=== PATIENT | male | born 1990 | race Caucasian/White ===

== ENCOUNTER 2018-05-05 13:37 | Emergency (ER) | payer BC, OTHER ==
[2018-05-05 13:43] VITALS: RESP 18
--- NOTE | 2018-05-05 14:28 | ED ---
General Adult HPI - General Chief complaint: Psychiatric Symptoms Stated complaint: Mental Health Time Seen by Provider: 05/05/18 14:14 Source: patient, RN notes reviewed Mode of arrival: ambulatory Limitations: no limitations - History of Present Illness Initial comments: Patient is a 28-year-old male presented to the emergency room today with a chief complaint of needing psychiatric evaluation. Patient does admit that his thoughts of harming himself. He does admit that he's thought of suicide. He states that he would try to overdose. He does admit to being a heroin, meth, and alcoholic. Patient states that last use of these was last night. He does admit that it seems to be every time this year things seem to be worse. He does admit that he has been seen in the hospital for these symptoms in the past. States does not feel that they're getting any better. Patient states that he has feelings of increased aggression. He states it's not towards anyone specifically. Patient states that he is afraid that he is going to hurt himself as thoughts of suicide syncope increasing. Patient denies any other complaints. Denies any recent cough, cold, fevers, chills, chest pain, shortness of breath, nausea, vomiting, diarrhea, abdominal pain, headache, visual change. - Related Data Home Medications Medication Instructions Recorded Confirmed Naproxen Sodium [Aleve] 220 mg PO DAILY 05/05/18 05/05/18 Allergies Allergy/AdvReac Type Severity Reaction Status Date / Time Penicillins Allergy Unknown Unknown Verified 05/05/18 14:51 Review of Systems ROS Statement: Those systems with pertinent positive or pertinent negative responses have been documented in the HPI. ROS Other: All systems not noted in ROS Statement are negative. Past Medical History Past Medical History: No Reported History Additional Past Medical History / Comment(s): opiod dependency, mood disorder, depression and Hep C History of Any Multi-Drug Resistant Organisms: MRSA Date of last positivie culture/infection: 02/24/2010 MDRO Source:: left knee Past Surgical History: No Surgical Hx Reported Past Anesthesia/Blood Transfusion Reactions: No Reported Reaction Past Psychological History: Anxiety, Depression Smoking Status: Current every day smoker Past Alcohol Use History: Daily, Occasional Past Drug Use History: Heroin, IV Drug Use, Marijuana, Opiates General Exam - General Exam Comments Initial Comments: General: The patient is awake and alert. Eye: Pupils are equal, round and reactive to light, extra-ocular movements are intact. No nystagmus. There is normal conjunctiva bilaterally. No signs of icterus. Ears, nose, mouth and throat: There are moist mucous membranes and no oral lesions. Neck: The neck is supple Cardiovascular: There is a regular rate and rhythm. No murmur, rub or gallop is appreciated. Respiratory: Lungs are clear to auscultation, respirations are non-labored, breath sounds are equal. No wheezes, stridor, rales, or rhonchi. Musculoskeletal: Normal ROM, no tenderness. Neurological: A&O x 3. CN II-XII intact, There are no obvious motor or sensory deficits. Coordination appears grossly intact. Speech is normal. Skin: Skin is warm and dry and no rashes or lesions are noted. Psychiatric: Cooperative. depressed affect. Limitations: no limitations Course Vital Signs 05/05/18 13:40 Temperature 97.4 F L Pulse Rate 104 H Respiratory 18 Rate Blood Pressure 147/83 O2 Sat by Pulse 98 Oximetry Medical Decision Making - Medical Decision Making Patient was seen here in the emergency room by mental health. Mental health recommends the patient can be discharged and follow up outpatient. He denies any suicidal thoughts or plans. Denies any homicidal thoughts or plans. He did state to mental health that his objective was to try to get benzodiazepines by coming here. Patient denies any suicidal or homicidal ideation. Vision will be discharged home to follow up outpatient. Disposition Clinical Impression: Drug abuse Disposition: HOME SELF-CARE Condition: Good Instructions: Polysubstance Abuse (ED) Additional Instructions: Please follow-up with mental health outpatient as discussed. Please return to emergency room if the symptoms increase or worsen or for any other concerns. Is patient prescribed a controlled substance at d/c from ED?: No Referrals: None,Stated [Primary Care Provider] - 1-2 days Time of Disposition: 17:11
[2018-05-05 18:22] VITALS: BP 141/84; PULSE 93; TEMP 98.3
== END 2018-05-05 18:19 | disposition home or self-care (01) ==
LOC: EC 13:37
DX: F15.10 Other stimulant abuse, uncomplicated (principal); F11.10 Opioid abuse, uncomplicated; F10.10 Alcohol abuse, uncomplicated; F32.9 Major depressive disorder, single episode, unspecified; F17.200 Nicotine dependence, unspecified, uncomplicated; Z86.14 Personal history of Methicillin resistant Staphylococcus aureus infection; Z79.1 Long term (current) use of non-steroidal anti-inflammatories (NSAID); Z88.0 Allergy status to penicillin
CPT/HCPCS: 82075; 99285

== ENCOUNTER 2018-05-25 17:40 | Emergency (ER) | payer OTHER ==
[2018-05-25] MEDS ORDERED: ZIPRASIDONE 20 MG VIAL IM STA (17:55)
[2018-05-25] MEDS ORDERED: LORazepam 2 MG/ML INJ IM STA (17:55)
--- NOTE | 2018-05-25 18:06 | ED ---
General Adult HPI - General Source: patient, RN notes reviewed Mode of arrival: ambulatory Limitations: no limitations <Joseph Yancey - Last Filed: 05/25/18 20:44> <Gladys Moran - Last Filed: 05/25/18 22:54> - General Chief complaint: Psychiatric Symptoms Stated complaint: mental health Time Seen by Provider: 05/25/18 17:40 - History of Present Illness Initial comments: This is a 28-year-old male who was found yelling on his phone in the main lobby when security approached me stating he needed to be seen they brought him to the ER waiting room where he started making a scene yelling and screaming not making any sense so they brought him back to the room. When I approached him he refused to answer any questions just started yelling and screaming about multiple topics none of which were connected. Patient refused to get in bed patient refused to get a gown. Patient was very aggressive and hostile getting right up into my face when he was screaming and yelling I asked him multiple times to sit down and he refused at which point in time we had to restrain him. She refuses to answer any questions after he was unrestrained but he does continue to yelling and screaming and be very hostile. (Joseph Yancey) - Related Data Home Medications Medication Instructions Recorded Confirmed Naproxen Sodium [Aleve] 220 mg PO DAILY PRN 05/05/18 05/25/18 Allergies Allergy/AdvReac Type Severity Reaction Status Date / Time Penicillins Allergy Unknown Unknown Verified 05/25/18 17:56 Review of Systems ROS Other: All systems not noted in ROS Statement are negative. <Joseph Yancey - Last Filed: 05/25/18 20:44> ROS Other: All systems not noted in ROS Statement are negative. <Gladys Moran - Last Filed: 05/25/18 22:54> ROS Statement: Those systems with pertinent positive or pertinent negative responses have been documented in the HPI. Past Medical History Past Medical History: No Reported History Additional Past Medical History / Comment(s): opiod dependency, mood disorder, depression and Hep C History of Any Multi-Drug Resistant Organisms: MRSA Date of last positivie culture/infection: 02/24/2010 MDRO Source:: left knee Past Surgical History: No Surgical Hx Reported Past Anesthesia/Blood Transfusion Reactions: No Reported Reaction Past Psychological History: Anxiety, Depression Smoking Status: Current every day smoker Past Alcohol Use History: Daily, Occasional Past Drug Use History: Heroin, IV Drug Use, Marijuana, Opiates <Lio Yanceye - Last Filed: 05/25/18 20:44> General Exam Limitations: no limitations <YanceyJoseph - Last Filed: 05/25/18 20:44> <Gladys Moran - Last Filed: 05/25/18 22:54> - General Exam Comments Initial Comments: GENERAL: Patient is well-developed and well-nourished. Patient is very hostile and aggressive and he is yelling and screaming at the top of his lungs. ENT: Neck is soft and supple. EYES: The sclera were anicteric and conjunctiva were pink and moist. PULMONARY: Unlabored respirations. Good breath sounds bilaterally. No audible rales rhonchi or wheezing was noted. CARDIOVASCULAR: There is a regular rate and rhythm without any murmurs gallops or rubs. ABDOMEN: Soft and nontender with normal bowel sounds. SKIN: Skin is clear with no lesions or rashes and otherwise unremarkable. NEUROLOGIC: Patient is alert and oriented I cannot assess the patient's orientation because he is not answering my questions. He seems to know who he is and that he is in the hospital. Patient's extremities all have full range of motion. MUSCULOSKELETAL: Normal extremities with adequate strength and full range of motion. No lower extremity swelling or edema. No calf tenderness. LYMPHATICS: No significant lymphadenopathy is noted PSYCHIATRIC: Patient is yelling and screaming he's not make any sense he's telling me he wants to be here that he tells me he doesn't know what will be a little formal I ask drawn he says everything is wrong and he is screaming at the top of his lungs. (Joseph Yancey) Vital Signs 05/25/18 20:46 Temperature 96.7 F L Pulse Rate 71 Respiratory 15 Rate Blood Pressure 125/98 O2 Sat by Pulse 96 Oximetry Procedures - Restraint - Face to Face Restraint Occurrence 1 Patient's Immediate Situation: Endangers others' safety, Endangers staff safety , Violent behavior Patient's Reaction to the Intervention: Uncooperative, Angry, Hostile, Belligerent, Bizarre, Aggressive, Combative Patient's Medical & Behavioral Condition: Awake, Agitated, Bizarre behavior Need to Continue or Terminate Restraint or Seclusion: Continue Face to Face Eval of Restraint Date: 05/25/18 Face to Face Eval of Restraint Time: 18:30 <Joseph Yancey - Last Filed: 05/25/18 20:44> Medical Decision Making <Joseph Yancey - Last Filed: 05/25/18 20:44> <Gladys Moran - Last Filed: 05/25/18 22:54> - Medical Decision Making Before the patient was sedated I had EPS come down to evaluate the patient so EPS arrived apparently never evaluated the patient and now we need to wait for the medications wear off so they can come down and evaluate the patient properly. Dr. Moran will be taking over the care of this patient at 9 PM (Joseph Yancey) Disposition <Joseph Yancey - Last Filed: 05/25/18 20:44> Is patient prescribed a controlled substance at d/c from ED?: No <Gladys Moran - Last Filed: 05/25/18 22:54> Clinical Impression: Amphetamine abuse, Agitation, Substance abuse Disposition: HOME SELF-CARE Condition: Stable Instructions: Methamphetamine Abuse (ED), Cannabis Abuse (ED), Polysubstance Abuse (ED), Opioid Withdrawal (ED) Referrals: None,Stated [Primary Care Provider] - 1-2 days
[2018-05-25 23:12] VITALS: BP 117/71; PULSE 91; RESP 16; TEMP 97.9
== END 2018-05-25 23:21 | disposition home or self-care (01) ==
LOC: EC 17:40
DX: F15.10 Other stimulant abuse, uncomplicated (principal); R45.1 Restlessness and agitation; F17.200 Nicotine dependence, unspecified, uncomplicated; F32.9 Major depressive disorder, single episode, unspecified; F41.9 Anxiety disorder, unspecified; Z86.14 Personal history of Methicillin resistant Staphylococcus aureus infection; Z86.19 Personal history of other infectious and parasitic diseases; Z88.0 Allergy status to penicillin
CPT/HCPCS: 82075; 99285; 96372 ×2; J2060; J3486

== ENCOUNTER 2019-04-13 08:04 | Inpatient (IN) | payer OTHER ==
--- NOTE | 2019-04-13 09:01 | XR ---
EXAMINATION TYPE: XR knee complete LT DATE OF EXAM: 04/13/2019 CLINICAL HISTORY: pain TECHNIQUE: Three views of the left knee are obtained. COMPARISON: None. FINDINGS: There is no acute fracture/dislocation. The tri-compartment joint spaces appear within no rmal limits. The overlying soft tissue appears unremarkable. IMPRESSION: There is no acute fracture or dislocation ICD 10 NO FRACTURE, INITIAL EVALUATION
--- NOTE | 2019-04-13 09:01 | XR ---
EXAMINATION TYPE: XR pelvis AP view DATE OF EXAM: 04/13/2019 CLINICAL HISTORY: pain TECHNIQUE: Single view the pelvis is submitted. FINDINGS: No evidence for fracture, dislocation or bony lesion. Joint spaces are well-preserved. S I joints appear symmetric. IMPRESSION: 1. No acute fracture or dislocation seen. ICD 10 NO FRACTURE, INITIAL EVALUATION
--- NOTE | 2019-04-13 09:04 | ED ---
General Adult HPI - General Chief complaint: Overdose Stated complaint: poss overdose Time Seen by Provider: 04/13/19 08:04 Source: patient, RN notes reviewed, old records reviewed Mode of arrival: EMS - History of Present Illness Initial comments: This is a 29-year-old male who was found unresponsive and EMS arrived he was unresponsive at that time. Patient had pinpoint pupils. Patient was given some Narcan and he came around. Patient started to become more lethargic to give more Narcan and when he came in he was alert and oriented but was yelling quite a bit. Someone at the house indicated to EMS that he done a speedball which is heroin and cocaine. She does admit to using heroin twice this morning. Patient states there was no attempt to hurt himself he just wanted to get high. Patient denies any alcohol. Patient denies any other drug use. - Related Data Home Medications Medication Instructions Recorded Confirmed Naproxen Sodium [Aleve] 220 mg PO DAILY PRN 05/05/18 05/25/18 Allergies Allergy/AdvReac Type Severity Reaction Status Date / Time Penicillins Allergy Unknown Unknown Verified 05/25/18 17:56 Review of Systems ROS Statement: Those systems with pertinent positive or pertinent negative responses have been documented in the HPI. ROS Other: All systems not noted in ROS Statement are negative. Past Medical History Past Medical History: No Reported History Additional Past Medical History / Comment(s): opiod dependency, mood disorder, depression and Hep C History of Any Multi-Drug Resistant Organisms: MRSA Date of last positivie culture/infection: 02/24/2010 MDRO Source:: left knee Past Surgical History: No Surgical Hx Reported Past Anesthesia/Blood Transfusion Reactions: No Reported Reaction Past Psychological History: Anxiety, Depression Smoking Status: Current every day smoker Past Alcohol Use History: Daily, Occasional Past Drug Use History: Heroin, IV Drug Use, Marijuana, Opiates General Exam - General Exam Comments Initial Comments: GENERAL: Patient is well-developed and well-nourished. Patient is nontoxic and well- hydrated and is in mild distress. ENT: Neck is soft and supple. No significant lymphadenopathy is noted. Oropharynx is clear. Moist mucous membranes. Neck has full range of motion without eliciting any pain. EYES: The sclera were anicteric and conjunctiva were pink and moist. Extraocular movements were intact and pupils were equal round and reactive to light. Eyelids were unremarkable. PULMONARY: Unlabored respirations. Good breath sounds bilaterally. No audible rales rhonchi or wheezing was noted. CARDIOVASCULAR: There is a regular rate and rhythm without any murmurs gallops or rubs. ABDOMEN: Soft and nontender with normal bowel sounds. SKIN: Patient has some superficial redness looks secondary to trauma on the left hip and left elbow and left breast. NEUROLOGIC: Patient is alert and oriented x3. Cranial nerves II through XII are grossly intact. Motor and sensory are also intact. Normal speech, volume and content. Symmetrical smile. MUSCULOSKELETAL: Normal extremities with adequate strength and full range of motion. No lower extremity swelling or edema. No calf tenderness. LYMPHATICS: No significant lymphadenopathy is noted PSYCHIATRIC: Normal psychiatric evaluation. N Course Vital Signs 04/13/19 08:12 Pulse Rate 96 Respiratory 24 Rate Blood Pressure 118/104 O2 Sat by Pulse 97 Oximetry Medical Decision Making - Medical Decision Making Patient's x-ray of his knee and pelvis show no acute abnormality. Patient be given Narcan in the emergency department because he became very lethargic again and had pinpoint pupils. After the Narcan he was easily arousable but still very fatigued and not back to his baseline and it was at this point time I decided to admit the patient I spoke with Dr. Tirado he agreed to admit the patient admitted the patient wrote admitting orders. Disposition Clinical Impression: Heroin overdose, Lethargy Disposition: ADMITTED IP TO THIS HOSP Referrals: None,Stated [Primary Care Provider] - 1-2 days Time of Disposition: 10:31
[2019-04-13] MEDS ORDERED: SODIUM CHLORIDE 0.9% 1,000 ML IV ONE (10:32)
[2019-04-13] MEDS ORDERED: NALOXONE 1 MG/ML 2 ML SYRINGE IVP PRN (10:46)
[2019-04-13] MEDS ORDERED: NALOXONE 0.4 MG/ML 10 ML VIAL IVP STA (10:51)
[2019-04-13 11:17] LABS: Basophils # (A) 0.3 k/uL (0-0.2); Basophils % (A) 2 %; Eosinophils # (A) 0.1 k/uL (0-0.7); Eosinophils % (A) 1 %; HCT 49.3 % (39.0-53.0); HGB 16.3 gm/dL (13.0-17.5); Lymphocytes # (A) 0.8 k/uL (1.0-4.8); Lymphocytes % (A) 5 %; MCH 29.3 pg (25.0-35.0); MCHC 33.2 g/dL (31.0-37.0); MCV 88.4 fL (80.0-100.0); Mean Platelet Volume 7.3; Monocytes # (A) 1.2 k/uL (0-1.0); Monocytes % (A) 7 %; Neutrophils # (A) 14.4 k/uL (1.3-7.7); Neutrophils % (A) 85 %; Platelet Count 289 k/uL (150-450); RBC 5.57 m/uL (4.30-5.90); RDW 12.5 % (11.5-15.5)
[2019-04-13 11:26] LABS: Albumin 4.1 g/dL (3.5-5.0); Calcium 8.3 mg/dL (8.4-10.2); Potassium 5.6 mmol/L (3.5-5.1); Total Bilirubin 0.7 mg/dL (0.2-1.3); Total Protein 7.2 g/dL (6.3-8.2)
--- NOTE | 2019-04-13 13:38 | P.HPIM ---
History of Present Illness 29-year-old male is brought in unresponsive with the suspicion of Ativan overdose. Patient received 1 dose of now came and route to ER and one under the dose in ER patient is arousable and responsive with the still significantly evens wsy. And admits to using heroin. Beyond that patient is not able to provide me much of much history. Patient's says he doesn't use her on a regular basis but never was diagnosed with hepatitis C in the past. Patient is found to be in renal failure does take Aleve at home as per the home medication list. Patient's serum creatinine is 1.7 along with elevated potassium with highly elevated CPK suspicious for rhabdomyolysis. We'll obtain urine analysis to assess his myoglobinuria. We'll also obtain acute hepatitis panel. Patient does have elevated liver enzymes with AST above thousand. Patient does have leukocytosis has a small area of redness in the left hip area. Drug screen is not available yet. Review of Systems Unable to obtain due to his clinical condition Past Medical History Past Medical History: Liver Disease Additional Past Medical History / Comment(s): Hepatitis C History of Any Multi-Drug Resistant Organisms: MRSA Date of last positivie culture/infection: 02/24/2010 MDRO Source:: left knee Past Surgical History: No Surgical Hx Reported Past Anesthesia/Blood Transfusion Reactions: No Reported Reaction Smoking Status: Current every day smoker - Past Family History Father Family Medical History: No Reported History Mother History Unknown: Yes Medications and Allergies Home Medications Medication Instructions Recorded Confirmed Type No Known Home Medications 04/13/19 04/13/19 History Allergies Allergy/AdvReac Type Severity Reaction Status Date / Time Penicillins Allergy Unknown Unknown Verified 04/13/19 11:01 Physical Exam Vitals: Vital Signs Temp Pulse Pulse Resp BP BP Pulse Ox 04/13/19 13:07 98.1 F 82 20 128/79 96 04/13/19 12:38 86 18 112/66 96 04/13/19 11:54 86 18 112/66 96 04/13/19 11:06 105/65 04/13/19 10:51 18 04/13/19 08:12 96 24 118/104 97 Intake and Output 04/12/19 04/13/19 04/13/19 22:59 06:59 14:59 Other: Weight 81.647 kg PHYSICAL EXAMINATION: GENERAL: The patient is drowsy, not in any acute distress. Well developed, well nourished. HEENT: Pupils are reacting reacting to light the mid constricted state. EOMI. No scleral icterus. No conjunctival pallor. Normocephalic, atraumatic. No pharyngeal erythema. No thyromegaly. CARDIOVASCULAR: S1 and S2 present. No murmurs, rubs, or gallops. PULMONARY: Chest is clear to auscultation, no wheezing or crackles. ABDOMEN: Soft, nontender, nondistended, normoactive bowel sounds. No palpable organomegaly. MUSCULOSKELETAL: No joint swelling or deformity. EXTREMITIES: No cyanosis, clubbing, or pedal edema. NEUROLOGICAL: Gross neurological examination did not reveal any focal deficits. SKIN: Redness in the left hip areas mentioned above Results CBC & Chem 7: 04/13/19 11:02 04/13/19 11:02 Labs: Abnormal Lab Results - Last 24 Hours (Table) 04/13/19 04/13/19 Range/Units 11:02 11:02 WBC 17.0 H (3.8-10.6) k/uL Neutrophils # 14.4 H (1.3-7.7) k/uL Lymphocytes # 0.8 L (1.0-4.8) k/uL Monocytes # 1.2 H (0-1.0) k/uL Basophils # 0.3 H (0-0.2) k/uL Sodium 136 L (137-145) mmol/L Potassium 5.6 H (3.5-5.1) mmol/L BUN 23 H (9-20) mg/dL Creatinine 1.70 H (0.66-1.25) mg/dL Glucose 133 H (74-99) mg/dL Calcium 8.3 L (8.4-10.2) mg/dL AST 1033 H (17-59) U/L ALT 256 H (21-72) U/L Creatine Kinase 47258 H* (55-170) U/L Thrombosis Risk Factor Assmnt - Choose All That Apply Any of the Below Risk Factors Present?: No Other Risk Factors: No Other congenital or acquired thrombophilia - If yes, enter type in comment: No Thrombosis Risk Factor Assessment Level: Very Low Risk Assessment and Plan Plan: -Heroine overdose: Patient received Narcan will not require any additional dose of Narcan this monitored in the stepdown floor. -Possible rhabdomyolysis with renal dysfunction: IV fluids at 1 50 mL/h we'll monitor kidney function obtain myoglobin levels urine analysis -Acute renal failure: Probably secondary to myoglobinuria with a competent of prerenal azotemia, tubular damage secondary to myoglobin. Patient IV morphine IV fluids as mentioned above -Hepatitis probably secondary to hep C was 9 now diagnosed with hep C hepatitis panel will be obtained. We'll recheck liver function tomorrow. -Small area of cellulitis in the left hip area we'll use doxycycline for recurr ent -Hyperkalemia: Probably secondary to rhabdomyolysis expected to improve with IV fluids -DVT prophylaxis early ambulation I'm expecting patient to be more awake later today or ruled out fractures of pelvis .
[2019-04-13] MEDS: SODIUM CHLORIDE 0.9% 1,000 ML IV SCH ×2 (13:41→20:45)
[2019-04-13] MEDS: DOXYCYCLINE 100 MG CAP PO SCH ×2 (15:41→20:44)
--- NOTE | 2019-04-13 16:06 | XR ---
EXAMINATION TYPE: XR wrist complete LT DATE OF EXAM: 04/13/2019 CLINICAL HISTORY: pain TECHNIQUE: Frontal, lateral and oblique images of the left wrist are obtained. COMPARISON: None. FINDINGS: There is no acute fracture/dislocation evident. The joint spaces appear within normal sow its. The overlying soft tissue appears unremarkable. IMPRESSION: There is no acute fracture or dislocation seen. ICD 10 NO FRACTURE, INITIAL EVALUATION
[2019-04-13 16:42] LABS: Amorphous Sediment,Urine Rare /hpf; Appearance,Urine Cloudy (Clear); Bacteria,Urine Rare /hpf; Bilirubin,Urine Negative (Negative); Blood,Urine Large (Negative); Color,Urine Red; Glucose,Urine (UA) Negative (Negative); Ketones,Urine Trace (Negative); Leukocyte Esterase,Urine Negative (Negative); Mucus,Urine Rare /hpf; Nitrite,Urine Negative (Negative); PH, Urine 5.5 (5.0-8.0); Protein,Urine 2+ (Negative); RBC,Urine <1 /hpf (0-5); Specific Gravity,Urine 1.012 (1.001-1.035); Squamous Epithelial Cell,Urine <1 /hpf (0-4); WBC,Urine 1 /hpf (0-5)
[2019-04-13 16:43] LABS: Amphetamine Screen,Urine Detected (NotDetected); Barbiturate Screen,Urine Not Detected (NotDetected); Benzodiazepines Screen,Urine Not Detected (NotDetected); Cocaine Screen,Urine Not Detected (NotDetected); Methadone Screen, Urine Not Detected (NotDetected); Opiate Screen,Urine Detected (NotDetected); Oxycodone Screen, Urine Not Detected (NotDetected); Phencyclidine Screen,Urine Not Detected (NotDetected); Tricyclic Antidepressant,Urine Not Detected (NotDetected); Urn Cannabinoid Scrn Detected (NotDetected)
[2019-04-13 21:16] LABS: Hepatitis A Antibody IgM Non-Reactive (Non-Reactive); Hepatitis B Core IgM Non-Reactive (Non-Reactive); Hepatitis B Surface Antigen Non-Reactive (Non-Reactive); Hepatitis C IgG Antibody Reactive (Non-Reactive)
[2019-04-14] MEDS: SODIUM CHLORIDE 0.9% 1,000 ML IV SCH ×3 (05:32→20:21)
[2019-04-14 06:27] LABS: ALT 618 U/L (21-72); African American GFR (CKD) >90 (>60 ml/min/1.73 sqM); Albumin 3.4 g/dL (3.5-5.0); Alkaline Phosphatase 72 U/L (38-126); Anion Gap 6 mmol/L; Blood Urea Nitrogen 16 mg/dL (9-20); Calcium 8.7 mg/dL (8.4-10.2); Carbon Dioxide 30 mmol/L (22-30); Chloride 100 mmol/L (98-107); Glucose 100 mg/dL (74-99); HGB 16.6 gm/dL (13.0-17.5); MCH 29.3 pg (25.0-35.0); MCHC 33.1 g/dL (31.0-37.0); MCV 88.5 fL (80.0-100.0); Mean Platelet Volume 7.4; Non-African American GFR(CKD) 79 (>60 ml/min/1.73 sqM); Platelet Count 249 k/uL (150-450); Potassium 4.7 mmol/L (3.5-5.1); RBC 5.65 m/uL (4.30-5.90); RDW 12.4 % (11.5-15.5); Sodium 136 mmol/L (137-145); Total Bilirubin 0.7 mg/dL (0.2-1.3); Total Protein 6.4 g/dL (6.3-8.2)
[2019-04-14 06:55] LABS: AST 2201 U/L (17-59)
[2019-04-14] MEDS: DOXYCYCLINE 100 MG CAP PO SCH ×2 (10:08→20:21)
[2019-04-14 10:53] VITALS: BMI 25.1
--- NOTE | 2019-04-14 11:42 | CT ---
EXAMINATION TYPE: CT brain wo con DATE OF EXAM: 04/14/2019 COMPARISON: CT brain 03/16/2011 HISTORY: Lethargy, hit head yesterday, heroin overdose CT DLP: 1087.4 mGycm. Automated Exposure Control for Dose Reduction was Utilized. TECHNIQUE: CT scan of the head is performed without contrast. FINDINGS: There is no acute intracranial hemorrhage, mass effect, or midline shift identified. The ventricles and sulci are within normal limits in size. The globes are intact and the visualized sin uses are clear. There is a cephalohematoma over the left parietal region greater than right, increase d attenuation also noted over the left frontal scalp within the soft tissues may be related to some l ocal ecchymosis or remote trauma IMPRESSION: No acute intracranial hemorrhage, mass effect, or midline shift is seen. Scalp abnormali ties as described.
[2019-04-14] MEDS: KETOROLAC 30 MG/ML 1 ML VIAL IVP PRN (12:07)
--- NOTE | 2019-04-14 12:44 | XR ---
EXAMINATION TYPE: XR chest 2V DATE OF EXAM: 04/14/2019 COMPARISON: 02/17/2014 HISTORY: 29-year-old male with cough, rule out pneumonia TECHNIQUE: AP and lateral views. The technologist notes that the patient is unable to stand due to l eft hip pain. Patient had difficulty leaning forward in the wheelchair. FINDINGS: Heart normal size. Patient is rotated towards the right altering the normal cardia mediastinal contou rs and casting differential density over the left hemithorax. No jeremias consolidation or pleural effus ion. Patient is leaning forward on the lateral view. Again, no pleural effusion or focal consolidatio n is seen. IMPRESSION: Rotated exam with the patient leaning forward in the wheelchair. Correlate as to the cause of patient 's nonweightbearing status. No acute cardiopulmonary process.
--- NOTE | 2019-04-14 13:37 | P.PN ---
Subjective 29-year-old male is brought in unresponsive with the suspicion of opiate overdose. Patient received 1 dose of now came and route to ER and one under the dose in ER patient is arousable and responsive with the still significantly drowsy. And admits to using heroin. Beyond that patient is not able to provide me much of much history. Patient's says he doesn't use her on a regular basis but never was diagnosed with hepatitis C in the past. Patient is found to be in renal failure does take Aleve at home as per the home medication list. Araceli lafleur's serum creatinine is 1.7 along with elevated potassium with highly elevated CPK suspicious for rhabdomyolysis. We'll obtain urine analysis to assess his myoglobinuria. We'll also obtain acute hepatitis panel. Patient does have elevated liver enzymes with AST above thousand. Patient does have leukocytosis has a small area of redness in the left hip area. Drug screen is not available yet. 04/14/2019 Patient is doing much better today his skin lesion which was believed to be selective this is better it's probably just a bruise rather than cellulitis. Patient had a low-grade fever because of which I'm obtaining a blood culture chest x-ray was obtained which did not show any pneumonic process aspiration. Patient is much more awake complaining of pain for which we will use Toradol. Patient liver enzymes continue to go for an ultrasound of the liver and will monitor can monitor liver function. Patient appears to have myoglobinuria all the kidney function improved with IV fluids will cut down the IV fluids 200 mL per hour. Patient does have hepatitis C counseling regarding this was provided. Brain CT was obtained today which showed a did not show any bleed a brain CT was obtained as patient has differential pupillary reactions. Patient can use to have leukocytosis. Patient urine drug screen is positive for amphetamines marijuana opiates, patient admits to using heroin, marijuana and crystal meth. On disability bedside it appears like the only family support the patient has is his on discussed at length with nontender and the patient regarding headache for family support that he will be requiring once his discharge and the patient and his on [facility] today Objective - Vital Signs Vital signs: Vital Signs Temp 98.3 F 04/14/19 12:57 Pulse 91 04/14/19 12:57 Resp 16 04/14/19 12:57 BP 138/77 04/14/19 12:57 Pulse Ox 99 04/14/19 12:57 Intake & Output 04/13/19 04/14/19 04/14/19 18:59 06:59 18:59 Intake Total 700 240 Output Total 650 1400 Balance 50 -1400 240 Weight 81.647 kg 79.5 kg 79.5 kg Intake: Intake, IV Titration 450 Amount Sodium Chloride 0.9% 1, 450 000 ml @ 150 mls/hr IV . Q6H40M [facility] Rx#:[id number] Oral 250 240 Output: Urine 650 1400 Other: Voiding Method Urinal Urinal # Voids 1 - Exam PHYSICAL EXAMINATION: GENERAL: The patient is drowsy, not in any acute distress. Well developed, well nourished. HEENT: Pupils are reacting reacting to light the mid constricted state. EOMI. No scleral icterus. No conjunctival pallor. Normocephalic, atraumatic. No pharyngeal erythema. No thyromegaly. CARDIOVASCULAR: S1 and S2 present. No murmurs, rubs, or gallops. PULMONARY: Chest is clear to auscultation, no wheezing or crackles. ABDOMEN: Soft, nontender, nondistended, normoactive bowel sounds. No palpable organomegaly. MUSCULOSKELETAL: No joint swelling or deformity. EXTREMITIES: No cyanosis, clubbing, or pedal edema. NEUROLOGICAL: Gross neurological examination did not reveal any focal deficits. SKIN: Redness in the left hip areas mentioned above - Labs CBC & Chem 7: 04/14/19 06:00 04/14/19 06:00 Labs: Abnormal Lab Results - Last 24 Hours (Table) 04/13/19 04/13/19 04/13/19 Range/Units 11:02 16:20 16:20 WBC (3.8-10.6) k/uL Sodium (137-145) mmol/L Glucose (74-99) mg/dL AST (17-59) U/L ALT (21-72) U/L Albumin (3.5-5.0) g/dL Urine Protein 2+ H (Negative) Urine Ketones Trace H (Negative) Urine Blood Large H (Negative) Amorphous Sediment Rare H (None) /hpf Urine Bacteria Rare H (None) /hpf Urine Mucus Rare H (None) /hpf Urine Opiates Screen Detected H (NotDetected) Ur Amphetamines Screen Detected H (NotDetected) U Methamphetamines Scrn Detected H (NotDetected) U Marijuana (THC) Screen Detected H (NotDetected) Hep C IgG Ab Reactive H (Non-Reactive) 04/14/19 04/14/19 Range/Units 06:00 06:00 WBC 16.0 H (3.8-10.6) k/uL Sodium 136 L (137-145) mmol/L Glucose 100 H (74-99) mg/dL AST 2201 H (17-59) U/L ALT 618 H (21-72) U/L Albumin 3.4 L (3.5-5.0) g/dL Urine Protein (Negative) Urine Ketones (Negative) Urine Blood (Negative) Amorphous Sediment (None) /hpf Urine Bacteria (None) /hpf Urine Mucus (None) /hpf Urine Opiates Screen (NotDetected) Ur Amphetamines Screen (NotDetected) U Methamphetamines Scrn (NotDetected) U Marijuana (THC) Screen (NotDetected) Hep C IgG Ab (Non-Reactive) Assessment and Plan Plan: -Heroine, amphetamine overdose: Patient is clinically doing well at this time will be transferred to regular floor - rhabdomyolysis with renal dysfunction: We'll cut down the IV fluids kidney function improved Acute renal failure: Improved Hepatitis probably secondary , AST continue to go up we'll obtain ultrasound of the liver. Repeat liver enzymes again cellulitis in the left hip area we'll use doxycycline for recurrent -Hyperkalemia: Probably secondary to rhabdomyolysisimproved with IV fluids -Low-grade fevers will rule out bacteremia UA is not consistent with infection chest x-ray did not show any pneumonia DVT prophylaxis early ambulation .
--- NOTE | 2019-04-14 16:57 | US ---
EXAMINATION TYPE: US gallbladder DATE OF EXAM: 04/14/2019 COMPARISON: NONE CLINICAL HISTORY: elevated liver enzymes. Heroin overdose per order EXAM MEASUREMENTS: Liver Length: 14.8 cm Gallbladder Wall: 0.2 cm CBD: 0.5 cm Right Kidney: 10.1 x 6.5 x 4.8 cm Pancreas: mid and tail gassed out Liver: wnl Gallbladder: anterior wall polyp mid wall = 0.2 x 0.4 x 0.2cm Evidence for sonographic Menezes's sign: no CBD: wnl Right Kidney: small amount of central sinus fluid noted mid pole IMPRESSION: There is a small gallbladder polyp. No gallstones. No dilated ducts. No evidence of renal mass or obstruction.
[2019-04-14] MEDS: FAMOTIDINE 20 MG TAB PO SCH (20:21)
[2019-04-15] MEDS: KETOROLAC 30 MG/ML 1 ML VIAL IVP PRN ×3 (00:03→13:45)
[2019-04-15] MEDS: SODIUM CHLORIDE 0.9% 1,000 ML IV SCH ×2 (03:13→13:46)
[2019-04-15] MEDS: FAMOTIDINE 20 MG TAB PO SCH (08:09)
[2019-04-15] MEDS: DOXYCYCLINE 100 MG CAP PO SCH (08:09)
[2019-04-15 09:48] LABS: HCT 43.2 % (39.0-53.0); HGB 14.5 gm/dL (13.0-17.5); MCH 29.5 pg (25.0-35.0); MCHC 33.5 g/dL (31.0-37.0); MCV 87.9 fL (80.0-100.0); Mean Platelet Volume 6.7; Platelet Count 232 k/uL (150-450); RBC 4.92 m/uL (4.30-5.90); RDW 12.4 % (11.5-15.5); WBC 10.5 k/uL (3.8-10.6)
[2019-04-15 10:07] LABS: ALT 482 U/L (21-72); African American GFR (CKD) >90 (>60 ml/min/1.73 sqM); Albumin 2.7 g/dL (3.5-5.0); Alkaline Phosphatase 50 U/L (38-126); Anion Gap 4 mmol/L; Blood Urea Nitrogen 10 mg/dL (9-20); Calcium 8.5 mg/dL (8.4-10.2); Carbon Dioxide 28 mmol/L (22-30); Chloride 107 mmol/L (98-107); Glucose 118 mg/dL (74-99); Non-African American GFR(CKD) >90 (>60 ml/min/1.73 sqM); Potassium 4.4 mmol/L (3.5-5.1); Sodium 139 mmol/L (137-145); Total Bilirubin 0.6 mg/dL (0.2-1.3); Total Protein 5.3 g/dL (6.3-8.2)
[2019-04-15 10:20] LABS: AST 1261 U/L (17-59)
--- NOTE | 2019-04-15 14:11 | P.DS ---
Providers Date of admission: 04/13/19 10:32 Attending physician: Satnam Tirado Primary care physician: Stated None Hospital Course: 29-year-old male is brought in unresponsive with the suspicion of opiate overdose. Patient received 1 dose of now came and route to ER and one under the dose in ER patient is arousable and responsive with the still significantly drowsy. And admits to using heroin. Beyond that patient is not able to provide me much of much history. Patient's says he doesn't use her on a regular basis but never was diagnosed with hepatitis C in the past. Patient is found to be in renal failure does take Aleve at home as per the home medication list. Patient's serum creatinine is 1.7 along with elevated potassium with highly elevated CPK suspicious for rhabdomyolysis. We'll obtain urine analysis to assess his myoglobinuria. We'll also obtain acute hepatitis panel. Patient does have elevated liver enzymes with AST above thousand. Patient does have leukocytosis has a small area of redness in the left hip area. Drug screen is not available yet. 04/14/2019 Patient is doing much better today his skin lesion which was believed to be selective this is better it's probably just a bruise rather than cellulitis. Patient had a low-grade fever because of which I'm obtaining a blood culture chest x-ray was obtained which did not show any pneumonic process aspiration. Patient is much more awake complaining of pain for which we will use Toradol. Patient liver enzymes continue to go for an ultrasound of the liver and will monitor can monitor liver function. Patient appears to have myoglobinuria all the kidney function improved with IV fluids will cut down the IV fluids 200 mL per hour. Patient does have hepatitis C counseling regarding this was provided. Brain CT was obtained today which showed a did not show any bleed a brain CT was obtained as patient has differential pupillary reactions. Patient can use to have leukocytosis. Patient urine drug screen is positive for amphetamines marijuana opiates, patient admits to using heroin, marijuana and crystal meth. On disability bedside it appears like the only family support the patient has is his on discussed at length with nontender and the patient regarding headache for family support that he will be requiring once his discharge and the patient and his on [facility] today 04/15/2019 Patient is still complaining of severe pain in the left leg where it appears like patient had a fall with a bruise in the left hip area. Imaging did not show any fracture patient appears to have significant muscle injury leading to rhabdomyolysis. received IV fluids kidney function improved. Patient liver enzymes although not normalized have come down significantly, liver enzymes elevation is secondary to chronic hep C. Patient doesn't have any cellulitis will not require any more antibiotics. Patient doesn't have any suicidal ideation will not require any psychiatric evaluation at this time patient will definitely benefit from [place] [facility]. Physical therapy and outpatient therapy evaluated the patient and patient will require crutches for few days because of his severe pain in the left hip area ration will be discharged on hospital anti-inflammatory along with GI prophylaxis. Patient will need to follow with gastroenterology as an outpatient for hepatitis C. Ultrasound of the liver and gallbladder showed a polyp in the gallbladder which is not significant. PHYSICAL EXAMINATION: GENERAL: The patient is drowsy, not in any acute distress. Well developed, well nourished. HEENT: Pupils are reacting reacting to light the mid constricted state. EOMI. No scleral icterus. No conjunctival pallor. Normocephalic, atraumatic. No pharyngeal erythema. No thyromegaly. CARDIOVASCULAR: S1 and S2 present. No murmurs, rubs, or gallops. PULMONARY: Chest is clear to auscultation, no wheezing or crackles. ABDOMEN: Soft, nontender, nondistended, normoactive bowel sounds. No palpable organomegaly. MUSCULOSKELETAL: No joint swelling or deformity. EXTREMITIES: No cyanosis, clubbing, or pedal edema. NEUROLOGICAL: Gross neurological examination did not reveal any focal deficits. SKIN: Redness in the left hip areas mentioned above Assessment and Plan Plan: -Heroine, amphetamine overdose: [place] rehabilitation as mentioned above - rhabdomyolysis with renal dysfunction: Renal function improved and normalized IV fluids were discontinued Acute renal failure: Improved Hepatitis probably secondary , liver enzymes are coming down . cellulitis in the left hip area we'll use doxycycline for recurrent -Hyperkalemia: Probably secondary to rhabdomyolysisimproved with IV fluids -Low-grade fevers no evidence of bacteremia or any other infection at this time. Plan - Discharge Summary Discharge Rx Participant: No New Discharge Prescriptions: New Ibuprofen [Motrin] 400 mg PO Q6HR PRN #30 tab PRN Reason: Pain Famotidine [Pepcid] 20 mg PO BID #30 tablet Discharge Medication List Famotidine [Pepcid] 20 mg PO BID #30 tablet 04/15/19 [Rx] Ibuprofen [Motrin] 400 mg PO Q6HR PRN #30 tab 04/15/19 [Rx] Follow up Appointment(s)/Referral(s): None,Stated [Primary Care Provider] - 1-2 days Nataliya Johnston MD [STAFF PHYSICIAN] - 1 Week Activity/Diet/Wound Care/Special Instructions: NURSE is to call [facility] at [phone] for police to come get patient
[2019-04-15 14:34] VITALS: BP 112/73; PULSE 75; RESP 20; TEMP 98.8
== END 2019-04-15 15:11 | DRG 918 ==
LOC: EC 08:04 → 3SCARD 10:32 → 4MS4W 04-14 21:50
PROVIDERS: ADMIT Internal Medicine; ATTEND Internal Medicine
DX: T40.1X1A Poisoning by heroin, accidental (unintentional), initial encounter (principal); N17.9 Acute kidney failure, unspecified; L03.116 Cellulitis of left lower limb; M62.82 Rhabdomyolysis; B18.2 Chronic viral hepatitis C; E87.5 Hyperkalemia; F17.200 Nicotine dependence, unspecified, uncomplicated; F32.9 Major depressive disorder, single episode, unspecified; F41.9 Anxiety disorder, unspecified; Z88.0 Allergy status to penicillin; Z79.899 Other long term (current) drug therapy; Z86.14 Personal history of Methicillin resistant Staphylococcus aureus infection
CPT/HCPCS: 70450; 71046; 72170; 76705; 80053; 80074; 80306; 81001; 82550; 82553; 83874; 85025; 85027; 87040; 96361; 96374; 99285

== ENCOUNTER 2019-04-18 00:20 | Emergency (ER) | payer OTHER ==
[2019-04-18 00:53] VITALS: TEMP 98.1
[2019-04-18] MEDS ORDERED: SODIUM CHLORIDE 0.9% 1,000 ML IV ONE ×2 (00:58→02:43)
[2019-04-18] MEDS ORDERED: SODIUM CHLORIDE 0.9% 1,000 ML IV SCH (01:00)
[2019-04-18 01:26] LABS: Basophils % (A) 0 %; Eosinophils # (A) 0.3 k/uL (0-0.7); Eosinophils % (A) 3 %; HCT 38.9 % (39.0-53.0); HGB 13.7 gm/dL (13.0-17.5); Lymphocytes # (A) 3.3 k/uL (1.0-4.8); Lymphocytes % (A) 32 %; MCH 30.1 pg (25.0-35.0); MCHC 35.1 g/dL (31.0-37.0); MCV 85.7 fL (80.0-100.0); Mean Platelet Volume 6.7; Monocytes # (A) 0.7 k/uL (0-1.0); Monocytes % (A) 7 %; Neutrophils # (A) 5.7 k/uL (1.3-7.7); Neutrophils % (A) 56 %; Platelet Count 253 k/uL (150-450); RBC 4.54 m/uL (4.30-5.90); RDW 12.8 % (11.5-15.5); WBC 10.2 k/uL (3.8-10.6)
[2019-04-18 01:40] LABS: ALT 458 U/L (21-72); African American GFR (CKD) >90 (>60 ml/min/1.73 sqM); Albumin 2.9 g/dL (3.5-5.0); Alkaline Phosphatase 45 U/L (38-126); Anion Gap 2 mmol/L; Blood Urea Nitrogen 16 mg/dL (9-20); Calcium 8.7 mg/dL (8.4-10.2); Carbon Dioxide 29 mmol/L (22-30); Chloride 108 mmol/L (98-107); Glucose 107 mg/dL (74-99); Non-African American GFR(CKD) >90 (>60 ml/min/1.73 sqM); Potassium 4.2 mmol/L (3.5-5.1); Sodium 139 mmol/L (137-145); Total Bilirubin 0.6 mg/dL (0.2-1.3); Total Protein 5.5 g/dL (6.3-8.2)
--- NOTE | 2019-04-18 01:41 | US ---
EXAMINATION TYPE: US venous doppler duplex LE LT DATE OF EXAM: 04/18/2019 1:29 AM COMPARISON: NONE CLINICAL HISTORY: r/o dvt. Patient fell and injured leg, pain and swelling SIDE PERFORMED: Left TECHNIQUE: The lower extremity deep venous system is examined utilizing real time linear array sonog tanisha with graded compression, doppler sonography and color-flow sonography. VESSELS IMAGED: External Iliac Vein (EIV) Common Femoral Vein Deep Femoral Vein Greater Saphenous Vein * Femoral Vein Popliteal Vein Small Saphenous Vein * Proximal Calf Veins (* superficial vessels) Left Leg: Negative for DVT IMPRESSION: No evidence of deep venous thrombosis in the left leg.
[2019-04-18 01:46] LABS: AST 792 U/L (17-59)
[2019-04-18] MEDS ORDERED: KETOROLAC 30 MG/ML 1 ML VIAL IVP STA (01:50)
--- NOTE | 2019-04-18 02:05 | ED ---
Lower Extremity Injury HPI - General Source: patient Mode of arrival: ambulatory Limitations: no limitations <Meche Platt - Last Filed: 04/18/19 03:57> <Jose Raul Oropeza - Last Filed: 04/20/19 02:59> - General Chief Complaint: Extremity Injury, Lower Stated Complaint: Leg Swelling Time Seen by Provider: 04/18/19 00:40 - History of Present Illness Initial Comments: 29-year-old male presenting for left foot weakness swelling. Patient states that he had an overdose approximate 5 days ago he states he was in a position where he had compressed his left leg. He states this causes rhabdomyolysis. Patient's initial creatinine kinase was around 75,000. Patient states it trended downward with IV fluids. He states his kidney function was back down to normal. He states that he was seen by occupational therapy and he discussed that he was unable to dorsiflex or plantarflex foot. No decreased sensation. Patient was told that this may return in the next 5-6 days. Patient states that he was concerned when the symptoms persisted today. He noticed there is some swelling of the calf. Patient denies any increased pain, pallor or coolness of the extremity. Patient denies any recent use of heroin since discharge, fevers. Remaining ROS (-). Upon arrival patient appears well. (Meche Platt) - Related Data Previous Rx's Medication Instructions Recorded Famotidine [Pepcid] 20 mg PO BID #30 tablet 04/15/19 Ibuprofen [Motrin] 400 mg PO Q6HR PRN #30 tab 04/15/19 Allergies Allergy/AdvReac Type Severity Reaction Status Date / Time Penicillins Allergy Unknown Unknown Verified 04/18/19 00:53 Review of Systems ROS Other: All systems not noted in ROS Statement are negative. <Meche Platt - Last Filed: 04/18/19 03:57> ROS Other: All systems not noted in ROS Statement are negative. <Jose Raul Oropeza - Last Filed: 04/20/19 02:59> ROS Statement: Those systems with pertinent positive or pertinent negative responses have been documented in the HPI. Past Medical History Past Medical History: Liver Disease Additional Past Medical History / Comment(s): Hepatitis C History of Any Multi-Drug Resistant Organisms: MRSA Date of last positivie culture/infection: 02/24/2010 MDRO Source:: left knee Past Surgical History: No Surgical Hx Reported Additional Past Surgical History / Comment(s): surgery on left middle finger ortho. Past Anesthesia/Blood Transfusion Reactions: No Reported Reaction Past Psychological History: Anxiety, Bipolar, Depression Smoking Status: Current every day smoker Past Alcohol Use History: None Reported Past Drug Use History: None Reported - Past Family History Father Family Medical History: No Reported History Mother History Unknown: Yes <Meche Platt - Last Filed: 04/18/19 03:57> General Exam Limitations: no limitations <Meche Platt - Last Filed: 04/18/19 03:57> - General Exam Comments Initial Comments: General: The patient is awake and alert, in no distress, and does not appear acutely ill. Eye: +3 mm pupils are equal, round and reactive to light, extra-ocular movements are intact. No nystagmus. There is normal conjunctiva bilaterally. No signs of icterus. Ears, nose, mouth and throat: There are moist mucous membranes and no oral lesions. Neck: The neck is supple, there is no tenderness or JVD. Cardiovascular: There is a regular rate and rhythm. No murmur, rub or gallop is appreciated. Respiratory: Lungs are clear to auscultation, respirations are non-labored, breath sounds are equal. No wheezes, stridor, rales, or rhonchi. Musculoskeletal: Compartments are soft compressible of calf, left LE. No pain out of proportion wtih active or passive range of motion at calf/foot, hip of LE b/l. Extremities warm, no pallor. +2 DP pulses b/l. Patient has decreased sensation in the left foot in comparison eith the right and foot drop. Able to wiggle all 5 digits of the foot. Calf compression,nontender. Slight swelling of foot, distal tibia. Psychiatric: Cooperative, appropriate mood & affect, normal judgment. Neurological: A&O x 3. CN II-XII intact grossly, There are no obvious motor or sensory deficits. Coordination appears grossly intact. Speech is normal. Skin: Skin is warm and dry and no rashes or lesions are noted. Small round abrasion 1x1cm left side of forehead. (Meche Platt) Course Vital Signs 04/18/19 04/18/19 04/18/19 00:42 01:10 02:30 Temperature 98.1 F Pulse Rate 71 65 68 Respiratory 18 18 17 Rate Blood Pressure 138/87 124/96 118/74 O2 Sat by Pulse 100 98 98 Oximetry 04/18/19 04:02 Temperature Pulse Rate 69 Respiratory 18 Rate Blood Pressure 115/81 O2 Sat by Pulse 99 Oximetry Medical Decision Making - Lab Data Result diagrams: 04/18/19 01:18 04/18/19 01:18 <Meche Platt - Last Filed: 04/18/19 03:57> - Lab Data Result diagrams: 04/18/19 01:18 04/18/19 01:18 <Jose Raul Oropeza - Last Filed: 04/20/19 02:59> - Medical Decision Making 29-year-old male presenting for persistent weakness and decreased sensation left foot. Was present on previous admission, patient evaluated by occupational therapy. Patient thought symptoms would be resolved by now. CK trendning downward. Given IVF. Doppler (-) DVT. Patient evaluated by attending. Compartment soft, no pallor, pulses present. At this time we feel this is a "saturday night" palsy from extensive time down. recommend outpatient f/u with physical therapy and orthopedic surgery. Patient verbalize understanding and ws discharged appearing well. Return parameters discusse.d (Meche Platt) I saw this patient in conjunction with the physician assistant production manager. I performed independent history and physical exam. Agree with case management. (Jose Raul Oropeza) - Lab Data Lab Results 04/18/19 04/18/19 04/18/19 Range/Units 01:18 01:18 02:10 WBC 10.2 (3.8-10.6) k/uL RBC 4.54 (4.30-5.90) m/uL Hgb 13.7 (13.0-17.5) gm/dL Hct 38.9 L (39.0-53.0) % MCV 85.7 (80.0-100.0) fL MCH 30.1 (25.0-35.0) pg MCHC 35.1 (31.0-37.0) g/dL RDW 12.8 (11.5-15.5) % Plt Count 253 (150-450) k/uL Neutrophils % 56 % Lymphocytes % 32 % Monocytes % 7 % Eosinophils % 3 % Basophils % 0 % Neutrophils # 5.7 (1.3-7.7) k/uL Lymphocytes # 3.3 (1.0-4.8) k/uL Monocytes # 0.7 (0-1.0) k/uL Eosinophils # 0.3 (0-0.7) k/uL Basophils # 0.0 (0-0.2) k/uL Sodium 139 (137-145) mmol/L Potassium 4.2 (3.5-5.1) mmol/L Chloride 108 H (98-107) mmol/L Carbon Dioxide 29 (22-30) mmol/L Anion Gap 2 mmol/L BUN 16 (9-20) mg/dL Creatinine 1.05 (0.66-1.25) mg/dL Est GFR (CKD-EPI)AfAm >90 (>60 ml/min/1.73 sqM) Est GFR (CKD-EPI)NonAf >90 (>60 ml/min/1.73 sqM) Glucose 107 H (74-99) mg/dL Calcium 8.7 (8.4-10.2) mg/dL Total Bilirubin 0.6 (0.2-1.3) mg/dL AST 792 H (17-59) U/L ALT 458 H (21-72) U/L Alkaline Phosphatase 45 (38-126) U/L Creatine Kinase 94177 H* (55-170) U/L Total Protein 5.5 L (6.3-8.2) g/dL Albumin 2.9 L (3.5-5.0) g/dL Urine Color Yellow Urine Appearance Clear (Clear) Urine pH 6.0 (5.0-8.0) Ur Specific [place] 1.018 (1.001-1.035) Urine Protein Negative (Negative) Urine Glucose (UA) Negative (Negative) Urine Ketones Negative (Negative) Urine Blood Negative (Negative) Urine Nitrite Negative (Negative) Urine Bilirubin Negative (Negative) Urine Urobilinogen 6.0 (<2.0) mg/dL Ur Leukocyte Esterase Negative (Negative) Disposition Is patient prescribed a controlled substance at d/c from ED?: No Time of Disposition: 02:57 <Meche Platt - Last Filed: 04/18/19 03:57> <Jose Raul Oropeza - Last Filed: 04/20/19 02:59> Clinical Impression: Neuropathy, Elevated creatine kinase, Nerve palsy Disposition: HOME SELF-CARE Condition: Good Instructions (If sedation given, give patient instructions): Peripheral Neuropathy (ED) Additional Instructions: Please use medication as discussed. Please follow-up with family doctor in the next 2 days, repeat creatinine kinase and CMP to ensure down trending. Recommend physical therapy. Please return to emergency room if the symptoms increase or worsen or for any other concerns. Referrals: None,Stated [Primary Care Provider] - 1-2 days [facility] [NON-STAFF] - 1-2 days Feliz Bonilla DO [Doctor of Osteopathic Medicine] - 1-2 days
[2019-04-18 02:28] LABS: Creatine Kinase 18627 U/L (55-170)
[2019-04-18 02:36] LABS: Appearance,Urine Clear (Clear); Bilirubin,Urine Negative (Negative); Blood,Urine Negative (Negative); Color,Urine Yellow; Glucose,Urine (UA) Negative (Negative); Ketones,Urine Negative (Negative); Leukocyte Esterase,Urine Negative (Negative); Nitrite,Urine Negative (Negative); Protein,Urine Negative (Negative); Specific Gravity,Urine 1.018 (1.001-1.035)
[2019-04-18 04:04] VITALS: BP 115/81; PULSE 69; RESP 18
== END 2019-04-18 04:21 | disposition home or self-care (01) ==
LOC: EC 00:20
DX: G57.92 Unspecified mononeuropathy of left lower limb (principal); G62.9 Polyneuropathy, unspecified; R74.8 Abnormal levels of other serum enzymes; S00.81XA Abrasion of other part of head, initial encounter; M21.371 Foot drop, right foot; F17.200 Nicotine dependence, unspecified, uncomplicated; Z88.0 Allergy status to penicillin; Z86.14 Personal history of Methicillin resistant Staphylococcus aureus infection; W19.XXXA Unspecified fall, initial encounter; Z53.8 Procedure and treatment not carried out for other reasons
CPT/HCPCS: 36415; 80053; 82550; 85025; 81003; 83874; 93971; 99284; 96374; 96361 ×2; J1885

== ENCOUNTER 2019-04-23 00:02 | Emergency (ER) | payer OTHER ==
[2019-04-23] MEDS ORDERED: KETOROLAC 30 MG/ML 1 ML VIAL IM STA (00:33)
--- NOTE | 2019-04-23 01:13 | XR ---
EXAMINATION TYPE: XR lumbosacral spine min 4V DATE OF EXAM: 04/23/2019 COMPARISON: NONE HISTORY: Left hip pain TECHNIQUE: 5 views FINDINGS: Lumbar vertebra have normal spacing and alignment. Posterior elements are intact. There is no evidence of a fracture. Sacroiliac joints appear normal. IMPRESSION: Normal lumbar spine exam.
--- NOTE | 2019-04-23 01:14 | XR ---
EXAMINATION TYPE: XR Hip LT and AP Pelvis DATE OF EXAM: 04/23/2019 COMPARISON: NONE HISTORY: Left hip pain. Fell 10 days ago TECHNIQUE: A single AP view of the pelvis is obtained. Two views of the left hip are obtained. FINDINGS: Pelvic ring is intact. Proximal left femur and hip joint appear normal. There is no sign of hip dysplasia. Sacroiliac joints appear normal. IMPRESSION: Negative pelvis and left hip exam.
--- NOTE | 2019-04-23 01:26 | ED ---
General Adult HPI - General Chief complaint: Extremity Injury, Lower Stated complaint: L Leg Injury/Pain Time Seen by Provider: 04/23/19 00:08 Source: patient Mode of arrival: wheelchair Limitations: no limitations - History of Present Illness Initial comments: 29-year-old male patient presents to the emergency department today for evaluation of left leg pain and tingling. 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 States this caused rhabdomyolysis an injury to the leg. States that since then he has been experiencing pain to the left hip and to the foot. States he has decreased mobility of the foot and ankle. Patient states he has been evaluated for this in the past and was diagnosed with a nerve palsy. States he is waiting for follow-up with vessel specialist however tonight the pain seemed to worsen today presented here for further evaluation. He has been taking ibuprofen without relief. States it is difficult to sleep and to ambulate due to his symptoms. He denies any low back pain. Denies any loss of bladder control, but states he has lost control of his bowels a couple of times since the incident. States he has at times been able to control his bowels. He denies any fevers but states he has been chilled. Patient denies any recent rash, shortness breath, chest pain, abdominal pain, nausea, vomiting, diarrhea, constipation, back pain, dizziness, weakness, hematuria, dysuria, urinary urgency, urinary frequency, headache, visual changes, or any other complaints. - Related Data Previous Rx's Medication Instructions Recorded Famotidine [Pepcid] 20 mg PO BID #30 tablet 04/15/19 Ibuprofen [Motrin] 400 mg PO Q6HR PRN #30 tab 04/15/19 Allergies Allergy/AdvReac Type Severity Reaction Status Date / Time Penicillins Allergy Unknown Unknown Verified 04/23/19 00:07 Review of Systems ROS Statement: Those systems with pertinent positive or pertinent negative responses have been documented in the HPI. ROS Other: All systems not noted in ROS Statement are negative. Past Medical History Past Medical History: Liver Disease Additional Past Medical History / Comment(s): Hepatitis C, neuropathy History of Any Multi-Drug Resistant Organisms: MRSA Date of last positivie culture/infection: 02/24/2010 MDRO Source:: left knee Past Surgical History: No Surgical Hx Reported Additional Past Surgical History / Comment(s): surgery on left middle finger ortho. Past Anesthesia/Blood Transfusion Reactions: No Reported Reaction Past Psychological History: Anxiety, Bipolar, Depression Smoking Status: Current every day smoker Past Alcohol Use History: None Reported Past Drug Use History: None Reported - Past Family History Father Family Medical History: No Reported History Mother History Unknown: Yes General Exam Limitations: no limitations General appearance: alert, in no apparent distress, other (This is a well-d eveloped, well-nourished adult male patient in mild distress related to pain. Vital signs upon presentation are temperature 98.4F, pulse 95, respirations 20, blood pressure 134/83, pulse ox 96% on room air.) Eye exam: Present: normal appearance, PERRL, EOMI. Absent: scleral icterus, conjunctival injection, periorbital swelling ENT exam: Present: normal exam, normal oropharynx, mucous membranes moist Respiratory exam: Present: normal lung sounds bilaterally. Absent: respiratory distress, wheezes, rales, rhonchi, stridor Cardiovascular Exam: Present: regular rate, normal rhythm, normal heart sounds. Absent: systolic murmur, diastolic murmur, rubs, gallop, clicks GI/Abdominal exam: Present: soft, normal bowel sounds. Absent: distended, tenderness, guarding, rebound, rigid Extremities exam: Present: tenderness (Generalized tenderness over the foot), normal capillary refill, other (There is mild general edema noted to the left lower extremity. Skin is warm and dry. Cap refills less than 3 seconds. Pedal and posttibial pulses 2+ and equal bilaterally. Skin over the calf is supple and soft.). Absent: full ROM (Decreased range of motion at the ankle and toes.), pedal edema, joint swelling, calf tenderness Back exam: Present: normal inspection. Absent: vertebral tenderness Neurological exam: Present: alert, oriented X3, CN II-XII intact Psychiatric exam: Present: normal affect, normal mood Skin exam: Present: warm, dry, intact, normal color. Absent: rash Course Vital Signs 04/23/19 00:03 Temperature 98.4 F Pulse Rate 95 Respiratory 20 Rate Blood Pressure 134/83 O2 Sat by Pulse 96 Oximetry Medical Decision Making - Medical Decision Making 29-year-old male patient presents to the emergency department today for evaluation of left leg pain, tingling, decreased mobility since an injury approximately 10 days ago. Physical examination did reveal soft tissue swelling to the left lower extremity. Calf is soft and supple. Pedal and posttibial pulses 2+ and equal bilaterally. X-rays of the left hip and pelvis are obtained and were unremarkable. X-rays of the lumbar sacral spine were obtained and were unremarkable. I did discuss findings and results with the patient. Patient does seem to have nerve palsy from his injury 10 days ago. He did have ultrasound negative for DVT here 5 days ago. He'll be discharged follow-up with his primary care physician and orthopedics as directed. Return parameters were discussed in detail. He verbalizes understanding and agrees with this plan. - Radiology Data Radiology results: report reviewed, image reviewed Single view of the pelvis and 2 views the left upper obtained. Report was reviewed in its entirety. Impression by Dr. Heath shows negative pelvis and left hip exam. 5 views of the lumbosacral spine are obtained. Report is reviewed in its entirety. Impression by Dr. Heath shows normal lumbar spine exam. Disposition Clinical Impression: Nerve palsy, Left leg pain Disposition: HOME SELF-CARE Condition: Good Instructions (If sedation given, give patient instructions): Paresthesia (ED), Foot Drop (ED), Leg Pain (ED) Additional Instructions: Continue anti-inflammatory medications. Follow-up with vessel specialist for recheck as soon as possible. Call your doctor's office tomorrow to make sure that they have made this appointment. Discuss medication for nerve pain such as gabapentin or Lyrica. Return to the emergency department for any new, worsening, or concerning symptoms. Is patient prescribed a controlled substance at d/c from ED?: No Referrals: [facility] [Primary Care Provider] - 1-2 days Time of Disposition: 01:25
[2019-04-23 01:54] VITALS: BP 133/84; PULSE 64; RESP 18; TEMP 97.9
== END 2019-04-23 01:54 | disposition home or self-care (01) ==
LOC: EC 00:02
DX: G58.9 Mononeuropathy, unspecified (principal); M79.605 Pain in left leg; F17.200 Nicotine dependence, unspecified, uncomplicated; Z88.0 Allergy status to penicillin
CPT/HCPCS: 72110; 73502; 96372; 99283

== ENCOUNTER 2019-05-12 14:52 | Emergency (ER) | payer OTHER ==
[2019-05-12 15:07] VITALS: RESP 18; TEMP 98.4
--- NOTE | 2019-05-12 15:34 | ED ---
Extremity Problem HPI - General Chief complaint: Extremity Problem,Nontraumatic Stated complaint: L leg pain, swelling Time Seen by Provider: 05/12/19 15:11 Source: patient Mode of arrival: wheelchair Limitations: no limitations - History of Present Illness Initial comments: 29-year-old male presenting for burning sensation left leg. Patient states that he had rhabdomyolysis in March and IVD overdose. He states that since he has had foot drop and a burning sensation in his left leg since. He states it comes and goes. Patient states evaluation after multiple evaluations at [facility] as well as an additional visit at [facility] where he was found to have a CT with a bulging disc in the lumbar spine. Patient denies any loss of bowel bladder control increase in leg weakness urinary retention erectile dysfunction or increasing numbness of the left leg. Patient states that pain has been ongoing for months and [facility] He doesnt know what to do for the pain anymore. remaining ROS (-) denies back pain, chest pain, abdominal pain, nausea, vomiting, dark urine,fevers--patient denies drug use. - Related Data Previous Rx's Medication Instructions Recorded Famotidine [Pepcid] 20 mg PO BID #30 tablet 04/15/19 Ibuprofen [Motrin] 400 mg PO Q6HR PRN #30 tab 04/15/19 Gabapentin [Neurontin] 300 mg PO BID 7 Days #14 cap 05/12/19 Allergies Allergy/AdvReac Type Severity Reaction Status Date / Time Penicillins Allergy Unknown Unknown Verified 04/23/19 00:07 Review of Systems ROS Statement: Those systems with pertinent positive or pertinent negative responses have been documented in the HPI. ROS Other: All systems not noted in ROS Statement are negative. Past Medical History Past Medical History: Liver Disease Additional Past Medical History / Comment(s): Hepatitis C, neuropathy History of Any Multi-Drug Resistant Organisms: MRSA Date of last positivie culture/infection: 02/24/2010 MDRO Source:: left knee Past Surgical History: No Surgical Hx Reported Additional Past Surgical History / Comment(s): surgery on left middle finger ortho. Past Anesthesia/Blood Transfusion Reactions: No Reported Reaction Past Psychological History: Anxiety, Bipolar, Depression Smoking Status: Current every day smoker Past Alcohol Use History: None Reported Past Drug Use History: Marijuana - Past Family History Father Family Medical History: No Reported History Mother History Unknown: Yes General Exam - General Exam Comments Initial Comments: General: The patient is awake and alert, in no distress, and does not appear acutely ill. Eye: +3 m pupils are equal, round and reactive to light, extra-ocular movements are intact. No nystagmus. There is normal conjunctiva bilaterally. No signs of icterus. Ears, nose, mouth and throat: There are moist mucous membranes and no oral lesions. Neck: The neck is supple, there is no tenderness or JVD. Cardiovascular: There is a regular rate and rhythm. No murmur, rub or gallop is appreciated. Respiratory: Lungs are clear to auscultation, respirations are non-labored, breath sounds are equal. No wheezes, stridor, rales, or rhonchi. Musculoskeletal: Foot drop, with increasing ability to dorsiflex since last visit. Sensation intact but slightly decreased of left foot in comparison with right. +2 PT pulses b/l, +1 DP pulse of the left foot, +2 DP of the right foot. No leg swelling. Pain to palpation of the left foot. Neurological: A&O x 3. CN II-XII intact grossly, There are no obvious motor or sensory deficits. Coordination appears grossly intact. Speech is normal. Skin: Skin is warm and dry and no rashes or lesions are noted. Psychiatric: Cooperative, appropriate mood & affect, normal judgment. Limitations: no limitations Course Vital Signs 05/12/19 05/12/19 15:05 16:45 Temperature 98.4 F Pulse Rate 90 71 Respiratory 18 18 Rate Blood Pressure 136/89 129/79 O2 Sat by Pulse 97 98 Oximetry Medical Decision Making - Medical Decision Making 29-year-old male presenting for left foot pain has been ongoing for months since he had rhabdomyolysis of the left leg after compression injury from drug overdose. Patient had foot drop sensation deficit weakness since his discharge. Patient states it has been improving however he cannot seem to get rid of this burning pain that feels swollen but the leg actually appears smaller on the left than the right. Patient was evaluated with attending provider who recommended obtaining laboratory studies including lactic acid and creatine kinase otherwise if studies are normal he feels patient is stable for discharge with outpatient orthopedic follow-up for foot drop as well as physical therapy. I'm agreeable to this care plan and impression. Patient is agreeable to plan I stressed the importance of orthopedic follow-up as well as physical therapy he is agreeable from previous visit patient seems to making improvements in foot drop as well as muscle tone strength and sensation. - Lab Data Result diagrams: 05/12/19 15:28 05/12/19 15:28 Lab Results 05/12/19 05/12/19 05/12/19 Range/Units 15:28 15:28 15:28 WBC 7.8 (3.8-10.6) k/uL RBC 5.43 (4.30-5.90) m/uL Hgb 15.6 (13.0-17.5) gm/dL Hct 47.9 (39.0-53.0) % MCV 88.2 (80.0-100.0) fL MCH 28.8 (25.0-35.0) pg MCHC 32.6 (31.0-37.0) g/dL RDW 12.5 (11.5-15.5) % Plt Count 280 (150-450) k/uL Neutrophils % 49 % Lymphocytes % 38 % Monocytes % 6 % Eosinophils % 4 % Basophils % 1 % Neutrophils # 3.8 (1.3-7.7) k/uL Lymphocytes # 3.0 (1.0-4.8) k/uL Monocytes # 0.4 (0-1.0) k/uL Eosinophils # 0.3 (0-0.7) k/uL Basophils # 0.1 (0-0.2) k/uL Sodium 143 (137-145) mmol/L Potassium 4.0 (3.5-5.1) mmol/L Chloride 105 (98-107) mmol/L Carbon Dioxide 27 (22-30) mmol/L Anion Gap 11 mmol/L BUN 13 (9-20) mg/dL Creatinine 1.08 (0.66-1.25) mg/dL Est GFR (CKD-EPI)AfAm >90 (>60 ml/min/1.73 sqM) Est GFR (CKD-EPI)NonAf >90 (>60 ml/min/1.73 sqM) Glucose 84 (74-99) mg/dL Plasma Lactic Acid Philip 1.3 (0.7-2.0) mmol/L Calcium 10.5 H (8.4-10.2) mg/dL Total Bilirubin 0.7 (0.2-1.3) mg/dL AST 26 (17-59) U/L ALT 19 (4-49) U/L Alkaline Phosphatase 64 (38-126) U/L Creatine Kinase 148 (55-170) U/L Total Protein 8.5 H (6.3-8.2) g/dL Albumin 4.8 (3.5-5.0) g/dL Disposition Clinical Impression: Left leg pain Disposition: HOME SELF-CARE Condition: Good Instructions (If sedation given, give patient instructions): Peripheral Neuropathy (ED) Additional Instructions: Please use medication as discussed. Please follow-up with family doctor in the next 2 days, patient needs to follow-up with orthopedics as well as recommendation of bracing/physical therapy for foot drop. Please return to emergency room if the symptoms increase or worsen or for any other concerns. Prescriptions: Gabapentin [Neurontin] 300 mg PO BID 7 Days #14 cap Is patient prescribed a controlled substance at d/c from ED?: No Referrals: [facility] [Primary Care Provider] - 1-2 days Aris Menezes MD [STAFF PHYSICIAN] - 1-2 days Time of Disposition: 16:01
[2019-05-12 15:45] LABS: Basophils # (A) 0.1 k/uL (0-0.2); Basophils % (A) 1 %; Eosinophils # (A) 0.3 k/uL (0-0.7); Eosinophils % (A) 4 %; HCT 47.9 % (39.0-53.0); HGB 15.6 gm/dL (13.0-17.5); Lymphocytes % (A) 38 %; MCH 28.8 pg (25.0-35.0); MCHC 32.6 g/dL (31.0-37.0); MCV 88.2 fL (80.0-100.0); Mean Platelet Volume 7.9; Monocytes # (A) 0.4 k/uL (0-1.0); Monocytes % (A) 6 %; Neutrophils # (A) 3.8 k/uL (1.3-7.7); Neutrophils % (A) 49 %; Platelet Count 280 k/uL (150-450); RBC 5.43 m/uL (4.30-5.90); RDW 12.5 % (11.5-15.5); WBC 7.8 k/uL (3.8-10.6)
[2019-05-12 15:52] LABS: ALT 19 U/L (4-49); AST 26 U/L (17-59); African American GFR (CKD) >90 (>60 ml/min/1.73 sqM); Albumin 4.8 g/dL (3.5-5.0); Alkaline Phosphatase 64 U/L (38-126); Anion Gap 11 mmol/L; Blood Urea Nitrogen 13 mg/dL (9-20); Calcium 10.5 mg/dL (8.4-10.2); Carbon Dioxide 27 mmol/L (22-30); Chloride 105 mmol/L (98-107); Creatine Kinase 148 U/L (55-170); Glucose 84 mg/dL (74-99); Non-African American GFR(CKD) >90 (>60 ml/min/1.73 sqM); Sodium 143 mmol/L (137-145); Total Bilirubin 0.7 mg/dL (0.2-1.3); Total Protein 8.5 g/dL (6.3-8.2)
[2019-05-12] MEDS ORDERED: GABAPENTIN 300 MG CAP PO STA (15:55)
[2019-05-12 16:46] VITALS: BP 129/79; PULSE 71
== END 2019-05-12 16:45 | disposition home or self-care (01) ==
LOC: EC 14:52
DX: M79.605 Pain in left leg (principal); M79.89 Other specified soft tissue disorders; T79.6XXD Traumatic ischemia of muscle, subsequent encounter; M21.379 Foot drop, unspecified foot; R53.1 Weakness; F17.200 Nicotine dependence, unspecified, uncomplicated; Z88.0 Allergy status to penicillin; X58.XXXD Exposure to other specified factors, subsequent encounter; Z86.14 Personal history of Methicillin resistant Staphylococcus aureus infection
CPT/HCPCS: 36415; 80053; 82550; 83605; 85025; 93005; 99283

== ENCOUNTER 2019-05-15 03:23 | Emergency (ER) | payer OTHER ==
[2019-05-15 03:32] VITALS: BP 137/101; PULSE 90; RESP 16; TEMP 98.5
--- NOTE | 2019-05-15 03:38 | ED ---
Lower Extremity Injury HPI - General Chief Complaint: Extremity Injury, Lower Stated Complaint: fall, L leg pain Time Seen by Provider: 05/15/19 03:38 Source: patient Mode of arrival: ambulatory Limitations: physical limitation - History of Present Illness Initial Comments: Skinny is a 29-year-old male who is suffering from paresthesias secondary to a nerve injury sustained last month. Patient reports that approximately a month ago he had a fall and slept in an odd position, he woke up with numbness and weakness of the leg. He's been evaluated in the ER normal times. He was diagnosed with paresthesias. Patient reports that for the past 5 days the pain is been worsening. He's been experiencing some cold and hot shocks. He reports that initially after the injury he felt better when taking a warm bath but now warm and cold both cause worsening pain. He is attempted to follow up with neurology but due to insurance issues is been unable to establish follow-up. He has seen his primary care is prescribed gabapentin which he takes 300 mg of twice daily. - Related Data Previous Rx's Medication Instructions Recorded Gabapentin [Neurontin] 300 mg PO BID 7 Days #14 cap 05/12/19 predniSONE [Deltasone] 40 mg PO DAILY 5 Days #10 tablet 05/15/19 Allergies Allergy/AdvReac Type Severity Reaction Status Date / Time Penicillins Allergy Unknown Unknown Verified 05/15/19 03:32 Review of Systems ROS Statement: Those systems with pertinent positive or pertinent negative responses have been documented in the HPI. ROS Other: All systems not noted in ROS Statement are negative. Past Medical History Past Medical History: Liver Disease Additional Past Medical History / Comment(s): Hepatitis C, neuropathy History of Any Multi-Drug Resistant Organisms: MRSA Date of last positivie culture/infection: 02/24/2010 MDRO Source:: left knee Past Surgical History: No Surgical Hx Reported Additional Past Surgical History / Comment(s): surgery on left middle finger ortho. Past Anesthesia/Blood Transfusion Reactions: No Reported Reaction Past Psychological History: Anxiety, Bipolar, Depression Smoking Status: Current every day smoker Past Alcohol Use History: None Reported Past Drug Use History: Marijuana - Past Family History Father Family Medical History: No Reported History Mother History Unknown: Yes General Exam - General Exam Comments Initial Comments: Physical Exam GENERAL: Patient is well-developed and well-nourished. Patient is nontoxic and well-hydrated and is in no distress. HENT: Normocephalic, Atraumatic. EYES: PERRL, EOMI PULMONARY: Unlabored respirations. CARDIOVASCULAR: RRR Warm and well perfused extremities ABDOMEN: Non-distended SKIN: No rashes or bruising : Deferred NEUROLOGIC: Alert and oriented Normal speech Normal gait MUSCULOSKELETAL: Normal strength, decreased range of motion secondary to pain Full passive ROM No apparent acute injury PSYCHIATRIC: No SI/HI Limitations: physical limitation Course Vital Signs 05/15/19 03:27 Temperature 98.5 F Pulse Rate 90 Respiratory 16 Rate Blood Pressure 137/101 O2 Sat by Pulse 97 Oximetry Medical Decision Making - Medical Decision Making She was seen and evaluated history is obtained from patient. Patient with worsening paresthesias rectally 1 month after injury has been unable to follow up with neurology. Patient was given morphine for pain management of dose of steroids and referred to multiple alternative neurologist for outpatient follow- up. Patient is agreeable to this plan. Patient has no acute injuries today. Disposition Clinical Impression: Neuropathy Disposition: HOME SELF-CARE Condition: Stable Additional Instructions: Contact local neurologists for follow up Discuss with your PCP the option to increase Gabapentin dosing or frequency Consider adding anti-inflammatories such as Motrin/Tylenol Prescriptions: predniSONE [Deltasone] 40 mg PO DAILY 5 Days #10 tablet Is patient prescribed a controlled substance at d/c from ED?: No Referrals: [facility] [Primary Care Provider] - 1-2 days Naz Powell MD [STAFF PHYSICIAN] - 1-2 days Ana Rosa Powell MD [STAFF PHYSICIAN] - 1-2 days Burt Rock MD [Medical Doctor] - 1-2 days Shree Steel MD [STAFF PHYSICIAN] - 1-2 days Forrest Underwood DO [REFERRING] - 1-2 days
[2019-05-15] MEDS ORDERED: MORPHINE SULFATE 4 MG/ML SYRINGE IVP STA (04:02)
== END 2019-05-15 04:28 | disposition home or self-care (01) ==
LOC: EC 03:23
DX: G62.9 Polyneuropathy, unspecified (principal); F17.200 Nicotine dependence, unspecified, uncomplicated; Z88.0 Allergy status to penicillin
CPT/HCPCS: 99283; 96374; J2270

== ENCOUNTER 2019-05-17 01:18 | Emergency (ER) | payer OTHER ==
[2019-05-17] MEDS ORDERED: KETOROLAC 30 MG/ML 1 ML VIAL IM STA (02:49)
[2019-05-17] MEDS ORDERED: predniSONE 20 MG TAB PO STA (03:50)
[2019-05-17] MEDS ORDERED: ACET/COD 300 MG/30 MG STARTER PACK 6 TAB BTL PO STA (04:24)
--- NOTE | 2019-05-17 04:24 | ED ---
General Adult HPI - General Chief complaint: Extremity Problem,Nontraumatic Stated complaint: left foot pain Time Seen by Provider: 05/17/19 02:56 Source: patient, RN notes reviewed, old records reviewed Mode of arrival: wheelchair Limitations: no limitations - History of Present Illness Initial comments: 29-year-old male patient past history significant for left lower extremity neuropathy presents to ED for chief complaint of left lower extremity pain and burning. Patient has been seen multiple times this emergency department for same symptoms. Denies any other complaints at this time. Denies any other concerning symptoms. Patient has been using his gabapentin, did not fill the prescription for steroids at this time. Systemic: Pt denies fatigue, fever/chills, rash. Pt denies weakness, night sweats, weight loss. Neuro: Pt denies headache, visual disturbances, syncope or pre-syncope. HEENT: Pt denies ocular discharge or irritation, otalgia, rhinorrhea, pharyngitis or notable lymphadenopathy. Cardiopulmonary: Pt denies chest pain, SOB, heart palpitations, dyspnea on exertion. Abdominal/GI: Pt denies abdominal pain, n/v/d. : Pt denies dysuria, burning w/ urination, frequency/urgency. Denies new onset urinary or bowel incontinence. MSK: Pt denies loss of strength or function in extremities. Neuro: Pt denies new onset weakness, paresthesias. - Related Data Previous Rx's Medication Instructions Recorded Gabapentin [Neurontin] 300 mg PO BID 7 Days #14 cap 05/12/19 predniSONE [Deltasone] 40 mg PO DAILY 5 Days #10 tablet 05/15/19 Allergies Allergy/AdvReac Type Severity Reaction Status Date / Time Penicillins Allergy Unknown Unknown Verified 05/15/19 03:32 Review of Systems ROS Statement: Those systems with pertinent positive or pertinent negative responses have been documented in the HPI. ROS Other: All systems not noted in ROS Statement are negative. Past Medical History Past Medical History: Liver Disease Additional Past Medical History / Comment(s): Hepatitis C, neuropathy History of Any Multi-Drug Resistant Organisms: MRSA Date of last positivie culture/infection: 02/24/2010 MDRO Source:: left knee Past Surgical History: No Surgical Hx Reported Additional Past Surgical History / Comment(s): surgery on left middle finger ortho. Past Anesthesia/Blood Transfusion Reactions: No Reported Reaction Past Psychological History: Anxiety, Bipolar, Depression Smoking Status: Current every day smoker Past Alcohol Use History: None Reported Past Drug Use History: Marijuana - Past Family History Father Family Medical History: No Reported History Mother History Unknown: Yes General Exam - General Exam Comments Initial Comments: Constitutional: NAD, AOX3, Pt has pleasant affect. HEENT: NC/AT, trachea midline, neck supple, no lymphadenopathy. Posterior pharynx non erythematous, without exudates. External ears appear normal, without discharge. Mucous membranes moist. Eyes PERRLA, EOM intact. There is no scleral icterus. No pallor noted. Cardiopulmonary: RRR, no murmurs, rubs or gallops, no JVD noted. Lungs CTAB in anterior and posterior rios. No peripheral edema. Abdominal exam: Abdomen soft and non-distended. Abdomen non-tender to palpation in all 4 quadrants. Bowel sounds active in LLQ. No hepatosplenomegaly. No ecchymosis Neuro: CN II-XII grossly intact. No nuchal rigidity. No raccon eyes, no beavers sign, no hemotympanum. No cervical spinal tenderness. MSK: Left lower extremity nontender to palpation. Sensation intact, neurovascularly intact. No posterior calf tenderness bilaterally, homans sign negative bilaterally. Posterior tibialis and radial pulse +2 bilaterally. Sensation intact in upper and lower extremities. Full active ROM in upper and lower extremities, 5/5 stregnth. Limitations: no limitations Course Vital Signs 05/17/19 01:32 Temperature 97.9 F Pulse Rate 100 Respiratory 18 Rate Blood Pressure 153/92 O2 Sat by Pulse 98 Oximetry Medical Decision Making - Medical Decision Making 29-year-old male patient past history significant for left lower extremity neuropathy presents to ED for chief complaint of burning left lower extremity, left heel region. Physical exam displayed lower extremity neurovascularly intact. No skin changes. Patient administered dose of steroids. We'll full prescription tomorrow. Will be discharged with Tylenol 3 starter pack. Patient does have outpatient follow-up with neurology scheduled, will follow up with primary care provider as soon as possible and return to ER physician worsens. Case discussed with Dr. Moran. Disposition Clinical Impression: Neuropathy Disposition: HOME SELF-CARE Condition: Stable Instructions (If sedation given, give patient instructions): Peripheral Neuropathy (ED) Additional Instructions: Follow-up with primary care provider tomorrow, follow up with neurologist as scheduled. Fill prescription for steroids and use as directed. Return to ER if condition worsens. Is patient prescribed a controlled substance at d/c from ED?: No Referrals: [facility] [Primary Care Provider] - 1-2 days
[2019-05-17 05:03] VITALS: BP 138/99; PULSE 89; RESP 16; TEMP 98.6
== END 2019-05-17 05:00 | disposition home or self-care (01) ==
LOC: EC 01:18
DX: G62.9 Polyneuropathy, unspecified (principal); F17.200 Nicotine dependence, unspecified, uncomplicated; Z88.0 Allergy status to penicillin; Z86.14 Personal history of Methicillin resistant Staphylococcus aureus infection
CPT/HCPCS: 99284; 96372; J1885; J7512

== ENCOUNTER 2019-05-18 19:01 | Emergency (ER) | payer OTHER ==
[2019-05-18 19:40] VITALS: TEMP 98.5
[2019-05-18] MEDS ORDERED: MORPHINE SULFATE 4 MG/ML SYRINGE IM STA (20:00)
[2019-05-18] MEDS ORDERED: ACET/COD 300 MG/30 MG STARTER PACK 6 TAB BTL PO STA (20:01)
--- NOTE | 2019-05-18 20:02 | ED ---
Lower Extremity Injury HPI - General Chief Complaint: Extremity Injury, Lower Stated Complaint: Lt leg pain Time Seen by Provider: 05/18/19 19:41 Source: patient Mode of arrival: ambulatory Limitations: no limitations - History of Present Illness Initial Comments: 29-year-old male presenting for left pain patient states he cannot stay in the burning sensation that is extending down his leg and his foot. Patient states his present since discharge from initial presentation for rhabdomyolysis. Patient states he does have follow up with physical therapy as well as neurology. He states that he is taking his gabapentin which seems to somewhat alleviate the symptoms. Patient states he has no medications for pain and can no longer tolerate it and he presented [facility] for further evaluation. Patient denies noting any physical swelling the states he feels as though there is a tighting of the skin sensation like there is swelling, denies coolness or pallor or extremity. - Related Data Previous Rx's Medication Instructions Recorded Gabapentin [Neurontin] 300 mg PO BID 7 Days #14 cap 05/12/19 predniSONE [Deltasone] 40 mg PO DAILY 5 Days #10 tablet 05/15/19 Allergies Allergy/AdvReac Type Severity Reaction Status Date / Time Penicillins Allergy Unknown Unknown Verified 05/18/19 19:40 Review of Systems ROS Statement: Those systems with pertinent positive or pertinent negative responses have been documented in the HPI. ROS Other: All systems not noted in ROS Statement are negative. Past Medical History Past Medical History: Liver Disease Additional Past Medical History / Comment(s): Hepatitis C, neuropathy History of Any Multi-Drug Resistant Organisms: MRSA Date of last positivie culture/infection: 02/24/2010 MDRO Source:: left knee Past Surgical History: No Surgical Hx Reported Additional Past Surgical History / Comment(s): surgery on left middle finger ortho. Past Anesthesia/Blood Transfusion Reactions: No Reported Reaction Past Psychological History: Anxiety, Bipolar, Depression Smoking Status: Current every day smoker Past Alcohol Use History: None Reported Past Drug Use History: Marijuana - Past Family History Father Family Medical History: No Reported History Mother History Unknown: Yes General Exam - General Exam Comments Initial Comments: General: The patient is awake and alert, in no distress, and does not appear acutely ill. Eye: +3 mm pupils are equal, round and reactive to light, extra-ocular movements are intact. No nystagmus. There is normal conjunctiva bilaterally. No signs of icterus. Ears, nose, mouth and throat: There are moist mucous membranes and no oral lesions. Neck: The neck is supple, there is no tenderness or JVD. Cardiovascular: There is a regular rate and rhythm. No murmur, rub or gallop is appreciated. Respiratory: Lungs are clear to auscultation, respirations are non-labored, breath sounds are equal. No wheezes, stridor, rales, or rhonchi. Musculoskeletal: Normal ROM at the knees b/l, decreased ROM at the left foot/ankle. Sensation intact. Posterior tibial pulses equal bilaterally 2+, DP +1 pulses, foot drop. No swelling noted. The left calf atrophy notd Neurological: A&O x 3. CN II-XII intact grossly, There are no obvious motor or sensory deficits. Coordination appears grossly intact. Speech is normal. Skin: Skin is warm and dry and no rashes or lesions are noted. Psychiatric: Cooperative, appropriate mood & affect, normal judgment. Limitations: no limitations Course Vital Signs 05/18/19 05/18/19 19:36 21:57 Temperature 98.5 F 98.5 F Pulse Rate 100 79 Respiratory 20 18 Rate Blood Pressure 146/84 140/75 O2 Sat by Pulse 97 98 Oximetry Medical Decision Making - Medical Decision Making 29-year-old male presenting for persistent left leg pain. Patient has history of rhabdomyolysis with most likely nerve damage from possible compartment syndrome that had developed. Patient has no evidence of compartmentsyndrome at this time. Patient's compartments are soft compressible no changes from previous exams. No evidence of swelling. Atrophy noted. Patient has scheduled neurology, physical therapy follow-up. Patient states gabapentin slightly helps. Patient given medications in the emergency department discharge with previously scheduled outpatient follow-up. Case discussed with Dr. Oropeza who is agreeable to care plan. Disposition Clinical Impression: Neuropathy Disposition: HOME SELF-CARE Condition: Good Instructions (If sedation given, give patient instructions): Peripheral Neuropathy (ED), Foot Drop (ED) Additional Instructions: Please use medication as discussed. Please follow-up with family doctor in the next 2 days. Please return to emergency room if the symptoms increase or worsen or for any other concerns. Is patient prescribed a controlled substance at d/c from ED?: No Referrals: [facility] [Primary Care Provider] - 1-2 days Time of Disposition: 20:02
[2019-05-18 21:59] VITALS: BP 140/75; PULSE 79; RESP 18
== END 2019-05-18 21:59 | disposition home or self-care (01) ==
LOC: EC 19:01
DX: G62.9 Polyneuropathy, unspecified (principal); M62.562 Muscle wasting and atrophy, not elsewhere classified, left lower leg; M21.379 Foot drop, unspecified foot; M62.82 Rhabdomyolysis; F17.200 Nicotine dependence, unspecified, uncomplicated; Z88.0 Allergy status to penicillin; Z86.14 Personal history of Methicillin resistant Staphylococcus aureus infection
CPT/HCPCS: 99283; 96372; J2270

== ENCOUNTER 2019-06-22 21:31 | Emergency (ER) | payer OTHER ==
[2019-06-22] MEDS ORDERED: KETOROLAC 30 MG/ML 1 ML VIAL IM STA (22:24)
--- NOTE | 2019-06-22 23:13 | US ---
EXAMINATION TYPE: US venous doppler duplex LE LT DATE OF EXAM: 06/22/2019 10:58 PM COMPARISON: US 04/18/2019 CLINICAL HISTORY: Left foot swelling/calf pain/knee pain. Left foot swelling, left calf pain, left kn ee pain x 2 days. No hx of DVT. Patient does not take blood thinners. SIDE PERFORMED: Left TECHNIQUE: The lower extremity deep venous system is examined utilizing real time linear array sonog tanisha with graded compression, doppler sonography and color-flow sonography. VESSELS IMAGED: External Iliac Vein (EIV) Common Femoral Vein Deep Femoral Vein Greater Saphenous Vein * Femoral Vein Popliteal Vein Small Saphenous Vein * Proximal Calf Veins (* superficial vessels) Left Leg: No evidence of DVT in veins imaged at this time. IMPRESSION: No evidence of deep vein thrombosis in the left leg.
--- NOTE | 2019-06-22 23:42 | ED ---
Lower Extremity Injury HPI - General Chief Complaint: Extremity Injury, Lower Stated Complaint: swollen ankle Time Seen by Provider: 06/22/19 21:47 Source: patient Mode of arrival: ambulatory Limitations: no limitations - History of Present Illness Initial Comments: 29-year-old male patient presents to the emergency department today for evaluation of left leg swelling. Patient states that he has had increased swelling over the last several days. Patient has a palsy with foot drop to the left leg after an injury in March. Patient states he got a new brace from his chronic specialist, but he is unable to wear it due to the amount of swelling. He is unsure if the brace is causing the swelling or not. He is taking ibuprofen and gabapentin for symptoms. He states he has constant shooting pains and tingling to the leg. This has been present since the injury. He denies any fever or chills. States he does have calf pain and pain in the knee. He denies any new injury. Patient denies any recent rash, shortness breath, chest pain, abdominal pain, nausea, vomiting, diarrhea, constipation, back pain, dizziness, weakness, hematuria, dysuria, urinary urgency, urinary frequency, headache, visual changes, or any other complaints. - Related Data Previous Rx's Medication Instructions Recorded Gabapentin [Neurontin] 300 mg PO BID 7 Days #14 cap 05/12/19 predniSONE [Deltasone] 40 mg PO DAILY 5 Days #10 tablet 05/15/19 Allergies Allergy/AdvReac Type Severity Reaction Status Date / Time Penicillins Allergy Unknown Unknown Verified 06/22/19 21:40 Review of Systems ROS Statement: Those systems with pertinent positive or pertinent negative responses have been documented in the HPI. ROS Other: All systems not noted in ROS Statement are negative. Past Medical History Past Medical History: Liver Disease Additional Past Medical History / Comment(s): Hepatitis C, neuropathy, rhabdo History of Any Multi-Drug Resistant Organisms: MRSA Date of last positivie culture/infection: 02/24/2010 MDRO Source:: left knee Past Surgical History: No Surgical Hx Reported Additional Past Surgical History / Comment(s): surgery on left middle finger ortho. Past Anesthesia/Blood Transfusion Reactions: No Reported Reaction Past Psychological History: Anxiety, Bipolar, Depression Smoking Status: Current every day smoker Past Alcohol Use History: None Reported Past Drug Use History: Marijuana - Past Family History Father Family Medical History: No Reported History Mother History Unknown: Yes General Exam Limitations: no limitations General appearance: alert, in no apparent distress, other (This is a well- developed, well-nourished, nontoxic-appearing adult male patient in no acute distress. Vital signs upon presentation are temperature 98.3F, pulse 82, respirations 18, blood pressure 129/85, pulse ox 98% on room air.) Eye exam: Present: normal appearance, PERRL, EOMI. Absent: scleral icterus, conjunctival injection, periorbital swelling ENT exam: Present: normal exam, normal oropharynx, mucous membranes moist Respiratory exam: Present: normal lung sounds bilaterally. Absent: respiratory distress, wheezes, rales, rhonchi, stridor Cardiovascular Exam: Present: regular rate, normal rhythm, normal heart sounds. Absent: systolic murmur, diastolic murmur, rubs, gallop, clicks Extremities exam: Present: full ROM, normal capillary refill, other (There is generalized swelling to the left lower leg and foot, this is nonpitting. Skin is otherwise pink, warm, dry. Cap refills less than 3 seconds. Pedal and posttibial pulses 2+ and equal bilaterally.). Absent: tenderness, pedal edema, joint swelling, calf tenderness Neurological exam: Present: alert, oriented X3, CN II-XII intact Psychiatric exam: Present: normal affect, normal mood Skin exam: Present: warm, dry, intact, normal color. Absent: rash Course Vital Signs 06/22/19 06/22/19 21:34 23:47 Temperature 98.3 F 98.4 F Pulse Rate 82 74 Respiratory 18 16 Rate Blood Pressure 129/85 113/62 O2 Sat by Pulse 98 99 Oximetry Medical Decision Making - Medical Decision Making 29-year-old male patient presented to the emergency department today for evaluation of left lower leg swelling and pain. Patient has nerve palsy after an injury in March. Physical examination did reveal generalized swelling, nonpitting. Neurovascular status is intact. Ultrasound of the leg is negative. Was given IM dose of Toradol here. He was also giving SOFIA hose stocking for compression and management of swelling. He is instructed to keep leg elevated. Is instructed to use his brace as directed. He is instructed to follow-up with his primary care physician, and chronic specialist for further evaluation as soon as possible. Return parameters discussed in detail. He verbalizes understanding and agrees with this plan - Radiology Data Radiology results: report reviewed, image reviewed Ultrasound of the left lower trauma he was obtained. Report reviewed in its entirety. Impression by Dr. Heath shows no evidence of DVT in the left leg. Disposition Clinical Impression: Lower extremity edema Disposition: HOME SELF-CARE Condition: Good Instructions (If sedation given, give patient instructions): Leg Edema (ED) Additional Instructions: Use compression stocking to help with edema. Keep legs elevated as much as possible. Follow-up through primary care physician for recheck in 1-2 days. Return to the emergency department immediately for any new, worsening, or concerning symptoms. Is patient prescribed a controlled substance at d/c from ED?: No Referrals: Yung Willson MD [Primary Care Provider] - 1-2 days Time of Disposition: 23:42
[2019-06-22 23:49] VITALS: BP 113/62; PULSE 74; RESP 16; TEMP 98.4
== END 2019-06-22 23:49 | disposition home or self-care (01) ==
LOC: EC 21:31
DX: R60.1 Generalized edema (principal); M79.662 Pain in left lower leg; G58.9 Mononeuropathy, unspecified; M21.372 Foot drop, left foot; R20.2 Paresthesia of skin; M25.562 Pain in left knee; F17.200 Nicotine dependence, unspecified, uncomplicated; Z88.0 Allergy status to penicillin; Z87.828 Personal history of other (healed) physical injury and trauma; Z86.14 Personal history of Methicillin resistant Staphylococcus aureus infection
CPT/HCPCS: 93971; 99284; 96372; J1885

== ENCOUNTER → 2019-07-27 | Outpatient (CLI) | payer OTHER ==
--- NOTE | 2019-07-27 13:36 | US ---
EXAMINATION TYPE: US venous doppler duplex LE DATE OF EXAM: 07/27/2019 1:22 PM COMPARISON: NONE CLINICAL HISTORY: G58.9, [id number] M79.662, M79.672. SIDE PERFORMED: Bilateral TECHNIQUE: The lower extremity deep venous system is examined utilizing real time linear array sonog tanisha with graded compression, doppler sonography and color-flow sonography. VESSELS IMAGED: External Iliac Vein (EIV) Common Femoral Vein Deep Femoral Vein Greater Saphenous Vein * Femoral Vein Popliteal Vein Small Saphenous Vein * Proximal Calf Veins (* superficial vessels) Grayscale, color doppler, spectral doppler imaging performed of the deep veins of the lower extremiti es. There is normal flow, compressibility, vascular waveforms. Right Leg: Negative for DVT Left Leg: Negative for DVT IMPRESSION: No sonographic evidence of deep venous thrombosis within either the visualized bilateral lower extremities.
== END | disposition home or self-care (01) ==
LOC: RADUSWWP 12:11
PROVIDERS: ATTEND Family Medicine
DX: M21.372 Foot drop, left foot (principal); M79.672 Pain in left foot; M79.662 Pain in left lower leg; G58.9 Mononeuropathy, unspecified; Z88.0 Allergy status to penicillin
CPT/HCPCS: 93922; 93923; 93970

== ENCOUNTER 2019-08-31 01:30 | Emergency (ER) | payer OTHER ==
[2019-08-31 01:42] VITALS: BP 128/79; PULSE 73; RESP 20; TEMP 97.7
--- NOTE | 2019-08-31 02:08 | ED ---
General Adult HPI - General Chief complaint: Recheck/Abnormal Lab/Rx Stated complaint: Nausea, confusion Time Seen by Provider: 08/31/19 01:47 Source: patient, RN notes reviewed, old records reviewed Mode of arrival: ambulatory Limitations: no limitations - History of Present Illness Initial comments: 29-year-old male patient past medical history of neuropathy of left lower extremity presents to ED for evaluation. Patient reports that he has run out of his Lyrica. Reports that since he is no longer had that he feels as if he is withdrawing from it. Reports that he is having neuropathy related pain in his left lower extremity which is uncontrolled. Denies any other acute complaints. Denies any suicidal or homicidal ideations. Systemic: Pt denies fatigue, fever/chills, rash. Pt denies weakness, night sweats, weight loss. Neuro: Pt denies headache, visual disturbances, syncope or pre-syncope. HEENT: Pt denies ocular discharge or irritation, otalgia, rhinorrhea, pharyngitis or notable lymphadenopathy. Cardiopulmonary: Pt denies chest pain, SOB, heart palpitations, dyspnea on exertion. Abdominal/GI: Pt denies abdominal pain, n/v/d. : Pt denies dysuria, burning w/ urination, frequency/urgency. Denies new onset urinary or bowel incontinence. MSK: Pt denies myalgia, loss of strength or function in extremities. - Related Data Previous Rx's Medication Instructions Recorded Gabapentin [Neurontin] 300 mg PO BID 7 Days #14 cap 05/12/19 predniSONE [Deltasone] 40 mg PO DAILY 5 Days #10 tablet 05/15/19 Pregabalin 200 mg PO BID 3 Days #6 cap 08/31/19 Allergies Allergy/AdvReac Type Severity Reaction Status Date / Time Penicillins Allergy Unknown Unknown Verified 08/31/19 01:42 Review of Systems ROS Statement: Those systems with pertinent positive or pertinent negative responses have been documented in the HPI. ROS Other: All systems not noted in ROS Statement are negative. Past Medical History Past Medical History: Liver Disease Additional Past Medical History / Comment(s): Hepatitis C, neuropathy, rhabdo History of Any Multi-Drug Resistant Organisms: MRSA Date of last positivie culture/infection: 02/24/2010 MDRO Source:: left knee Past Surgical History: No Surgical Hx Reported Additional Past Surgical History / Comment(s): surgery on left middle finger ortho. Past Anesthesia/Blood Transfusion Reactions: No Reported Reaction Past Psychological History: Anxiety, Bipolar, Depression Smoking Status: Current every day smoker Past Alcohol Use History: None Reported Past Drug Use History: Heroin, Marijuana, Opiates, Prescription Drug Abuse - Past Family History Father Family Medical History: No Reported History Mother History Unknown: Yes General Exam - General Exam Comments Initial Comments: Constitutional: NAD, AOX3, Pt has pleasant affect. HEENT: NC/AT, trachea midline, neck supple, no lymphadenopathy. Posterior pharynx non erythematous, without exudates. External ears appear normal, without discharge. Mucous membranes moist. Eyes PERRLA, EOM intact. There is no scleral icterus. No pallor noted. Cardiopulmonary: RRR, no murmurs, rubs or gallops, no JVD noted. Lungs CTAB in anterior and posterior rios. No peripheral edema. Abdominal exam: Abdomen soft and non-distended. Abdomen non-tender to palpation in all 4 quadrants. Bowel sounds active in LLQ. No hepatosplenomegaly. No ecchymosis Neuro: CN II-XII grossly intact. No nuchal rigidity. No raccon eyes, no beavers sign, no hemotympanum. No cervical spinal tenderness. MSK: No posterior calf tenderness bilaterally, homans sign negative bilaterally. Posterior tibialis and radial pulse +2 bilaterally. Sensation intact in upper and lower extremities. Full active ROM in upper and lower extremities. Limitations: no limitations Course Vital Signs 08/31/19 01:38 Temperature 97.7 F Pulse Rate 73 Respiratory 20 Rate Blood Pressure 128/79 O2 Sat by Pulse 99 Oximetry Medical Decision Making - Medical Decision Making 29-year-old male patient past medical history of neuropathy of left lower extremity presents to ED for evaluation. Patient reports that he has run out of his Lyrica. Reports that since he is no longer had that he feels as if he is withdrawing from it. Reports that he is having neuropathy related pain in his left lower extremity which is uncontrolled. Denies any other acute complaints. Denies any suicidal or homicidal ideations. Patient will tender stable, afebrile. Physical exam demonstrate acute pathology. Patient will be prescribed short-term prescription for Lyrica. We'll follow up with primary care referral [facility] physician worsens. Case discussed with Dr. Roskopp. Disposition Clinical Impression: Medication refill Disposition: HOME SELF-CARE Condition: Stable Instructions (If sedation given, give patient instructions): Medicine Refill (ED) Additional Instructions: Follow-up with primary care provider tomorrow. Return to ER if condition worsens in any way. Prescriptions: Pregabalin 200 mg PO BID 3 Days #6 cap Is patient prescribed a controlled substance at d/c from ED?: No Referrals: Yung Willson MD [Primary Care Provider] - 1-2 days
[2019-08-31] MEDS ORDERED: PREGABALIN 100 MG CAP PO STA (02:23)
== END 2019-08-31 02:33 | disposition home or self-care (01) ==
LOC: EC 01:30
DX: Z76.0 Encounter for issue of repeat prescription (principal); G62.9 Polyneuropathy, unspecified; F17.200 Nicotine dependence, unspecified, uncomplicated; Z88.0 Allergy status to penicillin
CPT/HCPCS: 99282

== ENCOUNTER 2019-10-08 17:43 | Emergency (ER) | payer OTHER ==
[2019-10-08 17:52] VITALS: BP 118/70; PULSE 87; RESP 18; TEMP 97.9
[2019-10-08] MEDS ORDERED: PREGABALIN 100 MG CAP PO STA (18:40)
--- NOTE | 2019-10-08 18:44 | ED ---
General Adult HPI - General Chief complaint: Recheck/Abnormal Lab/Rx Stated complaint: med issue Time Seen by Provider: 10/08/19 17:55 Source: patient, RN notes reviewed, old records reviewed Mode of arrival: ambulatory Limitations: no limitations - History of Present Illness Initial comments: 29-year-old male patient presents to ED for chief complaint of one dose of his medication Lyrica. Patient reports that he received a prescription from his primary care provider today which was prescribed to the pharmacy in this facility however they wanted to contact his physician before filling it and the office was closed. Patient states that he has chronic neuropathy in his left lower extremity which causes him pain. He has not taken Lyrica in a few days. Denies any other acute complaints. Systemic: Pt denies fatigue, fever/chills, rash. Pt denies weakness, night sweats, weight loss. Neuro: Pt denies headache, visual disturbances, syncope or pre-syncope. HEENT: Pt denies ocular discharge or irritation, otalgia, rhinorrhea, pharyngitis or notable lymphadenopathy. Cardiopulmonary: Pt denies chest pain, SOB, heart palpitations, dyspnea on exert ion. Abdominal/GI: Pt denies abdominal pain, n/v/d. : Pt denies dysuria, burning w/ urination, frequency/urgency. Denies new onset urinary or bowel incontinence. MSK: Pt denies loss of strength or function in extremities. - Related Data Previous Rx's Medication Instructions Recorded Gabapentin [Neurontin] 300 mg PO BID 7 Days #14 cap 05/12/19 predniSONE [Deltasone] 40 mg PO DAILY 5 Days #10 tablet 05/15/19 Pregabalin 200 mg PO BID 3 Days #6 cap 08/31/19 Allergies Allergy/AdvReac Type Severity Reaction Status Date / Time Penicillins Allergy Unknown Unknown Verified 10/08/19 17:52 Review of Systems ROS Statement: Those systems with pertinent positive or pertinent negative responses have been documented in the HPI. ROS Other: All systems not noted in ROS Statement are negative. Past Medical History Past Medical History: Liver Disease Additional Past Medical History / Comment(s): Hepatitis C, neuropathy, rhabdo History of Any Multi-Drug Resistant Organisms: MRSA Date of last positivie culture/infection: 02/24/2010 MDRO Source:: left knee Past Surgical History: Orthopedic Surgery Additional Past Surgical History / Comment(s): surgery on left middle finger ortho. Past Anesthesia/Blood Transfusion Reactions: No Reported Reaction Past Psychological History: Anxiety, Bipolar, Depression Smoking Status: Current every day smoker Past Alcohol Use History: None Reported Past Drug Use History: Heroin, Marijuana, Opiates, Prescription Drug Abuse - Past Family History Father Family Medical History: No Reported History Mother History Unknown: Yes General Exam - General Exam Comments Initial Comments: Constitutional: NAD, AOX3, Pt has pleasant affect. HEENT: NC/AT, trachea midline, neck supple, no lymphadenopathy. Posterior pharynx non erythematous, without exudates. External ears appear normal, without discharge. Mucous membranes moist. Eyes PERRLA, EOM intact. There is no scleral icterus. No pallor noted. Cardiopulmonary: RRR, no murmurs, rubs or gallops, no JVD noted. Lungs CTAB in anterior and posterior rios. No peripheral edema. Abdominal exam: Abdomen soft and non-distended. Abdomen non-tender to palpation in all 4 quadrants. Bowel sounds active in LLQ. No hepatosplenomegaly. No ecchymosis Neuro: CN II-XII grossly intact. No nuchal rigidity. No raccon eyes, no beavers sign, no hemotympanum. No cervical spinal tenderness. MSK: No skin changes in area of complaint, no crepitus, neurovascularly intact, no focal area of tenderness.. No posterior calf tenderness bilaterally, homans sign negative bilaterally. Posterior tibialis and radial pulse +2 bilaterally. Sensation intact in upper and lower extremities. Full active ROM in upper and lower extremities. Limitations: no limitations Course Vital Signs 10/08/19 17:49 Temperature 97.9 F Pulse Rate 87 Respiratory 18 Rate Blood Pressure 118/70 O2 Sat by Pulse 97 Oximetry Medical Decision Making - Medical Decision Making 29-year-old male patient presents to ED for chief complaint of one dose of his medication Lyrica. Patient reports that he received a prescription from his primary care provider today which was prescribed to the pharmacy in this facility however they wanted to contact his physician before filling it and the office was closed. Patient states that he has chronic neuropathy in his left lower extremity which causes him pain. He has not taken Lyrica in a few days. Denies any other acute complaints. Patient vital signs are stable, afebrile. Physical exam did not display acute pathology. I spoke with pharmacy which confirmed then E prescription was received. Patient was administered one dose. We discharged follow up with primary care provider and return to ER if condition worsens. Case discussed with Dr. Yancey Disposition Clinical Impression: Medication refill Disposition: HOME SELF-CARE Condition: Stable Instructions (If sedation given, give patient instructions): Peripheral Neuropathy (ED) Additional Instructions: Follow-up with primary care provider tomorrow. Return to ER if condition w orsens. Is patient prescribed a controlled substance at d/c from ED?: No Referrals: Yung Willson MD [Primary Care Provider] - 1-2 days
== END 2019-10-08 19:22 | disposition home or self-care (01) ==
LOC: EC 17:43
DX: Z76.0 Encounter for issue of repeat prescription (principal); G62.9 Polyneuropathy, unspecified; M62.82 Rhabdomyolysis; F17.200 Nicotine dependence, unspecified, uncomplicated; Z88.0 Allergy status to penicillin; Z79.899 Other long term (current) drug therapy; Z98.890 Other specified postprocedural states
CPT/HCPCS: 99282

== ENCOUNTER 2019-10-22 17:00 | Emergency (ER) | payer OTHER ==
[2019-10-22 17:30] VITALS: TEMP 98.3
--- NOTE | 2019-10-22 18:09 | ED ---
General Adult HPI - General Chief complaint: Psychiatric Symptoms Stated complaint: Mental health Time Seen by Provider: 10/22/19 17:25 Source: patient, RN notes reviewed, old records reviewed Mode of arrival: ambulatory Limitations: no limitations - History of Present Illness Initial comments: This is a 29-year-old male who presents to the emergency department because his primary medical care doctor sent him in and they were going to send a petition along with him. Patient states she's not suicidal or homicidal. Patient denies any delusions or hallucinations. Patient states she's not having any voices. Patient denies any physical complaint. Patient states he told his primary medical care doctor that he had a relapse with his narcotic abuse last week and he believes he overdosed on fentanyl and had have Narcan to bring him around he did not go to the hospital. Patient states he has not relapse since that time and he believes the office may have confused that with the recent overdose and that is why they sent him in. Patient is cooperative and willing to be evaluated this time. Patient denies any headache patient denies chest pain difficulty breathing shortness breath per patient denies any abdominal pain patient denies nausea vomiting diarrhea. - Related Data Previous Rx's Medication Instructions Recorded Gabapentin [Neurontin] 300 mg PO BID 7 Days #14 cap 05/12/19 predniSONE [Deltasone] 40 mg PO DAILY 5 Days #10 tablet 05/15/19 Pregabalin 200 mg PO BID 3 Days #6 cap 08/31/19 Allergies Allergy/AdvReac Type Severity Reaction Status Date / Time Penicillins Allergy Unknown Unknown Verified 10/22/19 17:30 Review of Systems ROS Statement: Those systems with pertinent positive or pertinent negative responses have been documented in the HPI. ROS Other: All systems not noted in ROS Statement are negative. Past Medical History Past Medical History: Liver Disease Additional Past Medical History / Comment(s): Hepatitis C, neuropathy, rhabdo History of Any Multi-Drug Resistant Organisms: MRSA Date of last positivie culture/infection: 02/24/2010 MDRO Source:: left knee Past Surgical History: Orthopedic Surgery Additional Past Surgical History / Comment(s): surgery on left middle finger ortho. Past Anesthesia/Blood Transfusion Reactions: No Reported Reaction Past Psychological History: Anxiety, Bipolar, Depression Smoking Status: Current every day smoker Past Alcohol Use History: None Reported Past Drug Use History: Heroin, Marijuana, Opiates, Prescription Drug Abuse - Past Family History Father Family Medical History: No Reported History Mother History Unknown: Yes General Exam - General Exam Comments Initial Comments: GENERAL: Patient is well-developed and well-nourished. Patient is nontoxic and well- hydrated and is in no acute distress. ENT: Neck is soft and supple. No significant lymphadenopathy is noted. Oropharynx is clear. Moist mucous membranes. Neck has full range of motion without eliciting any pain. EYES: The sclera were anicteric and conjunctiva were pink and moist. Extraocular movements were intact and pupils were equal round and reactive to light. Eyelids were unremarkable. PULMONARY: Unlabored respirations. Good breath sounds bilaterally. No audible rales rhonchi or wheezing was noted. CARDIOVASCULAR: There is a regular rate and rhythm without any murmurs gallops or rubs. ABDOMEN: Soft and nontender with normal bowel sounds. SKIN: Skin is clear with no lesions or rashes and otherwise unremarkable. NEUROLOGIC: Patient is alert and oriented x3. Cranial nerves II through XII are grossly intact. Motor and sensory are also intact. Normal speech, volume and content. Symmetrical smile. MUSCULOSKELETAL: Normal extremities with adequate strength and full range of motion. LYMPHATICS: No significant lymphadenopathy is noted PSYCHIATRIC: Normal psychiatric evaluation. Patient denies any suicidal homicidal ideations. Patient denies any illegal drug use since last week. Patient denies any alcohol. Patient denies any hallucinations or delusions. Limitations: no limitations Course Vital Signs 10/22/19 17:23 Temperature 98.3 F Pulse Rate 96 Respiratory 18 Rate Blood Pressure 143/79 O2 Sat by Pulse 100 Oximetry Medical Decision Making - Medical Decision Making EPS evaluated the patient and talked to the father a safety plan was put in place and given to the patient. His aunt is coming to get the patient in the emergency department. Disposition Clinical Impression: History of bipolar disorder, History of drug abuse Disposition: HOME SELF-CARE Condition: Good Instructions (If sedation given, give patient instructions): Bipolar Disorder (ED) Is patient prescribed a controlled substance at d/c from ED?: No Referrals: Yung Willson MD [Primary Care Provider] - 1-2 days Time of Disposition: 19:31
[2019-10-22 19:54] VITALS: BP 131/86; PULSE 82; RESP 17
== END 2019-10-22 19:54 | disposition home or self-care (01) ==
LOC: EC 17:00
DX: F19.11 Other psychoactive substance abuse, in remission (principal); F17.200 Nicotine dependence, unspecified, uncomplicated; Z88.0 Allergy status to penicillin; Z86.59 Personal history of other mental and behavioral disorders
CPT/HCPCS: 82075; 99284

== ENCOUNTER 2019-10-24 18:37 | Emergency (ER) | payer OTHER ==
[2019-10-24 18:51] VITALS: BP 109/72; PULSE 83; RESP 18; TEMP 97.6
--- NOTE | 2019-10-24 19:12 | ED ---
Recheck HPI - General Chief Complaint: Recheck/Abnormal Lab/Rx Stated Complaint: med refill Time Seen by Provider: 10/24/19 19:08 Source: patient Limitations: no limitations - History of Present Illness Initial Comments: Patient is 29-year-old male presenting to emergency Department for medication refill. Patient states there is some logistical issues where he picked up his [facility] prescription from pharmacy but was it was not in the back. States he was in the emergency department per his PCP request for psychiatric evaluation. Patient was discharged home with mother. Patient states she is scheduled to see his PCP for prescription refill on Saturday. 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 - Related Data Previous Rx's Medication Instructions Recorded Gabapentin [Neurontin] 300 mg PO BID 7 Days #14 cap 05/12/19 predniSONE [Deltasone] 40 mg PO DAILY 5 Days #10 tablet 05/15/19 Pregabalin 200 mg PO BID 3 Days #6 cap 08/31/19 Pregabalin [Lyrica] 75 mg PO BID 30 Days #60 cap 10/24/19 Allergies Allergy/AdvReac Type Severity Reaction Status Date / Time Penicillins Allergy Unknown Unknown Verified 10/24/19 18:51 Review of Systems ROS Statement: Those systems with pertinent positive or pertinent negative responses have been documented in the HPI. ROS Other: All systems not noted in ROS Statement are negative. Past Medical History Past Medical History: Liver Disease Additional Past Medical History / Comment(s): Hepatitis C, neuropathy History of Any Multi-Drug Resistant Organisms: MRSA Date of last positivie culture/infection: 02/24/2010 MDRO Source:: left knee Past Surgical History: Orthopedic Surgery Additional Past Surgical History / Comment(s): surgery on left middle finger ortho. Past Anesthesia/Blood Transfusion Reactions: No Reported Reaction Past Psychological History: Anxiety, Bipolar, Depression Smoking Status: Current every day smoker Past Alcohol Use History: None Reported Past Drug Use History: Heroin, Marijuana, Opiates, Prescription Drug Abuse - Past Family History Father Family Medical History: No Reported History Mother History Unknown: Yes General Exam Limitations: no limitations General appearance: alert, anxious Head exam: Present: atraumatic, normocephalic, normal inspection Eye exam: Present: normal appearance, PERRL, EOMI Pupils: Present: normal accommodation ENT exam: Present: normal exam, normal oropharynx, mucous membranes moist Neck exam: Present: normal inspection, full ROM Respiratory exam: Present: normal lung sounds bilaterally Cardiovascular Exam: Present: regular rate, normal rhythm, normal heart sounds Extremities exam: Present: normal inspection, normal capillary refill, other (+2 ulnar and radial pulses bilaterally +2 dorsalis pedis and posterior tibialis bilateral.) Back exam: Present: normal inspection, full ROM Neurological exam: Present: alert, oriented X3 Psychiatric exam: Present: normal affect, normal mood Skin exam: Present: warm, dry, intact, normal color Course Vital Signs 10/24/19 18:48 Temperature 97.6 F Pulse Rate 83 Respiratory 18 Rate Blood Pressure 109/72 O2 Sat by Pulse 100 Oximetry Medical Decision Making - Medical Decision Making patient is 29-year-old male presenting to emergency Department with a chief complaint of for medication refill. Case was discussed with who approved a full 30 day prescription refill for the patient. Patient is to see his PCP on Saturday. Return parameters thoroughly discussed patient is understanding and agreeable. Case discussed with physician. Disposition Clinical Impression: Medication refill Disposition: HOME SELF-CARE Condition: Stable Instructions (If sedation given, give patient instructions): Opioid Withdrawal (ED) Additional Instructions: Take prescribed medication as directed. Follow-up with your primary care physician. Return to emergency department if symptoms worsen. Prescriptions: Pregabalin [Lyrica] 75 mg PO BID 30 Days #60 cap Is patient prescribed a controlled substance at d/c from ED?: No Referrals: Yung Willson MD [Primary Care Provider] - 1-2 days Time of Disposition: 19:36
== END 2019-10-24 19:57 | disposition home or self-care (01) ==
LOC: EC 18:37
DX: Z76.0 Encounter for issue of repeat prescription (principal); M79.605 Pain in left leg; F17.200 Nicotine dependence, unspecified, uncomplicated; Z88.0 Allergy status to penicillin; Z86.14 Personal history of Methicillin resistant Staphylococcus aureus infection
CPT/HCPCS: 99281

== ENCOUNTER 2019-12-04 01:36 | Observation (INO) | payer OTHER ==
[2019-12-04] MEDS ORDERED: ACETAMINOPHEN TAB 500 MG TAB PO STA (02:17)
[2019-12-04] MEDS ORDERED: IBUPROFEN 600 MG TAB PO STA (02:17)
[2019-12-04] MEDS ORDERED: GABAPENTIN 400 MG CAP PO STA (02:18)
[2019-12-04 02:25] LABS: Appearance,Urine Clear (Clear); Bilirubin,Urine Negative (Negative); Blood,Urine Negative (Negative); Color,Urine Light Yellow; Glucose,Urine (UA) Negative (Negative); Ketones,Urine Negative (Negative); Leukocyte Esterase,Urine Negative (Negative); Nitrite,Urine Negative (Negative); Protein,Urine Negative (Negative); Specific Gravity,Urine 1.002 (1.001-1.035); Urobilinogen,Urine <2.0 mg/dL (<2.0)
[2019-12-04] MEDS: SODIUM CHLORIDE 0.9% 500 ML 500 ML IV SCH ×3 (02:40→06:51)
[2019-12-04 02:52] LABS: Basophils % (A) 0 %; Eosinophils # (A) 0.1 k/uL (0-0.7); Eosinophils % (A) 1 %; HCT 37.5 % (39.0-53.0); HGB 12.6 gm/dL (13.0-17.5); Lymphocytes # (A) 0.6 k/uL (1.0-4.8); Lymphocytes % (A) 7 %; MCHC 33.7 g/dL (31.0-37.0); Mean Platelet Volume 7.6; Monocytes # (A) 0.2 k/uL (0-1.0); Monocytes % (A) 2 %; Neutrophils # (A) 7.7 k/uL (1.3-7.7); Neutrophils % (A) 89 %; Platelet Count 246 k/uL (150-450); RBC 4.36 m/uL (4.30-5.90); RDW 12.7 % (11.5-15.5); WBC 8.7 k/uL (3.8-10.6)
--- NOTE | 2019-12-04 02:53 | ED ---
General Adult HPI - General Source: patient, EMS Mode of arrival: EMS <Ava Gilliland - Last Filed: 12/04/19 02:50> <Jose Raul Oropeza - Last Filed: 12/05/19 07:32> - General Chief complaint: Anxiety Stated complaint: Anxiety Time Seen by Provider: 12/04/19 01:39 - History of Present Illness Initial comments: 29-year-old male patient with past medical history significant for IV drug use and left foot drop presents to the emergency department today for evaluation of anxiety, drug withdrawal, and left foot pain. Patient states over the last 30- 45 minutes he started to feel very shaky, weak, and anxious. He believes he may be withdrawing from heroin after taking his dose of Suboxone this evening. States he is also with joint from his gabapentin which she has not had for the last 2 days because his doctor is out of town. Patient was febrile upon arrival at 103F. States that he does have a cough with sputum production, he is unsure what color the sputum is. He denies any abdominal pain, nausea, vomiting, constipation, or diarrhea. Denies any rash. Denies any new back pain. Denies neck pain or stiffness. Patient denies any recent shortness of breath, chest pain, numbness, tingling, dizziness, weakness, hematuria, dysuria, urinary urgency, urinary frequency, headache, visual changes, or any other complaints. (Ava Gilliland) - Related Data Home Medications Medication Instructions Recorded Confirmed Buprenorphine HCl/Naloxone HCl 1 film SL DAILY 12/04/19 12/04/19 [Suboxone 4 mg-1 mg Sl Film] Buprenorphine HCl/Naloxone HCl 1 film SL BID 12/04/19 12/04/19 [Suboxone 8 mg-2 mg Sl Film] Emtricitabine/Tenofovir (Tdf) 1 tab PO DAILY 12/04/19 12/04/19 [Truvada 200 mg-300 mg Tablet] Gabapentin 800 mg PO TID 12/04/19 12/04/19 Ketorolac [Toradol] 10 mg PO Q6HR PRN 12/04/19 12/04/19 Pantoprazole Sodium [Protonix] 40 mg PO DAILY 12/04/19 12/04/19 Allergies Allergy/AdvReac Type Severity Reaction Status Date / Time Penicillins Allergy Unknown Unknown Verified 06/06/20 18:51 Review of Systems ROS Other: All systems not noted in ROS Statement are negative. <Ava Gilliland - Last Filed: 12/04/19 02:50> ROS Other: All systems not noted in ROS Statement are negative. <JohnnaJose Raul - Last Filed: 12/05/19 07:32> ROS Statement: Those systems with pertinent positive or pertinent negative responses have been documented in the HPI. Past Medical History Past Medical History: Liver Disease Additional Past Medical History / Comment(s): Hepatitis C, neuropathy History of Any Multi-Drug Resistant Organisms: MRSA Date of last positivie culture/infection: 02/24/2010 MDRO Source:: left knee Past Surgical History: Orthopedic Surgery Additional Past Surgical History / Comment(s): surgery on left middle finger ortho. Past Anesthesia/Blood Transfusion Reactions: No Reported Reaction Past Psychological History: Anxiety, Bipolar, Depression Smoking Status: Vaper Past Alcohol Use History: Occasional Past Drug Use History: Heroin, Marijuana, Opiates, Prescription Drug Abuse - Past Family History Father Family Medical History: No Reported History Mother History Unknown: Yes <Ava Gilliland - Last Filed: 12/04/19 02:50> General Exam General appearance: alert, in no apparent distress, other (Physical well- developed, well-nourished adult male patient in mild distress related to anxiety and pain. Vital signs upon presentation are temperature 103F oral, pulse 106, respirations 20, blood pressure 119/60, pulse ox 97% on room air.) Eye exam: Present: normal appearance, PERRL, EOMI. Absent: scleral icterus, conjunctival injection, periorbital swelling ENT exam: Present: normal exam, normal oropharynx, mucous membranes moist Respiratory exam: Present: normal lung sounds bilaterally. Absent: respiratory distress, wheezes, rales, rhonchi, stridor Cardiovascular Exam: Present: regular rate, normal rhythm, normal heart sounds. Absent: systolic murmur, diastolic murmur, rubs, gallop, clicks GI/Abdominal exam: Present: soft, normal bowel sounds. Absent: distended, tenderness, guarding, rebound, rigid Neurological exam: Present: alert, oriented X3, CN II-XII intact Psychiatric exam: Present: normal affect, normal mood Skin exam: Present: warm, dry, intact, normal color. Absent: rash <Ava Gilliland - Last Filed: 12/04/19 02:50> Course Vital Signs 12/04/19 12/04/19 12/04/19 02:01 04:00 05:31 Temperature 103 F H 99.4 F 97.8 F Pulse Rate 106 H 74 Pulse Rate [ 71 Left] Respiratory 20 16 18 Rate Blood Pressure 119/60 100/51 Blood Pressure 89/72 [Left Arm] O2 Sat by Pulse 97 96 99 Oximetry 12/04/19 05:46 Temperature 98.4 F Pulse Rate 72 Pulse Rate [ Left] Respiratory 18 Rate Blood Pressure 103/52 Blood Pressure [Left Arm] O2 Sat by Pulse 100 Oximetry Medical Decision Making - Lab Data Result diagrams: 12/04/19 02:40 12/04/19 02:40 <Jose Raul Oropeza - Last Filed: 12/05/19 07:32> - Medical Decision Making 29-year-old man seen initially by the nurse practitioner and he did have workup for fever with no obvious source. The studies do not reveal etiology of the fever. This may possibly be due to withdrawal however the temperature is higher than would be suspected from that alone and given this and the risk of possible endocarditis patient be admitted pending results of cultures. (Jose Raul Oropeza) - Lab Data Lab Results 12/04/19 12/04/19 12/04/19 Range/Units 02:20 02:40 02:40 WBC 8.7 (3.8-10.6) k/uL RBC 4.36 (4.30-5.90) m/uL Hgb 12.6 L (13.0-17.5) gm/dL Hct 37.5 L (39.0-53.0) % MCV 86.0 (80.0-100.0) fL MCH 29.0 (25.0-35.0) pg MCHC 33.7 (31.0-37.0) g/dL RDW 12.7 (11.5-15.5) % Plt Count 246 (150-450) k/uL Neutrophils % 89 % Lymphocytes % 7 % Monocytes % 2 % Eosinophils % 1 % Basophils % 0 % Neutrophils # 7.7 (1.3-7.7) k/uL Lymphocytes # 0.6 L (1.0-4.8) k/uL Monocytes # 0.2 (0-1.0) k/uL Eosinophils # 0.1 (0-0.7) k/uL Basophils # 0.0 (0-0.2) k/uL PT 11.2 (9.0-12.0) sec INR 1.1 (<1.2) APTT 24.3 (22.0-30.0) sec Sodium (137-145) mmol/L Potassium (3.5-5.1) mmol/L Chloride (98-107) mmol/L Carbon Dioxide (22-30) mmol/L Anion Gap mmol/L BUN (9-20) mg/dL Creatinine (0.66-1.25) mg/dL Est GFR (CKD-EPI)AfAm (>60 ml/min/1.73 sqM) Est GFR (CKD-EPI)NonAf (>60 ml/min/1.73 sqM) Glucose (74-99) mg/dL Plasma Lactic Acid Philip (0.7-2.0) mmol/L Calcium (8.4-10.2) mg/dL Total Bilirubin (0.2-1.3) mg/dL AST (17-59) U/L ALT (4-49) U/L Alkaline Phosphatase (38-126) U/L Total Protein (6.3-8.2) g/dL Albumin (3.5-5.0) g/dL Urine Color Light Yellow Urine Appearance Clear (Clear) Urine pH 7.0 (5.0-8.0) Ur Specific [place] 1.002 (1.001-1.035) Urine Protein Negative (Negative) Urine Glucose (UA) Negative (Negative) Urine Ketones Negative (Negative) Urine Blood Negative (Negative) Urine Nitrite Negative (Negative) Urine Bilirubin Negative (Negative) Urine Urobilinogen <2.0 (<2.0) mg/dL Ur Leukocyte Esterase Negative (Negative) Coronavirus (PCR) (Not Detected) 12/04/19 12/04/19 12/04/19 Range/Units 02:40 02:40 02:54 WBC (3.8-10.6) k/uL RBC (4.30-5.90) m/uL Hgb (13.0-17.5) gm/dL Hct (39.0-53.0) % MCV (80.0-100.0) fL MCH (25.0-35.0) pg MCHC (31.0-37.0) g/dL RDW (11.5-15.5) % Plt Count (150-450) k/uL Neutrophils % % Lymphocytes % % Monocytes % % Eosinophils % % Basophils % % Neutrophils # (1.3-7.7) k/uL Lymphocytes # (1.0-4.8) k/uL Monocytes # (0-1.0) k/uL Eosinophils # (0-0.7) k/uL Basophils # (0-0.2) k/uL PT (9.0-12.0) sec INR (<1.2) APTT (22.0-30.0) sec Sodium 134 L (137-145) mmol/L Potassium 4.1 (3.5-5.1) mmol/L Chloride 101 (98-107) mmol/L Carbon Dioxide 24 (22-30) mmol/L Anion Gap 9 mmol/L BUN 13 (9-20) mg/dL Creatinine 0.75 (0.66-1.25) mg/dL Est GFR (CKD-EPI)AfAm >90 (>60 ml/min/1.73 sqM) Est GFR (CKD-EPI)NonAf >90 (>60 ml/min/1.73 sqM) Glucose 113 H (74-99) mg/dL Plasma Lactic Acid Philip 0.8 (0.7-2.0) mmol/L Calcium 9.3 (8.4-10.2) mg/dL Total Bilirubin 1.2 (0.2-1.3) mg/dL AST 26 (17-59) U/L ALT 16 (4-49) U/L Alkaline Phosphatase 73 (38-126) U/L Total Protein 7.1 (6.3-8.2) g/dL Albumin 4.1 (3.5-5.0) g/dL Urine Color Urine Appearance (Clear) Urine pH (5.0-8.0) Ur Specific [place] (1.001-1.035) Urine Protein (Negative) Urine Glucose (UA) (Negative) Urine Ketones (Negative) Urine Blood (Negative) Urine Nitrite (Negative) Urine Bilirubin (Negative) Urine Urobilinogen (<2.0) mg/dL Ur Leukocyte Esterase (Negative) Coronavirus (PCR) Not Detected (Not Detected) Disposition <Ava Gilliland - Last Filed: 12/04/19 02:50> <Jose Raul Oropeza - Last Filed: 12/05/19 07:32> Clinical Impression: Fever Disposition: ADMITTED IP TO THIS HOSP Condition: Fair
[2019-12-04 03:00] LABS: ALT 16 U/L (4-49); AST 26 U/L (17-59); African American GFR (CKD) >90 (>60 ml/min/1.73 sqM); Albumin 4.1 g/dL (3.5-5.0); Alkaline Phosphatase 73 U/L (38-126); Anion Gap 9 mmol/L; Blood Urea Nitrogen 13 mg/dL (9-20); Calcium 9.3 mg/dL (8.4-10.2); Carbon Dioxide 24 mmol/L (22-30); Chloride 101 mmol/L (98-107); Glucose 113 mg/dL (74-99); Non-African American GFR(CKD) >90 (>60 ml/min/1.73 sqM); Potassium 4.1 mmol/L (3.5-5.1); Sodium 134 mmol/L (137-145); Total Bilirubin 1.2 mg/dL (0.2-1.3); Total Protein 7.1 g/dL (6.3-8.2)
[2019-12-04 03:06] LABS: INR 1.1 (<1.2); Partial Thromboplastin Time 24.3 sec (22.0-30.0); Prothrombin Time 11.2 sec (9.0-12.0)
--- NOTE | 2019-12-04 03:19 | XR ---
EXAMINATION TYPE: XR chest 1V portable DATE OF EXAM: 12/04/2019 COMPARISON: 04/14/2019 HISTORY: Fever Heart and mediastinum are normal. Lungs are clear of consolidation. There are no hilar masses. Costop hrenic angles are clear. There is a linear density in the right midlung IMPRESSION: Some focal atelectasis in the right midlung that appears new compared to old exam. Normal heart.
[2019-12-04] MEDS ORDERED: NALOXONE 0.4 MG/ML 1 ML VIAL IV PRN (05:04)
[2019-12-04] MEDS ORDERED: ACETAMINOPHEN TAB 325 MG TAB PO PRN (05:04)
[2019-12-04] MEDS ORDERED: ONDANSETRON 4 MG/2 ML VIAL IVP PRN (05:04)
[2019-12-04] MEDS ORDERED: METHADONE 10 MG TAB PO PRN (05:07)
[2019-12-04] MEDS ORDERED: SODIUM CHLORIDE 0.9% 1,000 ML IV SCH (05:15)
[2019-12-04] MEDS ORDERED: VANCOMYCIN IV PER PHARMACY 1 EACH MISC MISCELLANE PRN (06:01)
[2019-12-04] MEDS ORDERED: VANCOMYCIN 1,250 MG in SODIUM CHLORIDE 0.9% 250 ML IVPB SCH (06:15)
[2019-12-04 08:54] LABS: Glucose,Whole Blood 139 mg/dL (75-99)
[2019-12-04] MEDS ORDERED: GABAPENTIN 300 MG CAP PO SCH (09:00)
[2019-12-04 11:31] VITALS: BP 90/50; PULSE 50; RESP 14; TEMP 98.2
--- NOTE | 2019-12-04 13:14 | XR ---
EXAMINATION TYPE: XR foot complete LT DATE OF EXAM: 12/04/2019 CLINICAL HISTORY: pain TECHNIQUE: Frontal, lateral and oblique images of the left foot are obtained. COMPARISON: None. FINDINGS: There is no acute fracture/dislocation evident. The joint spaces appear within normal sow its. The overlying soft tissue appears unremarkable. IMPRESSION: There is no acute fracture or dislocation. ICD 10 NO FRACTURE, INITIAL EVALUATION
--- NOTE | 2019-12-04 14:06 | P.HPIM ---
History of Present Illness H&P Date: 12/04/19 Chief Complaint: Anxiety, drug withdrawal, left foot pain History and Physical and Discharge Summary This is a 29-year-old gentleman with history of liver disease, hepatitis C, neuropathy, history of MRSA, anxiety, bipolar, depression, mood disorder, past admissions to mental health unit for suicidal ideation, nicotine dependence, alcohol abuse, IV drug abuse/heroin, marijuana, opiates, prescription drug abuse on Suboxone. Patient reports when out of Neurontin , substituted fentanyl and heroin. States his friend Narcan'd him. Denies suicidal or homicidal i deations. Reported anxiety, drug withdrawal and left foot pain. On arrival had an isolated fever of 103, mild tachycardia 106, respiratory rate 20, blood pressure stable, maintaining O2 sats of 97% on room air. WBC within normal limits. Patient is now afebrile. Hemoglobin 12.6 hematocrit 37.5, INR 1.1, chemistry unremarkable. UA negative. Good Diet intake, Denies nausea vomiting or diarrhea. Denies any abdominal pain. Denies chest pain, palpitations or shortness of breath. Denies lightheadedness, dizziness or focal deficits. Received IV antibiotics of both vancomycin, Rocephin, IV hydration. Ambulating to and from bathroom, tolerated exertion well. Drug screen obtained from PCP of [place],completed on 12/01/2019 report regarding Suboxone, fentanyl, nor fentanyl, gabapentin, THC,Mitragynine ([place])-most of these list fever as an adverse reaction. Review of Systems ROS Other: All systems not noted in ROS Statement are negative. ROS Statement: Those systems with pertinent positive or pertinent negative responses have been documented in the HPI. Past Medical History Past Medical History: Liver Disease Additional Past Medical History / Comment(s): Hepatitis C, neuropathy History of Any Multi-Drug Resistant Organisms: MRSA Date of last positivie culture/infection: 02/24/2010 MDRO Source:: left knee Past Surgical History: Orthopedic Surgery Additional Past Surgical History / Comment(s): surgery on left middle finger ortho. Past Anesthesia/Blood Transfusion Reactions: No Reported Reaction Past Psychological History: Anxiety, Bipolar, Depression Additional Psychological History / Comment(s): Pt states he resides with his father. He is independent. Pt has a mood disorder. He has had past admissions to [facility] for suicidal thoughts. He denies suicidal thoughts recently. Smoking Status: Vaper Past Alcohol Use History: Occasional Additional Past Alcohol Use History / Comment(s): Pt states he started smoking in 2010. He states he drinks liqour on a daily basis, 2-3 glasses per day. Past Drug Use History: Heroin, IV Drug Use, Marijuana, Opiates, Prescription Drug Abuse - Past Family History Father Family Medical History: No Reported History Mother History Unknown: Yes Medications and Allergies Home Medications Medication Instructions Recorded Confirmed Type Buprenorphine HCl/Naloxone HCl 1 film SL DAILY 12/04/19 12/04/19 History [Suboxone 4 mg-1 mg Sl Film] Buprenorphine HCl/Naloxone HCl 1 film SL BID 12/04/19 12/04/19 History [Suboxone 8 mg-2 mg Sl Film] Emtricitabine/Tenofovir (Tdf) 1 tab PO DAILY 12/04/19 12/04/19 History [Truvada 200 mg-300 mg Tablet] Gabapentin 800 mg PO TID 12/04/19 12/04/19 History Ketorolac [Toradol] 10 mg PO Q6HR PRN 12/04/19 12/04/19 History Pantoprazole Sodium [Protonix] 40 mg PO DAILY 12/04/19 12/04/19 History Allergies Allergy/AdvReac Type Severity Reaction Status Date / Time Penicillins Allergy Unknown Unknown Verified 10/24/19 18:51 Physical Exam Vitals: Vital Signs Temp Pulse Pulse Resp BP BP Pulse Ox 12/04/19 08:00 98.2 F 50 L 14 90/50 12/04/19 05:46 98.4 F 72 18 103/52 100 12/04/19 05:31 97.8 F 71 18 89/72 99 12/04/19 04:00 99.4 F 74 16 100/51 96 12/04/19 02:01 103 F H 106 H 20 119/60 97 Intake and Output 12/03/19 12/04/19 12/04/19 22:59 06:59 14:59 Intake Total 236 Balance 236 Intake: Oral 236 Other: Weight 65.771 kg PHYSICAL EXAM: VITAL SIGNS: As above] GENERAL: Sitting up in bed, no acute distress, calm HEENT: Conjunctivae normal. eyes normal. Oral mucosa moist NECK: No JVD. No thyroid enlargement. No LNs CARDIOVASCULAR: S1, S2 regular.. No murmur RESPIRATION: Breath sounds diminished in the bases. No rhonchi or crackles. No bronchial breathing. ABDOMEN: Soft, nontender . No guarding. no masses palpable. No ascites, No hepatosplenomegaly.Bowel sounds heard. LEGS: No edema. no swelling PSYCHIATRY: Alert and oriented X3, mood and affect normal. NERVOUS SYSTEM: Cranial N 2-12 grossly normal. Moves all 4 limbs. No focal deficits. Strength and sensation grossly intact. Skin: track robb on bilateral upper arms , minor scabs on back Lymphatic system. No LN neck axilla. - Constitutional PHYSICAL EXAM: VITAL SIGNS: [As above] GENERAL: Sitting up in bed, no acute distress HEENT: Conjunctivae normal. eyes normal. NECK: No JVD. No thyroid enlargement. No LNs CARDIOVASCULAR: S1, S2 regular.. No murmur RESPIRATION: Breath sounds diminished in the bases. No rhonchi or crackles. No bronchial breathing. ABDOMEN: Soft, nontender . No guarding. no masses palpable. No ascites, No hepatosplenomegaly.Bowel sounds heard. LEGS: No edema. no swelling PSYCHIATRY: Alert and oriented X3, mood and affect normal. NERVOUS SYSTEM: Cranial N 2-12 grossly normal. Moves all 4 limbs. No focal deficits. Strength and sensation grossly intact.. Skin: Warm and dry, no rash Lymphatic system. No LN neck axilla Results CBC & Chem 7: 12/04/19 02:40 12/04/19 02:40 Labs: Abnormal Lab Results - Last 24 Hours (Table) 12/04/19 12/04/19 12/04/19 Range/Units 02:40 02:40 08:49 Hgb 12.6 L (13.0-17.5) gm/dL Hct 37.5 L (39.0-53.0) % Lymphocytes # 0.6 L (1.0-4.8) k/uL Sodium 134 L (137-145) mmol/L Glucose 113 H (74-99) mg/dL POC Glucose (mg/dL) 139 H (75-99) mg/dL Thrombosis Risk Factor Assmnt - Choose All That Apply Any of the Below Risk Factors Present?: No Other Risk Factors: No Thrombosis Risk Factor Assessment Level: Very Low Risk Assessment and Plan Assessment: Isolated Fever, drug induced in a patient with history of polysubstance abuse including IV drug abuse-heroin, on Suboxone, ran out of Neurontin. As mentioned above, Drug screen obtained from PCP, completed on 12/01/2019 report regarding Suboxone, fentanyl, nor fentanyl, gabapentin, THC,Mitragynine ([place])-most of these list fever as an adverse reaction. Hepatitis C Anxiety Bipolar Depression Nicotine dependence Alcohol abuse Plan: Continue on current medication regime ,monitoring and symptomatic treatment. Drug screening obtained from PCPs office, foot x-ray reporting no fracture or dislocation. Blood cultures results to PCP. Living/skilled nursing resources, rehab resources left with patient as per social media marketing analyst. Patient is being discharged home today in a stable condition with guarded prognosis. The impression and plan of care has been dictated as directed. : I performed a history and examination of this patient, discussed the same with the dictator. I agree with the dictator's note ,documented as a scribe. Any additional findings or plans will be noted.
[2019-12-05] MEDS ORDERED: VANCOMYCIN TROUGH DUE 1 EACH MISC MISCELLANE ONE (05:00)
== END 2019-12-04 14:00 | disposition home or self-care (01) ==
LOC: EC 01:36 → 1SOBS 05:05
PROVIDERS: ADMIT Family Medicine; ATTEND Family Medicine
DX: F41.9 Anxiety disorder, unspecified (principal); F11.23 Opioid dependence with withdrawal; R50.2 Drug induced fever; F10.10 Alcohol abuse, uncomplicated; M79.672 Pain in left foot; Z03.818 Encounter for observation for suspected exposure to other biological agents ruled out; F31.9 Bipolar disorder, unspecified; B19.20 Unspecified viral hepatitis C without hepatic coma; G62.9 Polyneuropathy, unspecified; Z86.14 Personal history of Methicillin resistant Staphylococcus aureus infection; Z98.890 Other specified postprocedural states; F17.290 Nicotine dependence, other tobacco product, uncomplicated; F12.10 Cannabis abuse, uncomplicated; F19.10 Other psychoactive substance abuse, uncomplicated; Z79.899 Other long term (current) drug therapy; Z88.0 Allergy status to penicillin
CPT/HCPCS: 93005; 96365 ×2; 96366; 96361; 96375; 99285; 36415; 80053; 83605; 85025; 85610; 85730; 81003; 87040; 73630; 71045; G0378; U0003; J3370; J2405; J0696

== ENCOUNTER 2019-12-14 18:55 | Emergency (ER) | payer OTHER ==
[2019-12-14 19:00] VITALS: RESP 18
[2019-12-14] MEDS ORDERED: SODIUM CHLORIDE 0.9% 1,000 ML IV STA (19:03)
[2019-12-14] MEDS ORDERED: LORazepam 2 MG/ML INJ IV STA (19:03)
--- NOTE | 2019-12-14 19:10 | ED ---
General Adult HPI - General Chief complaint: Recheck/Abnormal Lab/Rx Stated complaint: poss overdose Time Seen by Provider: 12/14/19 19:02 Source: patient Mode of arrival: ambulatory Limitations: no limitations - History of Present Illness Initial comments: Dictation was produced using [employer] dictation software. please excuse any grammatical, word or spelling errors. This patient was cared for during a federal and state declared state of emerge ncy secondary to Covid 19 Chief Complaint: 29-year-old male with history of illicit street drug abuse presents with feelings of anxiety, body aches after injecting methamphetamine earlier today History of Present Illness: 29-year-old male. Earlier today patient injected methamphetamine that he got from his ex-girlfriend. Patient states that he uses illicit drugs frequently. States that he's never felt bodies felt before after using street drugs. Patient states he feels nausea, body aches and strange temperature sensations. He also complains of some sharp chest pain. Patient h as any medical problems. He does have history of chronic foot drop to the left lower extremity. Patient takes gabapentin regularly for this. Patient also uses heroin. The ROS documented in this emergency department record has been reviewed and confirmed by me. Those systems with pertinent positive or negative responses have been documented in the HPI. All other systems are other negative and/or noncontributory. PHYSICAL EXAM: General Impression: Alert and oriented x3, not in acute distress, jittery and tremulous HEENT: Normocephalic atraumatic, extra-ocular movements intact, pupils equal and reactive to light bilaterally, mucous membranes moist. Cardiovascular: Heart regular rate and rhythm Chest: Able to complete full sentences, no retractions, no tachypnea Abdomen: abdomen soft, non-tender, non-distended, no organomegaly Musculoskeletal: Pulses present and equal in all extremities, no peripheral edema Motor: no focal deficits noted Neurological: CN II-XII grossly intact, no focal motor or sensory deficits noted Skin: Intact with no visualized rashes Psych: Normal affect and mood ED course: 29-year-old male presents with stomach symptoms after meth use earlier today. As upon arrival shows her to 125, rest of vital signs within acceptable limits. There is concern of mild sympathomimetic toxidrome. Laboratory evaluation obtained. Patient has mild acidosis of 14.7 likely secondary to stress. Metabolic panel is negative. Toxicology is positive for amphetamines, methamphetamines, benzodiazepines, cocaine and marijuana. Patient given 1 dose of Ativan with significant improvement of symptoms. Patient states he feels at baseline at this time. Patient requests prescription for Lyrica. I told him I can get him started but he is going to follow up with his primary care physician for long-term use. Patient clear for discharge. EKG interpretation: Ventricular rate 82, normal sinus rhythm,. Interval 160, QRS 104, QTC 4:15. No CO prolongation, no QTC prolongation, no ST or T-wave changes noted. EKG compared to December 04 2019 showing no changes. Overall, this EKG is unremarkable - Related Data Home Medications Medication Instructions Recorded Confirmed Buprenorphine HCl/Naloxone HCl 1 film SL DAILY 12/04/19 12/04/19 [Suboxone 4 mg-1 mg Sl Film] Buprenorphine HCl/Naloxone HCl 1 film SL BID 12/04/19 12/04/19 [Suboxone 8 mg-2 mg Sl Film] Emtricitabine/Tenofovir (Tdf) 1 tab PO DAILY 12/04/19 12/04/19 [Truvada 200 mg-300 mg Tablet] Gabapentin 800 mg PO TID 12/04/19 12/04/19 Ketorolac [Toradol] 10 mg PO Q6HR PRN 12/04/19 12/04/19 Pantoprazole Sodium [Protonix] 40 mg PO DAILY 12/04/19 12/04/19 Previous Rx's Medication Instructions Recorded Pregabalin [Lyrica] 25 mg PO BID 3 Days #6 capsule 12/14/19 Allergies Allergy/AdvReac Type Severity Reaction Status Date / Time Penicillins Allergy Unknown Unknown Verified 10/24/19 18:51 Review of Systems ROS Statement: Those systems with pertinent positive or pertinent negative responses have been documented in the HPI. ROS Other: All systems not noted in ROS Statement are negative. Past Medical History Past Medical History: Liver Disease Additional Past Medical History / Comment(s): Hepatitis C, neuropathy History of Any Multi-Drug Resistant Organisms: MRSA Date of last positivie culture/infection: 02/24/2010 MDRO Source:: left knee Past Surgical History: Orthopedic Surgery Additional Past Surgical History / Comment(s): surgery on left middle finger ortho. Past Anesthesia/Blood Transfusion Reactions: No Reported Reaction Past Psychological History: Anxiety, Bipolar, Depression Smoking Status: Vaper Past Alcohol Use History: Occasional Past Drug Use History: Heroin, IV Drug Use, Marijuana, Methamphetamine, Opiates, Prescription Drug Abuse - Past Family History Father Family Medical History: No Reported History Mother History Unknown: Yes General Exam Limitations: no limitations Course Vital Signs 12/14/19 12/14/19 18:56 20:15 Temperature 98.6 F 98.4 F Pulse Rate 125 H 96 Respiratory 18 18 Rate Blood Pressure 154/89 129/86 O2 Sat by Pulse 99 97 Oximetry Medical Decision Making - Lab Data Result diagrams: 12/14/19 19:20 12/14/19 19:20 Lab Results 12/14/19 12/14/19 12/14/19 Range/Units 19:20 19:20 20:03 WBC 14.7 H (3.8-10.6) k/uL RBC 4.50 (4.30-5.90) m/uL Hgb 12.8 L (13.0-17.5) gm/dL Hct 39.0 (39.0-53.0) % MCV 86.5 (80.0-100.0) fL MCH 28.3 (25.0-35.0) pg MCHC 32.8 (31.0-37.0) g/dL RDW 12.7 (11.5-15.5) % Plt Count 267 (150-450) k/uL Neutrophils % 84 % Lymphocytes % 10 % Monocytes % 5 % Eosinophils % 1 % Basophils % 0 % Neutrophils # 12.3 H (1.3-7.7) k/uL Lymphocytes # 1.4 (1.0-4.8) k/uL Monocytes # 0.7 (0-1.0) k/uL Eosinophils # 0.1 (0-0.7) k/uL Basophils # 0.0 (0-0.2) k/uL Sodium 139 (137-145) mmol/L Potassium 3.9 (3.5-5.1) mmol/L Chloride 107 (98-107) mmol/L Carbon Dioxide 23 (22-30) mmol/L Anion Gap 9 mmol/L BUN 12 (9-20) mg/dL Creatinine 0.60 L (0.66-1.25) mg/dL Est GFR (CKD-EPI)AfAm >90 (>60 ml/min/1.73 sqM) Est GFR (CKD-EPI)NonAf >90 (>60 ml/min/1.73 sqM) Glucose 105 H (74-99) mg/dL Calcium 10.0 (8.4-10.2) mg/dL Magnesium 1.9 (1.6-2.3) mg/dL Total Bilirubin 0.8 (0.2-1.3) mg/dL AST 24 (17-59) U/L ALT 15 (4-49) U/L Alkaline Phosphatase 61 (38-126) U/L Total Protein 7.8 (6.3-8.2) g/dL Albumin 4.5 (3.5-5.0) g/dL Urine Opiates Screen Not Detected (NotDetected) Ur Oxycodone Screen Not Detected (NotDetected) Urine Methadone Screen Not Detected (NotDetected) Ur Propoxyphene Screen Not Detected (NotDetected) Ur Barbiturates Screen Not Detected (NotDetected) U Tricyclic Antidepress Not Detected (NotDetected) Ur Phencyclidine Scrn Not Detected (NotDetected) Ur Amphetamines Screen Detected H (NotDetected) U Methamphetamines Scrn Detected H (NotDetected) U Benzodiazepines Scrn Detected H (NotDetected) Urine Cocaine Screen Detected H (NotDetected) U Marijuana (THC) Screen Detected H (NotDetected) Disposition Clinical Impression: Adverse effect of sympathomimetics Disposition: HOME SELF-CARE Condition: Good Instructions (If sedation given, give patient instructions): Pregabalin (By mouth), Methamphetamine Abuse (ED) Prescriptions: Pregabalin [Lyrica] 25 mg PO BID 3 Days #6 capsule Is patient prescribed a controlled substance at d/c from ED?: No Referrals: Yung Willson MD [Primary Care Provider] - 1-2 days Time of Disposition: 21:13
[2019-12-14 19:30] LABS: Basophils % (A) 0 %; Eosinophils # (A) 0.1 k/uL (0-0.7); Eosinophils % (A) 1 %; HGB 12.8 gm/dL (13.0-17.5); Lymphocytes # (A) 1.4 k/uL (1.0-4.8); Lymphocytes % (A) 10 %; MCH 28.3 pg (25.0-35.0); MCHC 32.8 g/dL (31.0-37.0); MCV 86.5 fL (80.0-100.0); Mean Platelet Volume 7.2; Monocytes # (A) 0.7 k/uL (0-1.0); Monocytes % (A) 5 %; Neutrophils # (A) 12.3 k/uL (1.3-7.7); Neutrophils % (A) 84 %; Platelet Count 267 k/uL (150-450); RDW 12.7 % (11.5-15.5); WBC 14.7 k/uL (3.8-10.6)
[2019-12-14 19:40] LABS: ALT 15 U/L (4-49); AST 24 U/L (17-59); African American GFR (CKD) >90 (>60 ml/min/1.73 sqM); Albumin 4.5 g/dL (3.5-5.0); Alkaline Phosphatase 61 U/L (38-126); Anion Gap 9 mmol/L; Blood Urea Nitrogen 12 mg/dL (9-20); Carbon Dioxide 23 mmol/L (22-30); Chloride 107 mmol/L (98-107); Glucose 105 mg/dL (74-99); Magnesium 1.9 mg/dL (1.6-2.3); Non-African American GFR(CKD) >90 (>60 ml/min/1.73 sqM); Potassium 3.9 mmol/L (3.5-5.1); Sodium 139 mmol/L (137-145); Total Bilirubin 0.8 mg/dL (0.2-1.3); Total Protein 7.8 g/dL (6.3-8.2)
[2019-12-14 20:16] VITALS: BP 129/86; PULSE 96; TEMP 98.4
[2019-12-14 20:28] LABS: Phencyclidine Screen,Urine Not Detected (NotDetected); Urn Cannabinoid Scrn Detected (NotDetected)
[2019-12-14 20:29] LABS: Amphetamine Screen,Urine Detected (NotDetected); Barbiturate Screen,Urine Not Detected (NotDetected); Benzodiazepines Screen,Urine Detected (NotDetected); Cocaine Screen,Urine Detected (NotDetected); Methadone Screen, Urine Not Detected (NotDetected); Opiate Screen,Urine Not Detected (NotDetected); Oxycodone Screen, Urine Not Detected (NotDetected); Tricyclic Antidepressant,Urine Not Detected (NotDetected)
== END 2019-12-14 21:22 | disposition home or self-care (01) ==
LOC: EC 18:55
DX: R07.9 Chest pain, unspecified (principal); T43.625A Adverse effect of amphetamines, initial encounter; E87.2 Acidosis; F41.9 Anxiety disorder, unspecified; F31.9 Bipolar disorder, unspecified; G62.9 Polyneuropathy, unspecified; F17.290 Nicotine dependence, other tobacco product, uncomplicated; Z79.899 Other long term (current) drug therapy; Z88.0 Allergy status to penicillin
CPT/HCPCS: 36415; 93005; 80053; 83735; 85025; 80306; 99285; 96374; 96361 ×2; J2060

== ENCOUNTER 2019-12-15 12:25 | Emergency (ER) | payer OTHER ==
[2019-12-15 13:02] VITALS: BP 142/68; PULSE 105; RESP 20; TEMP 98.4
[2019-12-15] MEDS ORDERED: ONDANSETRON ODT 4 MG TAB PO STA (13:35)
[2019-12-15] MEDS ORDERED: LORazepam 1 MG TAB PO STA (13:35)
--- NOTE | 2019-12-15 13:40 | ED ---
General Adult HPI - General Chief complaint: Anxiety Stated complaint: Anxiety Time Seen by Provider: 12/15/19 13:15 Source: patient, RN notes reviewed Mode of arrival: ambulatory Limitations: no limitations - History of Present Illness Initial comments: Patient is a pleasant 29-year-old male presenting to the emergency Department with complaints of anxiety. Patient states he injected methamphetamine a day and a half or so ago. Patient states he has been anxious since that time. Patient states he did come here yesterday and went home and slept for couple of hours. Patient states when he woke up she was anxious again. Patient was prescribed Lyrica however has not had that filled yet. Patient states he does use a lot of drugs including IV heroin and methamphetamine and others. Patient is also on Suboxone. Patient feels anxious and restless. Patient states he is slightly achy throughout. Patient does have nausea. Patient states he knows that he needs to go to rehab. - Related Data Home Medications Medication Instructions Recorded Confirmed Buprenorphine HCl/Naloxone HCl 1 film SL DAILY 12/04/19 12/04/19 [Suboxone 4 mg-1 mg Sl Film] Buprenorphine HCl/Naloxone HCl 1 film SL BID 12/04/19 12/04/19 [Suboxone 8 mg-2 mg Sl Film] Emtricitabine/Tenofovir (Tdf) 1 tab PO DAILY 12/04/19 12/04/19 [Truvada 200 mg-300 mg Tablet] Gabapentin 800 mg PO TID 12/04/19 12/04/19 Ketorolac [Toradol] 10 mg PO Q6HR PRN 12/04/19 12/04/19 Pantoprazole Sodium [Protonix] 40 mg PO DAILY 12/04/19 12/04/19 Previous Rx's Medication Instructions Recorded Pregabalin [Lyrica] 25 mg PO BID 3 Days #6 capsule 12/14/19 Allergies Allergy/AdvReac Type Severity Reaction Status Date / Time Penicillins Allergy Unknown Unknown Verified 12/15/19 13:02 Review of Systems ROS Statement: Those systems with pertinent positive or pertinent negative responses have been documented in the HPI. ROS Other: All systems not noted in ROS Statement are negative. Constitutional: Denies: fever Eyes: Denies: eye pain ENT: Denies: ear pain Respiratory: Denies: cough Cardiovascular: Denies: chest pain Endocrine: Denies: fatigue Gastrointestinal: Reports: nausea Genitourinary: Denies: dysuria Musculoskeletal: Denies: back pain Skin: Denies: rash Neurological: Denies: weakness Psychiatric: Reports: anxiety Past Medical History Past Medical History: Liver Disease Additional Past Medical History / Comment(s): Hepatitis C, neuropathy History of Any Multi-Drug Resistant Organisms: MRSA Date of last positivie culture/infection: 02/24/2010 MDRO Source:: left knee Past Surgical History: Orthopedic Surgery Additional Past Surgical History / Comment(s): surgery on left middle finger ortho. Past Anesthesia/Blood Transfusion Reactions: No Reported Reaction Past Psychological History: Anxiety, Bipolar, Depression Smoking Status: Vaper Past Alcohol Use History: Occasional Past Drug Use History: Heroin, IV Drug Use, Marijuana, Methamphetamine, Opiates, Prescription Drug Abuse - Past Family History Father Family Medical History: No Reported History Mother History Unknown: Yes General Exam Limitations: no limitations General appearance: alert, in no apparent distress Head exam: Present: normocephalic Eye exam: Present: normal appearance, PERRL Neck exam: Present: normal inspection Respiratory exam: Present: normal lung sounds bilaterally Cardiovascular Exam: Present: regular rate, normal rhythm Expanded Peripheral pulses: 2+: Radial (R), Radial (L), Dorsalis Pedis (R), Dorsalis Pedis (L) GI/Abdominal exam: Present: soft, normal bowel sounds. Absent: distended, tenderness, guarding, rebound, rigid, pulsatile mass Extremities exam: Present: normal inspection. Absent: pedal edema, calf tenderness Neurological exam: Present: alert Psychiatric exam: Present: anxious Skin exam: Present: normal color Course Vital Signs 12/15/19 12:58 Temperature 98.4 F Pulse Rate 105 H Respiratory 20 Rate Blood Pressure 142/68 O2 Sat by Pulse 99 Oximetry Medical Decision Making - Medical Decision Making Patient is receptive to Ativan for anxiety and Zofran for nausea and discharge. Patient is agreeable to go to rehab. Patient will be provided rehab list. Disposition Clinical Impression: Acute anxiety, Polysubstance abuse Disposition: HOME SELF-CARE Condition: Stable Instructions (If sedation given, give patient instructions): Generalized Anxiety Disorder (ED), Polysubstance Abuse (ED) Additional Instructions: Please discontinue drug use. Please follow-up with rehab facility, list provided. Return for worsening or changing symptoms or other concerns. Is patient prescribed a controlled substance at d/c from ED?: No Referrals: Yung Willson MD [Primary Care Provider] - 1-2 days Time of Disposition: 13:40
== END 2019-12-15 13:51 | disposition home or self-care (01) ==
LOC: EC 12:25
DX: F41.9 Anxiety disorder, unspecified (principal); F19.10 Other psychoactive substance abuse, uncomplicated; Z88.0 Allergy status to penicillin; Z86.14 Personal history of Methicillin resistant Staphylococcus aureus infection
CPT/HCPCS: 99283

== ENCOUNTER 2020-01-07 20:08 | Emergency (ER) | payer OTHER ==
[2020-01-07 20:37] VITALS: BP 109/63; PULSE 70; RESP 18; TEMP 98.5
--- NOTE | 2020-01-07 21:13 | ED ---
Recheck HPI - General Chief Complaint: Recheck/Abnormal Lab/Rx Stated Complaint: Med Reaction Time Seen by Provider: 01/07/20 20:39 Source: patient Mode of arrival: ambulatory Limitations: no limitations - History of Present Illness Initial Comments: Patient is a 29-year-old male presenting to emergency Department with chief complaint of medication refill. Patient states he is going between physicians not and takes gabapentin 800 mg 4 times a day for foot drop. Patient states she has not taken medication past several days which he typically receives on a weekly basis. States he is going to a new primary care physician next week that will continue to prescribe him refills. He does not have any other complaints. - Related Data Home Medications Medication Instructions Recorded Confirmed Buprenorphine HCl/Naloxone HCl 1 film SL DAILY 12/04/19 12/04/19 [Suboxone 4 mg-1 mg Sl Film] Buprenorphine HCl/Naloxone HCl 1 film SL BID 12/04/19 12/04/19 [Suboxone 8 mg-2 mg Sl Film] Emtricitabine/Tenofovir (Tdf) 1 tab PO DAILY 12/04/19 12/04/19 [Truvada 200 mg-300 mg Tablet] Gabapentin 800 mg PO TID 12/04/19 12/04/19 Ketorolac [Toradol] 10 mg PO Q6HR PRN 12/04/19 12/04/19 Pantoprazole Sodium [Protonix] 40 mg PO DAILY 12/04/19 12/04/19 Previous Rx's Medication Instructions Recorded Pregabalin [Lyrica] 25 mg PO BID 3 Days #6 capsule 12/14/19 Gabapentin 800 mg PO TID 3 Days #9 tab 01/07/20 Allergies Allergy/AdvReac Type Severity Reaction Status Date / Time Penicillins Allergy Unknown Unknown Verified 01/07/20 20:37 Review of Systems ROS Statement: Those systems with pertinent positive or pertinent negative responses have been documented in the HPI. ROS Other: All systems not noted in ROS Statement are negative. Past Medical History Past Medical History: Liver Disease Additional Past Medical History / Comment(s): Hepatitis C, neuropathy History of Any Multi-Drug Resistant Organisms: MRSA Date of last positivie culture/infection: 02/24/2010 MDRO Source:: left knee Past Surgical History: Orthopedic Surgery Additional Past Surgical History / Comment(s): surgery on left middle finger ortho. Past Anesthesia/Blood Transfusion Reactions: No Reported Reaction Past Psychological History: Anxiety, Bipolar, Depression Smoking Status: Vaper Past Alcohol Use History: Occasional Past Drug Use History: Heroin, IV Drug Use, Marijuana, Methamphetamine, Opiates, Prescription Drug Abuse - Past Family History Father Family Medical History: No Reported History Mother History Unknown: Yes General Exam Limitations: no limitations General appearance: alert, in no apparent distress Head exam: Present: atraumatic, normocephalic, normal inspection Eye exam: Present: normal appearance, PERRL, EOMI Pupils: Present: normal accommodation ENT exam: Present: normal exam, normal oropharynx, mucous membranes moist Neck exam: Present: normal inspection, full ROM. Absent: tenderness Respiratory exam: Present: normal lung sounds bilaterally. Absent: respiratory distress, wheezes Cardiovascular Exam: Present: regular rate, normal rhythm, normal heart sounds Extremities exam: Present: normal inspection. Absent: full ROM (Decreased function in his left foot that is currently treated.), tenderness Back exam: Present: normal inspection, full ROM. Absent: tenderness Neurological exam: Present: alert, oriented X3 Psychiatric exam: Present: normal affect, normal mood Skin exam: Present: warm, dry, intact, normal color Course Vital Signs 01/07/20 20:33 Temperature 98.5 F Pulse Rate 70 Respiratory 18 Rate Blood Pressure 109/63 O2 Sat by Pulse 97 Oximetry Medical Decision Making - Medical Decision Making Patient is 29-year-old male presenting to emergency Department with chief complaint medication refill. MAPs obtained on the patient which is consistent with his story. He has not received his Gabapentin in over a week. She was given 800 mg of gabapentin in the ED. Will be discharged with 3 days of gabapentin 800 mg here and he will only receive 9 tablets. Strict return parameters were thoroughly discussed the patient is understanding and agreeable. Case discussed with physician. Disposition Clinical Impression: Encounter for medication refill Disposition: HOME SELF-CARE Condition: Stable Instructions (If sedation given, give patient instructions): Gabapentin (By mouth) Additional Instructions: Follow with her primary care physician. Return to emergency department if symptoms worsen. Prescriptions: Gabapentin 800 mg PO TID 3 Days #9 tab Is patient prescribed a controlled substance at d/c from ED?: Yes If prescribed controlled substance>3 days was MAPS reviewed?: Prescribed <3 Days Referrals: Mariela Rodríguez MD [Primary Care Provider] - 1-2 days Time of Disposition: 21:35
[2020-01-07] MEDS ORDERED: GABAPENTIN 400 MG CAP PO STA (21:37)
== END 2020-01-07 21:46 | disposition home or self-care (01) ==
LOC: EC 20:08
DX: Z76.0 Encounter for issue of repeat prescription (principal); G62.9 Polyneuropathy, unspecified; B19.20 Unspecified viral hepatitis C without hepatic coma; F17.290 Nicotine dependence, other tobacco product, uncomplicated; Z79.899 Other long term (current) drug therapy; Z88.0 Allergy status to penicillin; Z79.891 Long term (current) use of opiate analgesic
CPT/HCPCS: 99281

== ENCOUNTER 2020-01-14 05:28 | Emergency (ER) | payer OTHER ==
[2020-01-14 05:32] VITALS: BP 114/59; PULSE 60; RESP 20; TEMP 97.9
[2020-01-14] MEDS ORDERED: KETOROLAC 15 MG/ML 1 ML VIAL IM STA (06:00)
[2020-01-14] MEDS ORDERED: PREGABALIN 100 MG CAP PO STA (06:00)
--- NOTE | 2020-01-14 06:03 | ED ---
Recheck HPI - General Chief Complaint: Extremity Injury, Lower Stated Complaint: leg pain Time Seen by Provider: 01/14/20 05:47 Source: patient, RN notes reviewed, old records reviewed Mode of arrival: ambulatory Limitations: no limitations - History of Present Illness Initial Comments: This is a 29-year-old female to recheck for paresthesias, leg pain. No nerve injury and foot. Patient has persistent pain left lower extremity difficulty sleeping tonight. No other complaints no new injuries. 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 -: days(s) Returns Today for: persistent/worsening pain related to initial visit Symptoms Since Prior Visit: worsening pain - Related Data Home Medications Medication Instructions Recorded Confirmed Buprenorphine HCl/Naloxone HCl 1 film SL DAILY 12/04/19 12/04/19 [Suboxone 4 mg-1 mg Sl Film] Buprenorphine HCl/Naloxone HCl 1 film SL BID 12/04/19 12/04/19 [Suboxone 8 mg-2 mg Sl Film] Emtricitabine/Tenofovir (Tdf) 1 tab PO DAILY 12/04/19 12/04/19 [Truvada 200 mg-300 mg Tablet] Gabapentin 800 mg PO TID 12/04/19 12/04/19 Pantoprazole Sodium [Protonix] 40 mg PO DAILY 12/04/19 12/04/19 Previous Rx's Medication Instructions Recorded Gabapentin 800 mg PO TID 3 Days #9 tab 01/07/20 Ketorolac [Toradol] 10 mg PO Q6HR PRN #30 tab 01/14/20 Pregabalin [Lyrica] 25 mg PO BID 3 Days #6 capsule 01/14/20 Allergies Allergy/AdvReac Type Severity Reaction Status Date / Time Penicillins Allergy Unknown Unknown Verified 01/14/20 05:32 Review of Systems ROS Statement: Those systems with pertinent positive or pertinent negative responses have been documented in the HPI. ROS Other: All systems not noted in ROS Statement are negative. Past Medical History Past Medical History: Liver Disease Additional Past Medical History / Comment(s): Hepatitis C, neuropathy History of Any Multi-Drug Resistant Organisms: MRSA Date of last positivie culture/infection: 02/24/2010 MDRO Source:: left knee Past Surgical History: Orthopedic Surgery Additional Past Surgical History / Comment(s): surgery on left middle finger ortho. Past Anesthesia/Blood Transfusion Reactions: No Reported Reaction Past Psychological History: Anxiety, Bipolar, Depression Smoking Status: Vaper Past Alcohol Use History: Occasional Past Drug Use History: Heroin, IV Drug Use, Marijuana, Methamphetamine, Opiates, Prescription Drug Abuse - Past Family History Father Family Medical History: No Reported History Mother History Unknown: Yes General Exam Limitations: no limitations General appearance: alert, in no apparent distress Head exam: Present: atraumatic, normocephalic, normal inspection Eye exam: Present: normal appearance, PERRL, EOMI. Absent: scleral icterus, conjunctival injection, periorbital swelling ENT exam: Present: normal exam, mucous membranes moist Neck exam: Present: normal inspection. Absent: tenderness, meningismus, lymphadenopathy Respiratory exam: Present: normal lung sounds bilaterally. Absent: respiratory distress, wheezes, rales, rhonchi, stridor Cardiovascular Exam: Present: regular rate, normal rhythm, normal heart sounds. Absent: systolic murmur, diastolic murmur, rubs, gallop, clicks GI/Abdominal exam: Present: soft, normal bowel sounds. Absent: distended, tenderness, guarding, rebound, rigid Extremities exam: Present: normal inspection, full ROM, normal capillary refill. Absent: tenderness, pedal edema, joint swelling, calf tenderness Back exam: Present: normal inspection Neurological exam: Present: alert, oriented X3, CN II-XII intact Psychiatric exam: Present: normal affect, normal mood Skin exam: Present: warm, dry, intact, normal color. Absent: rash Course Vital Signs 01/14/20 05:28 Temperature 97.9 F Pulse Rate 60 Respiratory 20 Rate Blood Pressure 114/59 O2 Sat by Pulse 100 Oximetry - Reevaluation(s) Reevaluation #1: 01/14/20 06:02 Medical records reviewed he does have ER visits for similar Reevaluation #2: 01/14/20 06:02 Symptoms improved Medical Decision Making - Medical Decision Making 29 male DF for evaluation of worsening recurrent neurologic neuropathic pain. Patient can be discharged home Disposition Clinical Impression: Neuropathy Disposition: HOME SELF-CARE Condition: Good Instructions (If sedation given, give patient instructions): Foot Drop (ED), Peripheral Neuropathy (ED) Prescriptions: Pregabalin [Lyrica] 25 mg PO BID 3 Days #6 capsule Ketorolac [Toradol] 10 mg PO Q6HR PRN #30 tab PRN Reason: Pain Is patient prescribed a controlled substance at d/c from ED?: Yes When asked, does pt state using other controlled substances?: No If prescribed controlled substance>3 days was MAPS reviewed?: Prescribed <3 Days Referrals: Mariela Rodríguez MD [Primary Care Provider] - 1-2 days
== END 2020-01-14 06:25 | disposition home or self-care (01) ==
LOC: EC 05:28
DX: G62.9 Polyneuropathy, unspecified (principal); B19.20 Unspecified viral hepatitis C without hepatic coma; F12.10 Cannabis abuse, uncomplicated; F11.10 Opioid abuse, uncomplicated; F15.10 Other stimulant abuse, uncomplicated; F17.290 Nicotine dependence, other tobacco product, uncomplicated; Z79.899 Other long term (current) drug therapy; Z88.0 Allergy status to penicillin
CPT/HCPCS: 96372; 99284; J1885

== ENCOUNTER 2020-01-15 17:36 | Emergency (ER) | payer OTHER ==
[2020-01-15 18:08] VITALS: RESP 18
[2020-01-15] MEDS ORDERED: diphenhydrAMINE 50 MG CAP PO STA (18:39)
[2020-01-15] MEDS ORDERED: predniSONE 20 MG TAB PO STA (18:39)
--- NOTE | 2020-01-15 19:05 | ED ---
General Adult HPI - General Chief complaint: Skin/Abscess/Foreign Body Stated complaint: Rash on leg Time Seen by Provider: 01/15/20 18:05 Source: patient Mode of arrival: ambulatory Limitations: no limitations - History of Present Illness Initial comments: Patient is a 29-year-old male with past history of neuropathy and left foot drop presents emergency room with complaint of rash to left ankle. Patient states that he noted it today after he was walking around in the backyard. It is pruritic in nature. Appears as a cluster of vesicles. Denies any other new exposures. No recent medication changes. Denies any fevers or chills. Rash does not involve any other parts of body. Did not take any medications for her symptoms. No other alleviating, precipitating or modifying factors - Related Data Home Medications Medication Instructions Recorded Confirmed Buprenorphine HCl/Naloxone HCl 1 film SL DAILY 12/04/19 12/04/19 [Suboxone 4 mg-1 mg Sl Film] Buprenorphine HCl/Naloxone HCl 1 film SL BID 12/04/19 12/04/19 [Suboxone 8 mg-2 mg Sl Film] Emtricitabine/Tenofovir (Tdf) 1 tab PO DAILY 12/04/19 12/04/19 [Truvada 200 mg-300 mg Tablet] Gabapentin 800 mg PO TID 12/04/19 12/04/19 Pantoprazole Sodium [Protonix] 40 mg PO DAILY 12/04/19 12/04/19 Previous Rx's Medication Instructions Recorded Gabapentin 800 mg PO TID 3 Days #9 tab 01/07/20 Ketorolac [Toradol] 10 mg PO Q6HR PRN #30 tab 01/14/20 Pregabalin [Lyrica] 25 mg PO BID 3 Days #6 capsule 01/14/20 diphenhydrAMINE [Benadryl] 25 mg PO TID PRN #20 capsule 01/15/20 predniSONE [Deltasone] 20 mg PO BID #10 tab 01/15/20 Allergies Allergy/AdvReac Type Severity Reaction Status Date / Time Penicillins Allergy Unknown Unknown Verified 01/20/20 09:19 Review of Systems ROS Statement: Those systems with pertinent positive or pertinent negative responses have been documented in the HPI. ROS Other: All systems not noted in ROS Statement are negative. Past Medical History Past Medical History: Liver Disease Additional Past Medical History / Comment(s): Hepatitis C, neuropathy History of Any Multi-Drug Resistant Organisms: MRSA Date of last positivie culture/infection: 02/24/2010 MDRO Source:: left knee Past Surgical History: Orthopedic Surgery Additional Past Surgical History / Comment(s): surgery on left middle finger ortho. Past Anesthesia/Blood Transfusion Reactions: No Reported Reaction Past Psychological History: Anxiety, Bipolar, Depression Smoking Status: Vaper Past Alcohol Use History: Occasional Past Drug Use History: Heroin, IV Drug Use, Marijuana, Methamphetamine, Opiates, Prescription Drug Abuse - Past Family History Father Family Medical History: No Reported History Mother History Unknown: Yes General Exam Limitations: no limitations General appearance: alert, in no apparent distress ENT exam: Present: normal exam, mucous membranes moist Neck exam: Present: normal inspection. Absent: tenderness, meningismus, lymphadenopathy Respiratory exam: Present: normal lung sounds bilaterally. Absent: respiratory distress, wheezes, rales, rhonchi, stridor Extremities exam: Present: normal inspection, full ROM (chronic foot drop on left), normal capillary refill. Absent: tenderness, pedal edema, joint swelling, calf tenderness Neurological exam: Present: alert, oriented X3, CN II-XII intact Skin exam: Present: other (vesicular rash left lateral ankle. No cellulitic changes) Course Vital Signs 01/15/20 01/15/20 18:05 19:11 Temperature 99.5 F 98.1 F Pulse Rate 87 78 Respiratory 18 18 Rate Blood Pressure 106/57 117/70 O2 Sat by Pulse 98 98 Oximetry Medical Decision Making - Medical Decision Making Upon arrival patient is placed in room 15. A thorough history and physical exam was performed. Patient's rash is consistent with possible exposure to poison [place]. Because this patient is given a dose of Benadryl and steroids in the emergency department. Patient given a course of steroids and Benadryl at home. He is to follow-up with his primary care doctor to ensure improvement in his symptoms. Return to the emergency room for any new or worsening symptoms. Patient was in agreement with discharge plan and patient discharged home in stable condition. Disposition Clinical Impression: Contact dermatitis Disposition: HOME SELF-CARE Condition: Stable Instructions (If sedation given, give patient instructions): Contact Dermatitis (ED) Additional Instructions: Please follow up with your primary care doctor in regards your symptoms. Return to the emergency department for any new or worsening symptoms Prescriptions: diphenhydrAMINE [Benadryl] 25 mg PO TID PRN #20 capsule PRN Reason: Itching predniSONE [Deltasone] 20 mg PO BID #10 tab Is patient prescribed a controlled substance at d/c from ED?: No Referrals: Mariela Rodríguez MD [Primary Care Provider] - 1-2 days Time of Disposition: 19:05
[2020-01-15 19:13] VITALS: BP 117/70; PULSE 78; TEMP 98.1
== END 2020-01-15 19:13 | disposition home or self-care (01) ==
LOC: EC 17:36
DX: L25.9 Unspecified contact dermatitis, unspecified cause (principal); F17.290 Nicotine dependence, other tobacco product, uncomplicated; Z79.899 Other long term (current) drug therapy; Z88.0 Allergy status to penicillin
CPT/HCPCS: 99282; J7512

== ENCOUNTER 2020-01-20 09:14 | Emergency (ER) | payer OTHER ==
[2020-01-20 09:26] VITALS: TEMP 98.1
[2020-01-20] MEDS ORDERED: diphenhydrAMINE 50 MG/ML 1 ML VIAL IM STA (09:49)
--- NOTE | 2020-01-20 10:06 | ED ---
General Adult HPI - General Chief complaint: Skin/Abscess/Foreign Body Stated complaint: rash Source: patient, RN notes reviewed, old records reviewed Mode of arrival: ambulatory Limitations: no limitations - History of Present Illness Initial comments: This is a 29-year-old male who presents emergency department stating that he is an IV drug abuser. Patient states this morning he injected heroin into his antecubital fossa on the right but prior to doing so he rubbed the area down was some cotton and then the area started to show signs of hives and since that the symptoms have almost completely resolved with there is still some hives in that area and it is slightly itchy. Patient states they have some tingling to the fingers that was short lived and is completely resolved at this point in time. Patient states when he did inject himself he pulled back and he was in no pain. Patient states he has not had this happen in the past. Patient is alert and oriented and he denies being at all confused or having any difficulty breathing or chest pain. - Related Data Home Medications Medication Instructions Recorded Confirmed Buprenorphine HCl/Naloxone HCl 1 film SL DAILY 12/04/19 12/04/19 [Suboxone 4 mg-1 mg Sl Film] Buprenorphine HCl/Naloxone HCl 1 film SL BID 12/04/19 12/04/19 [Suboxone 8 mg-2 mg Sl Film] Emtricitabine/Tenofovir (Tdf) 1 tab PO DAILY 12/04/19 12/04/19 [Truvada 200 mg-300 mg Tablet] Gabapentin 800 mg PO TID 12/04/19 12/04/19 Pantoprazole Sodium [Protonix] 40 mg PO DAILY 12/04/19 12/04/19 Previous Rx's Medication Instructions Recorded Gabapentin 800 mg PO TID 3 Days #9 tab 01/07/20 Ketorolac [Toradol] 10 mg PO Q6HR PRN #30 tab 01/14/20 Pregabalin [Lyrica] 25 mg PO BID 3 Days #6 capsule 01/14/20 diphenhydrAMINE [Benadryl] 25 mg PO TID PRN #20 capsule 01/15/20 predniSONE [Deltasone] 20 mg PO BID #10 tab 01/15/20 Allergies Allergy/AdvReac Type Severity Reaction Status Date / Time Penicillins Allergy Unknown Unknown Verified 01/20/20 09:19 Review of Systems ROS Statement: Those systems with pertinent positive or pertinent negative responses have been documented in the HPI. ROS Other: All systems not noted in ROS Statement are negative. Past Medical History Past Medical History: Liver Disease Additional Past Medical History / Comment(s): Hepatitis C, neuropathy, chronic foot pain/ foot drop per pt History of Any Multi-Drug Resistant Organisms: MRSA Date of last positivie culture/infection: 02/24/2010 MDRO Source:: left knee Past Surgical History: Orthopedic Surgery Additional Past Surgical History / Comment(s): surgery on left middle finger ortho. Past Anesthesia/Blood Transfusion Reactions: No Reported Reaction Past Psychological History: Anxiety, Bipolar, Depression Smoking Status: Vaper Past Alcohol Use History: Occasional Past Drug Use History: Heroin, IV Drug Use, Marijuana, Methamphetamine, Opiates, Prescription Drug Abuse - Past Family History Father Family Medical History: No Reported History Mother History Unknown: Yes General Exam Limitations: no limitations Course Vital Signs 01/20/20 09:20 Temperature 98.1 F Pulse Rate 73 Respiratory 18 Rate Blood Pressure 149/84 O2 Sat by Pulse 98 Oximetry Medical Decision Making - Medical Decision Making patient received Benadryl in the emergency department. Patient's hives almost completely resolved. Disposition Clinical Impression: Allergic reaction, Opioid abuse Disposition: HOME SELF-CARE Condition: Good Additional Instructions: Stop using IV drugs. Use Benadryl when necessary for hives and itching Is patient prescribed a controlled substance at d/c from ED?: No Referrals: Mariela Rodríguez MD [Primary Care Provider] - 1-2 days Time of Disposition: 10:26
[2020-01-20 10:40] VITALS: BP 128/82; PULSE 55; RESP 16
== END 2020-01-20 10:40 | disposition home or self-care (01) ==
LOC: EC 09:14
DX: T78.40XA Allergy, unspecified, initial encounter (principal); F11.10 Opioid abuse, uncomplicated; F41.9 Anxiety disorder, unspecified; F31.9 Bipolar disorder, unspecified; M79.673 Pain in unspecified foot; F17.290 Nicotine dependence, other tobacco product, uncomplicated; Z79.899 Other long term (current) drug therapy; Z88.0 Allergy status to penicillin
CPT/HCPCS: 99283; 96372; J1200

== ENCOUNTER 2020-01-28 09:39 | Emergency (ER) | payer OTHER ==
[2020-01-28 09:45] VITALS: BP 149/84; PULSE 88; RESP 20; TEMP 98.6
[2020-01-28] MEDS ORDERED: KETOROLAC 15 MG/ML 1 ML VIAL IM STA (10:14)
--- NOTE | 2020-01-28 10:30 | ED ---
General Adult HPI - General Chief complaint: Extremity Injury, Lower Stated complaint: left foot issues/drop foot Time Seen by Provider: 01/28/20 09:59 Source: patient, RN notes reviewed, old records reviewed Mode of arrival: ambulatory Limitations: no limitations - History of Present Illness Initial comments: 29-year-old male patient past medical history of chronic left lower extremity pain neuropathy presents to ED for evaluation of continued pain in his left lower extremity. Patient has chronic foot drop. Patient reports that he has pain is not helped by the gabapentin he is on. Reports that he did have a minor fall today from standing landing on his gluteal region. Denies any pain to his coccyx lower back. Denies any loss of bowel or bladder control or any new lower extremity weakness, denies any saddle anesthesia. Systemic: Pt denies fatigue, fever/chills, rash. Pt denies weakness, night sweats, weight loss. Neuro: Pt denies headache, visual disturbances, syncope or pre-syncope. HEENT: Pt denies ocular discharge or irritation, otalgia, rhinorrhea, pharyngitis or notable lymphadenopathy. Cardiopulmonary: Pt denies chest pain, SOB, heart palpitations, dyspnea on exertion. Abdominal/GI: Pt denies abdominal pain, n/v/d. : Pt denies dysuria, burning w/ urination, frequency/urgency. Denies new onset urinary or bowel incontinence. MSK: Pt denies myalgia, loss of strength or function in extremities. Neuro: Pt denies new onset weakness, paresthesias. - Related Data Home Medications Medication Instructions Recorded Confirmed Buprenorphine HCl/Naloxone HCl 1 film SL DAILY 12/04/19 12/04/19 [Suboxone 4 mg-1 mg Sl Film] Buprenorphine HCl/Naloxone HCl 1 film SL BID 12/04/19 12/04/19 [Suboxone 8 mg-2 mg Sl Film] Emtricitabine/Tenofovir (Tdf) 1 tab PO DAILY 12/04/19 12/04/19 [Truvada 200 mg-300 mg Tablet] Gabapentin 800 mg PO TID 12/04/19 12/04/19 Pantoprazole Sodium [Protonix] 40 mg PO DAILY 12/04/19 12/04/19 Previous Rx's Medication Instructions Recorded Gabapentin 800 mg PO TID 3 Days #9 tab 01/07/20 Ketorolac [Toradol] 10 mg PO Q6HR PRN #30 tab 01/14/20 Pregabalin [Lyrica] 25 mg PO BID 3 Days #6 capsule 01/14/20 diphenhydrAMINE [Benadryl] 25 mg PO TID PRN #20 capsule 01/15/20 predniSONE [Deltasone] 20 mg PO BID #10 tab 01/15/20 Allergies Allergy/AdvReac Type Severity Reaction Status Date / Time Penicillins Allergy Unknown Unknown Verified 01/28/20 09:45 Review of Systems ROS Statement: Those systems with pertinent positive or pertinent negative responses have been documented in the HPI. ROS Other: All systems not noted in ROS Statement are negative. Past Medical History Past Medical History: Liver Disease Additional Past Medical History / Comment(s): Hepatitis C, neuropathy, chronic foot pain/ foot drop per pt History of Any Multi-Drug Resistant Organisms: MRSA Date of last positivie culture/infection: 02/24/2010 MDRO Source:: left knee Past Surgical History: Orthopedic Surgery Additional Past Surgical History / Comment(s): surgery on left middle finger ortho. Past Anesthesia/Blood Transfusion Reactions: No Reported Reaction Past Psychological History: Anxiety, Bipolar, Depression Smoking Status: Current every day smoker, Vaper Past Alcohol Use History: Occasional Past Drug Use History: Heroin, IV Drug Use, Marijuana, Methamphetamine, Opiates, Prescription Drug Abuse - Past Family History Father Family Medical History: No Reported History Mother History Unknown: Yes General Exam - General Exam Comments Initial Comments: Constitutional: NAD, AOX3, Pt has pleasant affect. HEENT: NC/AT, trachea midline, neck supple, no lymphadenopathy. External ears appear normal, without discharge. Mucous membranes moist. Eyes PERRLA, EOM intact. There is no scleral icterus. No pallor noted. Cardiopulmonary: RRR, no murmurs, rubs or gallops, no JVD noted. Lungs CTAB in anterior and posterior rios. No peripheral edema. Abdominal exam: Abdomen soft and non-distended. Abdomen non-tender to palpation in all 4 quadrants. Bowel sounds active in LLQ. No hepatosplenomegaly. No ecchymosis Neuro: CN II-XII grossly intact. No nuchal rigidity. No raccon eyes, no beavers sign, no hemotympanum. No cervical spinal tenderness. MSK: No posterior calf tenderness bilaterally, homans sign negative bilaterally. Posterior tibialis and radial pulse +2 bilaterally. Sensation intact in upper and lower extremities. Full active ROM in upper and lower extremities, strength intact. Limitations: no limitations Course Vital Signs 01/28/20 09:41 Temperature 98.6 F Pulse Rate 88 Respiratory 20 Rate Blood Pressure 149/84 O2 Sat by Pulse 100 Oximetry Medical Decision Making - Medical Decision Making 29 year old male patien presents to ED for evaluation of of chronic leg pain. Patient has had repeat presentations for this problem. Pt did have a minor fall today but is declining any imaging. Patient vital signs are stable, afebrile. Patient administered a dose of toradol. Will be idshcarged with outpatient follow up and return precautions. At patient request patient was referred to [facility] GON[facility]ALE[facility] for pain management as he reports that she has experience working with prior addicts. Case discussed with Dr. Yancey. Disposition Clinical Impression: Chronic pain Disposition: HOME SELF-CARE Condition: Stable Instructions (If sedation given, give patient instructions): Pain Management (ED) Additional Instructions: follow-up with primary care provider and pain management tomorrow. Return to ER if any worsening symptoms. Is patient prescribed a controlled substance at d/c from ED?: No Referrals: Mariela Rodríguez MD [Primary Care Provider] - 1-2 days Bhumi Holley FNPBC [REFERRING] - 1-2 days
== END 2020-01-28 11:10 | disposition home or self-care (01) ==
LOC: EC 09:39
DX: G89.29 Other chronic pain (principal); M79.605 Pain in left leg; F41.9 Anxiety disorder, unspecified; F31.9 Bipolar disorder, unspecified; F17.290 Nicotine dependence, other tobacco product, uncomplicated; Z79.891 Long term (current) use of opiate analgesic; Z79.899 Other long term (current) drug therapy; Z88.0 Allergy status to penicillin; Z98.890 Other specified postprocedural states; W18.30XA Fall on same level, unspecified, initial encounter
CPT/HCPCS: 99283; 96372; J1885

== ENCOUNTER 2020-02-08 21:34 | Emergency (ER) | payer OTHER ==
[2020-02-08 21:47] VITALS: RESP 18; TEMP 98.3
[2020-02-08] MEDS ORDERED: KETOROLAC 15 MG/ML 1 ML VIAL IM STA (22:08)
--- NOTE | 2020-02-08 22:35 | ED ---
General Adult HPI - General Chief complaint: Recheck/Abnormal Lab/Rx Stated complaint: Pain in L leg Time Seen by Provider: 02/08/20 21:52 Source: patient, RN notes reviewed, old records reviewed Mode of arrival: ambulatory Limitations: no limitations - History of Present Illness Initial comments: 29-year-old male patient with a history of neuropathy in the left lower extremity since ED for evaluation. Patient reports that he was unable to get his gabapentin refilled his is denied by his insurance and he is on his medication needs it for his lower extremity rapidly. Denies any other acute complaints. Systemic: Pt denies fatigue, fever/chills, rash. Pt denies weakness, night sweats, weight loss. Neuro: Pt denies headache, visual disturbances, syncope or pre-syncope. HEENT: Pt denies ocular discharge or irritation, otalgia, rhinorrhea, pharyngitis or notable lymphadenopathy. Cardiopulmonary: Pt denies chest pain, SOB, heart palpitations, dyspnea on exertion. Abdominal/GI: Pt denies abdominal pain, n/v/d. : Pt denies dysuria, burning w/ urination, frequency/urgency. Denies new onset urinary or bowel incontinence. MSK: Pt denies myalgia, loss of strength or function in extremities. Neuro: Pt denies new onset weakness, paresthesias. - Related Data Home Medications Medication Instructions Recorded Confirmed Buprenorphine HCl/Naloxone HCl 1 film SL DAILY 12/04/19 12/04/19 [Suboxone 4 mg-1 mg Sl Film] Buprenorphine HCl/Naloxone HCl 1 film SL BID 12/04/19 12/04/19 [Suboxone 8 mg-2 mg Sl Film] Emtricitabine/Tenofovir (Tdf) 1 tab PO DAILY 12/04/19 12/04/19 [Truvada 200 mg-300 mg Tablet] Gabapentin 800 mg PO TID 12/04/19 12/04/19 Pantoprazole Sodium [Protonix] 40 mg PO DAILY 12/04/19 12/04/19 Previous Rx's Medication Instructions Recorded Gabapentin 800 mg PO TID 3 Days #9 tab 01/07/20 Ketorolac [Toradol] 10 mg PO Q6HR PRN #30 tab 01/14/20 Pregabalin [Lyrica] 25 mg PO BID 3 Days #6 capsule 01/14/20 diphenhydrAMINE [Benadryl] 25 mg PO TID PRN #20 capsule 01/15/20 predniSONE [Deltasone] 20 mg PO BID #10 tab 01/15/20 Allergies Allergy/AdvReac Type Severity Reaction Status Date / Time Penicillins Allergy Unknown Unknown Verified 02/08/20 21:47 Review of Systems ROS Statement: Those systems with pertinent positive or pertinent negative responses have been documented in the HPI. ROS Other: All systems not noted in ROS Statement are negative. Past Medical History Past Medical History: Liver Disease Additional Past Medical History / Comment(s): Hepatitis C, neuropathy, chronic foot pain/ foot drop per pt History of Any Multi-Drug Resistant Organisms: MRSA Date of last positivie culture/infection: 02/24/2010 MDRO Source:: left knee Past Surgical History: Orthopedic Surgery Additional Past Surgical History / Comment(s): surgery on left middle finger ortho. Past Anesthesia/Blood Transfusion Reactions: No Reported Reaction Past Psychological History: Anxiety, Bipolar, Depression Smoking Status: Current every day smoker, Vaper Past Alcohol Use History: Occasional Past Drug Use History: None Reported, Heroin, IV Drug Use, Marijuana, Methamphetamine, Opiates, Prescription Drug Abuse - Past Family History Father Family Medical History: No Reported History Mother History Unknown: Yes General Exam - General Exam Comments Initial Comments: Constitutional: NAD, AOX3, Pt has pleasant affect. HEENT: NC/AT, trachea midline, neck supple, no lymphadenopathy. External ears appear normal, without discharge. Mucous membranes moist.EOM intact. There is no scleral icterus. No pallor noted. Cardiopulmonary: RRR, no murmurs, rubs or gallops, no JVD noted. Lungs CTAB in anterior and posterior rios. No peripheral edema. Abdominal exam: Abdomen soft and non-distended. Neuro: CN II-XII grossly intact. No nuchal rigidity. MSK: Left lower extremity is nontender. Strength is intact. Distal pulses are intact and equal. Flexion-extension are intact. No posterior calf tenderness bilaterally, homans sign negative bilaterally. Posterior tibialis and radial pulse +2 bilaterally. Sensation intact in upper and lower extremities. Full active ROM in upper and lower extremities, 5/5 stregnth. Limitations: no limitations Course Vital Signs 02/08/20 21:44 Temperature 98.3 F Pulse Rate 57 L Respiratory 18 Rate Blood Pressure 132/73 O2 Sat by Pulse 99 Oximetry Medical Decision Making - Medical Decision Making 29-year-old male patient was ED for chief complaint of chronic left lower extremity pain and neuropathy. Patient reports he was unable to get his gabapentin refilled. A map support does report that he receive 120 gabapentin on 01/19. Patient is displaying drug-seeking behavior. I had Mr. bronson a shot of Toradol 60 states that he has not taken any anti-inflammatories today and he'll be discharged outpatient follow-up with his neurologist as well as primary care provider and return precautions. Case discussed with Dr. Olivier. Disposition Clinical Impression: Drug-seeking behavior, Chronic pain Disposition: HOME SELF-CARE Condition: Stable Instructions (If sedation given, give patient instructions): Leg Pain (ED) Additional Instructions: follow-up with primary care provider and neurologist tomorrow. Return to ER if any worsening symptoms. Is patient prescribed a controlled substance at d/c from ED?: No Referrals: Mariela Rodríguez MD [Primary Care Provider] - 1-2 days
[2020-02-08 23:04] VITALS: BP 130/75; PULSE 60
== END 2020-02-08 23:04 | disposition home or self-care (01) ==
LOC: EC 21:34
DX: M79.605 Pain in left leg (principal); G89.29 Other chronic pain; Z76.5 Malingerer [conscious simulation]; G62.9 Polyneuropathy, unspecified; F41.9 Anxiety disorder, unspecified; F31.9 Bipolar disorder, unspecified; F17.290 Nicotine dependence, other tobacco product, uncomplicated; Z79.899 Other long term (current) drug therapy; Z88.0 Allergy status to penicillin
CPT/HCPCS: 96372; 99283; J1885

== ENCOUNTER 2020-04-10 09:40 | Emergency (ER) | payer OTHER ==
[2020-04-10 09:52] VITALS: TEMP 97.9
--- NOTE | 2020-04-10 10:39 | XR ---
EXAMINATION TYPE: XR elbow complete RT DATE OF EXAM: 04/10/2020 COMPARISON: NONE HISTORY: Pain FINDINGS: Three views of the elbow demonstrate no pathologic joint effusion. The osseous structures are intact . There is no acute fracture or dislocation. IMPRESSION: 1. No acute fracture or dislocation. If symptoms persist follow-up study in 7 to 10 days could be ob tained.
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
[2020-04-10 10:45] LABS: ALT 19 U/L (4-49); AST 30 U/L (17-59); African American GFR (CKD) >90 (>60 ml/min/1.73 sqM); Albumin 4.5 g/dL (3.5-5.0); Alkaline Phosphatase 79 U/L (38-126); Anion Gap 9 mmol/L; Blood Urea Nitrogen 13 mg/dL (9-20); Calcium 9.7 mg/dL (8.4-10.2); Carbon Dioxide 25 mmol/L (22-30); Chloride 106 mmol/L (98-107); Glucose 91 mg/dL (74-99); Non-African American GFR(CKD) >90 (>60 ml/min/1.73 sqM); Potassium 4.4 mmol/L (3.5-5.1); Sodium 140 mmol/L (137-145); Total Bilirubin 0.4 mg/dL (0.2-1.3); Total Protein 7.9 g/dL (6.3-8.2)
[2020-04-10] MEDS ORDERED: ACET/COD 300 MG/30 MG STARTER PACK 6 TAB BTL PO STA (10:45)
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
[2020-04-10 11:03] LABS: Basophils % (A) 0 %; Eosinophils # (A) 0.3 k/uL (0-0.7); Eosinophils % (A) 3 %; HCT 43.9 % (39.0-53.0); Lymphocytes # (A) 3.2 k/uL (1.0-4.8); Lymphocytes % (A) 38 %; MCH 27.4 pg (25.0-35.0); MCV 85.6 fL (80.0-100.0); Monocytes # (A) 0.4 k/uL (0-1.0); Monocytes % (A) 4 %; Neutrophils # (A) 4.4 k/uL (1.3-7.7); Neutrophils % (A) 53 %; Platelet Count 304 k/uL (150-450); RBC 5.12 m/uL (4.30-5.90); RDW 13.5 % (11.5-15.5); WBC 8.4 k/uL (3.8-10.6)
[2020-04-10 11:36] VITALS: BP 132/88; PULSE 79; RESP 18
== END 2020-04-10 11:38 | disposition home or self-care (01) ==
LOC: EC 09:40
DX: S50.02XA Contusion of left elbow, initial encounter (principal); R10.9 Unspecified abdominal pain; G62.9 Polyneuropathy, unspecified; F17.290 Nicotine dependence, other tobacco product, uncomplicated; Z79.899 Other long term (current) drug therapy; Z88.0 Allergy status to penicillin; Y08.02XA Assault by strike by baseball bat, initial encounter
CPT/HCPCS: 36415; 80053; 85025; 73080; 74177; 99284; Q9967

== ENCOUNTER 2020-05-09 17:41 | Emergency (ER) | payer OTHER ==
[2020-05-09 17:54] VITALS: BP 128/80; PULSE 71; RESP 18; TEMP 99.7
--- NOTE | 2020-05-09 18:40 | XR ---
EXAMINATION TYPE: XR foot complete RT DATE OF EXAM: 05/09/2020 COMPARISON: NONE HISTORY: Foot pain TECHNIQUE: 3 views FINDINGS: Metatarsals are intact. I see no fracture nor dislocation. Joint spaces are normal. IMPRESSION: Negative right foot exam.
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
== END 2020-05-09 19:04 | disposition home or self-care (01) ==
LOC: EC 17:41
DX: S90.31XA Contusion of right foot, initial encounter (principal); F41.9 Anxiety disorder, unspecified; F31.9 Bipolar disorder, unspecified; G89.29 Other chronic pain; G62.9 Polyneuropathy, unspecified; F17.290 Nicotine dependence, other tobacco product, uncomplicated; Z88.0 Allergy status to penicillin; Z79.899 Other long term (current) drug therapy; W22.03XA Walked into furniture, initial encounter; Y93.89 Activity, other specified
CPT/HCPCS: 99283

== ENCOUNTER 2020-06-07 19:26 | Emergency (ER) | payer OTHER ==
[2020-06-07 19:34] VITALS: RESP 18
--- NOTE | 2020-06-07 19:49 | ED ---
Fall HPI - General Chief Complaint: Fall Stated Complaint: Fall Time Seen by Provider: 06/07/20 19:36 Source: patient Mode of arrival: wheelchair - History of Present Illness Initial Comments: Patient is a 30-year-old male, with history of IV drug abuse, presenting to the emergency department with multiple complaints. He states that he fell down a couple steps yesterday and is complaining of left foot pain. Patient also states that he ran out of his gabapentin and is concerned that "he won't make it until the weekend when he can refill it again." Patient states he sees a neurologist in [place]. He denies any other injuries from his fall, he denies hitting his head, no loss of consciousness. Patient states the pain is becoming unbearable. He states he does not take anything else for pain at home. Patient has no other complaints at this time. Upon arrival to the ER, his vital signs are stable. - Related Data Home Medications Medication Instructions Recorded Confirmed Buprenorphine HCl/Naloxone HCl 1 film SL DAILY 12/04/19 12/04/19 [Suboxone 4 mg-1 mg Sl Film] Buprenorphine HCl/Naloxone HCl 1 film SL BID 12/04/19 12/04/19 [Suboxone 8 mg-2 mg Sl Film] Emtricitabine/Tenofovir (Tdf) 1 tab PO DAILY 12/04/19 12/04/19 [Truvada 200 mg-300 mg Tablet] Gabapentin 800 mg PO TID 12/04/19 12/04/19 Pantoprazole Sodium [Protonix] 40 mg PO DAILY 12/04/19 12/04/19 Previous Rx's Medication Instructions Recorded Gabapentin 800 mg PO TID 3 Days #9 tab 01/07/20 Ketorolac [Toradol] 10 mg PO Q6HR PRN #30 tab 01/14/20 Pregabalin [Lyrica] 25 mg PO BID 3 Days #6 capsule 01/14/20 diphenhydrAMINE [Benadryl] 25 mg PO TID PRN #20 capsule 01/15/20 predniSONE [Deltasone] 20 mg PO BID #10 tab 01/15/20 Allergies Allergy/AdvReac Type Severity Reaction Status Date / Time Penicillins Allergy Unknown Unknown Verified 06/07/20 20:34 Review of Systems ROS Statement: Those systems with pertinent positive or pertinent negative responses have been documented in the HPI. ROS Other: All systems not noted in ROS Statement are negative. Past Medical History Past Medical History: Liver Disease Additional Past Medical History / Comment(s): Hepatitis C, neuropathy, chronic foot pain/ foot drop per pt History of Any Multi-Drug Resistant Organisms: None Reported, MRSA Date of last positivie culture/infection: 02/24/2010 MDRO Source:: left knee Past Surgical History: Orthopedic Surgery Additional Past Surgical History / Comment(s): surgery on left middle finger ortho. Past Anesthesia/Blood Transfusion Reactions: No Reported Reaction Past Psychological History: Anxiety, Bipolar, Depression Smoking Status: Current every day smoker, Vaper Past Alcohol Use History: Occasional Past Drug Use History: None Reported, Heroin, IV Drug Use, Marijuana, Methamphetamine, Opiates, Prescription Drug Abuse - Past Family History Father Family Medical History: No Reported History Mother History Unknown: Yes General Exam - General Exam Comments Initial Comments: GENERAL: Patient is well-developed and well-nourished. Patient is nontoxic, in no acute distress, he appears anxious. HEAD: Atraumatic, normocephalic. EYES: Pupils equal round and reactive to light, extraocular movements intact, sclera anicteric, conjunctiva are normal. Eyelids were unremarkable. ENT: TMs normal, nares patent, oropharynx clear without exudates. Moist mucous membranes. NECK: Normal range of motion, supple without lymphadenopathy or JVD. LUNGS: Unlabored respirations. Breath sounds clear to auscultation bilaterally and equal. No wheezes rales or rhonchi. HEART: Regular rate and rhythm without murmurs, rubs or gallops. ABDOMEN: Soft, nontender, normoactive bowel sounds. No guarding, no rebound. No masses appreciated. : Deferred MUSCULOSKELETAL: Patient has mild pain to palpation of the second digit on the left foot, there is some mild bruising to the area, he does have full active range of motion of his toes. No pain of his left foot or left ankle. No obvious deformity, no swelling, he is neurovascular intact. No clubbing or cyanosis. NEUROLOGICAL: Patient is alert and oriented x 3. Motor and sensory are also intact. Cranial nerves II through XII grossly intact. Symmetrical smile. Normal speech, normal gait. PSYCH: Normal mood, normal affect. SKIN: Warm, Dry, normal turgor, no rashes or lesions noted. Limitations: no limitations Course Vital Signs 06/07/20 19:31 Temperature 99.1 F Pulse Rate 71 Respiratory 18 Rate Blood Pressure 121/77 O2 Sat by Pulse 99 Oximetry Medical Decision Making - Medical Decision Making Patient is a 30-year-old male with history of IV drug abuse, presenting for left foot pain after a fall yesterday as well as requesting a refill of his gabapentin. He sees neurologist in [place]. He denies any other injuries from his fall except for left foot pain. X-rays show a possible acute fracture of the head of the fourth metatarsal however patient has no pain in this toe, his pain is in the second metatarsal. I discussed these findings with the patient. Patient seems agitated and very anxious, demanding something for his pain, stating "I will keep coming back if my doctor can't fix this". I will give patient one tablet of [place] here in the ER and a starter pack of Tylenol 3's for his pain. I also discussed with patient that I cannot refill his gabapentin, he needs to call his neurologist for this. He needs to follow up with his neurologist tomorrow. He is in agreement with this plan of care. He is stable for discharge. Disposition Clinical Impression: Left foot pain, Chronic pain Disposition: HOME SELF-CARE Condition: Stable Instructions (If sedation given, give patient instructions): Arthralgia (ED) Additional Instructions: Please return to the Emergency Department if symptoms worsen or any other concerns. Recommend alternating Tylenol and Motrin for discomfort. Please follow up with your neurologist tomorrow as discussed. Is patient prescribed a controlled substance at d/c from ED?: No [facility] - 1-2 days
--- NOTE | 2020-06-07 20:24 | XR ---
EXAMINATION TYPE: XR foot complete LT DATE OF EXAM: 06/07/2020 COMPARISON: NONE HISTORY: Second digit bruising TECHNIQUE: 3 views FINDINGS: The toes appear intact. The second toe appears intact. There are no erosions. There is mild cortical deformity at the head of the fourth metatarsal that could be an acute fracture . IMPRESSION: Possible acute fracture of the head of the fourth metatarsal.
[2020-06-07] MEDS ORDERED: HYDROcodone/APAP 5-325MG 1 EACH TAB PO STA (20:31)
[2020-06-07] MEDS ORDERED: ACET/COD 300 MG/30 MG STARTER PACK 6 TAB BTL PO STA (20:31)
[2020-06-07 20:55] VITALS: BP 119/77; PULSE 78; TEMP 98.8
== END 2020-06-07 20:54 | disposition home or self-care (01) ==
LOC: EC 19:26
DX: G89.29 Other chronic pain (principal); M79.672 Pain in left foot; F17.290 Nicotine dependence, other tobacco product, uncomplicated; Z88.0 Allergy status to penicillin; Z79.899 Other long term (current) drug therapy; W10.9XXA Fall (on) (from) unspecified stairs and steps, initial encounter
CPT/HCPCS: 99283

== ENCOUNTER 2020-07-20 21:01 | Emergency (ER) | payer OTHER ==
[2020-07-20 21:06] VITALS: PULSE 100; RESP 18; TEMP 98.5
[2020-07-20] MEDS ORDERED: ONDANSETRON 4 MG/2 ML VIAL IVP STA (21:32)
[2020-07-20] MEDS ORDERED: LORazepam 2 MG/ML INJ IV STA (21:33)
[2020-07-20] MEDS ORDERED: SODIUM CHLORIDE 0.9% 1,000 ML IV STA (21:33)
[2020-07-20 22:20] LABS: Basophils % (A) 0 %; Eosinophils # (A) 0.2 k/uL (0-0.7); Eosinophils % (A) 3 %; HCT 42.4 % (39.0-53.0); HGB 14.1 gm/dL (13.0-17.5); Lymphocytes # (A) 3.5 k/uL (1.0-4.8); Lymphocytes % (A) 42 %; MCH 28.6 pg (25.0-35.0); MCHC 33.2 g/dL (31.0-37.0); MCV 86.3 fL (80.0-100.0); Mean Platelet Volume 7.8; Monocytes # (A) 0.6 k/uL (0-1.0); Monocytes % (A) 7 %; Neutrophils # (A) 3.8 k/uL (1.3-7.7); Neutrophils % (A) 46 %; Platelet Count 261 k/uL (150-450); RBC 4.92 m/uL (4.30-5.90); WBC 8.3 k/uL (3.8-10.6)
--- NOTE | 2020-07-20 22:22 | ED ---
General Adult HPI - General Chief complaint: Recheck/Abnormal Lab/Rx Stated complaint: Poss allergic reaction Time Seen by Provider: 07/20/20 21:11 Source: patient Mode of arrival: ambulatory Limitations: no limitations - History of Present Illness Initial comments: 30-year-old male presents to emergency Department with a chief complaint of "not feeling well". Patient reports injecting crystal meth yesterday and now he is not feeling well. Patient states he is having some tremors nausea but no vomiting. Patient also reports some diarrhea but denies any abdominal pain. Patient reports he does crystal meth from time to time in typically has a re action afterward like this. Patient does report some anxiety as well but denies any suicidal, homicidal thoughts or ideations. Denies any other complaints. - Related Data Home Medications Medication Instructions Recorded Confirmed Buprenorphine HCl/Naloxone HCl 1 film SL DAILY 12/04/19 12/04/19 [Suboxone 4 mg-1 mg Sl Film] Buprenorphine HCl/Naloxone HCl 1 film SL BID 12/04/19 12/04/19 [Suboxone 8 mg-2 mg Sl Film] Emtricitabine/Tenofovir (Tdf) 1 tab PO DAILY 12/04/19 12/04/19 [Truvada 200 mg-300 mg Tablet] Gabapentin 800 mg PO TID 12/04/19 12/04/19 Pantoprazole Sodium [Protonix] 40 mg PO DAILY 12/04/19 12/04/19 Previous Rx's Medication Instructions Recorded Gabapentin 800 mg PO TID 3 Days #9 tab 01/07/20 Ketorolac [Toradol] 10 mg PO Q6HR PRN #30 tab 01/14/20 Pregabalin [Lyrica] 25 mg PO BID 3 Days #6 capsule 01/14/20 diphenhydrAMINE [Benadryl] 25 mg PO TID PRN #20 capsule 01/15/20 predniSONE [Deltasone] 20 mg PO BID #10 tab 01/15/20 Allergies Allergy/AdvReac Type Severity Reaction Status Date / Time Penicillins Allergy Unknown Unknown Verified 07/20/20 21:06 Review of Systems ROS Statement: Those systems with pertinent positive or pertinent negative responses have been documented in the HPI. ROS Other: All systems not noted in ROS Statement are negative. Past Medical History Past Medical History: Liver Disease Additional Past Medical History / Comment(s): Hepatitis C, neuropathy, chronic foot pain/ foot drop per pt History of Any Multi-Drug Resistant Organisms: None Reported, MRSA Date of last positivie culture/infection: 02/24/2010 MDRO Source:: left knee Past Surgical History: Orthopedic Surgery Additional Past Surgical History / Comment(s): surgery on left middle finger ortho. Past Anesthesia/Blood Transfusion Reactions: No Reported Reaction Past Psychological History: Anxiety, Bipolar, Depression Smoking Status: Current every day smoker, Vaper Past Alcohol Use History: Occasional Past Drug Use History: Heroin, IV Drug Use, Marijuana, Methamphetamine, Opiates, Prescription Drug Abuse - Past Family History Father Family Medical History: No Reported History Mother History Unknown: Yes General Exam Limitations: no limitations General appearance: alert, in no apparent distress, anxious Head exam: Present: atraumatic, normocephalic, normal inspection Eye exam: Present: normal appearance, PERRL, EOMI Pupils: Present: normal accommodation ENT exam: Present: normal exam, normal oropharynx, mucous membranes dry Neck exam: Present: normal inspection, full ROM. Absent: tenderness, lymphadenopathy Respiratory exam: Present: normal lung sounds bilaterally. Absent: respiratory distress, wheezes, rales, rhonchi, stridor, chest wall tenderness Cardiovascular Exam: Present: regular rate, normal rhythm, normal heart sounds Extremities exam: Present: normal inspection, full ROM, normal capillary refill. Absent: tenderness, pedal edema, joint swelling Back exam: Present: normal inspection, full ROM. Absent: tenderness, CVA tenderness (R), CVA tenderness (L), muscle spasm, paraspinal tenderness, vertebral tenderness Neurological exam: Present: alert, oriented X3, CN II-XII intact, normal gait Psychiatric exam: Present: normal affect, anxious Skin exam: Present: warm, dry, intact, normal color Course Vital Signs 07/20/20 21:04 Temperature 98.5 F Pulse Rate 100 Respiratory 18 Rate Blood Pressure 146/89 O2 Sat by Pulse 98 Oximetry Medical Decision Making - Medical Decision Making 30-year-old male presents to emergency department with a chief complaint of not feeling well. Physical examination is unremarkable. Patient appears to be going through methadone withdrawal. Given IV fluids. CBC CMP unremarkable. Patient also given some Ativan. Reevaluation patient reports significant improvement in symptoms and feels comfortable going home. Patient advised to stop doing drugs. Return parameters discussed. Case discussed with - Lab Data Result diagrams: 07/20/20 21:50 07/20/20 21:50 Lab Results 07/20/20 07/20/20 Range/Units 21:50 21:50 WBC 8.3 (3.8-10.6) k/uL RBC 4.92 (4.30-5.90) m/uL Hgb 14.1 (13.0-17.5) gm/dL Hct 42.4 (39.0-53.0) % MCV 86.3 (80.0-100.0) fL MCH 28.6 (25.0-35.0) pg MCHC 33.2 (31.0-37.0) g/dL RDW 13.0 (11.5-15.5) % Plt Count 261 (150-450) k/uL MPV 7.8 Neutrophils % 46 % Lymphocytes % 42 % Monocytes % 7 % Eosinophils % 3 % Basophils % 0 % Neutrophils # 3.8 (1.3-7.7) k/uL Lymphocytes # 3.5 (1.0-4.8) k/uL Monocytes # 0.6 (0-1.0) k/uL Eosinophils # 0.2 (0-0.7) k/uL Basophils # 0.0 (0-0.2) k/uL Sodium 137 (137-145) mmol/L Potassium 4.4 (3.5-5.1) mmol/L Chloride 100 (98-107) mmol/L Carbon Dioxide 28 (22-30) mmol/L Anion Gap 9 mmol/L BUN 18 (9-20) mg/dL Creatinine 0.78 (0.66-1.25) mg/dL Est GFR (CKD-EPI)AfAm >90 (>60 ml/min/1.73 sqM) Est GFR (CKD-EPI)NonAf >90 (>60 ml/min/1.73 sqM) Glucose 112 H (74-99) mg/dL Calcium 10.1 (8.4-10.2) mg/dL Total Bilirubin 0.6 (0.2-1.3) mg/dL AST 39 (17-59) U/L ALT 27 (4-49) U/L Alkaline Phosphatase 66 (38-126) U/L Total Protein 7.9 (6.3-8.2) g/dL Albumin 4.8 (3.5-5.0) g/dL Disposition Clinical Impression: Withdrawal from methamphetamine Disposition: HOME SELF-CARE Condition: Stable Instructions (If sedation given, give patient instructions): Methamphetamine Ab use (ED) Additional Instructions: Stop doing drugs. Is patient prescribed a controlled substance at d/c from ED?: No Referrals: Nataliya Johnston MD [Primary Care Provider] - 1-2 days Time of Disposition: 22:48
[2020-07-20 22:37] LABS: ALT 27 U/L (4-49); AST 39 U/L (17-59); African American GFR (CKD) >90 (>60 ml/min/1.73 sqM); Albumin 4.8 g/dL (3.5-5.0); Alkaline Phosphatase 66 U/L (38-126); Anion Gap 9 mmol/L; Blood Urea Nitrogen 18 mg/dL (9-20); Calcium 10.1 mg/dL (8.4-10.2); Carbon Dioxide 28 mmol/L (22-30); Chloride 100 mmol/L (98-107); Glucose 112 mg/dL (74-99); Non-African American GFR(CKD) >90 (>60 ml/min/1.73 sqM); Potassium 4.4 mmol/L (3.5-5.1); Sodium 137 mmol/L (137-145); Total Bilirubin 0.6 mg/dL (0.2-1.3); Total Protein 7.9 g/dL (6.3-8.2)
[2020-07-20 22:57] VITALS: BP 129/83
== END 2020-07-20 22:57 | disposition home or self-care (01) ==
LOC: EC 21:01
DX: F15.23 Other stimulant dependence with withdrawal (principal); F17.200 Nicotine dependence, unspecified, uncomplicated; F41.9 Anxiety disorder, unspecified; F32.9 Major depressive disorder, single episode, unspecified; F12.90 Cannabis use, unspecified, uncomplicated; F11.90 Opioid use, unspecified, uncomplicated; Z79.52 Long term (current) use of systemic steroids; Z79.1 Long term (current) use of non-steroidal anti-inflammatories (NSAID); Z88.0 Allergy status to penicillin
CPT/HCPCS: 36415; 80053; 85025; 99283; 96374; 96375; 96361; J2060; J2405

== ENCOUNTER 2020-07-21 12:55 | Emergency (ER) | payer OTHER ==
[2020-07-21 13:01] VITALS: BP 158/92; PULSE 75; RESP 16; TEMP 98.2
[2020-07-21] MEDS ORDERED: ONDANSETRON ODT 4 MG TAB PO STA (13:26)
[2020-07-21] MEDS ORDERED: LORazepam 1 MG TAB PO STA (13:26)
[2020-07-21] MEDS ORDERED: FAMOTIDINE 20 MG TAB PO STA (13:27)
--- NOTE | 2020-07-21 13:32 | ED ---
General Adult HPI - General Chief complaint: Nausea/Vomiting/Diarrhea Stated complaint: Nausea and anxiety Time Seen by Provider: 07/21/20 13:05 Source: patient, RN notes reviewed, old records reviewed Mode of arrival: ambulatory Limitations: no limitations - History of Present Illness Initial comments: Patient is a pleasant 30-year-old male presenting to the emergency department with nausea and anxiety. Patient states nausea has been present for several days. Patient states he vomited a couple of days ago, however none since that time. Patient was in the ER yesterday and had labwork done and receive medications. Patient states he is feeling better when he left however nausea returned again this morning. No vomiting. No abdominal pain. No fevers. No constipation or diarrhea. Patient also complains of anxiety. Anxiety something patient has been struggling with intermittently over many many years. Patient states he does have history of polysubstance abuse. Patient did use methamphetamine recently. Patient is aware that this contributes to his problem. - Related Data Home Medications Medication Instructions Recorded Confirmed Buprenorphine HCl/Naloxone HCl 1 film SL DAILY 12/04/19 12/04/19 [Suboxone 4 mg-1 mg Sl Film] Buprenorphine HCl/Naloxone HCl 1 film SL BID 12/04/19 12/04/19 [Suboxone 8 mg-2 mg Sl Film] Emtricitabine/Tenofovir (Tdf) 1 tab PO DAILY 12/04/19 12/04/19 [Truvada 200 mg-300 mg Tablet] Gabapentin 800 mg PO TID 12/04/19 12/04/19 Pantoprazole Sodium [Protonix] 40 mg PO DAILY 12/04/19 12/04/19 Previous Rx's Medication Instructions Recorded Gabapentin 800 mg PO TID 3 Days #9 tab 01/07/20 Ketorolac [Toradol] 10 mg PO Q6HR PRN #30 tab 01/14/20 Pregabalin [Lyrica] 25 mg PO BID 3 Days #6 capsule 01/14/20 diphenhydrAMINE [Benadryl] 25 mg PO TID PRN #20 capsule 01/15/20 predniSONE [Deltasone] 20 mg PO BID #10 tab 01/15/20 Ondansetron Odt [Zofran Odt] 4 mg PO Q8HR PRN #10 tab 07/21/20 Allergies Allergy/AdvReac Type Severity Reaction Status Date / Time Penicillins Allergy Unknown Unknown Verified 07/21/20 13:01 Review of Systems ROS Statement: Those systems with pertinent positive or pertinent negative responses have been documented in the HPI. ROS Other: All systems not noted in ROS Statement are negative. Constitutional: Denies: fever Eyes: Denies: eye pain ENT: Denies: ear pain Respiratory: Denies: cough Cardiovascular: Denies: chest pain Endocrine: Denies: fatigue Gastrointestinal: Reports: nausea. Denies: abdominal pain, diarrhea Genitourinary: Denies: dysuria Musculoskeletal: Denies: back pain Skin: Denies: rash Neurological: Denies: weakness Psychiatric: Reports: anxiety Past Medical History Past Medical History: Liver Disease Additional Past Medical History / Comment(s): Hepatitis C, neuropathy, chronic foot pain/ foot drop per pt History of Any Multi-Drug Resistant Organisms: None Reported, MRSA Date of last positivie culture/infection: 02/24/2010 MDRO Source:: left knee Past Surgical History: Orthopedic Surgery Additional Past Surgical History / Comment(s): surgery on left middle finger ortho. Past Anesthesia/Blood Transfusion Reactions: No Reported Reaction Past Psychological History: Anxiety, Bipolar, Depression Smoking Status: Current every day smoker, Vaper Past Alcohol Use History: Occasional Past Drug Use History: Heroin, IV Drug Use, Marijuana, Methamphetamine, Opiates, Prescription Drug Abuse - Past Family History Father Family Medical History: No Reported History Mother History Unknown: Yes General Exam Limitations: no limitations General appearance: alert, in no apparent distress Head exam: Present: normocephalic Eye exam: Present: normal appearance ENT exam: Present: normal oropharynx Neck exam: Present: normal inspection, full ROM. Absent: tenderness, meningismus, lymphadenopathy, thyromegaly Respiratory exam: Present: normal lung sounds bilaterally Cardiovascular Exam: Present: regular rate, normal rhythm GI/Abdominal exam: Present: soft. Absent: distended, tenderness, guarding, rebound, rigid, pulsatile mass Extremities exam: Present: normal inspection Neurological exam: Present: alert Psychiatric exam: Present: normal affect, normal mood Skin exam: Present: normal color Course Vital Signs 07/21/20 12:56 Temperature 98.2 F Pulse Rate 75 Respiratory 16 Rate Blood Pressure 158/92 O2 Sat by Pulse 99 Oximetry Disposition Clinical Impression: Anxiety, Nausea Disposition: HOME SELF-CARE Condition: Stable Instructions (If sedation given, give patient instructions): Acute Nausea and Vomiting (ED), Anxiety (ED), Polysubstance Abuse (ED) Additional Instructions: Please follow-up with primary care physician in the next day or 2 for recheck. Avoid drug use. Return for pain or fever, uncontrolled vomiting, worsening symptoms or other concerns. Prescription for nausea medication has been sent to [facility] pharmacy on [address]. [id number] Pepcid. Prescriptions: Ondansetron Odt [Zofran Odt] 4 mg PO Q8HR PRN #10 tab PRN Reason: Nausea Is patient prescribed a controlled substance at d/c from ED?: No Referrals: Nataliya Johnston MD [Primary Care Provider] - 1-2 days Time of Disposition: 13:31
== END 2020-07-21 14:05 | disposition home or self-care (01) ==
LOC: EC 12:55
DX: R11.0 Nausea (principal); F41.9 Anxiety disorder, unspecified; F31.9 Bipolar disorder, unspecified; F17.290 Nicotine dependence, other tobacco product, uncomplicated; Z79.899 Other long term (current) drug therapy; Z88.0 Allergy status to penicillin
CPT/HCPCS: 99283

== ENCOUNTER 2020-08-17 19:12 | Emergency (ER) | payer OTHER ==
[2020-08-17 21:11] LABS: Appearance,Urine Clear (Clear); Basophils % (A) 0 %; Bilirubin,Urine Negative (Negative); Blood,Urine Negative (Negative); Color,Urine Yellow; Eosinophils # (A) 0.2 k/uL (0-0.7); Eosinophils % (A) 2 %; Glucose,Urine (UA) Negative (Negative); HCT 46.8 % (39.0-53.0); HGB 15.1 gm/dL (13.0-17.5); Ketones,Urine Trace (Negative); Leukocyte Esterase,Urine Trace (Negative); Lymphocytes # (A) 1.6 k/uL (1.0-4.8); Lymphocytes % (A) 24 %; MCH 28.6 pg (25.0-35.0); MCHC 32.3 g/dL (31.0-37.0); MCV 88.6 fL (80.0-100.0); Mean Platelet Volume 7.8; Monocytes # (A) 0.5 k/uL (0-1.0); Monocytes % (A) 7 %; Mucus,Urine Moderate /hpf; Neutrophils # (A) 4.5 k/uL (1.3-7.7); Neutrophils % (A) 66 %; Nitrite,Urine Negative (Negative); PH, Urine 6.5 (5.0-8.0); Platelet Count 207 k/uL (150-450); Protein,Urine Trace (Negative); RBC 5.28 m/uL (4.30-5.90); RBC,Urine 1 /hpf (0-5); RDW 12.9 % (11.5-15.5); Specific Gravity,Urine 1.032 (1.001-1.035); Squamous Epithelial Cell,Urine <1 /hpf (0-4); WBC 6.9 k/uL (3.8-10.6); WBC,Urine 2 /hpf (0-5)
[2020-08-17 21:24] LABS: ALT 18 U/L (4-49); AST 28 U/L (17-59); African American GFR (CKD) >90 (>60 ml/min/1.73 sqM); Albumin 4.8 g/dL (3.5-5.0); Alkaline Phosphatase 87 U/L (38-126); Amylase 66 U/L (30-110); Anion Gap 10 mmol/L; Blood Urea Nitrogen 15 mg/dL (9-20); Calcium 9.8 mg/dL (8.4-10.2); Carbon Dioxide 26 mmol/L (22-30); Chloride 101 mmol/L (98-107); Glucose 87 mg/dL (74-99); Lipase 50 U/L (23-300); Non-African American GFR(CKD) >90 (>60 ml/min/1.73 sqM); Potassium 4.3 mmol/L (3.5-5.1); Sodium 137 mmol/L (137-145); Total Bilirubin 0.7 mg/dL (0.2-1.3); Total Protein 8.1 g/dL (6.3-8.2)
[2020-08-17] MEDS ORDERED: ONDANSETRON 4 MG/2 ML VIAL IVP STA (22:46)
[2020-08-17] MEDS ORDERED: SODIUM CHLORIDE 0.9% 500 ML 500 ML IV STA (22:46)
[2020-08-17] MEDS ORDERED: diphenhydrAMINE 50 MG/ML 1 ML VIAL IVP STA (22:47)
[2020-08-17] MEDS ORDERED: FAMOTIDINE 20 MG/2 ML VIAL IV STA (22:47)
[2020-08-17] MEDS ORDERED: methylPREDNISolone SOD SUCCI 125 MG/2 ML VIAL IV STA (22:47)
--- NOTE | 2020-08-17 22:50 | ED ---
Abdominal Pain HPI - General Chief Complaint: Abdominal Pain Stated Complaint: N&V/Diarrhea/Dehydrated/abd pain Time Seen by Provider: 08/17/20 22:18 Source: patient, RN notes reviewed Mode of arrival: ambulatory Limitations: no limitations - History of Present Illness Initial Comments: Patient is a 30-year-old male that presents to the emergency room complaining of nausea vomiting and generalized abdominal pain for last 5 days. He notes that he is unable to keep any food or drinks down and has really had an appetite for these 5 days. She did appear mildly tired while sitting up in bed during exam and interview. He appeared well-nourished and well-hydrated. He noted that he's had generalized abdominal pain and tenderness all over with no point tenderness. She denied any test pain shortness of breath headache constipation fever fatigue chills. - Related Data Home Medications Medication Instructions Recorded Confirmed Buprenorphine HCl/Naloxone HCl 1 film SL DAILY 12/04/19 12/04/19 [Suboxone 4 mg-1 mg Sl Film] Buprenorphine HCl/Naloxone HCl 1 film SL BID 12/04/19 12/04/19 [Suboxone 8 mg-2 mg Sl Film] Emtricitabine/Tenofovir (Tdf) 1 tab PO DAILY 12/04/19 12/04/19 [Truvada 200 mg-300 mg Tablet] Gabapentin 800 mg PO TID 12/04/19 12/04/19 Pantoprazole Sodium [Protonix] 40 mg PO DAILY 12/04/19 12/04/19 Previous Rx's Medication Instructions Recorded Gabapentin 800 mg PO TID 3 Days #9 tab 01/07/20 Ketorolac [Toradol] 10 mg PO Q6HR PRN #30 tab 01/14/20 Pregabalin [Lyrica] 25 mg PO BID 3 Days #6 capsule 01/14/20 diphenhydrAMINE [Benadryl] 25 mg PO TID PRN #20 capsule 01/15/20 predniSONE [Deltasone] 20 mg PO BID #10 tab 01/15/20 Ondansetron Odt [Zofran Odt] 4 mg PO Q8HR PRN #10 tab 07/21/20 Allergies Allergy/AdvReac Type Severity Reaction Status Date / Time Penicillins Allergy Unknown Unknown Verified 08/17/20 20:47 Review of Systems ROS Statement: Those systems with pertinent positive or pertinent negative responses have been documented in the HPI. ROS Other: All systems not noted in ROS Statement are negative. Past Medical History Past Medical History: Liver Disease Additional Past Medical History / Comment(s): Hepatitis C, neuropathy, chronic foot pain/ foot drop per pt History of Any Multi-Drug Resistant Organisms: None Reported, MRSA Date of last positivie culture/infection: 02/24/2010 MDRO Source:: left knee Past Surgical History: Orthopedic Surgery Additional Past Surgical History / Comment(s): surgery on left middle finger ortho. Past Anesthesia/Blood Transfusion Reactions: No Reported Reaction Past Psychological History: Anxiety, Bipolar, Depression Smoking Status: Current every day smoker, Vaper Past Alcohol Use History: Occasional Past Drug Use History: Heroin, IV Drug Use, Marijuana, Methamphetamine, Opiates, Prescription Drug Abuse - Past Family History Father Family Medical History: No Reported History Mother History Unknown: Yes General Exam Limitations: no limitations General appearance: alert, in no apparent distress Head exam: Present: atraumatic, normocephalic, normal inspection Eye exam: Present: normal appearance, PERRL, EOMI. Absent: scleral icterus, conjunctival injection, periorbital swelling Neck exam: Present: normal inspection. Absent: tenderness, meningismus, lymphadenopathy Respiratory exam: Present: normal lung sounds bilaterally. Absent: respiratory distress, wheezes, rales, rhonchi, stridor Cardiovascular Exam: Present: regular rate, normal rhythm, normal heart sounds. Absent: systolic murmur, diastolic murmur, rubs, gallop, clicks GI/Abdominal exam: Present: soft, normal bowel sounds. Absent: distended, tenderness, guarding, rebound, rigid Extremities exam: Present: normal inspection, full ROM, normal capillary refill. Absent: tenderness, pedal edema, joint swelling, calf tenderness Neurological exam: Present: alert, oriented X3, CN II-XII intact Psychiatric exam: Present: normal affect, normal mood Skin exam: Present: warm, dry, intact, normal color. Absent: rash Course Vital Signs 08/17/20 20:45 Temperature 98.7 F Pulse Rate 74 Respiratory 20 Rate Blood Pressure 127/83 O2 Sat by Pulse 100 Oximetry Medical Decision Making - Medical Decision Making 30-year-old male complaining of nausea vomiting abdominal pain for the past 5 days. Labs, 500 mL of normal saline, 4 mg of Zofran ordered. Labs unremarkable. Case discussed with Dr. Banks, patient can discharge home after fluids and follow-up with primary care. - Lab Data Result diagrams: 08/17/20 21:04 08/17/20 21:04 Lab Results 08/17/20 08/17/20 08/17/20 Range/Units 21:04 21:04 21:04 WBC 6.9 (3.8-10.6) k/uL RBC 5.28 (4.30-5.90) m/uL Hgb 15.1 (13.0-17.5) gm/dL Hct 46.8 (39.0-53.0) % MCV 88.6 (80.0-100.0) fL MCH 28.6 (25.0-35.0) pg MCHC 32.3 (31.0-37.0) g/dL RDW 12.9 (11.5-15.5) % Plt Count 207 (150-450) k/uL MPV 7.8 Neutrophils % 66 % Lymphocytes % 24 % Monocytes % 7 % Eosinophils % 2 % Basophils % 0 % Neutrophils # 4.5 (1.3-7.7) k/uL Lymphocytes # 1.6 (1.0-4.8) k/uL Monocytes # 0.5 (0-1.0) k/uL Eosinophils # 0.2 (0-0.7) k/uL Basophils # 0.0 (0-0.2) k/uL Sodium 137 (137-145) mmol/L Potassium 4.3 (3.5-5.1) mmol/L Chloride 101 (98-107) mmol/L Carbon Dioxide 26 (22-30) mmol/L Anion Gap 10 mmol/L BUN 15 (9-20) mg/dL Creatinine 0.81 (0.66-1.25) mg/dL Est GFR (CKD-EPI)AfAm >90 (>60 ml/min/1.73 sqM) Est GFR (CKD-EPI)NonAf >90 (>60 ml/min/1.73 sqM) Glucose 87 (74-99) mg/dL Calcium 9.8 (8.4-10.2) mg/dL Total Bilirubin 0.7 (0.2-1.3) mg/dL AST 28 (17-59) U/L ALT 18 (4-49) U/L Alkaline Phosphatase 87 (38-126) U/L Total Protein 8.1 (6.3-8.2) g/dL Albumin 4.8 (3.5-5.0) g/dL Amylase 66 (30-110) U/L Lipase 50 (23-300) U/L Urine Color Yellow Urine Appearance Clear (Clear) Urine pH 6.5 (5.0-8.0) Ur Specific [place] 1.032 (1.001-1.035) Urine Protein Trace H (Negative) Urine Glucose (UA) Negative (Negative) Urine Ketones Trace H (Negative) Urine Blood Negative (Negative) Urine Nitrite Negative (Negative) Urine Bilirubin Negative (Negative) Urine Urobilinogen 6.0 (<2.0) mg/dL Ur Leukocyte Esterase Trace H (Negative) Urine RBC 1 (0-5) /hpf Urine WBC 2 (0-5) /hpf Ur Squamous Epith Cells <1 (0-4) /hpf Urine Mucus Moderate H (None) /hpf Disposition Clinical Impression: Gastroenteritis, Vomiting Disposition: HOME SELF-CARE Condition: Stable Instructions (If sedation given, give patient instructions): Abdominal Pain (ED) Additional Instructions: Please return to the Emergency Department if symptoms worsen or any other concerns. Follow-up with primary care in 3-5 days. Most likely viral gastroenteritis, increase fluids and food as tolerated. To self-limited illness. Continue take [id number] antipyretics/anti-inflammatories for fever, muscle aches and pains. Is patient prescribed a controlled substance at d/c from ED?: No Referrals: Nataliya Johnston MD [Primary Care Provider] - 1-2 days Time of Disposition: 23:14
[2020-08-18 00:26] VITALS: BP 136/74; PULSE 72; RESP 15; TEMP 97.4
== END 2020-08-18 00:24 | disposition home or self-care (01) ==
LOC: EC 19:12
DX: K52.9 Noninfective gastroenteritis and colitis, unspecified (principal); F32.9 Major depressive disorder, single episode, unspecified; F41.9 Anxiety disorder, unspecified; F17.290 Nicotine dependence, other tobacco product, uncomplicated; Z79.1 Long term (current) use of non-steroidal anti-inflammatories (NSAID); Z79.52 Long term (current) use of systemic steroids; Z88.0 Allergy status to penicillin
CPT/HCPCS: 36415; 80053; 82150; 83690; 85025; 81001; 99284; 96374; 96361; J2405

== ENCOUNTER 2020-09-01 03:36 | Emergency (ER) | payer OTHER ==
[2020-09-01 03:46] VITALS: BP 149/91; PULSE 68; RESP 18; TEMP 97.6
[2020-09-01] MEDS ORDERED: GABAPENTIN 400 MG CAP PO STA (04:08)
--- NOTE | 2020-09-01 04:09 | ED ---
General Adult HPI - General Chief complaint: Recheck/Abnormal Lab/Rx Stated complaint: ABD pain Time Seen by Provider: 09/01/20 03:45 Source: patient Mode of arrival: ambulatory Limitations: no limitations - History of Present Illness Initial comments: 30-year-old male with past medical history of hepatitis C, neuropathy, chronic pain and presents emergency Department requesting his Neurontin. Patient states that he ran out of his medication and cannot fill his a prescription for 2 days. Patient requesting dose in the emergency room. States that this medication is provided to him by his neurologist. Patient has not taken his dose in the past 2 days. No alleviating, precipitating or modifying factors - Related Data Home Medications Medication Instructions Recorded Confirmed Buprenorphine HCl/Naloxone HCl 1 film SL DAILY 12/04/19 12/04/19 [Suboxone 4 mg-1 mg Sl Film] Buprenorphine HCl/Naloxone HCl 1 film SL BID 12/04/19 12/04/19 [Suboxone 8 mg-2 mg Sl Film] Emtricitabine/Tenofovir (Tdf) 1 tab PO DAILY 12/04/19 12/04/19 [Truvada 200 mg-300 mg Tablet] Gabapentin 800 mg PO TID 12/04/19 12/04/19 Pantoprazole Sodium [Protonix] 40 mg PO DAILY 12/04/19 12/04/19 Previous Rx's Medication Instructions Recorded Gabapentin 800 mg PO TID 3 Days #9 tab 01/07/20 Ketorolac [Toradol] 10 mg PO Q6HR PRN #30 tab 01/14/20 Pregabalin [Lyrica] 25 mg PO BID 3 Days #6 capsule 01/14/20 diphenhydrAMINE [Benadryl] 25 mg PO TID PRN #20 capsule 01/15/20 predniSONE [Deltasone] 20 mg PO BID #10 tab 01/15/20 Ondansetron Odt [Zofran Odt] 4 mg PO Q8HR PRN #10 tab 07/21/20 Allergies Allergy/AdvReac Type Severity Reaction Status Date / Time Penicillins Allergy Unknown Unknown Verified 09/01/20 12:58 Review of Systems ROS Statement: Those systems with pertinent positive or pertinent negative responses have been documented in the HPI. ROS Other: All systems not noted in ROS Statement are negative. Past Medical History Past Medical History: Liver Disease Additional Past Medical History / Comment(s): Hepatitis C, neuropathy, chronic foot pain/ foot drop per pt History of Any Multi-Drug Resistant Organisms: None Reported, MRSA Date of last positivie culture/infection: 02/24/2010 MDRO Source:: left knee Past Surgical History: Orthopedic Surgery Additional Past Surgical History / Comment(s): surgery on left middle finger ortho. Past Anesthesia/Blood Transfusion Reactions: No Reported Reaction Past Psychological History: Anxiety, Bipolar, Depression Smoking Status: Current every day smoker, Vaper Past Alcohol Use History: Occasional Past Drug Use History: Heroin, IV Drug Use, Marijuana, Methamphetamine, Opiates, Prescription Drug Abuse - Past Family History Father Family Medical History: No Reported History Mother History Unknown: Yes General Exam Limitations: no limitations General appearance: alert, in no apparent distress Head exam: Present: atraumatic, normocephalic, normal inspection Eye exam: Present: normal appearance, PERRL, EOMI. Absent: scleral icterus, conjunctival injection, periorbital swelling ENT exam: Present: normal exam, mucous membranes moist Neck exam: Present: normal inspection. Absent: tenderness, meningismus, lymphadenopathy Respiratory exam: Present: normal lung sounds bilaterally. Absent: respiratory distress, wheezes, rales, rhonchi, stridor Cardiovascular Exam: Present: regular rate, normal rhythm, normal heart sounds. Absent: systolic murmur, diastolic murmur, rubs, gallop, clicks GI/Abdominal exam: Present: soft, normal bowel sounds. Absent: distended, tenderness, guarding, rebound, rigid Extremities exam: Present: normal inspection, full ROM, normal capillary refill. Absent: tenderness, pedal edema, joint swelling, calf tenderness Back exam: Present: normal inspection Neurological exam: Present: alert, oriented X3, CN II-XII intact Psychiatric exam: Present: normal affect, normal mood Skin exam: Present: warm, dry, intact, normal color. Absent: rash Course Vital Signs 09/01/20 03:44 Temperature 97.6 F Pulse Rate 68 Respiratory 18 Rate Blood Pressure 149/91 O2 Sat by Pulse 100 Oximetry Medical Decision Making - Medical Decision Making Upon arrival patient was placed into room 18. There are history of physical exam was performed. Patient is informed that the medication is a controlled substance and therefore I will not be able to provide a prescription. Patient understood this. Requesting one dose the emergency room. I did honor this. Patient is to follow-up with his neurologist for any further prescription refills. He did understand this. Patient discharged home in stable condition Disposition Clinical Impression: Encounter for medication refill Disposition: HOME SELF-CARE Condition: Stable Instructions (If sedation given, give patient instructions): Medicine Refill (ED) Additional Instructions: Please follow up with your neurologist for further medication refills. Return to the ED for any new or worsening symptoms. Is patient prescribed a controlled substance at d/c from ED?: No Referrals: Nataliya Johnston MD [Primary Care Provider] - 1-2 days Time of Disposition: 04:09
[2020-09-01] MEDS ORDERED: ONDANSETRON ODT 4 MG TAB PO STA (04:19)
== END 2020-09-01 04:20 | disposition home or self-care (01) ==
LOC: EC 03:36
DX: Z76.0 Encounter for issue of repeat prescription (principal); F41.9 Anxiety disorder, unspecified; F32.9 Major depressive disorder, single episode, unspecified; F17.290 Nicotine dependence, other tobacco product, uncomplicated; F12.90 Cannabis use, unspecified, uncomplicated; F15.90 Other stimulant use, unspecified, uncomplicated; F11.90 Opioid use, unspecified, uncomplicated; Z88.0 Allergy status to penicillin
CPT/HCPCS: 99283

== ENCOUNTER 2020-10-06 08:20 | Inpatient (IN) | payer MEDICAID, OTHER ==
[2020-10-06] MEDS ORDERED: LORazepam 2 MG/ML INJ IM STA (08:38)
[2020-10-06] MEDS ORDERED: HALOPERIDOL LACTATE 5 MG/ML 1 ML VIAL IM STA (08:39)
[2020-10-06] MEDS ORDERED: diphenhydrAMINE 50 MG/ML 1 ML VIAL IM STA (08:40)
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
[2020-10-06] MEDS ORDERED: METHADONE 10 MG TAB PO SCH (11:30)
[2020-10-06] MEDS: METHADONE 10 MG TAB PO SCH (12:23)
[2020-10-06] MEDS: METHADONE 5 MG TAB PO SCH (12:28)
[2020-10-06] MEDS ORDERED: MAG HYDROX/AL HYDROX/SIMETH 30 ML CUP PO PRN (12:47)
[2020-10-06] MEDS ORDERED: ACETAMINOPHEN TAB 325 MG TAB PO PRN (12:47)
[2020-10-06] MEDS ORDERED: MAGNESIUM HYDROXIDE 2,400 MG/10 ML CUP PO PRN (12:47)
[2020-10-06] MEDS ORDERED: haloperidoL 5 MG TAB PO PRN (12:52)
[2020-10-06] MEDS ORDERED: HALOPERIDOL LACTATE 5 MG/ML 1 ML VIAL IM PRN (12:52)
[2020-10-06] MEDS ORDERED: LORazepam 2 MG/ML INJ IM PRN (12:55)
[2020-10-06] MEDS ORDERED: diphenhydrAMINE 50 MG/ML 1 ML VIAL IM PRN (12:56)
[2020-10-06] MEDS: PREGABALIN 100 MG CAP PO SCH (21:20)
[2020-10-07] MEDS: diphenhydrAMINE 50 MG CAP PO PRN ×2 (01:40→23:29)
[2020-10-07] MEDS: LORazepam 1 MG TAB PO PRN ×2 (01:40→23:29)
[2020-10-07] MEDS: NICOTINE 14MG/24HR PATCH TRANSDERM SCH (02:57)
[2020-10-07 07:31] LABS: HCT 42.5 % (39.0-53.0); HGB 14.4 gm/dL (13.0-17.5); Lymphocytes % (A) 56 %; MCH 29.8 pg (25.0-35.0); MCHC 33.9 g/dL (31.0-37.0); MCV 87.9 fL (80.0-100.0); Mean Platelet Volume 8.5; Monocytes % (A) 6 %; Neutrophils % (A) 34 %; Platelet Count 208 k/uL (150-450); RBC 4.84 m/uL (4.30-5.90); RDW 12.4 % (11.5-15.5); WBC 6.5 k/uL (3.8-10.6)
[2020-10-07 07:32] LABS: Basophils % (A) 1 %; Eosinophils # (A) 0.1 k/uL (0-0.7); Eosinophils % (A) 1 %; Lymphocytes # (A) 3.7 k/uL (1.0-4.8); Monocytes # (A) 0.4 k/uL (0-1.0); Neutrophils # (A) 2.2 k/uL (1.3-7.7)
[2020-10-07 07:34] LABS: ALT 104 U/L (4-49); AST 312 U/L (17-59); African American GFR (CKD) >90 (>60 ml/min/1.73 sqM); Albumin 4.6 g/dL (3.5-5.0); Alkaline Phosphatase 73 U/L (38-126); Anion Gap 7 mmol/L; Blood Urea Nitrogen 12 mg/dL (9-20); Calcium 9.6 mg/dL (8.4-10.2); Carbon Dioxide 29 mmol/L (22-30); Chloride 103 mmol/L (98-107); Glucose 84 mg/dL (74-99); Non-African American GFR(CKD) >90 (>60 ml/min/1.73 sqM); Potassium 4.5 mmol/L (3.5-5.1); Sodium 139 mmol/L (137-145); Total Bilirubin 1.2 mg/dL (0.2-1.3); Total Protein 7.3 g/dL (6.3-8.2)
[2020-10-07] MEDS: METHADONE 10 MG TAB PO SCH (08:28)
[2020-10-07] MEDS: METHADONE 5 MG TAB PO SCH (08:28)
[2020-10-07] MEDS: PREGABALIN 100 MG CAP PO SCH ×2 (08:29→21:04)
[2020-10-07 09:58] LABS: Appearance,Urine Clear (Clear); Bacteria,Urine Rare /hpf; Bilirubin,Urine Negative (Negative); Blood,Urine Negative (Negative); Color,Urine Yellow; Glucose,Urine (UA) Negative (Negative); Ketones,Urine 2+ (Negative); Leukocyte Esterase,Urine Small (Negative); Mucus,Urine Few /hpf; Nitrite,Urine Negative (Negative); Protein,Urine Negative (Negative); Specific Gravity,Urine 1.021 (1.001-1.035); Urobilinogen,Urine <2.0 mg/dL (<2.0); WBC,Urine 8 /hpf (0-5)
[2020-10-07 10:26] LABS: Amphetamine Screen,Urine Not Detected (NotDetected); Barbiturate Screen,Urine Not Detected (NotDetected); Benzodiazepines Screen,Urine Detected (NotDetected); Cocaine Screen,Urine Not Detected (NotDetected); Methadone Screen, Urine Detected (NotDetected); Opiate Screen,Urine Not Detected (NotDetected); Oxycodone Screen, Urine Not Detected (NotDetected); Phencyclidine Screen,Urine Not Detected (NotDetected); Tricyclic Antidepressant,Urine Not Detected (NotDetected); Urn Cannabinoid Scrn Detected (NotDetected)
[2020-10-07 11:46] LABS: Chol/HDL Ratio 3.14; Cholesterol 160 mg/dL (0-200); LDL Cholesterol,Calculated 96.8 mg/dL (0.0-131.0)
--- NOTE | 2020-10-07 13:48 | P.CONS ---
History of Present Illness - Reason for Consult Medical clearance - History of Present Illness 30-year-old male was admitted to psychiatric floor for acute psychosis. Patient was apparently suicidal as well. I was consulted for medical clearance. 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 Review of Systems Most of the review of systems are positive as mentioned above Past Medical History Past Medical History: Liver Disease Additional Past Medical History / Comment(s): Hepatitis C, neuropathy, chronic foot pain/ foot drop per pt History of Any Multi-Drug Resistant Organisms: None Reported, MRSA Year Discovered:: 02/24/2010 MDRO Source:: left knee Past Surgical History: Orthopedic Surgery Additional Past Surgical History / Comment(s): surgery on left middle finger ortho. Past Anesthesia/Blood Transfusion Reactions: No Reported Reaction Past Psychological History: Anxiety, Bipolar, Depression Smoking Status: Current every day smoker, Vaper Past Alcohol Use History: Occasional Past Drug Use History: Heroin, IV Drug Use, Marijuana, Methamphetamine, Opiates, Prescription Drug Abuse - Past Family History Father Family Medical History: No Reported History Mother History Unknown: Yes Medications and Allergies Home Medications Medication Instructions Recorded Confirmed Type DULoxetine HCL [Cymbalta] 20 mg PO BID 10/06/20 10/06/20 History Ergocalciferol [Vitamin D2 (1250 1,250 mcg PO Q7D 10/06/20 10/06/20 History Mcg = 60336 Iu)] Gabapentin 800 mg PO QID 10/06/20 10/06/20 History Methadone HCl [Methadone Intensol] 125 mg PO DAILY 10/06/20 10/06/20 History Pregabalin [Lyrica] 300 mg PO BID 10/06/20 10/06/20 History Allergies Allergy/AdvReac Type Severity Reaction Status Date / Time Penicillins Allergy Unknown Unknown Verified 10/06/20 08:45 Physical Exam Vitals: Vital Signs Temp Pulse Resp BP Pulse Ox 10/07/20 07:07 98.0 F 78 17 124/79 98 10/06/20 17:30 98.2 F PHYSICAL EXAMINATION: GENERAL: The patient is alert and oriented x3, not in any acute distress. Well developed, well nourished. HEENT: Pupils are round and equally reacting to light. EOMI. No scleral icterus. No conjunctival pallor. Normocephalic, atraumatic. No pharyngeal erythema. No thyromegaly. CARDIOVASCULAR: S1 and S2 present. No murmurs, rubs, or gallops. PULMONARY: Chest is clear to auscultation, no wheezing or crackles. ABDOMEN: Soft, nontender, nondistended, normoactive bowel sounds. No palpable organomegaly. No CVA tenderness MUSCULOSKELETAL: No joint swelling or deformity. EXTREMITIES: No cyanosis, clubbing, or pedal edema. NEUROLOGICAL: Gross neurological examination did not reveal any focal deficits. She doesn't have any foot drop SKIN: No rashes. Results CBC & Chem 7: 10/07/20 06:47 10/07/20 06:47 Labs: Abnormal Lab Results - Last 24 Hours (Table) 10/07/20 10/07/20 10/07/20 Range/Units 06:47 09:22 09:22 AST 312 H (17-59) U/L ALT 104 H (4-49) U/L Urine Ketones 2+ H (Negative) Ur Leukocyte Esterase Small H (Negative) Urine WBC 8 H (0-5) /hpf Urine Bacteria Rare H (None) /hpf Urine Mucus Few H (None) /hpf Urine Methadone Screen Detected H (NotDetected) U Benzodiazepines Scrn Detected H (NotDetected) U Marijuana (THC) Screen Detected H (NotDetected) Assessment and Plan Plan: -Symptoms of dysuria: I'll obtain urine analysis. Clinically patient doesn't area to have UTI there is no CVA tenderness. -Complaints of foot drop which is not evident on clinical exam no further intervention at this time the line-mild elevated liver enzymes secondary to hepatitis C -History of IV drug abuse in the past -Acute psychosis and other psychiatric issues management as per primary service
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
[2020-10-07] MEDS: QUEtiapine 100 MG TAB PO SCH (21:04)
[2020-10-08] MEDS: NICOTINE 14MG/24HR PATCH TRANSDERM SCH (06:49)
[2020-10-08 06:50] VITALS: RESP 16
[2020-10-08] MEDS: METHADONE 5 MG TAB PO SCH (08:44)
[2020-10-08] MEDS: METHADONE 10 MG TAB PO SCH (08:45)
[2020-10-08] MEDS: PREGABALIN 100 MG CAP PO SCH ×2 (08:46→20:51)
[2020-10-08 09:56] LABS: ALT 93 U/L (4-49); AST 192 U/L (17-59); African American GFR (CKD) >90 (>60 ml/min/1.73 sqM); Albumin 4.6 g/dL (3.5-5.0); Alkaline Phosphatase 66 U/L (38-126); Anion Gap 9 mmol/L; Blood Urea Nitrogen 9 mg/dL (9-20); Calcium 9.7 mg/dL (8.4-10.2); Carbon Dioxide 30 mmol/L (22-30); Chloride 102 mmol/L (98-107); Glucose 110 mg/dL (74-99); Non-African American GFR(CKD) >90 (>60 ml/min/1.73 sqM); Potassium 3.9 mmol/L (3.5-5.1); Sodium 141 mmol/L (137-145); Total Bilirubin 0.8 mg/dL (0.2-1.3); Total Protein 7.3 g/dL (6.3-8.2)
--- NOTE | 2020-10-08 18:11 | PN ---
PROGRESS NOTE DATE OF SERVICE: 10/08/2020 CHIEF COMPLAINT: The patient was in an agitated state at home where he was throwing furniture. He could not calm down. He had not been sleeping. He was hearing voices. INTERVAL HISTORY: Patient has been doing fair. He had a quiet day yesterday. He comes out on the unit. He wanders about. He tends to have a quiet manner, though he will interact with others. He generally presents in an appropriate way. He attended the 12:30 group yesterday with the following being documented "the patient has been feeling depressed, hopeless, confused, lonely, anxiety, poor anger control, poor energy, nervousness, seeing things and feeling watched. The patient fell asleep at the table and therefore no longer participated in group. The patient stated that he was just very tired." The patient attended other groups through the day and seemed to do well in groups. He tends to have a quiet manner and presents in a reserved away, though generally is appropriate in his interactions. He said he slept well last night. He noted that he felt a little tired this morning, though overall feels that he is doing a little bit better. He has attended groups today and again presents in a quiet manner. His father brought in some clothes for him. He said talked with father and father noted that things in the patient's room at home where he had been throwing furniture was "not as bad as I expected." From the patient's standpoint, he says that he is feeling better overall. His mood is improved. He says that he is not feeling any of the distress and agitation that got him into his situation leading to this hospitalization. He notes that he has been working with a therapist through [facility] and that therapist has been setting up a referral for him for followup to [facility]. He is positive about the followup. He feels comfortable with his Seroquel and does not note any significant side effects or problems. MENTAL STATUS EXAM: Patient sat with a little restlessness. He gave good eye contact. He answered questions appropriately. His thoughts were clear. His affect was a little constricted. He had a quiet though calm manner. His mood was reserved though not clearly down or depressed. He did not appear to be significantly distressed. He seems to have a reduction in symptoms of thought disorder. He voiced no thoughts of harm. Cognition was clear. ASSESSMENT: I will continue the current diagnosis and treatment plan. I discussed medication issues with the patient. I reviewed indication, potential side effects and long-term concerns relating to metabolics and movement disorder issues. I discussed the indication for Seroquel with the specifics that 300 mg was the dose studied for bipolar depression. We discussed that sometimes higher doses are needed and the general indication is 400-600 mg of Seroquel for bipolar brendan. At this point, the patient appears to be responding reasonably well to his medications. I noted that on Saturday we can coordinate with [facility] and begin looking at discharge planning. I anticipate the patient being discharged at least by mid week. LOUISE / RAJENDRAN: [id number] /
[2020-10-08] MEDS: QUEtiapine 100 MG TAB PO SCH (20:51)
[2020-10-08] MEDS: diphenhydrAMINE 50 MG CAP PO PRN (23:40)
[2020-10-08] MEDS: LORazepam 1 MG TAB PO PRN (23:40)
[2020-10-09] MEDS: METHADONE 10 MG TAB PO SCH (07:42)
[2020-10-09] MEDS: METHADONE 5 MG TAB PO SCH (07:43)
[2020-10-09] MEDS: PREGABALIN 100 MG CAP PO SCH ×2 (07:44→21:05)
[2020-10-09] MEDS: NICOTINE 14MG/24HR PATCH TRANSDERM SCH (07:44)
--- NOTE | 2020-10-09 15:56 | PN ---
PROGRESS NOTE DATE OF SERVICE: 10/09/2020. CHIEF COMPLAINT: The patient was in an agitated state at home where he was throwing furniture. He could not calm down. He had not been sleeping. He was hearing voices. INTERVAL HISTORY: Patient has been doing fair. He had a quiet day yesterday. He comes out in the day area. He will wander about some. He interacts with others. He attended groups yesterday and seems to engage in a positive way in groups. He slept well last night. Today he has been up. He again has been social and interacts appropriately with staff and peers. It is noted that at the 11 o'clock group today the following descriptors were noted: "Elated, labile, tearful, tangential, flight of ideas, thought blocking, hyperverbal, appropriate psychomotor activity." When I talked to him today, he had no specific complaints or concerns. He said he was a little tired, which he thinks is due to the medication, though it did not seem to be a big issue for him. He has a good outlook. He was able to talk about some discharge planning issues. He tolerates his psychotropic medications. MENTAL STATUS: Patient gave good eye contact. Psychomotor activity was a little restless. He answered questions appropriately. His thoughts were clear. His affect was in a reasonable range. His mood was even. He did not appear to be distressed. There was no outward evidence of thought disorder. He voiced no thoughts of harm. Cognition was clear. ASSESSMENT: I will continue the current diagnosis and treatment plan. I will continue psychotropic medications the same. We will focus on discharge planning issues. We will coordinate with [facility], specially at the treatment team tomorrow to set up followup plans. MMYFN / JV: [id number] /
[2020-10-09 16:22] LABS: Appearance,Urine Clear (Clear); Bilirubin,Urine Negative (Negative); Blood,Urine Negative (Negative); Color,Urine Colorless; Glucose,Urine (UA) Negative (Negative); Ketones,Urine Negative (Negative); Leukocyte Esterase,Urine Negative (Negative); Nitrite,Urine Negative (Negative); Protein,Urine Negative (Negative); Specific Gravity,Urine 1.001 (1.001-1.035); Urobilinogen,Urine <2.0 mg/dL (<2.0)
[2020-10-09] MEDS: QUEtiapine 100 MG TAB PO SCH (21:05)
[2020-10-10] MEDS: LORazepam 1 MG TAB PO PRN ×2 (00:32→10:53)
[2020-10-10] MEDS: diphenhydrAMINE 50 MG CAP PO PRN (00:32)
[2020-10-10] MEDS: NICOTINE 14MG/24HR PATCH TRANSDERM SCH (08:16)
[2020-10-10] MEDS: PREGABALIN 100 MG CAP PO SCH ×2 (08:16→21:21)
[2020-10-10] MEDS: METHADONE 5 MG TAB PO SCH (08:16)
[2020-10-10] MEDS: METHADONE 10 MG TAB PO SCH (08:17)
--- NOTE | 2020-10-10 11:55 | P.PN ---
Progress Note - Text Progress Note Date: 10/10/20 Interval History: Patient was seen wandering the hallways and was directable and agreeable to ana fisher with bid writer in the office. Patient appeared to have racing thoughts and was hyperverbal at times. He states that he is feeling better today in terms of his mood. He is currently denying any depression. He spoke about feeling not accepted in the community that he is living in and spoke multiple times about wanting to go and live in [place] as there is an LGBTQ community that is more accepting of him. She states that she was able to sleep fairly last night after he took the Benadryl. He claims that the Seroquel has been helping with his racing thoughts at nighttime. He claims that he did need an Ativan during the day today when he was in group however was not able to describe why. He was agreeable to take Seroquel during the day as well. At this time patient denies any suicidal or homical ideations, intent or plan. Patient denies any auditory, visual hallucinations and denies any paranoia or delusions. Patient denies any side effects from the medications and has been compliant with meds. Mental Status Exam: General Appearance: Patient appears to be thin, has long hair, stated age is alert, directable, and cooperative. Behavior: Patient is calmly seated without any agitated behavior. Speech: Patient's speech is fluent and nonpressured. Hyperverbal. Mood/Affect: Mood is improving mildly, affect is congruent and constricted. Suicidality/Homicidality: Patient denies having any suicidal or homicidal ideation intent or plan. Perceptions: Patient denies any visual hallucinations and denies any auditory hallucinations Though content/process: Racing thoughts, rambles at times. Tangential. Memory and concentration: AOX3, grossly intact for the purposes of this session Judgment and insight: Improving mildly Assessment Bipolar disorder, manic episode Opioid dependence, currently on agonist therapy Cannabis use disorder Nicotine dependence Plan: -Patient continues to meet criteria for inpatient psychiatric admission for symptom stabilization and safety. Patient has signed adult voluntary form and medication consent and was placed in patient's chart. -Medications: Increase Seroquel to 300 mg daily at bedtime +50 mg daily for mood stabilization/anxiety. Benadryl 3 times a day when necessary for agitation. Methadone 125 mg by mouth for opioid dependence -When necessary Ativan and Haldol for agitation/aggression. -NRT - nicotine patch -SW on board for discharge planning. Encouraged the patient to participate in milieu. Likely discharge in 1-2 days.
[2020-10-10] MEDS: QUEtiapine 50 MG TAB PO SCH (13:00)
[2020-10-10] MEDS: QUEtiapine 100 MG TAB PO SCH (21:21)
[2020-10-11 03:58] VITALS: BP 104/60; PULSE 101; TEMP 97.1
[2020-10-11] MEDS: METHADONE 10 MG TAB PO SCH (08:33)
[2020-10-11] MEDS: METHADONE 5 MG TAB PO SCH (08:33)
[2020-10-11] MEDS: NICOTINE 14MG/24HR PATCH TRANSDERM SCH (08:33)
[2020-10-11] MEDS: PREGABALIN 100 MG CAP PO SCH (08:35)
[2020-10-11] MEDS: QUEtiapine 50 MG TAB PO SCH (08:35)
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
== END 2020-10-11 12:45 | disposition home or self-care (01) | DRG 885 ==
LOC: EC 08:20 → 3MHU 12:31 → EC 12:31 → 3MHU 10-08 09:54
PROVIDERS: ADMIT Psychiatry & Neurology Psychiatry; ATTEND Psychiatry & Neurology Psychiatry
DX: F31.2 Bipolar disorder, current episode manic severe with psychotic features (principal); F23 Brief psychotic disorder; F11.20 Opioid dependence, uncomplicated; R45.851 Suicidal ideations; B19.20 Unspecified viral hepatitis C without hepatic coma; F12.10 Cannabis abuse, uncomplicated; F17.200 Nicotine dependence, unspecified, uncomplicated; F41.9 Anxiety disorder, unspecified; G62.9 Polyneuropathy, unspecified; T40.2X5A Adverse effect of other opioids, initial encounter; Z79.899 Other long term (current) drug therapy; Z20.822 Contact with and (suspected) exposure to COVID-19
CPT/HCPCS: 80053; 80061; 80306; 81001; 81003; 82075; 83036; 84443; 85025; 87635; 96372; 99285

== ENCOUNTER → 2020-12-26 | Outpatient (CLI) | payer OTHER ==
[2020-12-26 07:33] VITALS: BP 135/83; PULSE 55; RESP 18; TEMP 98
--- NOTE | 2020-12-26 07:49 | P.PAINCN ---
History of Present Illness - Reason for Consult Consult date: 12/26/20 - History of Present Illness This is a 30-year-old patient referred for chronic pain in the left foot. Of note patient has a history of suicidal ideations, body dysmorphic disorder, IVDA, hx of drug overdose requiring Narcan, multiple ER admissions for left foot pain with normal workup so far. Reports pain that starts in his left calf with radiation down all the way to the foot. Pain involves worse the plantar and dorsal aspect of the foot. Pain is described as sharp and stabbing and constant throughout the day. He describes as a constant 5 out of 10 pain. He says the pain first started many months ago when he fell asleep cross leg and after significant drug overdose. Since then he has had significant pain which is relatively unrelenting. In terms of management he is on Lyrica 300 mg BID. Has been on gabapentin in the past. is also on methadone for opioid dependence. Admits to smoking a significant amount of marijuana. Wears a brace, sees a residential mortgage manager and neurologist. Also goes to physical therapy 3 times a week. In addition to above, 13-point review of systems is also negative for chest pain, shortness of breath, changes in vision, changes in hearing, new onset weakness, abdominal pain, diarrhea, extreme fatigue, malaise, fever, skin changes, homicidal or suicidal ideation, or bowel or bladder incontinence. Physical exam: Vital Signs: Reviewed in EMR GENERAL: Well appearing, in no acute distress PSYCH: Mood and affect is appropriate. Awake, alert, and oriented SKIN: Skin color, texture, turgor normal, no rashes or lesions HEENT: Normocephalic, atraumatic. EOM intact CV: No pedal edema RESP: Respirations are unlabored, no audible wheezing GI: Abdomen non-distended MUSCULOSKELETAL: Focused LLE exam: - No cyanosis, erythema, or significant lesions - Allodynia over the dorsum of the foot in the common peroneal nerve distribution - ROM severely limited on flexion, moderately on extension - 4/5 plantarflexion and dorsiflexion - Waddling gait NEUR: Bilateral upper and lower extremity coordination and muscle stretch reflexes are physiologic and symmetric. Negative clonus. No loss of sensation is noted. Cranial nerves are grossly intact. 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 No evidence of lumbar radiculopathy, myopathy, plexopathy Assessment: 1. Left tibial and peroneal neuropathy Plan: - Based on the patient's EMG study and symptoms it seems the patient has had damage and subsequent pain to the left tibial and peroneal nerves. We will perform a left popliteal fossa nerve injection targeting the sciatic nerve at this level. If he receives relief from this procedure and it is short lived we can consider peripheral nerve stimulator referral for the sciatic nerve at the level of the popliteal fossa. I spent 50 minutes on patient care today. The time was used to review medical records including relevant urine studies and prescription history (MAPs), review of the available imaging, evaluation and examination the patient, coordination of care at the medical staff and if applicable referring physicians, as well as creation of the medical record. Past Medical History Past Medical History: Liver Disease Additional Past Medical History / Comment(s): Hepatitis C, neuropathy, chronic foot pain/ foot drop per pt, PALSY LT LOWER LEG History of Any Multi-Drug Resistant Organisms: None Reported, MRSA Year Discovered:: 02/24/2010 MDRO Source:: left knee Past Surgical History: Orthopedic Surgery Additional Past Surgical History / Comment(s): surgery on left middle finger ortho., Past Anesthesia/Blood Transfusion Reactions: No Reported Reaction Smoking Status: Current every day smoker, Vaper - Past Family History Father Family Medical History: No Reported History Mother History Unknown: Yes Medications and Allergies Home Medications Medication Instructions Recorded Confirmed Type Pregabalin [Lyrica] 300 mg PO BID 10/06/20 12/26/20 History Methadone HCl [Methadone Intensol] 107 mg PO DAILY 12/23/20 12/26/20 History Allergies Allergy/AdvReac Type Severity Reaction Status Date / Time Penicillins Allergy Unknown Unknown Verified 12/23/20 12:51 Childhood PQRS Measure Charge Sheet PQRS Narrative: Smoking Status Current every day smoker Pain Intensity [Left Lower Leg 7 ] Scale Used Numeric (1 - 10) Hx Alcohol Use (MH) Yes Home Medications: Ambulatory Orders Pregabalin [Lyrica] 300 mg PO BID 10/06/20 Methadone HCl [Methadone Intensol] 107 mg PO DAILY 12/23/20
== END | disposition home or self-care (01) ==
LOC: PNWHC3 07:21
PROVIDERS: ATTEND Anesthesiology
DX: G62.9 Polyneuropathy, unspecified (principal); M79.662 Pain in left lower leg; M79.672 Pain in left foot
CPT/HCPCS: 99211

== ENCOUNTER 2020-12-30 09:19 | Emergency (ER) | payer OTHER ==
[2020-12-30 09:25] VITALS: BP 119/70; PULSE 66; RESP 16; TEMP 98.6
--- NOTE | 2020-12-30 09:57 | ED ---
ENT HPI - General Chief complaint: Dental/Oral Stated complaint: jaw pain Time Seen by Provider: 12/30/20 09:26 Source: patient, RN notes reviewed Mode of arrival: ambulatory Limitations: no limitations - History of Present Illness Initial comments: This a 30-year-old male presents emergency Department chief complaint dental pain. Patient states he's had dental pain for a while on the right side with states he woke up with a bump on the right side. Patient states the more painful no fevers chills no difficulty swallowing noted deep breathing. No other complaints. - Related Data Home Medications Medication Instructions Recorded Confirmed Pregabalin [Lyrica] 300 mg PO BID 10/06/20 12/26/20 Methadone HCl [Methadone Intensol] 107 mg PO DAILY 12/23/20 12/26/20 Previous Rx's Medication Instructions Recorded Clindamycin HCl 300 mg PO Q6HR #40 cap 12/30/20 Ibuprofen [Motrin] 600 mg PO Q8HR PRN #20 tab 12/30/20 Allergies Allergy/AdvReac Type Severity Reaction Status Date / Time Penicillins Allergy Unknown Unknown Verified 12/30/20 09:24 Childhood Review of Systems ROS Statement: Those systems with pertinent positive or pertinent negative responses have been documented in the HPI. ROS Other: All systems not noted in ROS Statement are negative. Past Medical History Past Medical History: Liver Disease Additional Past Medical History / Comment(s): Hepatitis C, neuropathy, chronic foot pain History of Any Multi-Drug Resistant Organisms: None Reported, MRSA Date of last positivie culture/infection: 02/24/2010 MDRO Source:: left knee Past Surgical History: Orthopedic Surgery Additional Past Surgical History / Comment(s): surgery on left middle finger ortho. Past Anesthesia/Blood Transfusion Reactions: No Reported Reaction Past Psychological History: Anxiety, Bipolar, Depression Smoking Status: Current every day smoker, Vaper Past Alcohol Use History: None Reported Past Drug Use History: Marijuana - Past Family History Father Family Medical History: No Reported History Mother History Unknown: Yes General Exam Limitations: no limitations General appearance: alert, in no apparent distress Head exam: Present: atraumatic, normocephalic, normal inspection Eye exam: Present: normal appearance, PERRL, EOMI. Absent: scleral icterus, c onjunctival injection, periorbital swelling ENT exam: Present: mucous membranes moist. Absent: normal exam, normal oropharynx (Dental Sandi noted on the right lower small palpable lump on the mandible) Neck exam: Present: normal inspection, full ROM. Absent: tenderness, meningismus, lymphadenopathy Respiratory exam: Present: normal lung sounds bilaterally. Absent: respiratory distress, wheezes, rales, rhonchi, stridor Cardiovascular Exam: Present: regular rate, normal rhythm, normal heart sounds. Absent: systolic murmur, diastolic murmur, rubs, gallop, clicks Course Vital Signs 12/30/20 09:22 Temperature 98.6 F Pulse Rate 66 Respiratory 16 Rate Blood Pressure 119/70 O2 Sat by Pulse 99 Oximetry Medical Decision Making - Medical Decision Making Patient was started on antibiotics for probable underlying dental infection will follow-up with dentist return parameters were discussed. Disposition Clinical Impression: Dental infection Disposition: HOME SELF-CARE Condition: Stable Instructions (If sedation given, give patient instructions): Toothache (ED) Additional Instructions: Please return to the Emergency Department if symptoms worsen or any other concerns. Prescriptions: Clindamycin HCl 300 mg PO Q6HR #40 cap Ibuprofen [Motrin] 600 mg PO Q8HR PRN #20 tab PRN Reason: Pain Is patient prescribed a controlled substance at d/c from ED?: No Referrals: Nataliya Johnston MD [Primary Care Provider] - 1-2 days Time of Disposition: 09:57
== END 2020-12-30 10:01 | disposition home or self-care (01) ==
LOC: EC 09:19
DX: K02.9 Dental caries, unspecified (principal); Z88.0 Allergy status to penicillin; F17.290 Nicotine dependence, other tobacco product, uncomplicated
CPT/HCPCS: 99283

== ENCOUNTER 2021-01-26 11:43 | Day surgery (SDC) | payer OTHER ==
[2021-01-25 10:17] VITALS: BMI 24.3
[2021-01-26] MEDS ORDERED: LACTATED RINGERS 1,000 ML IV SCH (12:00)
[2021-01-26 12:09] VITALS: TEMP 98.4
[2021-01-26] MEDS ORDERED: ROPIVACAINE 5MG/ML 20ML VIAL ONE (12:40)
[2021-01-26] MEDS ORDERED: methylPREDNISolone ACETATE 40 MG/ML 1 ML VIAL ONE (12:40)
[2021-01-26] MEDS ORDERED: IV FLUID CONTINUATION 1,000 ML IV ONE ×2 (13:12)
--- NOTE | 2021-01-26 13:15 | P.PCN ---
Date of Procedure: 01/26/21 Procedure(s) Performed: Preoperative diagnoses= 1- Left tibial nerve neuralgia. ,left Common Peroneal nerve neuralgia Postoperative diagnoses= same as preoperative diagnosis. Procedure= left Tibial nerve ,and left Common Peroneal nerve block with ultrasound guidance. (Ultrasound images available in the medical record ) Anesthesia= local infiltration with ropivacaine 0.5% 3 ml Estimated blood loss=none . 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 and patient here to have nerve block Procedure description= the patient was seen and identified in the preoperative holding area, risks and benefits and alternative of the procedure and possible complications discussed with the patient, and he agreed with the preceding, patient signed the consent, an IV was started , and vital signs were monitored and were stable throughout the procedure, patient was placed in the Prone position on the stretcher and the back of the Knee area was prepped, and draped with a sterile fashion, vital signs were closely monitored during the procedure, the linear ultrasound probe was placed in the back of the left knee ,the Left tibial and left common peroneal nerves identified, , local infiltration of the skin and subcutaneous tissue with lidocaine 1% 2 mL then a 20 -gauge 3 inches ultrasound needle advanced slowly with continous visualizations of the needle tip , and needle was in close proxemity of the tibial ,and common peroneal nerve , and after appropriate needle placement confirmed withe ultrasound ,the negative aspiration for heme , and there was no paresthesia during the injection, 20 ml of ropivacaine 0.5% and 80 mdg of Depo-Medrol , injected after negative aspiration, the needle removed, Then the skin was cleaned and a Band-Aid applied, the patient transported to recovery room in stable condition and he was monitored for 30 minutes before he was discharged home and then patient was reexamined before going home and patient was discharged in stable condition and patient will follow up with the pain clinic in a few weeks
[2021-01-26 13:44] VITALS: BP 112/71; PULSE 48; RESP 18
== END 2021-01-26 13:55 | disposition home or self-care (01) ==
LOC: ORPAIN 11:43
PROVIDERS: ATTEND Specialist
DX: G58.8 Other specified mononeuropathies (principal)
CPT/HCPCS: 64450; J1030; J2795

== ENCOUNTER 2021-01-31 05:23 | Emergency (ER) | payer OTHER ==
[2021-01-31 05:30] VITALS: TEMP 97.9
[2021-01-31] MEDS ORDERED: ONDANSETRON ODT 8 MG TAB.RAPDIS PO STA (05:57)
[2021-01-31] MEDS ORDERED: PROCHLORPERAZINE INJ 10 MG/2 ML VIAL IM STA (05:57)
[2021-01-31] MEDS ORDERED: diazePAM 5 MG TAB PO STA (05:57)
--- NOTE | 2021-01-31 05:59 | ED ---
Nausea/Vomiting/Diarrhea HPI - General Chief complaint: Nausea/Vomiting/Diarrhea Stated complaint: Nausea, vomiting Time Seen by Provider: 01/31/21 05:25 Source: patient, family, RN notes reviewed, old records reviewed Mode of arrival: ambulatory Limitations: no limitations - History of Present Illness Initial comments: This is a 30-year-old male to the emergency department. Patient presents today for evaluation regards to nausea vomiting abdominal pain and weakness. Patient is states is going through opiate withdrawal and needs help getting through his withdrawal but he is not currently homicidal or suicidal denies any drugs or alcohol use MD complaint: nausea, vomiting, diarrhea, abdominal pain -: days(s) Description of Vomiting: bilious Associated Abdominal Pain: Yes Location: diffuse Radiation: none Severity: moderate Severity scale (1-10): 4 Quality: cramping, aching Consistency: constant Improves with: none Worsens with: none Associated Symptoms: myalgias, nausea/vomiting, weakness - Related Data Home Medications Medication Instructions Recorded Confirmed Pregabalin [Lyrica] 300 mg PO BID 10/06/20 01/26/21 Methadone HCl [Methadone Intensol] 99 mg PO DAILY 12/23/20 01/26/21 Previous Rx's Medication Instructions Recorded Ibuprofen [Motrin] 600 mg PO Q8HR PRN #20 tab 12/30/20 Allergies Allergy/AdvReac Type Severity Reaction Status Date / Time Penicillins Allergy Unknown Unknown Verified 02/04/21 10:46 Childhood Review of Systems ROS Statement: Those systems with pertinent positive or pertinent negative responses have been documented in the HPI. ROS Other: All systems not noted in ROS Statement are negative. Past Medical History Past Medical History: Liver Disease Additional Past Medical History / Comment(s): Hepatitis C, neuropathy, chronic foot pain, opioid abuse History of Any Multi-Drug Resistant Organisms: None Reported, MRSA Date of last positivie culture/infection: 02/24/2010 MDRO Source:: left knee Past Surgical History: Orthopedic Surgery Additional Past Surgical History / Comment(s): surgery on left middle finger ortho., nerve block in left leg 01/28/21 Past Anesthesia/Blood Transfusion Reactions: No Reported Reaction Past Psychological History: Anxiety, Bipolar, Depression Smoking Status: Vaper Past Alcohol Use History: None Reported Past Drug Use History: Marijuana - Past Family History Father Family Medical History: No Reported History Mother History Unknown: Yes General Exam Limitations: no limitations General appearance: alert, in no apparent distress, anxious Head exam: Present: atraumatic, normocephalic, normal inspection Eye exam: Present: normal appearance, PERRL, EOMI. Absent: scleral icterus, conjunctival injection, periorbital swelling ENT exam: Present: normal exam, mucous membranes moist Neck exam: Present: normal inspection. Absent: tenderness, meningismus, lymphadenopathy Respiratory exam: Present: normal lung sounds bilaterally. Absent: respiratory distress, wheezes, rales, rhonchi, stridor Cardiovascular Exam: Present: regular rate, normal rhythm, normal heart sounds. Absent: systolic murmur, diastolic murmur, rubs, gallop, clicks GI/Abdominal exam: Present: soft, normal bowel sounds. Absent: distended, tenderness, guarding, rebound, rigid Extremities exam: Present: normal inspection, full ROM, normal capillary refill. Absent: tenderness, pedal edema, joint swelling, calf tenderness Back exam: Present: normal inspection Neurological exam: Present: alert, oriented X3, CN II-XII intact Psychiatric exam: Present: normal affect, normal mood Skin exam: Present: warm, dry, intact, normal color. Absent: rash Course Vital Signs 01/31/21 01/31/21 05:24 06:23 Temperature 97.9 F Pulse Rate 100 68 Respiratory 22 18 Rate Blood Pressure 136/76 131/86 O2 Sat by Pulse 94 L 95 Oximetry - Reevaluation(s) Reevaluation #1: Medical record is reviewed Patient symptoms improved here in the ER Patient informed results and questions answered Patient is in no acute distress Medical Decision Making - Medical Decision Making 30 male to emergency department for evaluation today. Patient presents with opiate withdrawal. Patient has severe nausea vomiting abdominal pain. All symptoms are significantly improved here in the ER and can be discharged home Disposition Clinical Impression: Opioid dependence on agonist therapy, Nausea and vomiting Disposition: HOME SELF-CARE Condition: Fair Instructions (If sedation given, give patient instructions): Acute Nausea and Vomiting (ED), Narcotic Withdrawal (ED) Is patient prescribed a controlled substance at d/c from ED?: No Referrals: Nataliya Johnston MD [Primary Care Provider] - 1-2 days
[2021-01-31] MEDS ORDERED: cloNIDine 0.3 MG/24HR PATCH TRANSDERM ONE (06:00)
[2021-01-31 06:25] VITALS: BP 131/86; PULSE 68; RESP 18
== END 2021-01-31 06:37 | disposition home or self-care (01) ==
LOC: EC 05:23
DX: F11.20 Opioid dependence, uncomplicated (principal); R11.2 Nausea with vomiting, unspecified; R10.9 Unspecified abdominal pain; R19.7 Diarrhea, unspecified; R53.1 Weakness; M79.10 Myalgia, unspecified site; F17.290 Nicotine dependence, other tobacco product, uncomplicated; Z88.0 Allergy status to penicillin
CPT/HCPCS: 99284; 96372; J0780

== ENCOUNTER 2021-02-04 10:24 | Emergency (ER) | payer OTHER ==
[2021-02-04 10:46] VITALS: PULSE 71; TEMP 97.9
[2021-02-04] MEDS ORDERED: LORazepam 1 MG TAB PO STA (11:33)
--- NOTE | 2021-02-04 11:37 | ED ---
General Adult HPI - General Chief complaint: Anxiety Stated complaint: missed methadone today, withdrawals Time Seen by Provider: 02/04/21 10:51 Source: patient, RN notes reviewed Mode of arrival: ambulatory Limitations: no limitations - History of Present Illness Initial comments: 30-year-old male presents to the emergency room for a chief complaint of anxiety. Patient reports that he missed his methadone dose earlier today. Patient states that this is causing him anxiety. He states he told them that it was making him anxious and they told him he should just go to the ER at the clinic. Patient states he is shaky and anxious. States he will get his next methadone shot on Saturday. He takes this for opiate abuse.Patient has no other complaints at this time including shortness of breath, chest pain, abdominal pain, nausea or vomiting, headache, or visual changes. - Related Data Home Medications Medication Instructions Recorded Confirmed Pregabalin [Lyrica] 300 mg PO BID 10/06/20 01/26/21 Methadone HCl [Methadone Intensol] 99 mg PO DAILY 12/23/20 01/26/21 Previous Rx's Medication Instructions Recorded Ibuprofen [Motrin] 600 mg PO Q8HR PRN #20 tab 12/30/20 Allergies Allergy/AdvReac Type Severity Reaction Status Date / Time Penicillins Allergy Unknown Unknown Verified 02/04/21 10:46 Childhood Review of Systems ROS Statement: Those systems with pertinent positive or pertinent negative responses have been documented in the HPI. ROS Other: All systems not noted in ROS Statement are negative. Past Medical History Past Medical History: Liver Disease Additional Past Medical History / Comment(s): Hepatitis C, neuropathy, chronic foot pain, opioid abuse History of Any Multi-Drug Resistant Organisms: None Reported, MRSA Date of last positivie culture/infection: 02/24/2010 MDRO Source:: left knee Past Surgical History: Orthopedic Surgery Additional Past Surgical History / Comment(s): surgery on left middle finger ortho., nerve block in left leg 01/28/21 Past Anesthesia/Blood Transfusion Reactions: No Reported Reaction Past Psychological History: Anxiety, Bipolar, Depression Smoking Status: Vaper Past Alcohol Use History: None Reported Past Drug Use History: Marijuana - Past Family History Father Family Medical History: No Reported History Mother History Unknown: Yes General Exam Limitations: no limitations General appearance: alert, in no apparent distress Head exam: Present: atraumatic Eye exam: Present: normal appearance, PERRL, EOMI. Absent: scleral icterus, conjunctival injection ENT exam: Present: normal exam, mucous membranes moist Neck exam: Present: normal inspection, full ROM. Absent: tenderness Respiratory exam: Present: normal lung sounds bilaterally. Absent: respiratory distress, wheezes Cardiovascular Exam: Present: regular rate, normal rhythm, normal heart sounds GI/Abdominal exam: Present: soft, normal bowel sounds. Absent: distended, tenderness Neurological exam: Present: alert Psychiatric exam: Present: anxious. Absent: homicidal ideation, suicidal ideation Course Vital Signs 02/04/21 10:44 Temperature 97.9 F Pulse Rate 71 Respiratory 20 Rate Blood Pressure 151/87 O2 Sat by Pulse 98 Oximetry Medical Decision Making - Medical Decision Making vitals are stable. Patient is well-appearing. He does seem somewhat anxious. States that the methadone clinic told him to come here since he was late to his appointment and they would not give him his dose and he was anxious about this. He was given a dose of by mouth Ativan here in the emergency room and a referral to [facility] as he states his anxiety has been getting worse as he has been lowering his dose. He will return for any worsening symptoms. Disposition Clinical Impression: Acute anxiety Disposition: HOME SELF-CARE Condition: Good Instructions (If sedation given, give patient instructions): Generalized Anxiety Disorder (ED) Additional Instructions: Please follow up with primary care in 1-2 days. Return to the ER for any worsening symptoms. Is patient prescribed a controlled substance at d/c from ED?: No Referrals: Nataliya Johnston MD [Primary Care Provider] - 1-2 days Time of Disposition: 11:37
[2021-02-04 11:46] VITALS: BP 123/79; RESP 18
== END 2021-02-04 11:59 | disposition home or self-care (01) ==
LOC: EC 10:24
DX: F41.9 Anxiety disorder, unspecified (principal); F17.290 Nicotine dependence, other tobacco product, uncomplicated; Z88.0 Allergy status to penicillin
CPT/HCPCS: 99282

== ENCOUNTER → 2021-03-02 | Outpatient (CLI) | payer OTHER ==
[2021-03-02 10:29] VITALS: BP 134/84; PULSE 62; RESP 18; TEMP 97
--- NOTE | 2021-03-02 10:38 | P.PN ---
Subjective Progress Note Date: 03/02/21 This is a 30-year-old gentleman with history of an opioid overdose and loss of consciousness for some time in the position which resulted in what seems to be left tibial and peroneal neuropathy. The patient feels pain in the left calf going down to the left foot laterally and also to the sole of the foot. He describes his pain as burning in quality. The patient had popliteal fossa block which gave him 2 days of pain relief. He takes Lyrica 300 mg twice a day and methadone 104 mg a day for his history of heroin abuse. The patient came today with his girlfriend who had a few questions for me. Patient denies new-onset weakness, bowel/bladder incontinence, or any other signs or symptoms of cauda equina syndrome. There are no signs of acute intoxication, and no indications of medication diversion or overuse. In addition to above, 13-point review of systems is also negative for chest pain, shortness of breath, changes in vision, changes in hearing, new onset weakness, abdominal pain, diarrhea, extreme fatigue, malaise, fever, skin changes, homicidal or suicidal ideation, or bowel or bladder incontinence. Vital Signs: Reviewed in EMR Gen: AAOx3, NAD HEENT: PERRLA,hearing grossly normal Pulm: resp unlabored Neck: supple, trachea midline Neuro exam of the lower extremities: Straight leg raising test: Hang's test: Range of motion of the lumbar spine: Facet loading test: Tenderness in the paravertebral musculature: There is mild tenderness in the calf muscles on the left side however there is no muscular wasting in the calf muscles or the foot muscles on the left side. There is no allodynia to touch in the left foot in no skin changes or edema. Neuro: CN II-XII Imaging: Reviewed in EMR/chart Assessment: left tibial and peroneal neuropathy on Lyrica 300 mg twice a day history of drug abuse with treatment with methadone Plan: 1. Explanation: When patients on opioids, opioid and psychological risk scores were reviewed. Diagnoses, prognoses, and multiple treatment options including but not limited to physical therapy, interventional therapies, adjuvant medical therapies, narcotic medication therapies, and surgery were discussed with the patient and all questions were answered to the patient's satisfaction. 2. Opioid agreement:When patients are prescribed opoids through our clinic, opioid agreement is signed with the patient and the patient is warned not to use opioids while driving or before driving and not to combine opioids with benzodiazepines or alcohol. 3. Counseling: When patient is smoking or obese, the patient was counseled extensively on SMOKING CESSATION, BODY MASS INDEX, EXERCISE. Specifically, the patient was instructed regarding the importance of smoking cessation, obesity, and exercise in the context of both chronic pain and overall health. 4. Procedures: Schedule for repeat left popliteal fossa block. The patient gets good pain relief and then we'll have to refer to the [facility] to get a peripheral nerve stimulator. Patient understands that he will have weakness in the left foot after this procedure which will last for a few hours. 5. Consultations: None 6. Investigations: None 7. Medications: Prescribed from our clinic however he should continue taking Lyrica 300 mg twice a day and methadone as treatment for his drug abuse 8. Disposition: Return to the above-mentioned procedure as soon as possible. 9. Maps were reviewed and were appropriate. Objective - Vital Signs Vital signs: Vital Signs Temp 97 F L 03/02/21 10:20 Pulse 62 03/02/21 10:20 Resp 18 03/02/21 10:20 BP 134/84 03/02/21 10:20 Pulse Ox Intake & Output 03/01/21 03/02/21 03/02/21 18:59 06:59 18:59 Weight 77.111 kg
== END | disposition home or self-care (01) ==
LOC: PNWHC3 10:02
PROVIDERS: ATTEND Anesthesiology
DX: F19.11 Other psychoactive substance abuse, in remission (principal); G57.30 Lesion of lateral popliteal nerve, unspecified lower limb
CPT/HCPCS: 99211

== ENCOUNTER → 2021-03-21 | Outpatient (CLI) | payer OTHER | END | disposition home or self-care (01) | LOC: LABWHC1 07:12 | PROVIDERS: ATTEND Nurse Practitioner Family | DX: F11.20 Opioid dependence, uncomplicated (principal) | CPT/HCPCS: 36415 ==

== ENCOUNTER 2021-05-05 19:48 | Emergency (ER) | payer OTHER ==
[2021-05-05 22:09] VITALS: RESP 22
--- NOTE | 2021-05-05 22:38 | XR ---
EXAMINATION TYPE: XR KUB DATE OF EXAM: 05/05/2021 COMPARISON: 05/01/2012 HISTORY: Abdominal pain TECHNIQUE: 2 views upright FINDINGS: There is no sign of intestinal obstruction or pneumoperitoneum. Fecal pattern is normal. Rosalina ng bases are clear. There are no pathologic calcifications over the kidneys. There is no evidence of a mass. IMPRESSION: Nonacute abdomen. No adverse change.
[2021-05-06 00:38] VITALS: BP 127/86; PULSE 61; TEMP 97.9
== END 2021-05-06 00:40 | disposition left against medical advice (07) ==
LOC: EC 19:48
DX: R10.9 Unspecified abdominal pain (principal); Z88.8 Allergy status to other drugs, medicaments and biological substances; Z53.21 Procedure and treatment not carried out due to patient leaving prior to being seen by health care provider; Z20.822 Contact with and (suspected) exposure to COVID-19
CPT/HCPCS: 11732; 74018; 87635

== ENCOUNTER 2021-05-16 11:25 | Day surgery (SDC) | payer OTHER ==
[2021-05-15 12:11] VITALS: BMI 24.0
[~2021-05-16 11:25] MED LIST: LACTATED RINGERS 1,000 ML IV SCH
[2021-05-16 12:09] VITALS: TEMP 98.2
[2021-05-16] MEDS ORDERED: LACTATED RINGERS 1,000 ML IV SCH (13:00)
[2021-05-16] MEDS ORDERED: ROPIVACAINE 5MG/ML 20ML VIAL ONE (13:04)
[2021-05-16] MEDS ORDERED: methylPREDNISolone ACETATE 80 MG/ML 1 ML VIAL ONE (13:04)
[2021-05-16] MEDS ORDERED: LIDOCAINE 1% INJ 10MG/ML (20 ML MDV) ONE (13:04)
[2021-05-16] MEDS ORDERED: MIDAZOLAM 2 MG/2 ML VIAL ONE (13:04)
--- NOTE | 2021-05-16 13:18 | P.PCN ---
Date of Procedure: 05/16/21 Description of Procedure: REOPERATIVE DIAGNOSIS: Left-sided Tibial nerve neuralgia, and common peroneal neuralgia POSTOPERATIVE DIAGNOSIS: Left-sided Tibial nerve neuralgia, and common peroneal nerve neuralgia PROCEDURES: Left Sided tibial nerve, and common peroneal nerve block under ultrasound [place] SURGEON: Thierry Henry JOURNEYMAN PIPE WELDER: None ANESTHESIA: Local , IV sedation : Midazolam 2 mg EBL: None. Ultrasound image: Saved to electronic medical records. Specimen removed: None PROCEDURE INDICATIONS: This patient with a history of tibial nerve neuralgia, and common peroneal nerve neuralgia. Patient had a previous popliteal nerve block with more than 90% pain relief for 1 day, Failed with conservative therapy came here for intervention procedure management. So came here for the repeat intervention procedure . PROCEDURE DESCRIPTION: The patient was seen and identified in the preoperative area. Risks, benefits, complications, and alternatives were discussed with the patient. The patient agreed to proceed with the procedure and signed the consent. IV was started, and vital signs were stable. Patient was taken to the OR and time out was completed. The patient was placed in the prone position on procedure table and a pillow was placed under the abdomen to reduce lumbar lordosis. Left side popliteal part of the knee area was prepped with ChloraPrep and draped in the usual sterile fashion. Critical pause was taken. Vital signs were closely monitored during the procedure. Using the linear ultrasound probe - tibial, and common peroneal nerves identified. Skin, and subcutaneous tissue infiltrated with 3 mL of 1% lidocaine. Under in plane ultrasound guidance using Pajunk 21-gauge, 100 mm needle used for the procedure. Once reached the target area, after negative aspiration for blood, no paresthesia. With intermittent negative aspiration after every 5 mL of block solution injection. A total 20 mL of block solution containing 0.5% ropivacaine with 80 MG of Depo-Medrol was injected without having any major resistance at the time of injection. Needle was removed intact. Skin was cleansed, and bandages were applied. Patient tolerated the procedure well. COMPLICATIONS: None. DISPOSITION / PLANS: The patient was placed in a supine position and transferred to the recovery area in a stable condition for observation. Patient was discharged from the recovery room after meeting discharge criteria. Home discharge instructions were given to the patient by the staff. The patient was reexamined prior to discharge. Patient can follow up with the pain clinic in 4 weeks duration.
[2021-05-16] MEDS ORDERED: IV FLUID CONTINUATION 800 ML IV ONE (13:21)
[2021-05-16 13:27] VITALS: RESP 16
[2021-05-16 14:01] VITALS: BP 125/75; PULSE 54
== END 2021-05-16 14:17 | disposition home or self-care (01) ==
LOC: ORPAIN 11:25
DX: M79.2 Neuralgia and neuritis, unspecified (principal); M79.672 Pain in left foot; M79.662 Pain in left lower leg
CPT/HCPCS: 64450; J2001; 64445

== ENCOUNTER → 2021-06-12 | Outpatient (CLI) | payer OTHER ==
[2021-06-12 13:40] VITALS: BP 127/83; PULSE 67; RESP 18; TEMP 98.3
--- NOTE | 2021-06-12 14:15 | P.PN ---
Subjective Progress Note Date: 06/12/21 Principal diagnosis: A 31 yr old male with a history of severe and chronic left leg pain secondary to trauma presents today for evaluation of left popliteal fossa nerve block. Pt states he received <25 % pain relief with the procedure. Pt focused on his history of left leg trauma, use of Lyrica, the need to find a new neurologist and left foot pain today. Pt had high expectations of pain relief with the single injection which has made pt feel saddened. Pain level is 8 /10, and pt was tearful in the exam room discussing his pain. He has visible left foreleg atrophy in comparison to the right lower extremity. Pain is dull/ achy in the back of his knee and is sharp/ shooting towards his left heel/ foot. Admits to left lower extremity weakness. Pain is provoked by bearing weight. Pain is alleviated with injections, medications, rest, physical therapy and a home based regimen. Interventional pain procedures completed include L popliteal fossa block Patient is currently on Lyrica 300mg BID by his neurologist Patient denies any side effects of the medication(s), denies excessive drowsiness or sleepiness, denies suicidal ideation and reports that the current pain medication is helping to control the pain and improve activities of daily living. Patient denies any motor or sensory deficits. Patient denies any fever or night sweats, denies any change in the bowel movements or urination. Physical Examination: -Constitutional: Cooperative. Not in acute distress . -HEENT: Neck is supple. No lymphadenopathy. No thyromegaly. Normal thyroid size. Eyes: No ptosis , no icterus, no photophobia. ENT: No auditory deficits. Normal oropharynx. No Thrush. - Respiratory: Chest clear to auscultations bilaterally. No wheezing. No rhonchi. - Cardiovascular: Regular rate and rhythm. S1 / S2 , no S3 , no S4. - Gastrointestinal: Abdomen soft no tenderness. Bowel sounds positive in all four quadrants. No organomegaly. - Genitourinary: Deferred. - Neurologic: Cranial nerve II to XII intact. No focal neurological def icits. - Psychatric: Alert & oriented x 3. Matching mood & appropriate affect. Judgment and insight intact. - Lymphatic: No Lymphadenopathy. - Musculoskeletal: Cervical spine: Muscle bulk/ tone/ strength in the bilateral upper extremities normal. Facet loading test cervical area positive. Lumbar spine: Motor bulk/ tone/ strength lower extremities , thigh and legs : 5 /5 Deep tendon reflexes : Normal Knee Jerk. Normal Ankle Jerk . Lumbar Facet Loading Test positive Straight Leg Raise: positive at 30 degree right side/ left side Loren test: positive right side / left side Range of motion: Range of motion in flexion of the lumbar spine <60 degrees Range of motion: Extension of the lumbar spine <20 degrees Severe tenderness over the Sacroiliac joint: right side / left side Left gastrocnemus muscle 4 /5 muscle bulk in comparison to the right Left lower extremity flexion/ extension strength 4 /5 in comparison to the right Tenderness to palpation over the tibial nerve/ common peroneal nerve in the left popliteal fossa Assessment and plan: Chronic left leg pain secondary to trauma with facet arthropathy Recommendation of 2nd left popliteal nerve block over the tibial & common peroneal nerves Denies aspirin or other anti coagulants Risks/ benefits discussed and pt verbalized understanding Should follow up with his Neurologist for supplemental management of neuropathic pain Should follow up with a plastic and reconstructive surgeon re: left foot trauma All patient questions answered MAPS reviewed and it was appropriate. I have spent 31 minutes on patient care today. Dr Perez was available by phone for the evaluation of this patient. The time was used to review the medical records including relevant urine studies and Prescription history (MAPs), review of the available imaging, evaluation and examination of the patient, coordination of care with the medical staff and if applicable referring physicians, as well as creation of the medical record Objective - Vital Signs Vital signs: Vital Signs Temp 98.3 F 06/12/21 13:28 Pulse 67 06/12/21 13:28 Resp 18 06/12/21 13:28 BP 127/83 06/12/21 13:28 Pulse Ox 96 06/12/21 13:28 PQRS Measure Charge Sheet Mode of Arrival: Ambulatory - Pain Location Left Lower Leg Non-Pharmacological Interventions: Heat, Physical Therapy, Stretching PQRS Narrative: Smoking Status Current every day smoker Blood Pressure 127/83 Pain Intensity [Left Lower Leg 6 ] Scale Used Numeric (1 - 10) Hx Alcohol Use (MH) No Home Medications: Ambulatory Orders Pregabalin [Lyrica] 300 mg PO BID 10/06/20 Methadone Syrup 121 mg PO DAILY 03/01/21 Docusate [Colace] 100 mg PO DAILY PRN 05/15/21 Ondansetron [Zofran] 4 mg PO Q8HR PRN 05/15/21 Ergocalciferol [Vitamin D2 (1250 Mcg = 46920 Iu)] 1,250 mcg PO WEEKLY 06/08/21
== END | disposition home or self-care (01) ==
LOC: PNWHC3 12:49
PROVIDERS: ATTEND Physician Assistant Medical
DX: G57.32 Lesion of lateral popliteal nerve, left lower limb (principal); M79.662 Pain in left lower leg; M79.672 Pain in left foot
CPT/HCPCS: 99211

== ENCOUNTER → 2021-06-29 | Outpatient (CLI) | payer OTHER ==
[2021-06-29 18:53] LABS: Basophils # (A) 0.04 X 10*3/uL (0.00-0.10); Basophils % (A) 0.9 %; Eosinophils % (A) 8.6 %; HCT 41.3 % (39.6-50.0); HGB 12.8 g/dL (13.0-17.0); Immature Grans, Automated 0.2 %; Lymphocytes # (A) 2.63 X 10*3/uL (0.90-5.00); Lymphocytes % (A) 56.8 %; MCH 27.9 pg (27.0-32.0); MCV 90.2 fL (80.0-97.0); Mean Platelet Volume 12.4 fL (9.5-12.2); Monocytes # (A) 0.49 X 10*3/uL (0.20-1.00); Monocytes % (A) 10.6 %; NRBC Per 100 WBC 0 /100 WBCS (0.0-0.0); Neutrophils # (A) 1.06 X 10*3/uL (1.80-7.70); Neutrophils % (A) 22.9 %; Platelet Count 197 X 10*3/uL (140-440); RBC 4.58 X 10*6/uL (4.40-5.60); WBC 4.63 X 10*3/uL (4.50-10.00)
[2021-06-29 19:04] LABS: HDL Cholesterol 50.2 mg/dL (40.00-60.00); T4, Free (Free Thyroxine) 1.04 ng/dL (0.800-1.800); Triglycerides 43.1 mg/dL (0.00-149.00)
[2021-06-29 19:14] LABS: % Iron Saturation 21.15 (15.00-50.00); African American GFR (CKD) 134.3 (60.0-200.0); Albumin 4.2 g/dL (3.8-4.9); Albumin/Globulin Ratio 1.56 (1.60-3.17); Anion Gap 9.4 mmol/L (10.00-18.00); BUN/Creat Ratio 10.43 Ratio (12.00-20.00); Blood Urea Nitrogen 8.9 mg/dL (9.0-27.0); Calcium 9.2 mg/dL (8.7-10.3); Carbon Dioxide 27.2 mmol/L (20.0-27.5); Globulin 2.7 g/dL (1.6-3.3); Magnesium 2.4 mg/dL (1.5-2.4); Non-African American GFR(CKD) 115.9 (60.0-200.0); Potassium 4.4 mmol/L (3.5-5.5); Total Bilirubin 0.2 mg/dL (0.30-1.20); Total Protein 6.9 g/dL (6.2-8.2); Uric Acid 3.4 mg/dL (3.7-8.7)
[2021-06-29 19:19] LABS: Chol/HDL Ratio 2.95 Ratio; LDL Cholesterol,Direct Reflex 90.5 mg/dL (0.00-129.00)
[2021-06-29 19:23] LABS: Folate, Serum 13.1 ng/mL (4.40-31.00)
== END | disposition home or self-care (01) ==
LOC: LABWHC1 09:15
PROVIDERS: ATTEND Family Medicine
DX: F11.20 Opioid dependence, uncomplicated (principal); E55.9 Vitamin D deficiency, unspecified; E53.8 Deficiency of other specified B group vitamins; F33.2 Major depressive disorder, recurrent severe without psychotic features; F41.1 Generalized anxiety disorder
CPT/HCPCS: 84439; 80061; 80053; 82607; 82728; 82746; 83540; 83550; 83735; 84443; 84550; 85025; 82024; 83721; 82306; 83036; 36415; G0480; 80358; 84436

== ENCOUNTER 2021-07-13 12:45 | Day surgery (SDC) | payer OTHER ==
[2021-07-12 10:41] VITALS: BMI 25.1
[~2021-07-13 12:45] MED LIST changes: +LIDOCAINE 1% (10MG/ML) FOR IV START INTRADERMA PRN
[2021-07-13 13:07] VITALS: RESP 16; TEMP 98.9
[2021-07-13] MEDS ORDERED: LACTATED RINGERS 1,000 ML IV ONE (13:07)
[2021-07-13] MEDS ORDERED: MIDAZOLAM 2 MG/2 ML VIAL ONE (13:37)
[2021-07-13] MEDS ORDERED: methylPREDNISolone ACETATE 40 MG/ML 1 ML VIAL ONE (13:37)
[2021-07-13] MEDS ORDERED: ROPIVACAINE 5MG/ML 20ML VIAL ONE (13:37)
[2021-07-13] MEDS ORDERED: IOPAMIDOL M200 10 ML VIAL ONE (13:37)
[2021-07-13] MEDS ORDERED: fentaNYL (PF) 50 MCG/ML 2 ML AMP ONE (13:37)
--- NOTE | 2021-07-13 14:00 | P.PCN ---
Date of Procedure: 07/13/21 Procedure(s) Performed: Preoperative diagnoses= 1- Left tibial nerve neuralgia. ,left Common Peroneal nerve neuralgia Postoperative diagnoses= same as preoperative diagnosis. Procedure= left Tibial nerve ,and left Common Peroneal nerve block with ultrasound guidance. (Ultrasound images available in the medical record ) Anesthesia= moderate sedations with versed 2 mg ,and Fentanyle 50 Mcg IV ,and local infiltration with ropivacaine 0.5% 3 ml Estimated blood loss=none . 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 and patient here to have nerve block Procedure description= the patient was seen and identified in the preoperative holding area, risks and benefits and alternative of the procedure and possible complications discussed with the patient, and he agreed with the preceding, patient signed the consent, an IV was started , and vital signs were monitored and were stable throughout the procedure, patient was placed in the Prone position on the stretcher patient was given 2 the patient and exactly and the back of the Knee area was prepped, and draped with a sterile fashion, vital signs were closely monitored during the procedure, the linear ultrasound probe was placed in the back of the left knee ,the Left tibial and left common peroneal nerves identified, , local infiltration of the skin and subcutaneous tissue with lidocaine 1% 2 mL then a 20 -gauge 3 inches ultrasound needle advanced slowly with continous visualizations of the needle tip , and needle was in close proxemity of the tibial ,and common peroneal nerve , and after appropriate needle placement confirmed withe ultrasound ,the negative aspiration for heme , and there was no paresthesia during the injection, 25 ml of ropivacaine 0.5% and 80 mdg of Depo-Medrol , injected after negative aspiration, the needle removed, Then the skin was cleaned and a Band-Aid applied, the patient transported to recovery room in stable condition and he was monitored for 30 minutes before he was discharged home and then patient was reexamined before going home and patient was discharged in stable condition and patient will follow up with the pain clinic in a few weeks
[2021-07-13] MEDS ORDERED: IV FLUID CONTINUATION 1,000 ML IV ONE ×2 (14:03)
[2021-07-13 14:21] VITALS: BP 123/70; PULSE 56
== END 2021-07-13 14:38 | disposition home or self-care (01) ==
LOC: ORPAIN 12:45
PROVIDERS: ATTEND Specialist
DX: G89.29 Other chronic pain (principal); G58.8 Other specified mononeuropathies; Z88.0 Allergy status to penicillin
CPT/HCPCS: 64450; J2250; J1030; J3010; J2795; 64445; 99152

== ENCOUNTER → 2021-08-02 | Outpatient (CLI) | payer OTHER ==
[2021-08-02 11:42] VITALS: BP 126/74; PULSE 67; RESP 18; TEMP 98.2
--- NOTE | 2021-08-02 12:21 | P.PN ---
Subjective Progress Note Date: 08/02/21 Principal diagnosis: A 31 yr old male with a history of severe and chronicL popliteal tendinitis presents today for evaluation status post left popliteal nerve block #3. Patient states he expressively percent pain relief status post procedure. Pain level is currently at 4 out of 10 in intensity, dull, achy, constant in the posterior aspects of his left knee. Patient also admits to pain in the left instep of his foot that increases with weightbearing activity. Pain in the left knee is provoked by inactivity or fatigue by evening. Pain is alleviated with medications, injections, alternating ice and heat, physical therapy which she is currently an, home stretching regimen, use of a left leg brace and rest. Interventional pain procedures completed include L popliteal nerve block #3 Patient is currently on Lyrica from Dr Holley and Methadone 140mg from a specialized clinic. Patient denies any side effects of the medication(s), denies excessive drowsiness or sleepiness, denies suicidal ideation and reports that the current pain medication is helping to control the pain and improve activities of daily living. Patient denies any motor or sensory deficits. Patient denies any fever or night sweats, denies any change in the bowel movements or urination. Physical Examination: -Constitutional: Cooperative. Not in acute distress . -HEENT: Neck is supple. No lymphadenopathy. No thyromegaly. Normal thyroid size. Eyes: No ptosis , no icterus, no photophobia. ENT: No auditory deficits. Normal oropharynx. No Thrush. - Respiratory: Chest clear to auscultations bilaterally. No wheezing. No rhonchi. - Cardiovascular: Regular rate and rhythm. S1 / S2 , no S3 , no S4. - Gastrointestinal: Abdomen soft no tenderness. Bowel sounds positive in all four quadrants. No organomegaly. - Genitourinary: Deferred. - Neurologic: Cranial nerve II to XII intact. No focal neurological deficits. - Psychatric: Alert & oriented x 3. Matching mood & appropriate affect. Judgment and insight intact. - Lymphatic: No Lymphadenopathy. - Musculoskeletal: Tenderness to palpation over L popliteal tendon and L extensor retinaculum . Cervical spine: Muscle bulk/ tone/ strength in the bilateral upper extremities normal. Facet loading test cervical area positive. Lumbar spine: Motor bulk/ tone/ strength lower extremities , thigh and legs : 5/5 Deep tendon reflexes : Normal Knee Jerk. Normal Ankle Jerk . Vertebral body tenderness to palpation over Lumbar Facet Loading Test positive Straight Leg Raise: positive at 30 degrees right side/ left side Gaenslen's Test positive Sacral spine : Severe tenderness over the Sacroiliac joint: right side / left side Range of motion: Flexion of the lumbar spine <60 degrees Range of motion: Extension of the lumbar spine <20 degrees Gaenslen's Test positive Loren test: positive right side / left side Assessment and plan: Chronic L popliteal tendinitis #4 and L extensor retinaculum tendinitis Recommendation of L bilateral transverse popliteal tendon nerve block and L extensor retinaculum tendon nerve block. Risks, benefits of procedure discussed and pt verbalized understanding. Denies anticoagulant use. Denies medical history of diabetes. All patient questions answered MAPS reviewed and it was appropriate. I have spent 31 minutes on patient care today. Dr Perez was available by phone for the evaluation of this patient. The time was used to review the medical records including relevant urine studies and Prescription history (MAPs), review of the available imaging, evaluation and examination of the patient, coordination of care with the medical staff and if applicable referring physicians, as well as creation of the medical record Objective - Vital Signs Vital signs: Vital Signs Temp 98.2 F 08/02/21 11:37 Pulse 67 08/02/21 11:37 Resp 18 08/02/21 11:37 BP 126/74 08/02/21 11:37 Pulse Ox 100 08/02/21 11:37 Intake & Output 08/01/21 08/02/21 08/02/21 18:59 06:59 18:59 Weight 79.379 kg PQRS Measure Charge Sheet Mode of Arrival: Ambulatory - Pain Location Left Knee Non-Pharmacological Interventions: Heat, Home Exercise, Ice, Physical Therapy, Stretching Pharmacological Interventions: PRN Medication, Scheduled Medication PQRS Narrative: Smoking Status Current every day smoker Blood Pressure 126/74 Pain Intensity [Left Knee] 4 Scale Used Numeric (1 - 10) Hx Alcohol Use (MH) No Home Medications: Ambulatory Orders Pregabalin [Lyrica] 300 mg PO BID 10/06/20 Docusate [Colace] 100 mg PO DAILY PRN 05/15/21 Ibuprofen 200 - 400 mg PO DIRECTED PRN 07/12/21 Methadone Syrup 140 mg PO DAILY 07/12/21
== END | disposition home or self-care (01) ==
LOC: PNWHC3 10:38
PROVIDERS: ATTEND Physician Assistant Medical
DX: M76.9 Unspecified enthesopathy, lower limb, excluding foot (principal); G57.32 Lesion of lateral popliteal nerve, left lower limb; M79.662 Pain in left lower leg; M79.672 Pain in left foot
CPT/HCPCS: 99211

== ENCOUNTER 2021-10-15 17:54 | Emergency (ER) | payer OTHER ==
[2021-10-15 18:19] VITALS: BP 152/83; PULSE 98; RESP 20; TEMP 98.5
[2021-10-15] MEDS ORDERED: ONDANSETRON 4 MG/2 ML VIAL IVP STA (20:15)
[2021-10-15] MEDS ORDERED: MORPHINE SULFATE 4 MG/ML SYRINGE IV STA (20:15)
[2021-10-15] MEDS ORDERED: SODIUM CHLORIDE 0.9% 1,000 ML IV STA (20:15)
[2021-10-15] MEDS ORDERED: FAMOTIDINE 20 MG/2 ML VIAL IV STA (20:16)
--- NOTE | 2021-10-15 20:34 | XR ---
EXAMINATION TYPE: XR KUB DATE OF EXAM: 10/15/2021 COMPARISON: 05/05/2021 HISTORY: Abdominal pain TECHNIQUE: 2 views upright FINDINGS: There is no sign of intestinal obstruction or pneumoperitoneum. Fecal pattern is fairly normal. No ev idence of a mass. Lung bases are clear. No calcification seen over the kidneys. IMPRESSION: Nonacute abdomen.
--- NOTE | 2021-10-15 20:37 | ED ---
General Adult HPI - General Chief complaint: Abdominal Pain Stated complaint: Med Reaction Time Seen by Provider: 10/15/21 19:59 Source: patient, RN notes reviewed Mode of arrival: ambulatory Limitations: no limitations - History of Present Illness Initial comments: 31-year-old male presents to the emergency department for evaluation of abdominal pain/cramping, and nausea vomiting. Patient states he has been taking MiraLAX 4 times a day as directed by his GI doctor for colonoscopy prep. Patient states he began this earlier in the week and experienced vomiting with this medication therefore stopped taking it then tried again today with same symptoms. Patient states he has not contacted his GI doctor about this issue. Last bowel movement earlier today. Denies fever, chills, chest pain, difficulty breathing, hematemesis, hematochezia, or dysuria. - Related Data Home Medications Medication Instructions Recorded Confirmed Pregabalin [Lyrica] 300 mg PO BID 10/06/20 09/06/21 Docusate [Colace] 100 mg PO DAILY PRN 05/15/21 09/06/21 Ibuprofen 200 - 400 mg PO DIRECTED PRN 07/12/21 09/06/21 Methadone Syrup 170 mg PO DAILY 07/12/21 09/06/21 Miralax Powder 1 applicate PO DAILY PRN 09/06/21 09/06/21 Vitadone 3 tab PO DAILY 09/06/21 09/06/21 Previous Rx's Medication Instructions Recorded Ondansetron Odt [Zofran Odt] 4 mg PO Q8HR PRN #10 tab 10/15/21 Allergies Allergy/AdvReac Type Severity Reaction Status Date / Time Penicillins Allergy Unknown Unknown Verified 09/07/21 12:27 Childhood naloxegol [From Movantik] AdvReac abdominal Verified 09/07/21 12:27 pain, started withdrawal symptoms-chills,sweats Review of Systems ROS Statement: Those systems with pertinent positive or pertinent negative responses have been documented in the HPI. ROS Other: All systems not noted in ROS Statement are negative. Past Medical History Past Medical History: Liver Disease Additional Past Medical History / Comment(s): Hepatitis C, neuropathy, chronic foot pain, opioid abuse, left leg pain and drop foot-"palsy" History of Any Multi-Drug Resistant Organisms: MRSA Date of last positivie culture/infection: 02/24/2010 MDRO Source:: left knee Past Surgical History: Orthopedic Surgery Additional Past Surgical History / Comment(s): surgery on left middle finger., nerve block in left leg 01/28/21- "test dose", pin left middle finger, oral surge ry Past Anesthesia/Blood Transfusion Reactions: Motion Sickness Past Psychological History: Anxiety, Bipolar, Depression Smoking Status: Vaper Past Drug Use History: None Reported - Past Family History Father Family Medical History: No Reported History Mother History Unknown: Yes Family Medical History: No Reported History General Exam Limitations: no limitations Course Vital Signs 10/15/21 18:15 Temperature 98.5 F Pulse Rate 98 Respiratory 20 Rate Blood Pressure 152/83 O2 Sat by Pulse 99 Oximetry - Reevaluation(s) Reevaluation #1: 10/15/21 21:56 Upon reassessment, patient states pain is improved but continues to have cramping/pressure sensation extending from the umbilicus to the suprapubic region. Patient is reminded of the need for a urine sample. Bentyl will be ordered for this discomfort. Medical Decision Making - Medical Decision Making 31-year-old male with a past medical history of hepatitis C presents to the emergency department for evaluation of abdominal discomfort he associates with multiple episodes of nausea and vomiting today. Patient states he is taking MiraLAX as directed by his GI doctor; states initially it was to be used as a colonoscopy prep, however he was instructed to continue taking it despite his colonoscopy be canceled due to inability to tolerate the medicine. Patient states he resumed the Miralax today, and his symptoms returned. His physical exam findings are unremarkable. Patient is not experiencing any vomiting while present to the emergency department. X-ray shows no obstruction and normal fecal pattern. Laboratory studies were reviewed. Mild leukocytosis likely attributed to vomiting. Patient was given IV fluids, pain medication, and nausea medicine with improvement. He will be discharged home to follow-up with his GI doctor for further advisement on course of treatment regarding MiraLAX. In the meantime, it is recommended that he discontinue this medication until he has spoken with her as it is no longer being used in preparation for colonoscopy. He is prescribed Zofran for nausea. Return parameters discussed in detail. Patient verbalizes understanding and agrees with this plan. Attending: Dean. - Lab Data Result diagrams: 10/15/21 20:15 10/15/21 20:15 Lab Results 10/15/21 10/15/21 10/15/21 Range/Units 20:15 20:15 20:15 WBC 12.4 H (3.8-10.6) k/uL RBC 4.66 (4.30-5.90) m/uL Hgb 14.0 (13.0-17.5) gm/dL Hct 42.2 (39.0-53.0) % MCV 90.5 (80.0-100.0) fL MCH 30.1 (25.0-35.0) pg MCHC 33.2 (31.0-37.0) g/dL RDW 12.8 (11.5-15.5) % Plt Count 209 (150-450) k/uL MPV 9.4 Neutrophils % 79 % Lymphocytes % 11 % Monocytes % 5 % Eosinophils % 4 % Basophils % 0 % Neutrophils # 9.8 H (1.3-7.7) k/uL Lymphocytes # 1.4 (1.0-4.8) k/uL Monocytes # 0.7 (0-1.0) k/uL Eosinophils # 0.5 (0-0.7) k/uL Basophils # 0.0 (0-0.2) k/uL Sodium 137 (137-145) mmol/L Potassium 4.5 (3.5-5.1) mmol/L Chloride 101 (98-107) mmol/L Carbon Dioxide 30 (22-30) mmol/L Anion Gap 6 mmol/L BUN 17 (9-20) mg/dL Creatinine 0.87 (0.66-1.25) mg/dL Est GFR (CKD-EPI)AfAm >90 (>60 ml/min/1.73 sqM) Est GFR (CKD-EPI)NonAf >90 (>60 ml/min/1.73 sqM) Glucose 93 (74-99) mg/dL Plasma Lactic Acid Philip 0.7 (0.7-2.0) mmol/L Calcium 9.1 (8.4-10.2) mg/dL Total Bilirubin 0.3 (0.2-1.3) mg/dL AST 28 (17-59) U/L ALT 18 (4-49) U/L Alkaline Phosphatase 63 (38-126) U/L Total Protein 6.7 (6.3-8.2) g/dL Albumin 4.0 (3.5-5.0) g/dL Amylase 60 (30-110) U/L Lipase 60 (23-300) U/L Urine Color Urine Appearance (Clear) Urine pH (5.0-8.0) Ur Specific [place] (1.001-1.035) Urine Protein (Negative) Urine Glucose (UA) (Negative) Urine Ketones (Negative) Urine Blood (Negative) Urine Nitrite (Negative) Urine Bilirubin (Negative) Urine Urobilinogen (<2.0) mg/dL Ur Leukocyte Esterase (Negative) 10/15/21 Range/Units 22:41 WBC (3.8-10.6) k/uL RBC (4.30-5.90) m/uL Hgb (13.0-17.5) gm/dL Hct (39.0-53.0) % MCV (80.0-100.0) fL MCH (25.0-35.0) pg MCHC (31.0-37.0) g/dL RDW (11.5-15.5) % Plt Count (150-450) k/uL MPV Neutrophils % % Lymphocytes % % Monocytes % % Eosinophils % % Basophils % % Neutrophils # (1.3-7.7) k/uL Lymphocytes # (1.0-4.8) k/uL Monocytes # (0-1.0) k/uL Eosinophils # (0-0.7) k/uL Basophils # (0-0.2) k/uL Sodium (137-145) mmol/L Potassium (3.5-5.1) mmol/L Chloride (98-107) mmol/L Carbon Dioxide (22-30) mmol/L Anion Gap mmol/L BUN (9-20) mg/dL Creatinine (0.66-1.25) mg/dL Est GFR (CKD-EPI)AfAm (>60 ml/min/1.73 sqM) Est GFR (CKD-EPI)NonAf (>60 ml/min/1.73 sqM) Glucose (74-99) mg/dL Plasma Lactic Acid Philip (0.7-2.0) mmol/L Calcium (8.4-10.2) mg/dL Total Bilirubin (0.2-1.3) mg/dL AST (17-59) U/L ALT (4-49) U/L Alkaline Phosphatase (38-126) U/L Total Protein (6.3-8.2) g/dL Albumin (3.5-5.0) g/dL Amylase (30-110) U/L Lipase (23-300) U/L Urine Color Light Yellow Urine Appearance Clear (Clear) Urine pH 6.0 (5.0-8.0) Ur Specific [place] 1.009 (1.001-1.035) Urine Protein Negative (Negative) Urine Glucose (UA) Negative (Negative) Urine Ketones 1+ H (Negative) Urine Blood Negative (Negative) Urine Nitrite Negative (Negative) Urine Bilirubin Negative (Negative) Urine Urobilinogen <2.0 (<2.0) mg/dL Ur Leukocyte Esterase Negative (Negative) - Radiology Data Radiology results: report reviewed, image reviewed KUB x-ray was obtained. Report was reviewed in its entirety. Impression per Dr. Short is nonacute abdomen. Disposition Clinical Impression: Abdominal cramping, Nausea & vomiting Disposition: HOME SELF-CARE Condition: Stable Instructions (If sedation given, give patient instructions): Acute Nausea and Vomiting (ED) Additional Instructions: You are being prescribed Zofran for nausea. Consider electrolyte drinks such as Pedialyte, Gatorade, or Powerade daily. Stop taking MiraLAX and call your GI doctor on Saturday to discuss further plan of care. Return to the emergency department with any new, worsening, or concerning sym ptoms. Prescriptions: Ondansetron Odt [Zofran Odt] 4 mg PO Q8HR PRN #10 tab PRN Reason: Nausea Is patient prescribed a controlled substance at d/c from ED?: No Referrals: Nataliya Johnston MD [Primary Care Provider] - 1-2 days Time of Disposition: 22:53
[2021-10-15 21:05] LABS: Basophils % (A) 0 %; Eosinophils # (A) 0.5 k/uL (0-0.7); Eosinophils % (A) 4 %; HCT 42.2 % (39.0-53.0); Lymphocytes # (A) 1.4 k/uL (1.0-4.8); Lymphocytes % (A) 11 %; MCH 30.1 pg (25.0-35.0); MCHC 33.2 g/dL (31.0-37.0); MCV 90.5 fL (80.0-100.0); Mean Platelet Volume 9.4; Monocytes # (A) 0.7 k/uL (0-1.0); Monocytes % (A) 5 %; Neutrophils # (A) 9.8 k/uL (1.3-7.7); Neutrophils % (A) 79 %; Platelet Count 209 k/uL (150-450); RBC 4.66 m/uL (4.30-5.90); RDW 12.8 % (11.5-15.5); WBC 12.4 k/uL (3.8-10.6)
[2021-10-15 21:24] LABS: ALT 18 U/L (4-49); AST 28 U/L (17-59); African American GFR (CKD) >90 (>60 ml/min/1.73 sqM); Alkaline Phosphatase 63 U/L (38-126); Amylase 60 U/L (30-110); Anion Gap 6 mmol/L; Blood Urea Nitrogen 17 mg/dL (9-20); Calcium 9.1 mg/dL (8.4-10.2); Carbon Dioxide 30 mmol/L (22-30); Chloride 101 mmol/L (98-107); Glucose 93 mg/dL (74-99); Lipase 60 U/L (23-300); Non-African American GFR(CKD) >90 (>60 ml/min/1.73 sqM); Potassium 4.5 mmol/L (3.5-5.1); Sodium 137 mmol/L (137-145); Total Bilirubin 0.3 mg/dL (0.2-1.3); Total Protein 6.7 g/dL (6.3-8.2)
[2021-10-15] MEDS ORDERED: DICYCLOMINE 10 MG/ML 2 ML AMP IM STA (21:57)
[2021-10-15 22:49] LABS: Appearance,Urine Clear (Clear); Bilirubin,Urine Negative (Negative); Blood,Urine Negative (Negative); Color,Urine Light Yellow; Glucose,Urine (UA) Negative (Negative); Ketones,Urine 1+ (Negative); Leukocyte Esterase,Urine Negative (Negative); Nitrite,Urine Negative (Negative); Protein,Urine Negative (Negative); Specific Gravity,Urine 1.009 (1.001-1.035); Urobilinogen,Urine <2.0 mg/dL (<2.0)
[2021-10-15] MEDS ORDERED: ONDANSETRON 4 MG ODT STARTER PACK 2 TAB BTL PO STA (22:53)
== END 2021-10-15 23:25 | disposition home or self-care (01) ==
LOC: EC 17:54
DX: R10.9 Unspecified abdominal pain (principal); R11.2 Nausea with vomiting, unspecified; F31.9 Bipolar disorder, unspecified; F41.9 Anxiety disorder, unspecified; F17.290 Nicotine dependence, other tobacco product, uncomplicated; Z79.899 Other long term (current) drug therapy
CPT/HCPCS: 36415; 80053; 82150; 83605; 83690; 85025; 81003; 74018; 99284; 96374; 96375 ×2; 96361; 96372; J2270; J0500; J2405; S0119

== ENCOUNTER 2022-01-08 01:18 | Emergency (ER) | payer OTHER ==
[2022-01-08 01:29] VITALS: BP 137/98; PULSE 70; RESP 18; TEMP 98.2
--- NOTE | 2022-01-08 02:18 | XR ---
EXAMINATION TYPE: XR wrist complete RT DATE OF EXAM: 01/08/2022 COMPARISON: NONE HISTORY: Wrist pain TECHNIQUE: 4 views FINDINGS: Metacarpals are intact. There is a nondisplaced 6 mm chip fracture of the lateral scaphoid bone near the scaphoid trapezium joint. There is no dislocation. Distal radius and ulna appear intact . Metacarpals are intact. IMPRESSION: Acute nondisplaced fracture of the scaphoid.
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
== END 2022-01-08 03:50 | disposition home or self-care (01) ==
LOC: EC 01:18
DX: S62.001A Unspecified fracture of navicular [scaphoid] bone of right wrist, initial encounter for closed fracture (principal); F17.209 Nicotine dependence, unspecified, with unspecified nicotine-induced disorders; Z88.0 Allergy status to penicillin; Z88.8 Allergy status to other drugs, medicaments and biological substances; V19.9XXA Pedal cyclist (driver) (passenger) injured in unspecified traffic accident, initial encounter

== ENCOUNTER → 2022-02-08 | Outpatient (CLI) | payer OTHER | END | disposition home or self-care (01) | LOC: LABWHC1 09:07 | PROVIDERS: ATTEND Family Medicine | DX: Z00.00 Encounter for general adult medical examination without abnormal findings (principal) | CPT/HCPCS: 36415 ==

== ENCOUNTER 2022-06-02 22:49 | Emergency (ER) | payer OTHER ==
[2022-06-02 22:54] VITALS: BP 175/89; PULSE 105; RESP 22; TEMP 99
--- NOTE | 2022-06-02 22:58 | ED ---
Psych HPI - General Chief Complaint: Psychiatric Symptoms Stated Complaint: mental health Time Seen by Provider: 06/02/22 22:55 Source: patient, RN notes reviewed, old records reviewed Mode of arrival: ambulatory Limitations: no limitations - History of Present Illness Initial Comments: This is a 32-year-old male to the emergency department today. Patient presents today for evaluation of psychiatric illness.patient is acutely psychotic and manic on reevaluation states he needs something to sleep. Patient is very tangential and is speaking, does mostly with psychiatry, does not want to be admitted to psych floor. Patient states she's been dealing with addiction to opiates and methadone for a long time and it is messing up with his head MD Complaint: suicidal ideation, altered mental status -: unknown Associated Psychiatric Symptoms: racing thoughts History of same: Yes Quality: getting worse Improves With: none Context: recent drug abuse Associated Symptoms: denies other symptoms Treatments Prior to Arrival: none - Related Data Home Medications Medication Instructions Recorded Confirmed Pregabalin [Lyrica] 300 mg PO BID 10/06/20 09/06/21 Docusate [Colace] 100 mg PO DAILY PRN 05/15/21 09/06/21 Ibuprofen 200 - 400 mg PO DIRECTED PRN 07/12/21 09/06/21 Methadone Syrup 170 mg PO DAILY 07/12/21 09/06/21 Miralax Powder 1 applicate PO DAILY PRN 09/06/21 09/06/21 Vitadone 3 tab PO DAILY 09/06/21 09/06/21 Previous Rx's Medication Instructions Recorded Ondansetron Odt [Zofran Odt] 4 mg PO Q8HR PRN #10 tab 10/15/21 Famotidine 40 mg PO DAILY #14 tablet 01/08/22 Ibuprofen [Motrin] 600 mg PO Q8HR PRN #20 tab 01/08/22 Allergies Allergy/AdvReac Type Severity Reaction Status Date / Time Penicillins Allergy Unknown Unknown Verified 06/02/22 22:51 Childhood naloxegol [From Movantik] AdvReac abdominal Verified 06/02/22 22:51 pain, started withdrawal symptoms-chills,sweats Review of Systems ROS Statement: Those systems with pertinent positive or pertinent negative responses have been documented in the HPI. ROS Other: All systems not noted in ROS Statement are negative. Past Medical History Past Medical History: Liver Disease, Renal Disease Additional Past Medical History / Comment(s): Hepatitis C, neuropathy, chronic foot pain, left leg pain and drop foot-"palsy", rhabdomyolysis, previous drug abuse, previous suicidal attempt History of Any Multi-Drug Resistant Organisms: MRSA Date of last positivie culture/infection: 02/24/2010 MDRO Source:: left knee Past Surgical History: Orthopedic Surgery Additional Past Surgical History / Comment(s): surgery on left middle finger., nerve block in left leg 01/28/21- "test dose", pin left middle finger, oral surgery Past Anesthesia/Blood Transfusion Reactions: Motion Sickness Past Psychological History: Anxiety, Bipolar, Depression Smoking Status: Vaper Past Alcohol Use History: None Reported Past Drug Use History: None Reported - Past Family History Father Family Medical History: No Reported History Mother History Unknown: Yes Family Medical History: No Reported History General Exam Limitations: no limitations General appearance: alert, in no apparent distress, anxious Head exam: Present: atraumatic, normocephalic, normal inspection Eye exam: Present: normal appearance, PERRL, EOMI. Absent: scleral icterus, conjunctival injection, periorbital swelling ENT exam: Present: normal exam, mucous membranes moist Neck exam: Present: normal inspection. Absent: tenderness, meningismus, lymphadenopathy Respiratory exam: Present: normal lung sounds bilaterally. Absent: respiratory distress, wheezes, rales, rhonchi, stridor Cardiovascular Exam: Present: regular rate, normal rhythm, normal heart sounds. Absent: systolic murmur, diastolic murmur, rubs, gallop, clicks GI/Abdominal exam: Present: soft, normal bowel sounds. Absent: distended, tenderness, guarding, rebound, rigid Extremities exam: Present: normal inspection, full ROM, normal capillary refill. Absent: tenderness, pedal edema, joint swelling, calf tenderness Back exam: Present: normal inspection Neurological exam: Present: alert, oriented X3, CN II-XII intact Psychiatric exam: Present: normal affect, normal mood Skin exam: Present: warm, dry, intact, normal color. Absent: rash Course Vital Signs 06/02/22 22:51 Temperature 99.0 F Pulse Rate 105 H Respiratory 22 Rate Blood Pressure 175/89 O2 Sat by Pulse 98 Oximetry - Reevaluation(s) Reevaluation #1: 06/02/22 22:55 medical record is reviewed Medical clear for psychiatric evaluation Medical Decision Making - Medical Decision Making 32 male for psychiatric evaluation and brendan needing help with sleep, patient is giving Sleep-Aid here in the emergency department, patient is also seen and evaluated by psychiatry here in the ER and deemed stable for discharge home Disposition Clinical Impression: Insomnia Disposition: HOME SELF-CARE Condition: Good Instructions (If sedation given, give patient instructions): Insomnia (ED) Is patient prescribed a controlled substance at d/c from ED?: No Referrals: Forrest Rivas DO [Primary Care Provider] - 1-2 days
[2022-06-03] MEDS ORDERED: clonazePAM 0.5 MG TAB PO STA (00:50)
== END 2022-06-03 01:32 | disposition home or self-care (01) ==
LOC: EC 22:49
DX: G47.00 Insomnia, unspecified (principal); F31.9 Bipolar disorder, unspecified; F41.9 Anxiety disorder, unspecified; F17.290 Nicotine dependence, other tobacco product, uncomplicated; Z88.0 Allergy status to penicillin; Z88.8 Allergy status to other drugs, medicaments and biological substances
CPT/HCPCS: 82075; 99284

== ENCOUNTER 2022-11-24 11:20 | Emergency (ER) | payer OTHER ==
[2022-11-24 11:31] VITALS: PULSE 90; TEMP 99.6
[2022-11-24 12:07] VITALS: BP 120/60; RESP 20
--- NOTE | 2022-11-24 12:30 | ED ---
Recheck HPI - General Chief Complaint: Recheck/Abnormal Lab/Rx Stated Complaint: Withdrawals Time Seen by Provider: 11/24/22 11:55 Source: patient, RN notes reviewed Mode of arrival: ambulatory - History of Present Illness Initial Comments: patient is a 32-year-old male presenting to the emergency room due to missing today's dose of his methadone and being concerned that he will go through severe methadone withdrawals as he was supposed to receive his dose of methadone for today and tomorrow at his clinic and will be unable to obtain methadone until that time. He reports that he feels jittery and sweaty at times. She reports intermittent nausea which is chronic and states that he vomited one of his doses of methadone up previously in the week. He reports that he has been on high doses of methadone for many years and states that coming off of the methadone causes him to wants to use illicit substances and at times have acute site closest. He is not having any acute psychosis at this time including any hallucinations or delusions. He is hyperverbal and easily agitated but appears to be at baseline. He reports that he has considered going to rehab multiple times but has never attempted rehab. patient reports being on benzodiazepines from his primary care provider and has these available to him at home in addition to his clear, which he is on for chronic neuropathic pain. In addition to his polysubstance abuse and bipolar disorder he has a past medical history significant for hepatitis C with previous liver failure and previous renal insufficiency. - Related Data Home Medications Medication Instructions Recorded Confirmed Pregabalin [Lyrica] 300 mg PO BID 10/06/20 09/06/21 Docusate [Colace] 100 mg PO DAILY PRN 05/15/21 09/06/21 Ibuprofen 200 - 400 mg PO DIRECTED PRN 07/12/21 09/06/21 Methadone Syrup 170 mg PO DAILY 07/12/21 09/06/21 Miralax Powder 1 applicate PO DAILY PRN 09/06/21 09/06/21 Vitadone 3 tab PO DAILY 09/06/21 09/06/21 Previous Rx's Medication Instructions Recorded Ondansetron Odt [Zofran Odt] 4 mg PO Q8HR PRN #10 tab 10/15/21 Famotidine 40 mg PO DAILY #14 tablet 01/08/22 Ibuprofen [Motrin] 600 mg PO Q8HR PRN #20 tab 01/08/22 Allergies Allergy/AdvReac Type Severity Reaction Status Date / Time Penicillins Allergy Unknown Unknown Verified 11/24/22 11:31 Childhood naloxegol [From Movantik] AdvReac abdominal Verified 11/24/22 11:31 pain, started withdrawal symptoms-chills,sweats Review of Systems ROS Statement: Those systems with pertinent positive or pertinent negative responses have been documented in the HPI. ROS Other: All systems not noted in ROS Statement are negative. Past Medical History Past Medical History: Liver Disease, Renal Disease Additional Past Medical History / Comment(s): Hepatitis C, neuropathy, chronic foot pain, left leg pain and drop foot-"palsy", rhabdomyolysis, previous drug abuse, previous suicidal attempt History of Any Multi-Drug Resistant Organisms: MRSA Date of last positivie culture/infection: 02/24/2010 MDRO Source:: left knee Past Surgical History: Orthopedic Surgery Additional Past Surgical History / Comment(s): surgery on left middle finger., nerve block in left leg 01/28/21- "test dose", pin left middle finger, oral surgery Past Anesthesia/Blood Transfusion Reactions: Motion Sickness Past Psychological History: Anxiety, Bipolar, Depression Smoking Status: Vaper Past Alcohol Use History: None Reported Past Drug Use History: IV Drug Use, Opiates, Prescription Drug Abuse - Past Family History Father Family Medical History: No Reported History Mother History Unknown: Yes Family Medical History: No Reported History General Exam Limitations: no limitations General appearance: alert, in no apparent distress Head exam: Present: atraumatic, normocephalic, normal inspection Eye exam: Present: normal appearance, PERRL, EOMI. Absent: scleral icterus, conjunctival injection, periorbital swelling ENT exam: Present: normal exam, mucous membranes moist Neck exam: Present: normal inspection, full ROM Respiratory exam: Absent: respiratory distress, accessory muscle use Cardiovascular Exam: Present: regular rate GI/Abdominal exam: Absent: distended Extremities exam: Present: normal inspection, full ROM. Absent: pedal edema, joint swelling Back exam: Present: normal inspection, full ROM Neurological exam: Present: alert, oriented X3, CN II-XII intact, other (no tremor) Psychiatric exam: Present: agitated (easily) Expanded Focused psych exam: Present: flight of ideas Skin exam: Present: warm, dry, intact, normal color. Absent: rash Course Vital Signs 11/24/22 11/24/22 11:28 12:07 Temperature 99.6 F Pulse Rate 90 90 Respiratory 18 20 Rate Blood Pressure 145/83 120/60 O2 Sat by Pulse 98 98 Oximetry Medical Decision Making - Medical Decision Making Was pt. sent in by a medical professional or institution (, [facility], CERTIFIED OPHTHALMIC SURGICAL ASSISTANT, urgent care, hospital, or [facility]...) When possible be specific @ -No Did you speak to anyone other than the patient for history (EMS, parent, family, police, friend...)? What history was obtained from this source @ -No Did you review nursing and triage notes (agree or disagree)? Why? @ -I reviewed and agree with nursing and triage notes except patient only missed 1 dose of methadone today and will be missing a dose tomorrow. Were old charts reviewed (outside hosp., previous admission, EMS record, old EKG, old radiological studies, urgent care reports/EKG's, [facility] records)? Report findings @ -No old charts were reviewed Differential Diagnosis (chest pain, altered mental status, abdominal pain women, abdominal pain men, vaginal bleeding, weakness, fever, dyspnea, syncope, headache, dizziness, GI bleed, back pain, seizure, CVA, palpatations, mental health, musculoskeletal)? @ -Differential Mental Health Depression, anxiety, bipolar, psychosis, schizophrenia, borderline personality, situational depression, adjustment disorder, behavioral disorder, brain tumor, malingering, substance abuse, encephalopathy, medication reaction, dementia, hypothyroidism, degenerative neurologic disorder, lupus.... This is not meant to be all-inclusive list EKG interpreted by me (3pts min.). @ -None done X-rays interpreted by me (1pt min.). @ -None done CT interpreted by me (1pt min.). @ -None done U/S interpreted by me (1pt. min.). @ -None done What testing was considered but not performed or refused? (CT, X-rays, U/S, labs)? Why? @ -None What meds were considered but not given or refused? Why? @ -None Did you discuss the management of the patient with other professionals (professionals i.e. , [facility], CERTIFIED OPHTHALMIC SURGICAL ASSISTANT, lab, RT, psych nurse, psychotherapist social worker, special library librarian, teacher, ship officer, case resource manager)? Give summary @ -No Was smoking cessation discussed for >3mins.? @ -No Was critical care preformed (if so, how long)? @ -No Were there social determinants of health that impacted care today? How? (Homelessness, low income, unemployed, alcoholism, drug addiction, transportation, low edu. Level, literacy, decrease access to med. care, detention, rehab)? @ -Drug addiction Was there de-escalation of care discussed even if they declined (Discuss DNR or withdrawal of care, Hospice)? DNR status @ -No What co-morbidities impacted this encounter? (DM, HTN, Smoking, COPD, CAD, Cancer, CVA, ARF, Chemo, Hep., AIDS, mental health diagnosis, sleep apnea, morbid obesity)? @ -None Was patient admitted / discharged? Hospital course, mention meds given and route, prescriptions, significant lab abnormalities, going to OR and other pertinent info. @ -32-year-old male presenting to the emergency room with reports of methadone withdrawals he reports that he has missed this morning's dose and will miss tomorrow's dose due to not being able to obtain his Saturday dose. He also reports vomiting up one of his previous doses due to his methadone clinic "bringing down his dose to quickly" causing him to go through withdrawals. He is reporting a chronic nausea with intermittent vomiting without any vomiting today or at this time. He reports jitteriness with occasional sweats without any visible tremor, hallucinations or delusions. He reports a history of brendan and psychosis due to methadone withdrawals but currently denies any brendan, hallucinations or delusions. Patient is requesting a dose of methadone for today, tomorrow and Saturday. Long discussion with patient advising patient that methadone is not dosed from the emergency room setting. Recommended presentation to rehab for treatment of methadone abuse/withdrawal; patient is reluctant to seek treatment for rehabilitation advising that he "can't be treated by the rehab facility because he is on "too much" methadone. He also states that he knows that [facility] and does methadone rehabilitation services due to them having a methadone clinic. Discussed acute withdrawal symptoms of patient and likely onset of symptoms and when to present to the emergency room. Again reinforced presenting to rehab for treatment of substance abuse advising that if withdrawal symptoms become severe the rehab dilatation facility will transfer patient to appropriate emergency room setting. Questions and concerns answered. Return parameters to the emergency room reviewed at length. Will discharge patient home in stable condition encouraging presentation to rehabilitation facility for opiate dependency disorder. Undiagnosed new problem with uncertain prognosis? @ -No Drug Therapy requiring intensive monitoring for toxicity (Heparin, Nitro, Insulin, Cardizem)? @ -No Were any procedures done? @ -No Diagnosis/symptom? @ -Opiate dependency disorder Acute, or Chronic, or Acute on Chronic? @ -Chronic Uncomplicated (without systemic symptoms) or Complicated (systemic symptoms)? @ -Uncomplicated Side effects of treatment? @ -No Exacerbation, Progression, or Severe Exacerbation? @ -No Poses a threat to life or bodily function? How? (Chest pain, [place], CA, pneumonia, PE, COPD, DKA, ARF, appy, cholecystitis, CVA, Diverticulitis, Homicidal, Suicidal, threat to staff... and all critical care pts) @ -No Case discussed with Dr. Canales. Disposition Clinical Impression: Opiate dependence, continuous Disposition: HOME SELF-CARE Condition: Stable Instructions (If sedation given, give patient instructions): Opioid Withdrawal (ED), Opioid Use Disorder (ED) Additional Instructions: It is recommended that you contact and admit herself into a rehabilitation facility. Information regarding [facility] facility has been provided. Stay well hydrated. Please follow-up with your primary care provider and methadone clinic as scheduled if you wish to continue your methadone nicole men. Please return to the Emergency Department if symptoms worsen or any other concerns. Is patient prescribed a controlled substance at d/c from ED?: No Referrals: Forrest Rivas DO [Primary Care Provider] - 1-2 days [facility] [Outside] - 1-2 days Time of Disposition: 12:30
== END 2022-11-24 12:50 | disposition home or self-care (01) ==
LOC: EC 11:20
DX: F11.20 Opioid dependence, uncomplicated (principal); F41.9 Anxiety disorder, unspecified; F31.9 Bipolar disorder, unspecified; F17.290 Nicotine dependence, other tobacco product, uncomplicated; Z79.899 Other long term (current) drug therapy; Z88.0 Allergy status to penicillin; Z88.8 Allergy status to other drugs, medicaments and biological substances
CPT/HCPCS: 99283

== ENCOUNTER 2023-08-15 10:01 | Emergency (ER) | payer OTHER ==
--- NOTE | 2023-08-15 10:10 | ED ---
General Adult HPI - General Chief complaint: Recheck/Abnormal Lab/Rx Stated complaint: Possible exposure to HIV Time Seen by Provider: 08/15/23 10:08 Source: patient, RN notes reviewed Mode of arrival: ambulatory Limitations: no limitations - History of Present Illness Initial comments: 33-year-old male with no significant past medical history presents emergency department chief complaint of potential STD/STI exposure. He states that he had unprotected intercourse last evening at 2100. states that he is unaware of the partner's potential diagnoses with sexual transmitted diseases. Patient denies any symptoms such as urinary frequency or urgency, penile discharge, fatigue, weakness. States that he has been treated for chlamydia and gonorrhea in the past. - Related Data Home Medications Medication Instructions Recorded Confirmed Pregabalin [Lyrica] 300 mg PO BID 10/06/20 09/06/21 Docusate [Colace] 100 mg PO DAILY PRN 05/15/21 09/06/21 Ibuprofen 200 - 400 mg PO DIRECTED PRN 07/12/21 09/06/21 Methadone Syrup 170 mg PO DAILY 07/12/21 09/06/21 Miralax Powder 1 applicate PO DAILY PRN 09/06/21 09/06/21 Vitadone 3 tab PO DAILY 09/06/21 09/06/21 Previous Rx's Medication Instructions Recorded Ondansetron Odt [Zofran Odt] 4 mg PO Q8HR PRN #10 tab 10/15/21 Famotidine 40 mg PO DAILY #14 tablet 01/08/22 Ibuprofen [Motrin] 600 mg PO Q8HR PRN #20 tab 01/08/22 Doxycycline [Vibramycin] 100 mg PO BID #24 capsule 08/15/23 metroNIDAZOLE [Flagyl] 500 mg PO TID #30 tab 08/15/23 Allergies Allergy/AdvReac Type Severity Reaction Status Date / Time Penicillins Allergy Unknown Unknown Verified 08/15/23 10:06 Childhood naloxegol [From Movantik] AdvReac abdominal Verified 08/15/23 10:06 pain, started withdrawal symptoms-chills,sweats Review of Systems ROS Statement: Those systems with pertinent positive or pertinent negative responses have been documented in the HPI. ROS Other: All systems not noted in ROS Statement are negative. Past Medical History Past Medical History: Liver Disease, Renal Disease Additional Past Medical History / Comment(s): Hepatitis C, neuropathy, chronic foot pain, left leg pain and drop foot-"palsy", rhabdomyolysis, previous drug abuse, previous suicidal attempt History of Any Multi-Drug Resistant Organisms: MRSA Date of last positivie culture/infection: 02/24/2010 MDRO Source:: left knee Past Surgical History: Orthopedic Surgery Additional Past Surgical History / Comment(s): surgery on left middle finger., nerve block in left leg 01/28/21- "test dose", pin left middle finger, oral surgery Past Anesthesia/Blood Transfusion Reactions: Motion Sickness Past Psychological History: Anxiety, Bipolar, Depression Smoking Status: Vaper Past Alcohol Use History: None Reported Past Drug Use History: IV Drug Use, Opiates, Prescription Drug Abuse - Past Family History Father Family Medical History: No Reported History Mother History Unknown: Yes Family Medical History: No Reported History General Exam Limitations: no limitations General appearance: alert, in no apparent distress Head exam: Present: atraumatic, normocephalic, normal inspection Eye exam: Present: normal appearance, PERRL, EOMI. Absent: scleral icterus, conjunctival injection, periorbital swelling ENT exam: Present: normal exam, mucous membranes moist Neck exam: Present: normal inspection. Absent: tenderness, meningismus, l ymphadenopathy Respiratory exam: Present: normal lung sounds bilaterally. Absent: respiratory distress, wheezes, rales, rhonchi, stridor Cardiovascular Exam: Present: regular rate, normal rhythm, normal heart sounds. Absent: systolic murmur, diastolic murmur, rubs, gallop, clicks GI/Abdominal exam: Present: soft, normal bowel sounds. Absent: distended, tenderness, guarding, rebound, rigid Extremities exam: Present: normal inspection, full ROM, normal capillary refill. Absent: tenderness, pedal edema, joint swelling, calf tenderness Back exam: Present: normal inspection Neurological exam: Present: alert, oriented X3, CN II-XII intact Psychiatric exam: Present: normal affect, normal mood Skin exam: Present: warm, dry, intact, normal color. Absent: rash Course Vital Signs 08/15/23 08/15/23 08/15/23 10:03 11:06 12:14 Temperature 98.1 F 97.9 F 98.1 F Pulse Rate 92 89 68 Respiratory 18 18 18 Rate Blood Pressure 133/98 126/80 126/80 O2 Sat by Pulse 99 97 97 Oximetry 08/15/23 12:15 Temperature 98.1 F Pulse Rate 84 Respiratory 18 Rate Blood Pressure 136/80 O2 Sat by Pulse 97 Oximetry Medical Decision Making - Medical Decision Making Was pt. sent in by a medical professional or institution ([facility] De La Torre, SURGICAL AIDE, urgent care, hospital, or shelter...) When possible be specific @ -No Did you speak to anyone other than the patient for history (EMS, parent, family, police, friend...)? What history was obtained from this source @ -No Did you review nursing and triage notes (agree or disagree)? Why? @ -I reviewed and agree with nursing and triage notes Were old charts reviewed (outside hosp., previous admission, EMS record, old EKG, old radiological studies, urgent care reports/EKG's, shelter records)? Report findings @ -No old charts were reviewed Differential Diagnosis (chest pain, altered mental status, abdominal pain women, abdominal pain men, vaginal bleeding, weakness, fever, dyspnea, syncope, headache, dizziness, GI bleed, back pain, seizure, CVA, palpatations, mental health, musculoskeletal)? @ -potential STD/STI exposure EKG interpreted by me (3pts min.). @ -None X-rays interpreted by me (1pt min.). @ -None done CT interpreted by me (1pt min.). @ -None done U/S interpreted by me (1pt. min.). @ -None done What testing was considered but not performed or refused? (CT, X-rays, U/S, labs)? Why? @ -None What meds were considered but not given or refused? Why? @ -None Did you discuss the management of the patient with other professionals (professionals i.e. [facility] De La Torre, SURGICAL AIDE, lab, RT, psych nurse, social services aide, services advisor, teacher, naval gunfire liaison officer, rn case manager hospice)? Give summary @ -No Was smoking cessation discussed for >3mins.? @ -No Was critical care preformed (if so, how long)? @ -No Were there social determinants of health that impacted care today? How? (Homelessness, low income, unemployed, alcoholism, drug addiction, transportation, low edu. Level, literacy, decrease access to med. care, [facility], rehab)? @ -No Was there de-escalation of care discussed even if they declined (Discuss DNR or withdrawal of care, Hospice)? DNR status @ -No What co-morbidities impacted this encounter? (DM, HTN, Smoking, COPD, CAD, Cancer, CVA, ARF, Chemo, Hep., AIDS, mental health diagnosis, sleep apnea, morbid obesity)? @ -None Was patient admitted / discharged? Hospital course, mention meds given and route, prescriptions, significant lab abnormalities, going to OR and other pertinent info. @ -Discharged. 33-year-old male chief complaint of potential STD STI exposure. I discussed with the patient his encounter was yesterday evening at 9 PM, states that he was unaware if the patient was diagnosed with any STDs or STIs or HIV. States that he did not notice if there were any active lesions or warts present. Patient's urine was sent for testing of chlamydia, gonorrhea, trichomonas, discussed with patient that he would benefit from follow-up with the health department for further evaluation and potential intervention and Pap therapy for concern of HIV exposure. Patient was prophylactically treated for chlamydia, go norrhea, trichomonas with IM Rocephin, Flagyl, Doxy. I discussed this case with my attending Dr. Casillas who is agreeable with plan and for discharge. Undiagnosed new problem with uncertain prognosis? @ -No Drug Therapy requiring intensive monitoring for toxicity (Heparin, Nitro, Insulin, Cardizem)? @ -No Were any procedures done? @ -No Diagnosis/symptom? @ -potential STD/STI exposure Acute, or Chronic, or Acute on Chronic? @ -Acute Uncomplicated (without systemic symptoms) or Complicated (systemic symptoms)? @ -Uncomplicated Side effects of treatment? @ -No Exacerbation, Progression, or Severe Exacerbation? @ -No Poses a threat to life or bodily function? How? (Chest pain, [place], [place], pneumonia, PE, COPD, DKA, ARF, appy, cholecystitis, CVA, Diverticulitis, Homicidal, Suicidal, threat to staff... and all critical care pts) @ -No Disposition Clinical Impression: Possible exposure to STD Narrative: Please return to the emergency department symptoms worsen or do not improve. Please continue prescription medications to full prescription. Follow-up with the health department for further testing and possible treatment. Follow-up with your primary care provider for further testing. Disposition: HOME SELF-CARE Condition: Good Instructions (If sedation given, give patient instructions): Safe Sex Practices (ED) Prescriptions: metroNIDAZOLE [Flagyl] 500 mg PO TID #30 tab Doxycycline [Vibramycin] 100 mg PO BID #24 capsule Is patient prescribed a controlled substance at d/c from ED?: No Referrals: Forrest Rivas DO [Primary Care Provider] - 1-2 days Time of Disposition: 11:36
[2023-08-15 10:34] VITALS: RESP 18; TEMP 98.1
[2023-08-15] MEDS: cefTRIAXone 250 MG VIAL IM STA (11:54)
[2023-08-15 12:25] VITALS: BP 136/80; PULSE 84
[2023-08-16 13:55] LABS: N. gonorrhoeae,PCR Negative (Negative)
[2023-08-16 14:01] LABS: C. trachomatis,PCR Negative (Negative)
== END 2023-08-15 12:00 | disposition home or self-care (01) ==
LOC: EC 10:01
DX: Z20.2 Contact with and (suspected) exposure to infections with a predominantly sexual mode of transmission (principal); F17.290 Nicotine dependence, other tobacco product, uncomplicated; Z88.0 Allergy status to penicillin; Z88.8 Allergy status to other drugs, medicaments and biological substances
CPT/HCPCS: 87491; 87591; 99283; 96372; J0696

== ENCOUNTER 2024-03-14 00:53 | Emergency (ER) | payer OTHER ==
[2024-03-14 01:01] VITALS: TEMP 98.2
[2024-03-14] MEDS: diphenhydrAMINE 50 MG/ML 1 ML VIAL IM STA (01:55)
[2024-03-14] MEDS: HALOPERIDOL LACTATE 5 MG/ML 1 ML VIAL IM STA (01:55)
[2024-03-14] MEDS: LORazepam 2 MG/ML INJ IM STA (01:56)
--- NOTE | 2024-03-14 03:20 | ED ---
Overdose HPI - General Source: patient Mode of arrival: wheelchair Limitations: no limitations <Sanjuana Coker - Last Filed: 03/14/24 03:18> <Juan Olivas - Last Filed: 03/14/24 12:06> - General Chief Complaint: Overdose Stated Complaint: Petition Time Seen by Provider: 03/14/24 01:19 - History of Present Illness Initial Comments: 33-year-old male petitioned by police for mental health evaluation. Patient was brought in by police after trespassing. Patient admits to taking LSD tonight, he has also been drinking alcohol. Patient went to the house of someone he had met 1 time and was invited inside. Until that the patient was then acting belligerent and would not leave the home so they called the police. Police then brought him here. Patient is agitated but easily redirected. Unable to obtain any meaningful history from him at this time (Sanjuana Coker) - Related Data Home Medications Medication Instructions Recorded Confirmed Pregabalin [Lyrica] 300 mg PO BID 10/06/20 09/06/21 Docusate [Colace] 100 mg PO DAILY PRN 05/15/21 09/06/21 Ibuprofen 200 - 400 mg PO DIRECTED PRN 07/12/21 09/06/21 Methadone Syrup 170 mg PO DAILY 07/12/21 09/06/21 Miralax Powder 1 applicate PO DAILY PRN 09/06/21 09/06/21 Vitadone 3 tab PO DAILY 09/06/21 09/06/21 Previous Rx's Medication Instructions Recorded Ondansetron Odt [Zofran Odt] 4 mg PO Q8HR PRN #10 tab 10/15/21 Famotidine 40 mg PO DAILY #14 tablet 01/08/22 Ibuprofen [Motrin] 600 mg PO Q8HR PRN #20 tab 01/08/22 Doxycycline [Vibramycin] 100 mg PO BID #24 capsule 08/15/23 metroNIDAZOLE [Flagyl] 500 mg PO TID #30 tab 08/15/23 Allergies Allergy/AdvReac Type Severity Reaction Status Date / Time Penicillins Allergy Unknown Unknown Verified 03/14/24 00:57 Childhood naloxegol [From [employer]antik] AdvReac abdominal Verified 03/14/24 00:57 pain, started withdrawal symptoms-chills,sweats Review of Systems ROS Other: All systems not noted in ROS Statement are negative. <Sanjuana Coker - Last Filed: 03/14/24 03:18> ROS Other: All systems not noted in ROS Statement are negative. <Juan Olivas - Last Filed: 03/14/24 12:06> ROS Statement: Those systems with pertinent positive or pertinent negative responses have been documented in the HPI. Past Medical History Past Medical History: Liver Disease, Renal Disease Additional Past Medical History / Comment(s): Hepatitis C, neuropathy, chronic foot pain, left leg pain and drop foot-"palsy", rhabdomyolysis, previous drug abuse, previous suicidal attempt History of Any Multi-Drug Resistant Organisms: MRSA Date of last positivie culture/infection: 02/24/2010 MDRO Source:: left knee Past Surgical History: Orthopedic Surgery Additional Past Surgical History / Comment(s): surgery on left middle finger., nerve block in left leg 01/28/21- "test dose", pin left middle finger, oral surgery Past Anesthesia/Blood Transfusion Reactions: Motion Sickness Past Psychological History: Anxiety, Bipolar, Depression Smoking Status: Vaper Past Alcohol Use History: None Reported Past Drug Use History: IV Drug Use, Opiates, Prescription Drug Abuse - Past Family History Father Family Medical History: No Reported History Mother History Unknown: Yes Family Medical History: No Reported History <Sanjuana Coker - Last Filed: 03/14/24 03:18> General Exam General appearance: alert, appears intoxicated Head exam: Present: atraumatic, normocephalic, normal inspection Eye exam: Present: normal appearance Neck exam: Present: normal inspection Respiratory exam: Absent: respiratory distress Cardiovascular Exam: Present: regular rate Neurological exam: Present: alert, altered (Intoxicated) Psychiatric exam: Present: agitated <Sanjuana Coker - Last Filed: 03/14/24 03:18> Course Vital Signs 03/14/24 03/14/24 00:57 11:00 Temperature 98.2 F Pulse Rate 82 84 Respiratory 20 17 Rate Blood Pressure 130/88 143/84 O2 Sat by Pulse 100 98 Oximetry Medical Decision Making <Sanjuana Coker - Last Filed: 03/14/24 03:18> <Juan Olivas - Last Filed: 03/14/24 12:06> - Medical Decision Making Was pt. sent in by a medical professional or institution (, [facility], ELECTROTYPE CASTER, urgent care, hospital, or long-term...) When possible be specific @ -No Did you speak to anyone other than the patient for history (EMS, parent, family, police, friend...)? What history was obtained from this source @ -Police Did you review nursing and triage notes (agree or disagree)? Why? @ -I reviewed and agree with nursing and triage notes Were old charts reviewed (outside hosp., previous admission, EMS record, old EKG, old radiological studies, urgent care reports/EKG's, long-term records)? Report findings @ -No old charts were reviewed Differential Diagnosis (chest pain, altered mental status, abdominal pain women, abdominal pain men, vaginal bleeding, weakness, fever, dyspnea, syncope, headache, dizziness, GI bleed, back pain, seizure, CVA, palpatations, mental health, musculoskeletal)? @ -Differential Mental Health Depression, anxiety, bipolar, psychosis, schizophrenia, borderline personality, situational depression, adjustment disorder, behavioral disorder, brain tumor, malingering, substance abuse, encephalopathy, medication reaction, dementia, hypothyroidism, degenerative neurologic disorder, lupus.... This is not meant to be all-inclusive list. EKG interpreted by me (3pts min.). @ -As above X-rays interpreted by me (1pt min.). @ -None done CT interpreted by me (1pt min.). @ -None done U/S interpreted by me (1pt. min.). @ -None done What testing was considered but not performed or refused? (CT, X-rays, U/S, labs)? Why? @ -None What meds were considered but not given or refused? Why? @ -None Did you discuss the management of the patient with other professionals (professionals i.e. , [facility], ELECTROTYPE CASTER, lab, RT, psych nurse, social media campaign manager, purchasing associate, teacher, protective officer, shelter case manager)? Give summary @ -No Was smoking cessation discussed for >3mins.? @ -No Was critical care preformed (if so, how long)? @ -No Were there social determinants of health that impacted care today? How? (Homelessness, low income, unemployed, alcoholism, drug addiction, transportation, low edu. Level, literacy, decrease access to med. care, prison, rehab)? @ -No Was there de-escalation of care discussed even if they declined (Discuss DNR or withdrawal of care, Hospice)? DNR status @ -No What co-morbidities impacted this encounter? (DM, HTN, Smoking, COPD, CAD, Cancer, CVA, ARF, Chemo, Hep., AIDS, mental health diagnosis, sleep apnea, morbid obesity)? @ -Polysubstance use Was patient admitted / discharged? Hospital course, mention meds given and route, prescriptions, significant lab abnormalities, going to OR and other pertinent info. @ -33-year-old male petitioned by police after trespassing. They tell me that he was delusional and could not form proper sentences. Patient is agitated but easily redirected. He is given Haldol, Benadryl, Ativan. He will be evaluated by EPS. Undiagnosed new problem with uncertain prognosis? @ -No Drug Therapy requiring intensive monitoring for toxicity (Heparin, Nitro, Insulin, Cardizem)? @ -No Were any procedures done? @ -No Diagnosis/symptom? @ -Default Acute, or Chronic, or Acute on Chronic? @ -Default Uncomplicated (without systemic symptoms) or Complicated (systemic symptoms)? @ -Default Side effects of treatment? @ -No Exacerbation, Progression, or Severe Exacerbation? @ -No Poses a threat to life or bodily function? How? (Chest pain, USA, [place], pneumonia, PE, COPD, DKA, ARF, appy, cholecystitis, CVA, Diverticulitis, Homicidal, Suicidal, threat to staff... and all critical care pts) @ -No (Sanjuana Coker) Patient care signed out to me by previous shift physician assistant professor of surgery, Liseth Romero. Briefly, patient 33-year-old female presents to the emergency department for mental health evaluation. Patient had psychotic features he did have alcohol in his system. Plan at signout was to follow-up with EPS recommendations. Patient monitored in the emergency department for ap proximately 11 hours. At 12:04 PM was notified by EPS nurse that patient is cleared for discharge with safety plan. (Juan Olivas) - Lab Data Lab Results 03/14/24 Range/Units 10:30 Urine Opiates Screen Not Detected (NotDetected) Ur Oxycodone Screen Not Detected (NotDetected) Urine Methadone Screen Not Detected (NotDetected) Ur Barbiturates Screen Not Detected (NotDetected) U Tricyclic Antidepress Not Detected (NotDetected) Ur Phencyclidine Scrn Not Detected (NotDetected) Ur Amphetamines Screen Not Detected (NotDetected) U Methamphetamines Scrn Not Detected (NotDetected) U Benzodiazepines Scrn Detected H (NotDetected) Urine Cocaine Screen Not Detected (NotDetected) U Marijuana (THC) Screen Detected H (NotDetected) Disposition <Sanjuana Coker - Last Filed: 03/14/24 03:18> Is patient prescribed a controlled substance at d/c from ED?: No Time of Disposition: 12:06 <Juan Olivas - Last Filed: 03/14/24 12:06> Clinical Impression: Psychiatric complaint Disposition: HOME SELF-CARE Condition: Good Instructions (If sedation given, give patient instructions): Hallucinations (ED) Referrals: Forrest Rivas DO [Primary Care Provider] - 1-2 days
[2024-03-14 11:03] LABS: Amphetamine Screen,Urine Not Detected (NotDetected); Barbiturate Screen,Urine Not Detected (NotDetected); Benzodiazepines Screen,Urine Detected (NotDetected); Cocaine Screen,Urine Not Detected (NotDetected); Methadone Screen, Urine Not Detected (NotDetected); Opiate Screen,Urine Not Detected (NotDetected); Oxycodone Screen, Urine Not Detected (NotDetected); Phencyclidine Screen,Urine Not Detected (NotDetected); Tricyclic Antidepressant,Urine Not Detected (NotDetected); Urn Cannabinoid Scrn Detected (NotDetected)
[2024-03-14 11:37] VITALS: BP 143/84; PULSE 84; RESP 17
== END 2024-03-14 12:09 | disposition home or self-care (01) ==
LOC: EC 00:53
CPT/HCPCS: 80306; 82075; 96372; 99285

== ENCOUNTER 2024-03-22 12:22 | Emergency (ER) | payer OTHER ==
[2024-03-22 12:27] VITALS: TEMP 97.5
[2024-03-22] MEDS: SODIUM CHLORIDE 0.9% 1,000 ML IV STA (13:11)
[2024-03-22] MEDS: LORazepam 2 MG/ML INJ IV STA (13:11)
[2024-03-22 13:14] LABS: Basophils % (A) 0 %; Eosinophils # (A) 0.4 k/uL (0-0.7); Eosinophils % (A) 3 %; Lymphocytes # (A) 2.8 k/uL (1.0-4.8); Lymphocytes % (A) 24 %; MCH 29.6 pg (25.0-35.0); MCHC 32.6 g/dL (31.0-37.0); MCV 90.9 fL (80.0-100.0); Mean Platelet Volume 7.3; Monocytes # (A) 0.8 k/uL (0-1.0); Monocytes % (A) 7 %; Neutrophils # (A) 7.4 k/uL (1.3-7.7); Neutrophils % (A) 63 %; Platelet Count 313 k/uL (150-450); RBC 4.73 m/uL (4.30-5.90); WBC 11.7 k/uL (3.8-10.6)
--- NOTE | 2024-03-22 13:21 | ED ---
General Adult HPI - General Chief complaint: Dizziness Stated complaint: Dizziness Time Seen by Provider: 03/22/24 12:36 Source: patient Mode of arrival: ambulatory Limitations: no limitations - History of Present Illness Initial comments: Dictation was produced using [employer] dictation software. please excuse any grammatical, word or spelling errors. Chief Complaint: 34-year-old male presents to the emergency department for lightheadedness, total body pain, neuropathy History of Present Illness: Patient 34-year-old male presents emergency department for multitude of symptoms. 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 States he feels lightheaded has difficulty walking and trouble breathing. Patient has had cough and nasal congestion. No obvious sick contacts. States that his whole body feels a li ttle sore. The ROS documented in this emergency department record has been reviewed and confirmed by me. Those systems with pertinent positive or negative responses have been documented in the HPI. All other systems are other negative and/or noncontributory. - Related Data Home Medications Medication Instructions Recorded Confirmed Pregabalin [Lyrica] 300 mg PO BID 10/06/20 09/06/21 Docusate [Colace] 100 mg PO DAILY PRN 05/15/21 09/06/21 Ibuprofen 200 - 400 mg PO DIRECTED PRN 07/12/21 09/06/21 Methadone Syrup 170 mg PO DAILY 07/12/21 09/06/21 Miralax Powder 1 applicate PO DAILY PRN 09/06/21 09/06/21 Vitadone 3 tab PO DAILY 09/06/21 09/06/21 Previous Rx's Medication Instructions Recorded Ondansetron Odt [Zofran Odt] 4 mg PO Q8HR PRN #10 tab 10/15/21 Famotidine 40 mg PO DAILY #14 tablet 01/08/22 Ibuprofen [Motrin] 600 mg PO Q8HR PRN #20 tab 01/08/22 Doxycycline [Vibramycin] 100 mg PO BID #24 capsule 08/15/23 metroNIDAZOLE [Flagyl] 500 mg PO TID #30 tab 08/15/23 Allergies Allergy/AdvReac Type Severity Reaction Status Date / Time Penicillins Allergy Unknown Unknown Verified 03/22/24 12:27 Childhood naloxegol [From Movantik] AdvReac abdominal Verified 03/22/24 12:27 pain, started withdrawal symptoms-chills,sweats Review of Systems ROS Statement: Those systems with pertinent positive or pertinent negative responses have been documented in the HPI. ROS Other: All systems not noted in ROS Statement are negative. Past Medical History Past Medical History: Liver Disease, Renal Disease Additional Past Medical History / Comment(s): Hepatitis C, neuropathy, chronic foot pain, left leg pain and drop foot-"palsy", rhabdomyolysis, previous drug abuse, previous suicidal attempt History of Any Multi-Drug Resistant Organisms: MRSA Date of last positivie culture/infection: 02/24/2010 MDRO Source:: left knee Past Surgical History: Orthopedic Surgery Additional Past Surgical History / Comment(s): surgery on left middle finger., nerve block in left leg 01/28/21- "test dose", pin left middle finger, oral surgery Past Anesthesia/Blood Transfusion Reactions: Motion Sickness Past Psychological History: Anxiety, Bipolar, Depression Smoking Status: Vaper Past Alcohol Use History: None Reported Past Drug Use History: IV Drug Use, Opiates, Prescription Drug Abuse - Past Family History Father Family Medical History: No Reported History Mother History Unknown: Yes Family Medical History: No Reported History General Exam - General Exam Comments Initial Comments: PHYSICAL EXAM: General Impression: Alert and oriented x3, not in acute distress HEENT: Normocephalic atraumatic, extra-ocular movements intact, pupils equal and reactive to light bilaterally, mucous membranes moist. Cardiovascular: Heart regular rate and rhythm Chest: Able to complete full sentences, no retractions, no tachypnea Abdomen: abdomen soft, non-tender, non-distended, no organomegaly Musculoskeletal: Pulses present and equal in all extremities, no peripheral edema Motor: no focal deficits noted Neurological: CN II-XII grossly intact, no focal motor or sensory deficits noted Skin: Intact with no visualized rashes Psych: Normal affect and mood Limitations: no limitations Course Vital Signs 03/22/24 03/22/24 12:25 13:15 Temperature 97.5 F L Pulse Rate 80 Respiratory 16 Rate Blood Pressure 121/79 Blood Pressure 134/78 [Right Arm Sitting] Blood Pressure 141/85 [Right Arm Standing] Blood Pressure 141/71 [Right Arm Supine] O2 Sat by Pulse 97 Oximetry Medical Decision Making - Medical Decision Making Was pt. sent in by a medical professional or institution (, PA, SYSTEMS SOFTWARE MANAGER, urgent care, hospital, or prison...) When possible be specific @ -No Did you speak to anyone other than the patient for history (EMS, parent, family, police, friend...)? What history was obtained from this source @ -No Did you review nursing and triage notes (agree or disagree)? Why? @ -I reviewed and agree with nursing and triage notes Were old charts reviewed (outside hosp., previous admission, EMS record, old EKG, old radiological studies, urgent care reports/EKG's, prison records)? Report findings @ -No old charts were reviewed Differential Diagnosis (chest pain, altered mental status, abdominal pain women, abdominal pain men, vaginal bleeding, musculoskeletal, weakness, fever, dyspnea, syncope, headache, dizziness, GI bleed, back pain, seizure, CVA, palpatations, mental health)? @ -Differential Dizziness: Benign paroxysmal positional Vertigo, Meniere's disease, otitis media, acoustic neuroma, vertebrobasilar insufficiency, cerebellar stroke, encephalitis, hypovolemic, arrhythmia, coronary artery syndrome, anemia, this is not meant to be an all-inclusive list EKG interpreted by me (3pts min.). @ -See above X-rays interpreted by me (1pt min.). @ -Chest x-ray is nonacute CT interpreted by me (1pt min.). @ -None done U/S interpreted by me (1pt. min.). @ -None done What testing was considered but not performed or refused? (CT, X-rays, U/S, labs)? Why? @ -None What meds were considered but not given or refused? Why? @ -None Was smoking cessation discussed for >3mins.? @ -No Were there social determinants of health that impacted care today? How? (Homelessness, low income, unemployed, alcoholism, drug addiction, transportation, low edu. Level, literacy, decrease access to med. care, fci, rehab)? @ -No Was there de-escalation of care discussed even if they declined (Discuss DNR or withdrawal of care, Hospice)? DNR status @ -No What co-morbidities impacted this encounter? (DM, HTN, Smoking, COPD, CAD, Cancer, CVA, ARF, Chemo, Hep., AIDS, mental health diagnosis, sleep apnea, morbid obesity)? @ -None Was patient admitted / discharged? Hospital course, mention meds given and route, prescriptions, significant lab abnormalities, going to OR and other pertinent info. @ -34-year-old male presents emergency department multiple complaints including lightheadedness, muscle aches nasal congestion. Vital signs upon arrival are within acceptable limits. Physical examination is benign. Laboratory evaluation obtained and found to be unremarkable. X-ray is negative. Patient reevaluated bedside at 353 states that he is feeling significantly better. Patient discharged told to follow-up with primary care doctor. Suspect patient dealing with viral illness. Did you discuss the management of the patient with other professionals (professionals i.e. , PA, SYSTEMS SOFTWARE MANAGER, lab, RT, psych nurse, social research assistant, pole peeler, teacher, revenue officer, case managers)? Give summary @ -No Was critical care preformed (if so, how long)? @ -No Undiagnosed new problem with uncertain prognosis? @ -No Drug Therapy requiring intensive monitoring for toxicity (Heparin, Nitro, Insulin, Cardizem)? @ -No Were any procedures done? @ -No Diagnosis/symptom? Acute, or Chronic, or Acute on Chronic? Uncomplicated (without systemic symptoms) or Complicated (systemic symptoms)? @ -Viral illness Side effects of treatment? @ -No Exacerbation, Progression, or Severe Exacerbation? @ -No Poses a threat to life or bodily function? How? (Chest pain, [place], [place], pneumonia, PE, COPD, DKA, ARF, appy, cholecystitis, CVA, Diverticulitis, Homicidal, Suicidal, threat to staff... and all critical care pts) @ -No - Lab Data Result diagrams: 03/22/24 13:05 03/22/24 13:05 Lab Results 03/22/24 03/22/24 03/22/24 Range/Units 13:05 13:05 13:05 WBC 11.7 H (3.8-10.6) k/uL RBC 4.73 (4.30-5.90) m/uL Hgb 14.0 (13.0-17.5) gm/dL Hct 43.0 (39.0-53.0) % MCV 90.9 (80.0-100.0) fL MCH 29.6 (25.0-35.0) pg MCHC 32.6 (31.0-37.0) g/dL RDW 13.0 (11.5-15.5) % Plt Count 313 (150-450) k/uL MPV 7.3 Neutrophils % 63 % Lymphocytes % 24 % Monocytes % 7 % Eosinophils % 3 % Basophils % 0 % Neutrophils # 7.4 (1.3-7.7) k/uL Lymphocytes # 2.8 (1.0-4.8) k/uL Monocytes # 0.8 (0-1.0) k/uL Eosinophils # 0.4 (0-0.7) k/uL Basophils # 0.0 (0-0.2) k/uL Sodium 140 (137-145) mmol/L Potassium 4.3 (3.5-5.1) mmol/L Chloride 106 (98-107) mmol/L Carbon Dioxide 30 (22-30) mmol/L Anion Gap 4 mmol/L BUN 19 (9-20) mg/dL Creatinine 0.83 (0.66-1.25) mg/dL Est GFR (CKD-EPI)AfAm >90 (>60 ml/min/1.73 sqM) Est GFR (CKD-EPI)NonAf >90 (>60 ml/min/1.73 sqM) Glucose 93 (74-99) mg/dL Calcium 9.6 (8.4-10.2) mg/dL Total Bilirubin 1.4 H (0.2-1.3) mg/dL AST 33 (17-59) U/L ALT 26 (4-49) U/L Alkaline Phosphatase 83 (38-126) U/L Creatine Kinase 367 H (55-170) U/L Total Protein 7.8 (6.3-8.2) g/dL Albumin 4.4 (3.5-5.0) g/dL Influenza Type A (PCR) Not Detected (Not Detectd) Influenza Type B (PCR) Not Detected (Not Detectd) RSV (PCR) Not Detected (Not Detectd) SARS-CoV-2 (PCR) Not Detected (Not Detectd) Disposition Clinical Impression: Viral illness Disposition: HOME SELF-CARE Condition: Good Instructions (If sedation given, give patient instructions): Viral Syndrome (ED) Is patient prescribed a controlled substance at d/c from ED?: No Referrals: Forrest Rivas DO [Primary Care Provider] - 1-2 days Time of Disposition: 15:54
[2024-03-22 13:22] LABS: ALT 26 U/L (4-49); AST 33 U/L (17-59); African American GFR (CKD) >90 (>60 ml/min/1.73 sqM); Albumin 4.4 g/dL (3.5-5.0); Alkaline Phosphatase 83 U/L (38-126); Anion Gap 4 mmol/L; Blood Urea Nitrogen 19 mg/dL (9-20); Calcium 9.6 mg/dL (8.4-10.2); Carbon Dioxide 30 mmol/L (22-30); Chloride 106 mmol/L (98-107); Creatine Kinase 367 U/L (55-170); Glucose 93 mg/dL (74-99); Non-African American GFR(CKD) >90 (>60 ml/min/1.73 sqM); Potassium 4.3 mmol/L (3.5-5.1); Sodium 140 mmol/L (137-145); Total Bilirubin 1.4 mg/dL (0.2-1.3); Total Protein 7.8 g/dL (6.3-8.2)
--- NOTE | 2024-03-22 15:30 | XR ---
EXAMINATION TYPE: XR chest 2V DATE OF EXAM: 03/22/2024 COMPARISON: 12/04/2019 INDICATION: Cough hard time breathing TECHNIQUE: Frontal and lateral views of the chest are obtained. FINDINGS: The heart size is normal. The pulmonary vasculature is normal. The lungs are clear. IMPRESSION: 1. No acute pulmonary process. [facility], Workstation: [facility], 03/22/2024 3:28 PM
[2024-03-22 16:10] VITALS: BP 116/73; PULSE 76; RESP 18
== END 2024-03-22 16:08 | disposition home or self-care (01) ==
LOC: EC 12:22
DX: B34.9 Viral infection, unspecified (principal); Z88.0 Allergy status to penicillin; F17.290 Nicotine dependence, other tobacco product, uncomplicated
CPT/HCPCS: 36415; 93005; 80053; 82550; 85025; 87636; 71046; 99284; 96374; 96361; J2060

== ENCOUNTER 2024-04-18 19:52 | Emergency (ER) | payer OTHER ==
[2024-04-18 19:56] VITALS: TEMP 98.7
[2024-04-18] MEDS: LORazepam 2 MG/ML INJ IV STA (20:20)
[2024-04-18 20:22] LABS: Basophils % (A) 0 %; Eosinophils # (A) 0.2 k/uL (0-0.7); Eosinophils % (A) 1 %; HCT 44.4 % (39.0-53.0); HGB 14.3 gm/dL (13.0-17.5); Lymphocytes % (A) 18 %; MCH 29.2 pg (25.0-35.0); MCHC 32.3 g/dL (31.0-37.0); MCV 90.6 fL (80.0-100.0); Monocytes # (A) 0.4 k/uL (0-1.0); Monocytes % (A) 4 %; Neutrophils # (A) 8.6 k/uL (1.3-7.7); Neutrophils % (A) 75 %; Platelet Count 310 k/uL (150-450); RDW 13.1 % (11.5-15.5); WBC 11.5 k/uL (3.8-10.6)
--- NOTE | 2024-04-18 20:22 | ED ---
General Adult HPI - General Chief complaint: Chest Pain Stated complaint: chest pain Time Seen by Provider: 04/18/24 19:58 Source: patient, RN notes reviewed, old records reviewed Mode of arrival: ambulatory Limitations: no limitations - History of Present Illness Initial comments: 34-year-old male presenting for evaluation of left anterior chest pain after using cocaine. Patient came through amatory triage. He states that he had waited approximately an hour to see if the pain resolved prior to coming in. He denies prior cardiac history. No vomiting or diaphoresis. - Related Data Home Medications Medication Instructions Recorded Confirmed Pregabalin [Lyrica] 300 mg PO BID 10/06/20 09/06/21 Docusate [Colace] 100 mg PO DAILY PRN 05/15/21 09/06/21 Ibuprofen 200 - 400 mg PO DIRECTED PRN 07/12/21 09/06/21 Methadone Syrup 170 mg PO DAILY 07/12/21 09/06/21 Miralax Powder 1 applicate PO DAILY PRN 09/06/21 09/06/21 Vitadone 3 tab PO DAILY 09/06/21 09/06/21 Previous Rx's Medication Instructions Recorded Ondansetron Odt [Zofran Odt] 4 mg PO Q8HR PRN #10 tab 10/15/21 Famotidine 40 mg PO DAILY #14 tablet 01/08/22 Ibuprofen [Motrin] 600 mg PO Q8HR PRN #20 tab 01/08/22 Doxycycline [Vibramycin] 100 mg PO BID #24 capsule 08/15/23 metroNIDAZOLE [Flagyl] 500 mg PO TID #30 tab 08/15/23 Allergies Allergy/AdvReac Type Severity Reaction Status Date / Time Penicillins Allergy Unknown Unknown Verified 04/18/24 19:56 Childhood naloxegol [From Movantik] AdvReac abdominal Verified 04/18/24 19:56 pain, started withdrawal symptoms-chills,sweats Review of Systems ROS Statement: Those systems with pertinent positive or pertinent negative responses have been documented in the HPI. ROS Other: All systems not noted in ROS Statement are negative. Past Medical History Past Medical History: Liver Disease, Renal Disease Additional Past Medical History / Comment(s): Hepatitis C, neuropathy, chronic foot pain, left leg pain and drop foot-"palsy", rhabdomyolysis, previous drug abuse, previous suicidal attempt History of Any Multi-Drug Resistant Organisms: MRSA Date of last positivie culture/infection: 02/24/2010 MDRO Source:: left knee Past Surgical History: Orthopedic Surgery Additional Past Surgical History / Comment(s): surgery on left middle finger., nerve block in left leg 01/28/21- "test dose", pin left middle finger, oral ken pranay Past Anesthesia/Blood Transfusion Reactions: Motion Sickness Past Psychological History: Anxiety, Bipolar, Depression Smoking Status: Vaper Past Alcohol Use History: Occasional Past Drug Use History: IV Drug Use, Marijuana, Opiates, Prescription Drug Abuse - Past Family History Father Family Medical History: No Reported History Mother History Unknown: Yes Family Medical History: No Reported History General Exam Limitations: no limitations General appearance: alert, in no apparent distress Head exam: Present: atraumatic, normocephalic Eye exam: Present: normal appearance, PERRL ENT exam: Present: normal exam Neck exam: Present: normal inspection. Absent: tenderness, meningismus Respiratory exam: Present: normal lung sounds bilaterally. Absent: respiratory distress Cardiovascular Exam: Present: normal rhythm, tachycardia GI/Abdominal exam: Present: soft. Absent: distended, tenderness, guarding, rebound Neurological exam: Present: alert, oriented X3, CN II-XII intact. Absent: motor sensory deficit Psychiatric exam: Present: anxious Skin exam: Present: warm, dry, intact Course Vital Signs 04/18/24 04/18/24 19:53 21:00 Temperature 98.7 F Pulse Rate 124 H 81 Respiratory 20 16 Rate Blood Pressure 185/99 122/91 O2 Sat by Pulse 96 96 Oximetry - Reevaluation(s) Reevaluation #1: 04/18/24 21:58 Chest pain improved Medical Decision Making - Medical Decision Making Was pt. sent in by a medical professional or institution (, PA, KING MAKER, urgent care, hospital, or detention...) When possible be specific @ -No Did you speak to anyone other than the patient for history (EMS, parent, family, police, friend...)? What history was obtained from this source @ -No Did you review nursing and triage notes (agree or disagree)? Why? @ -I reviewed and agree with nursing and triage notes Were old charts reviewed (outside hosp., previous admission, EMS record, old EK G, old radiological studies, urgent care reports/EKG's, detention records)? Report findings @ -No old charts were reviewed Differential Chest Pain: Stable Angina, Unstable Angina, STEMI, NSTEMI Aortic Dissection, Pneumothorax, Musculoskeletal, Esophageal Spasm GERD, Cholecystitis, Pancreatitis, Zoster, this is not meant to be an all-inclusive list. EKG interpreted by me (3pts min.). @Sinus tachycardia rate of 104, AR interval 132, QRS duration 100, QTc [address] segment elevation. X-rays interpreted by me (1pt min.). @ -Chest x-ray negative for acute cardiopulmonary findings CT interpreted by me (1pt min.). @ -None done U/S interpreted by me (1pt. min.). @ -None done What testing was considered but not performed or refused? (CT, X-rays, U/S, labs)? Why? @ -None What meds were considered but not given or refused? Why? @ -None Did you discuss the management of the patient with other professionals (professionals i.e. , PA, KING MAKER, lab, RT, psych nurse, addiction social worker, sales program manager, te acher, credit risk review officer, telehealth case manager)? Give summary @ -No Was smoking cessation discussed for >3mins.? @ -No Was critical care preformed (if so, how long)? @ -No Were there social determinants of health that impacted care today? How? (Homelessness, low income, unemployed, alcoholism, drug addiction, transportation, low edu. Level, literacy, decrease access to med. care, fci, rehab)? @ -No Was there de-escalation of care discussed even if they declined (Discuss DNR or withdrawal of care, Hospice)? DNR status @ -No What co-morbidities impacted this encounter? (DM, HTN, Smoking, COPD, CAD, C ancer, CVA, ARF, Chemo, Hep., AIDS, mental health diagnosis, sleep apnea, morbid obesity)? @Substance abuse, cocaine abuse Was patient admitted / discharged? Hospital course, mention meds given and ro volodymyr, prescriptions, significant lab abnormalities, going to OR and other pertinent info. @ -[34-year-old male with chest pain after using cocaine. Patient is in sinus tach upon arrival hypotensive with left-sided chest pain pain is worse with movement however given the recent cocaine ingestion cardiac workup is obtained chest x-ray is clear. EKG does not show any definitive signs of ischemia. He has normal CBC, normal CMP, negative initial troponin. I did check a repeat cardiac enzyme to ensure that this remained negative. Patient's symptoms resolved and was eager for discharge. He is instructed to abstain from cocaine use. Patient states he lives close to the emergency department and prefers to be discharged without further observation or testing. He does state he will return if his symptoms return or worsen. Undiagnosed new problem with uncertain prognosis? @ -No Drug Therapy requiring intensive monitoring for toxicity (Heparin, Nitro, Insulin, Cardizem)? @ -No Were any procedures done? @ -No Diagnosis/symptom? @Cocaine associated chest pain Acute, or Chronic, or Acute on Chronic? @ -[Acute Uncomplicated (without systemic symptoms) or Complicated (systemic symptoms)? @ -Default Side effects of treatment? @ -No Exacerbation, Progression, or Severe Exacerbation? @ -No Poses a threat to life or bodily function? How? (Chest pain, [place], [place], pneumonia, PE, COPD, DKA, ARF, appy, cholecystitis, CVA, Diverticulitis, Homicidal, Suicidal, threat to staff... and all critical care pts) @ -Moderate risk, substance abuse, cocaine induced vasoconstriction - Lab Data Result diagrams: 04/18/24 20:08 04/18/24 20:08 Lab Results 04/18/24 04/18/24 04/18/24 Range/Units 20:08 20:08 20:08 WBC 11.5 H (3.8-10.6) k/uL RBC 4.90 (4.30-5.90) m/uL Hgb 14.3 (13.0-17.5) gm/dL Hct 44.4 (39.0-53.0) % MCV 90.6 (80.0-100.0) fL MCH 29.2 (25.0-35.0) pg MCHC 32.3 (31.0-37.0) g/dL RDW 13.1 (11.5-15.5) % Plt Count 310 (150-450) k/uL MPV 7.0 Neutrophils % 75 % Lymphocytes % 18 % Monocytes % 4 % Eosinophils % 1 % Basophils % 0 % Neutrophils # 8.6 H (1.3-7.7) k/uL Lymphocytes # 2.0 (1.0-4.8) k/uL Monocytes # 0.4 (0-1.0) k/uL Eosinophils # 0.2 (0-0.7) k/uL Basophils # 0.0 (0-0.2) k/uL PT 10.7 (10.0-12.5) sec INR 1.0 (<1.2) APTT 24.1 (22.0-30.0) sec Sodium 139 (137-145) mmol/L Potassium 4.2 (3.5-5.1) mmol/L Chloride 106 (98-107) mmol/L Carbon Dioxide 26 (22-30) mmol/L Anion Gap 7 mmol/L BUN 12 (9-20) mg/dL Creatinine 0.90 (0.66-1.25) mg/dL Est GFR (CKD-EPI)AfAm >90 (>60 ml/min/1.73 sqM) Est GFR (CKD-EPI)NonAf >90 (>60 ml/min/1.73 sqM) Glucose 92 (74-99) mg/dL Calcium 9.7 (8.4-10.2) mg/dL Magnesium 2.0 (1.6-2.3) mg/dL Total Bilirubin 0.8 (0.2-1.3) mg/dL AST 27 (17-59) U/L ALT 21 (4-49) U/L Alkaline Phosphatase 83 (38-126) U/L Troponin I (0.000-0.034) ng/mL Total Protein 8.7 H (6.3-8.2) g/dL Albumin 5.0 (3.5-5.0) g/dL 04/18/24 04/18/24 Range/Units 20:08 21:25 WBC (3.8-10.6) k/uL RBC (4.30-5.90) m/uL Hgb (13.0-17.5) gm/dL Hct (39.0-53.0) % MCV (80.0-100.0) fL MCH (25.0-35.0) pg MCHC (31.0-37.0) g/dL RDW (11.5-15.5) % Plt Count (150-450) k/uL MPV Neutrophils % % Lymphocytes % % Monocytes % % Eosinophils % % Basophils % % Neutrophils # (1.3-7.7) k/uL Lymphocytes # (1.0-4.8) k/uL Monocytes # (0-1.0) k/uL Eosinophils # (0-0.7) k/uL Basophils # (0-0.2) k/uL PT (10.0-12.5) sec INR (<1.2) APTT (22.0-30.0) sec Sodium (137-145) mmol/L Potassium (3.5-5.1) mmol/L Chloride (98-107) mmol/L Carbon Dioxide (22-30) mmol/L Anion Gap mmol/L BUN (9-20) mg/dL Creatinine (0.66-1.25) mg/dL Est GFR (CKD-EPI)AfAm (>60 ml/min/1.73 sqM) Est GFR (CKD-EPI)NonAf (>60 ml/min/1.73 sqM) Glucose (74-99) mg/dL Calcium (8.4-10.2) mg/dL Magnesium (1.6-2.3) mg/dL Total Bilirubin (0.2-1.3) mg/dL AST (17-59) U/L ALT (4-49) U/L Alkaline Phosphatase (38-126) U/L Troponin I <0.012 <0.012 (0.000-0.034) ng/mL Total Protein (6.3-8.2) g/dL Albumin (3.5-5.0) g/dL Disposition Clinical Impression: Chest pain, Cocaine abuse Disposition: HOME SELF-CARE Condition: Fair Instructions (If sedation given, give patient instructions): Chest Pain (ED) Additional Instructions: Please do not use illegal drugs including cocaine. Is patient prescribed a controlled substance at d/c from ED?: No Referrals: Forrest Rivas DO [Primary Care Provider] - 1-2 days Time of Disposition: 22:10
[2024-04-18] MEDS: ASPIRIN 325 MG TAB PO STA (20:32)
[2024-04-18 20:37] LABS: ALT 21 U/L (4-49); AST 27 U/L (17-59); African American GFR (CKD) >90 (>60 ml/min/1.73 sqM); Alkaline Phosphatase 83 U/L (38-126); Anion Gap 7 mmol/L; Blood Urea Nitrogen 12 mg/dL (9-20); Calcium 9.7 mg/dL (8.4-10.2); Carbon Dioxide 26 mmol/L (22-30); Chloride 106 mmol/L (98-107); Glucose 92 mg/dL (74-99); Non-African American GFR(CKD) >90 (>60 ml/min/1.73 sqM); Potassium 4.2 mmol/L (3.5-5.1); Sodium 139 mmol/L (137-145); Total Bilirubin 0.8 mg/dL (0.2-1.3); Total Protein 8.7 g/dL (6.3-8.2)
[2024-04-18 20:38] LABS: Partial Thromboplastin Time 24.1 sec (22.0-30.0); Prothrombin Time 10.7 sec (10.0-12.5)
--- NOTE | 2024-04-18 20:42 | XR ---
EXAMINATION TYPE: XR chest 2V DATE OF EXAM: 04/18/2024 8:28 PM COMPARISON: 03/22/2024 CLINICAL INDICATION: Male, 34 years old with history of Chest Pain, , TECHNIQUE: PA and lateral views FINDINGS: The cardiomediastinal silhouette, aorta, and pulmonary vasculature are within normal limits. Lungs an d pleural spaces are clear. IMPRESSION: No acute cardiopulmonary process. [facility], , 04/18/2024 8:40 PM
[2024-04-18] MEDS: KETOROLAC 15 MG/ML 1 ML VIAL IVP STA (21:45)
[2024-04-18 21:49] VITALS: RESP 16
[2024-04-18 22:08] VITALS: BP 118/86; PULSE 74
[2024-04-18 22:36] LABS: Amphetamine Screen,Urine Not Detected (NotDetected); Benzodiazepines Screen,Urine Not Detected (NotDetected); Cocaine Screen,Urine Detected (NotDetected); Opiate Screen,Urine Not Detected (NotDetected); Phencyclidine Screen,Urine Not Detected (NotDetected); Urn Cannabinoid Scrn Detected (NotDetected)
[2024-04-18 22:37] LABS: Barbiturate Screen,Urine Not Detected (NotDetected); Methadone Screen, Urine Not Detected (NotDetected); Oxycodone Screen, Urine Not Detected (NotDetected); Tricyclic Antidepressant,Urine Detected (NotDetected)
== END 2024-04-18 22:31 | disposition home or self-care (01) ==
LOC: EC 19:52
DX: R07.9 Chest pain, unspecified (principal); F14.10 Cocaine abuse, uncomplicated; F17.290 Nicotine dependence, other tobacco product, uncomplicated; Z88.0 Allergy status to penicillin; Z88.8 Allergy status to other drugs, medicaments and biological substances
CPT/HCPCS: 36415; 93005; 80053; 83735; 84484; 85025; 85610; 85730; 80306; 71046; 99285; 96374; 96375; J2060; J1885

== ENCOUNTER 2024-04-22 17:34 | Emergency (ER) | payer OTHER ==
--- NOTE | 2024-04-22 19:47 | ED ---
General Adult HPI - General Chief complaint: Anxiety Stated complaint: SOB Time Seen by Provider: 04/22/24 19:35 Source: patient, RN notes reviewed, old records reviewed Mode of arrival: ambulatory Limitations: no limitations - History of Present Illness Initial comments: This is a 34-year-old male who presents to the emergency department stating that 3 days ago he stopped doing cocaine but prior to that he due to 1000 hours with the cocaine quickly he says he injected and snorted it. Patient states today he started having more chest pain. Patient states his chest pain has been coming and going for 3 days. Patient states he also was drinking heavily but he stopped drinking a day ago. Patient denies any fever chills or cough. Patient denies any back pain. Patient denies being short of breath. 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 Patient also had very tangential thinking difficult to follow his logic when he was talking. Patient Apologizing for having done cocaine knows not supposed to. Patient at another point in time thought his lung might be deflated. - Related Data Home Medications Medication Instructions Recorded Confirmed Pregabalin [Lyrica] 300 mg PO BID 10/06/20 09/06/21 Docusate [Colace] 100 mg PO DAILY PRN 05/15/21 09/06/21 Ibuprofen 200 - 400 mg PO DIRECTED PRN 07/12/21 09/06/21 Methadone Syrup 170 mg PO DAILY 07/12/21 09/06/21 Miralax Powder 1 applicate PO DAILY PRN 09/06/21 09/06/21 Vitadone 3 tab PO DAILY 09/06/21 09/06/21 Previous Rx's Medication Instructions Recorded Ondansetron Odt [Zofran Odt] 4 mg PO Q8HR PRN #10 tab 10/15/21 Famotidine 40 mg PO DAILY #14 tablet 01/08/22 Ibuprofen [Motrin] 600 mg PO Q8HR PRN #20 tab 01/08/22 Doxycycline [Vibramycin] 100 mg PO BID #24 capsule 08/15/23 metroNIDAZOLE [Flagyl] 500 mg PO TID #30 tab 08/15/23 Allergies Allergy/AdvReac Type Severity Reaction Status Date / Time Penicillins Allergy Unknown Unknown Verified 04/22/24 17:58 Childhood naloxegol [From Movantik] AdvReac abdominal Verified 04/22/24 17:58 pain, started withdrawal symptoms-chills,sweats Review of Systems ROS Statement: Those systems with pertinent positive or pertinent negative responses have been documented in the HPI. ROS Other: All systems not noted in ROS Statement are negative. Past Medical History Past Medical History: Liver Disease, Renal Disease Additional Past Medical History / Comment(s): Hepatitis C, neuropathy, chronic foot pain, left leg pain and drop foot-"palsy", rhabdomyolysis, previous drug abuse, previous suicidal attempt History of Any Multi-Drug Resistant Organisms: MRSA Date of last positivie culture/infection: 02/24/2010 MDRO Source:: left knee Past Surgical History: Orthopedic Surgery Additional Past Surgical History / Comment(s): surgery on left middle finger., nerve block in left leg 01/28/21- "test dose", pin left middle finger, oral surgery Past Anesthesia/Blood Transfusion Reactions: Motion Sickness Past Psychological History: Anxiety, Bipolar, Depression Smoking Status: Vaper Past Alcohol Use History: Occasional Past Drug Use History: IV Drug Use, Marijuana, Opiates, Prescription Drug Abuse - Past Family History Father Family Medical History: No Reported History Mother History Unknown: Yes Family Medical History: No Reported History General Exam - General Exam Comments Initial Comments: GENERAL: Patient is well-developed and well-nourished. Patient is nontoxic and well- hydrated and is in mild distress. ENT: Neck is soft and supple. No significant lymphadenopathy is noted. Oropharynx is clear. Moist mucous membranes. Neck has full range of motion without eliciting any pain. EYES: The sclera were anicteric and conjunctiva were pink and moist. Extraocular movements were intact and pupils were equal round and reactive to light. Eye lids were unremarkable. PULMONARY: Unlabored respirations. Good breath sounds bilaterally. No audible rales rhonchi or wheezing was noted. CARDIOVASCULAR: Patient is tachycardic at about 110 beats a minute ABDOMEN: Soft and nontender with normal bowel sounds. SKIN: Skin is clear with no lesions or rashes and otherwise unremarkable. NEUROLOGIC: Patient is alert and oriented x3. Cranial nerves II through XII are grossly intact. Motor and sensory are also intact. Normal speech, volume and content. Symmetrical smile. MUSCULOSKELETAL: Normal extremities with adequate strength and full range of motion. LYMPHATICS: No significant lymphadenopathy is noted PSYCHIATRIC: Patient states he is not trying to hurt himself or anyone else. Patient is very tangential thinking and is acting very bizarre. Limitations: no limitations Course Vital Signs 04/22/24 17:52 Temperature 98 F Pulse Rate 114 H Respiratory 20 Rate Blood Pressure 160/87 O2 Sat by Pulse 96 Oximetry Medical Decision Making - Medical Decision Making EKG is interpreted by myself. EKG shows a sinus rhythm at 74 bpm ND interval 159 QRS 109 QT interval 353 QTc is 381. Patient's EKG shows no ST segment elevation or depression. Was pt. sent in by a medical professional or institution (, ESTEVAN, STRADDLE TRUCK OPERATOR, urgent care, hospital, or retirement...) When possible be specific @ -No Did you speak to anyone other than the patient for history (EMS, parent, family, police, friend...)? What history was obtained from this source @ -No Did you review nursing and triage notes (agree or disagree)? Why? @ -I reviewed and agree with nursing and triage notes Were old charts reviewed (outside hosp., previous admission, EMS record, old EKG, old radiological studies, urgent care reports/EKG's, retirement records)? Report findings @ -No old charts were reviewed Differential Diagnosis? @ -Alcohol abuse, methamphetamine abuse, cocaine abuse, marijuana abuse, this is not an all-inclusive list EKG interpreted by me (3pts min.). @ -As above X-rays interpreted by me (1pt min.). @ -Chest x-ray shows no acute abnormality CT interpreted by me (1pt min.). @ -None done U/S interpreted by me (1pt. min.). @ -None done What testing was considered but not performed or refused? (CT, X-rays, U/S, labs)? Why? @ -None What meds were considered but not given or refused? Why? @ -None Did you discuss the management of the patient with other professionals (professionals i.e. ESTEVAN De La Torre, STRADDLE TRUCK OPERATOR, lab, RT, psych nurse, social media marketing specialist, adjunct instructor of women's studies, teacher, bank operations officer, watch caser)? Give summary @ -No Was smoking cessation discussed for >3mins.? @ -No Was critical care preformed (if so, how long)? @ -No Were there social determinants of health that impacted care today? How? (Homelessness, low income, unemployed, alcoholism, drug addiction, transportation, low edu. Level, literacy, decrease access to med. care, intermediate, rehab)? @ -No Was there de-escalation of care discussed even if they declined (Discuss DNR or withdrawal of care, Hospice)? DNR status @ -No What co-morbidities impacted this encounter? (DM, HTN, Smoking, COPD, CAD, Cancer, CVA, ARF, Chemo, Hep., AIDS, mental health diagnosis, sleep apnea, morbid obesity)? @ -None Was patient admitted / discharged? Hospital course, mention meds given and route, prescriptions, significant lab abnormalities, going to OR and other pertinent info. @ -After patient's lab work came back within normal range and drug screen only showed cocaine and x-ray was normal I went back and talk to the patient he was relieved that there was no other problem. Patient was called and stated he could be discharged now with his girlfriend because he just wanted to make sure that he was not dying and that he was not having issues with his lung Undiagnosed new problem with uncertain prognosis? @ -No Drug Therapy requiring intensive monitoring for toxicity (Heparin, Nitro, Insulin, Cardizem)? @ -No Were any procedures done? @ -No Diagnosis/symptom? @ -Cocaine abuse Acute, or Chronic, or Acute on Chronic? @ -Acute Uncomplicated (without systemic symptoms) or Complicated (systemic symptoms)? @ -Complicated Side effects of treatment? @ -No Exacerbation, Progression, or Severe Exacerbation? @ -No Poses a threat to life or bodily function? How? (Chest pain, [place], [place], pneumonia, PE, COPD, DKA, ARF, appy, cholecystitis, CVA, Diverticulitis, Homicidal, Suicidal, threat to staff... and all critical care pts) @ -No - Lab Data Result diagrams: 04/22/24 19:51 04/22/24 19:51 Lab Results 04/22/24 04/22/24 04/22/24 Range/Units 19:51 19:51 19:51 WBC 11.1 H (3.8-10.6) k/uL RBC 4.87 (4.30-5.90) m/uL Hgb 14.4 (13.0-17.5) gm/dL Hct 42.8 (39.0-53.0) % MCV 87.9 (80.0-100.0) fL MCH 29.7 (25.0-35.0) pg MCHC 33.7 (31.0-37.0) g/dL RDW 12.9 (11.5-15.5) % Plt Count 317 (150-450) k/uL MPV 7.1 Neutrophils % 78 % Lymphocytes % 14 % Monocytes % 5 % Eosinophils % 1 % Basophils % 0 % Neutrophils # 8.7 H (1.3-7.7) k/uL Lymphocytes # 1.6 (1.0-4.8) k/uL Monocytes # 0.6 (0-1.0) k/uL Eosinophils # 0.1 (0-0.7) k/uL Basophils # 0.0 (0-0.2) k/uL Sodium 137 (137-145) mmol/L Potassium 4.0 (3.5-5.1) mmol/L Chloride 108 H (98-107) mmol/L Carbon Dioxide 21 L (22-30) mmol/L Anion Gap 8 mmol/L BUN 13 (9-20) mg/dL Creatinine 0.84 (0.66-1.25) mg/dL Est GFR (CKD-EPI)AfAm >90 (>60 ml/min/1.73 sqM) Est GFR (CKD-EPI)NonAf >90 (>60 ml/min/1.73 sqM) Glucose 99 (74-99) mg/dL Calcium 9.8 (8.4-10.2) mg/dL Total Bilirubin 0.5 (0.2-1.3) mg/dL AST 22 (17-59) U/L ALT 19 (4-49) U/L Alkaline Phosphatase 82 (38-126) U/L Troponin I (0.000-0.034) ng/mL Total Protein 8.1 (6.3-8.2) g/dL Albumin 4.7 (3.5-5.0) g/dL Urine Opiates Screen Not Detected (NotDetected) Ur Oxycodone Screen Not Detected (NotDetected) Urine Methadone Screen Not Detected (NotDetected) Ur Barbiturates Screen Not Detected (NotDetected) U Tricyclic Antidepress Not Detected (NotDetected) Ur Phencyclidine Scrn Not Detected (NotDetected) Ur Amphetamines Screen Not Detected (NotDetected) U Methamphetamines Scrn Not Detected (NotDetected) U Benzodiazepines Scrn Not Detected (NotDetected) Urine Cocaine Screen Detected H (NotDetected) U Marijuana (THC) Screen Detected H (NotDetected) Serum Alcohol <10 mg/dL 04/22/24 Range/Units 19:51 WBC (3.8-10.6) k/uL RBC (4.30-5.90) m/uL Hgb (13.0-17.5) gm/dL Hct (39.0-53.0) % MCV (80.0-100.0) fL MCH (25.0-35.0) pg MCHC (31.0-37.0) g/dL RDW (11.5-15.5) % Plt Count (150-450) k/uL MPV Neutrophils % % Lymphocytes % % Monocytes % % Eosinophils % % Basophils % % Neutrophils # (1.3-7.7) k/uL Lymphocytes # (1.0-4.8) k/uL Monocytes # (0-1.0) k/uL Eosinophils # (0-0.7) k/uL Basophils # (0-0.2) k/uL Sodium (137-145) mmol/L Potassium (3.5-5.1) mmol/L Chloride (98-107) mmol/L Carbon Dioxide (22-30) mmol/L Anion Gap mmol/L BUN (9-20) mg/dL Creatinine (0.66-1.25) mg/dL Est GFR (CKD-EPI)AfAm (>60 ml/min/1.73 sqM) Est GFR (CKD-EPI)NonAf (>60 ml/min/1.73 sqM) Glucose (74-99) mg/dL Calcium (8.4-10.2) mg/dL Total Bilirubin (0.2-1.3) mg/dL AST (17-59) U/L ALT (4-49) U/L Alkaline Phosphatase (38-126) U/L Troponin I <0.012 (0.000-0.034) ng/mL Total Protein (6.3-8.2) g/dL Albumin (3.5-5.0) g/dL Urine Opiates Screen (NotDetected) Ur Oxycodone Screen (NotDetected) Urine Methadone Screen (NotDetected) Ur Barbiturates Screen (NotDetected) U Tricyclic Antidepress (NotDetected) Ur Phencyclidine Scrn (NotDetected) Ur Amphetamines Screen (NotDetected) U Methamphetamines Scrn (NotDetected) U Benzodiazepines Scrn (NotDetected) Urine Cocaine Screen (NotDetected) U Marijuana (THC) Screen (NotDetected) Serum Alcohol mg/dL Disposition Clinical Impression: Cocaine abuse, Acute anxiety Disposition: HOME SELF-CARE Condition: Good Instructions (If sedation given, give patient instructions): Cocaine Abuse (ED) Additional Instructions: Stop doing cocaine Is patient prescribed a controlled substance at d/c from ED?: No Referrals: Forrest Rivas DO [Primary Care Provider] - 1-2 days Time of Disposition: 21:01
[2024-04-22 20:11] LABS: Basophils % (A) 0 %; Eosinophils # (A) 0.1 k/uL (0-0.7); Eosinophils % (A) 1 %; HCT 42.8 % (39.0-53.0); HGB 14.4 gm/dL (13.0-17.5); Lymphocytes # (A) 1.6 k/uL (1.0-4.8); Lymphocytes % (A) 14 %; MCH 29.7 pg (25.0-35.0); MCHC 33.7 g/dL (31.0-37.0); MCV 87.9 fL (80.0-100.0); Mean Platelet Volume 7.1; Monocytes # (A) 0.6 k/uL (0-1.0); Monocytes % (A) 5 %; Neutrophils # (A) 8.7 k/uL (1.3-7.7); Neutrophils % (A) 78 %; Platelet Count 317 k/uL (150-450); RBC 4.87 m/uL (4.30-5.90); RDW 12.9 % (11.5-15.5); WBC 11.1 k/uL (3.8-10.6)
--- NOTE | 2024-04-22 20:11 | XR ---
EXAMINATION TYPE: XR chest 2V DATE OF EXAM: 04/22/2024 CLINICAL HISTORY: Difficulty breathing TECHNIQUE: Frontal and lateral views of the chest are obtained. COMPARISON: None FINDINGS: There is no suspicious new focal air space opacity, pleural effusion, or pneumothorax seen . The cardiac silhouette size is stable and within normal limits. Overlying EKG leads are redemonstr ated. The osseous structures are intact. IMPRESSION: No acute process. No significant change from most recent prior. [facility], , 04/22/2024 8:09 PM
[2024-04-22 20:27] LABS: ALT 19 U/L (4-49); AST 22 U/L (17-59); African American GFR (CKD) >90 (>60 ml/min/1.73 sqM); Albumin 4.7 g/dL (3.5-5.0); Alcohol <10 mg/dL; Alkaline Phosphatase 82 U/L (38-126); Anion Gap 8 mmol/L; Blood Urea Nitrogen 13 mg/dL (9-20); Calcium 9.8 mg/dL (8.4-10.2); Carbon Dioxide 21 mmol/L (22-30); Chloride 108 mmol/L (98-107); Glucose 99 mg/dL (74-99); Non-African American GFR(CKD) >90 (>60 ml/min/1.73 sqM); Sodium 137 mmol/L (137-145); Total Bilirubin 0.5 mg/dL (0.2-1.3); Total Protein 8.1 g/dL (6.3-8.2)
[2024-04-22] MEDS: LORazepam 2 MG/ML INJ IV STA (20:29)
[2024-04-22 20:34] LABS: Phencyclidine Screen,Urine Not Detected (NotDetected); Urn Cannabinoid Scrn Detected (NotDetected)
[2024-04-22 20:35] LABS: Amphetamine Screen,Urine Not Detected (NotDetected); Barbiturate Screen,Urine Not Detected (NotDetected); Benzodiazepines Screen,Urine Not Detected (NotDetected); Cocaine Screen,Urine Detected (NotDetected); Methadone Screen, Urine Not Detected (NotDetected); Opiate Screen,Urine Not Detected (NotDetected); Oxycodone Screen, Urine Not Detected (NotDetected); Tricyclic Antidepressant,Urine Not Detected (NotDetected)
[2024-04-22 21:23] VITALS: BP 120/93; PULSE 71; RESP 18; TEMP 98
== END 2024-04-22 21:23 | disposition home or self-care (01) ==
LOC: EC 17:34
DX: F41.9 Anxiety disorder, unspecified (principal); F14.10 Cocaine abuse, uncomplicated; F17.290 Nicotine dependence, other tobacco product, uncomplicated; Z88.0 Allergy status to penicillin; Z88.8 Allergy status to other drugs, medicaments and biological substances
CPT/HCPCS: 36415; 93005; 80053; 84484; 85025; 80306; 71046; 99284; 96374; G0480; J2060; 80320

== ENCOUNTER 2024-10-19 03:00 | Emergency (ER) | payer OTHER ==
[2024-10-19] MEDS: SODIUM CHLORIDE 0.9% 500 ML 500 ML IV STA (04:19)
--- NOTE | 2024-10-19 04:35 | ED ---
Arrhythmia/Palpitations HPI - General Chief Complaint: Arrhythmia/Palpitations Stated Complaint: chest pain Time Seen by Provider: 10/19/24 03:16 Source: patient Mode of arrival: ambulatory Limitations: no limitations - History of Present Illness Initial Comments: Patient is 34-year-old man arriving to have evaluation for pounding rapid heartbeat. Patient did admit to using cocaine and did have alcohol as well. Patient denies chest pain. MD Complaint: rapid heart beat -: hour(s) Context: occurred during rest, recent drug use Associated Symptoms: denies other symptoms - Related Data Home Medications Medication Instructions Recorded Confirmed Pregabalin [Lyrica] 300 mg PO BID 10/06/20 09/06/21 Docusate [Colace] 100 mg PO DAILY PRN 05/15/21 09/06/21 Ibuprofen 200 - 400 mg PO DIRECTED PRN 07/12/21 09/06/21 Methadone Syrup 170 mg PO DAILY 07/12/21 09/06/21 Miralax Powder 1 applicate PO DAILY PRN 09/06/21 09/06/21 Vitadone 3 tab PO DAILY 09/06/21 09/06/21 Previous Rx's Medication Instructions Recorded Ondansetron Odt [Zofran Odt] 4 mg PO Q8HR PRN #10 tab 10/15/21 Famotidine 40 mg PO DAILY #14 tablet 01/08/22 Ibuprofen [Motrin] 600 mg PO Q8HR PRN #20 tab 01/08/22 Doxycycline [Vibramycin] 100 mg PO BID #24 capsule 08/15/23 metroNIDAZOLE [Flagyl] 500 mg PO TID #30 tab 08/15/23 Doxycycline Hyclate 100 mg PO BID 7 Days #14 tab 10/26/24 Emtricitabine/Tenofovir (Tdf) 1 tab PO DAILY #28 tab 10/26/24 [Truvada 200 mg-300 mg Tablet] Raltegravir Potassium [Isentress] 400 mg PO Q12H #56 tab 10/26/24 metroNIDAZOLE [Flagyl] 500 mg PO ONCE 1 Days #4 tab 10/26/24 Allergies Allergy/AdvReac Type Severity Reaction Status Date / Time Penicillins Allergy Unknown Unknown Verified 11/08/24 09:15 Childhood naloxegol [From Movantik] AdvReac abdominal Verified 11/08/24 09:15 pain, started withdrawal symptoms-chills,sweats Review of Systems ROS Statement: Those systems with pertinent positive or pertinent negative responses have been documented in the HPI. ROS Other: All systems not noted in ROS Statement are negative. Constitutional: Denies: fever, chills ENT: Denies: congestion Respiratory: Denies: cough, dyspnea, hemoptysis Cardiovascular: Reports: palpitations. Denies: chest pain, dyspnea on exertion, edema, syncope Gastrointestinal: Denies: abdominal pain, vomiting, diarrhea Genitourinary: Denies: dysuria, hematuria Musculoskeletal: Denies: back pain Skin: Denies: rash Neurological: Denies: headache, weakness Past Medical History Past Medical History: Liver Disease, Renal Disease Additional Past Medical History / Comment(s): Hepatitis C, neuropathy, chronic foot pain, left leg pain and drop foot-"palsy", rhabdomyolysis, previous drug abuse, previous suicidal attempt History of Any Multi-Drug Resistant Organisms: MRSA Date of last positivie culture/infection: 02/24/2010 MDRO Source:: left knee Past Surgical History: Orthopedic Surgery Additional Past Surgical History / Comment(s): surgery on left middle finger., nerve block in left leg 01/28/21- "test dose", pin left middle finger, oral surgery Past Anesthesia/Blood Transfusion Reactions: Motion Sickness Past Psychological History: Anxiety, Bipolar, Depression Smoking Status: Vaper Past Drug Use History: Cocaine, IV Drug Use, Marijuana, Opiates, Prescription Drug Abuse - Past Family History Father Family Medical History: No Reported History Mother History Unknown: Yes Family Medical History: No Reported History General Exam Limitations: no limitations General appearance: alert, in no apparent distress Head exam: Present: atraumatic, normocephalic Eye exam: Present: normal appearance. Absent: scleral icterus, conjunctival injection ENT exam: Present: normal oropharynx Neck exam: Present: normal inspection Respiratory exam: Present: normal lung sounds bilaterally. Absent: respiratory distress, wheezes, rales, rhonchi, stridor, accessory muscle use Cardiovascular Exam: Present: regular rate, normal rhythm, normal heart sounds. Absent: systolic murmur, diastolic murmur, rubs, gallop GI/Abdominal exam: Present: soft. Absent: distended, tenderness, guarding, rebound, rigid, mass Extremities exam: Present: normal inspection, normal capillary refill. Absent: pedal edema, calf tenderness Back exam: Present: normal inspection. Absent: CVA tenderness (R), CVA tenderness (L) Neurological exam: Present: alert Psychiatric exam: Absent: suicidal ideation Skin exam: Present: warm, dry, intact, normal color. Absent: rash Course Vital Signs 10/19/24 10/19/24 10/19/24 03:07 05:07 05:42 Temperature 97.5 F L 98.6 F Pulse Rate 94 54 L 65 Respiratory 17 18 18 Rate Blood Pressure 143/77 106/58 111/69 O2 Sat by Pulse 96 98 97 Oximetry EKG Findings - EKG Results: EKG: interpreted by ERMD, sinus rhythm (Rate 77 bpm), normal axis, normal QRS, normal ST/T, no acute changes - [place], Pacemaker, Normal: Normal tracing: normal tracing Medical Decision Making - Medical Decision Making The patient had chest x-ray that I interpreted as negative for acute infiltrate, pneumothorax, congestive heart failure Was pt. sent in by a medical professional or institution (, PA, SCOOP OPERATOR, urgent care, hospital, or [facility]...) When possible be specific @ -[No] Did you speak to anyone other than the patient for history (EMS, parent, family, police, friend...)? What history was obtained from this source @ -[No] Did you review nursing and triage notes (agree or disagree)? Why? @ -[I reviewed and agree with nursing and triage notes] Were old charts reviewed (outside hosp., previous admission, EMS record, old EKG, old radiological studies, urgent care reports/EKG's, [facility] records)? Report findings @ -[No old charts were reviewed] Differential Diagnosis (chest pain, altered mental status, abdominal pain women, abdominal pain men, vaginal bleeding, weakness, fever, dyspnea, syncope, headache, dizziness, GI bleed, back pain, seizure, CVA, palpatations, mental health, musculoskeletal)? @ -[Differential Palpitations Ventricular arrhythmias, atrial arrhythmias, myocardial infarction, anemia, thyrotoxicosis, electrolyte imbalance, hypokalemia, pulmonary embolism, pulmonary disease, drugs, alcohol, anxiety, stress.... This is not meant to be an all-inclusive list. EKG interpreted by me (3pts min.). @ -[I interpreted as above] X-rays interpreted by me (1pt min.). @ -[I interpreted as above CT interpreted by me (1pt min.). @ -[None done] U/S interpreted by me (1pt. min.). @ -[None done] What testing was considered but not performed or refused? (CT, X-rays, U/S, labs)? Why? @ -[None] What meds were considered but not given or refused? Why? @ -[None] Did you discuss the management of the patient with other professionals (professionals i.e. , PA, SCOOP OPERATOR, lab, RT, psych nurse, social sciences chair, equipment hire manager, teacher, chief clinical officer, watch case polisher)? Give summary @ -[No] Was smoking cessation discussed for >3mins.? @ -[No] Was critical care preformed (if so, how long)? @ -[No] Were there social determinants of health that impacted care today? How? (Homelessness, low income, unemployed, alcoholism, drug addiction, transportation, low edu. Level, literacy, decrease access to med. care, senior care, rehab)? @ -[No] Was there de-escalation of care discussed even if they declined (Discuss DNR or withdrawal of care, Hospice)? DNR status @ -[No] What co-morbidities impacted this encounter? (DM, HTN, Smoking, COPD, CAD, Cancer, CVA, ARF, Chemo, Hep., AIDS, mental health diagnosis, sleep apnea, morbid obesity)? @ -[Substance abuse Was patient admitted / discharged? Hospital course, mention meds given and route, prescriptions, significant lab abnormalities, going to OR and other pert inent info. @ -[Patient is a 34-year-old man presenting to have evaluation of palpitations. The patient did admit to sympathomimetic abuse. The patient's symptoms have improved. The history and physical not indicative of any ischemia. At this point patient stable to have discharged with outpatient follow-up. Discussed cessation of substance abuse Undiagnosed new problem with uncertain prognosis? @ -[No] Drug Therapy requiring intensive monitoring for toxicity (Heparin, Nitro, Insulin, Cardizem)? @ -[No] Were any procedures done? @ -[No] Diagnosis/symptom? @ -[Acute palpitations Substance abuse Acute, or Chronic, or Acute on Chronic? @ -[Acute Uncomplicated (without systemic symptoms) or Complicated (systemic symptoms)? @ -[Uncomplicated Side effects of treatment? @ -[No] Exacerbation, Progression, or Severe Exacerbation? @ -[No] Poses a threat to life or bodily function? How? (Chest pain, [place], [place], pneumonia, PE, COPD, DKA, ARF, appy, cholecystitis, CVA, Diverticulitis, Homicidal, Suicidal, threat to staff... and all critical care pts) @ -[No] All treatments are based on ideal body weight as in ED triage - Lab Data Result diagrams: 10/19/24 03:25 10/19/24 03:25 Lab Results 10/19/24 10/19/24 10/19/24 Range/Units 03:25 03: 03:25 WBC 9.40 (4.50-10.00) 10*3/uL RBC 4.80 (4.40-5.60) 10*6/uL Hgb 14.1 (13.0-17.0) g/dL Hct 42.3 (39.6-50.0) % MCV 88.1 (80.0-97.0) fL MCH 29.4 (27.0-32.0) pg MCHC 33.3 (32.0-37.0) g/dL Plt Count 279 (140-440) 10*3/uL MPV 10.4 (9.5-12.2) fL Immature Gran % (Auto) 0.6 % Neutrophils % 70.0 % Lymphocytes % 22.4 % Monocytes % 6.3 % Eosinophils % 0.4 % Basophils % 0.3 % Immature Gran # 0.06 H (0.00-0.04) 10*3/uL Neutrophils # 6.57 (1.80-7.70) 10*3/uL Lymphocytes # 2.11 (0.90-5.00) 10*3/uL Monocytes # 0.59 (0.20-1.00) 10*3/uL Eosinophils # 0.04 (0.04-0.35) 10*3/uL Basophils # 0.03 (0.00-0.10) 10*3/uL PT 10.9 (10.0-12.5) sec INR 1.0 (<1.2) APTT 23.1 (22.0-30.0) sec Sodium 137 (137-145) mmol/L Potassium 4.3 (3.5-5.1) mmol/L Chloride 100 (98-107) mmol/L Carbon Dioxide 27 (22-30) mmol/L Anion Gap 10 mmol/L BUN 14 (9-20) mg/dL Creatinine 0.83 (0.66-1.25) mg/dL Est GFR (CKD-EPI)AfAm >90 (>60 ml/min/1.73 sqM) Est GFR (CKD-EPI)NonAf >90 (>60 ml/min/1.73 sqM) Glucose 109 H (74-99) mg/dL Calcium 9.8 (8.4-10.2) mg/dL Magnesium 1.9 (1.6-2.3) mg/dL Total Bilirubin 0.4 (0.2-1.3) mg/dL AST 22 (17-59) U/L ALT 21 (4-49) U/L Alkaline Phosphatase 48 (38-126) U/L Troponin I (0.000-0.034) ng/mL Total Protein 7.2 (6.3-8.2) g/dL Albumin 4.3 (3.5-5.0) g/dL // Range/Units 03:25 WBC (4.50-10.00) 10*3/uL RBC (4.40-5.60) 10*6/uL Hgb (13.0-17.0) g/dL Hct (39.6-50.0) % MCV (80.0-97.0) fL MCH (27.0-32.0) pg MCHC (32.0-37.0) g/dL Plt Count (140-440) 10*3/uL MPV (9.5-12.2) fL Immature Gran % (Auto) % Neutrophils % % Lymphocytes % % Monocytes % % Eosinophils % % Basophils % % Immature Gran # (0.00-0.04) 10*3/uL Neutrophils # (1.80-7.70) 10*3/uL Lymphocytes # (0.90-5.00) 10*3/uL Monocytes # (0.20-1.00) 10*3/uL Eosinophils # (0.04-0.35) 10*3/uL Basophils # (0.00-0.10) 10*3/uL PT (10.0-12.5) sec INR (<1.2) APTT (22.0-30.0) sec Sodium (137-145) mmol/L Potassium (3.5-5.1) mmol/L Chloride (98-107) mmol/L Carbon Dioxide (22-30) mmol/L Anion Gap mmol/L BUN (9-20) mg/dL Creatinine (0.66-1.25) mg/dL Est GFR (CKD-EPI)AfAm (>60 ml/min/1.73 sqM) Est GFR (CKD-EPI)NonAf (>60 ml/min/1.73 sqM) Glucose (74-99) mg/dL Calcium (8.4-10.2) mg/dL Magnesium (1.6-2.3) mg/dL Total Bilirubin (0.2-1.3) mg/dL AST (17-59) U/L ALT (4-49) U/L Alkaline Phosphatase (38-126) U/L Troponin I <0.012 (0.000-0.034) ng/mL Total Protein (6.3-8.2) g/dL Albumin (3.5-5.0) g/dL Disposition Clinical Impression: Cocaine abuse, Palpitations Disposition: HOME SELF-CARE Condition: Good Instructions (If sedation given, give patient instructions): Heart Palpitations (ED) Is patient prescribed a controlled substance at d/c from ED?: No Referrals: Forrest Rivas DO [Primary Care Provider] - 1-2 days
[2024-10-19 04:43] LABS: Basophils # (A) 0.03 10*3/uL (0.00-0.10); Basophils % (A) 0.3 %; Eosinophils # (A) 0.04 10*3/uL (0.04-0.35); Eosinophils % (A) 0.4 %; HCT 42.3 % (39.6-50.0); HGB 14.1 g/dL (13.0-17.0); Lymphocytes # (A) 2.11 10*3/uL (0.90-5.00); Lymphocytes % (A) 22.4 %; MCH 29.4 pg (27.0-32.0); MCHC 33.3 g/dL (32.0-37.0); MCV 88.1 fL (80.0-97.0); Mean Platelet Volume 10.4 fL (9.5-12.2); Monocytes # (A) 0.59 10*3/uL (0.20-1.00); Monocytes % (A) 6.3 %; Neutrophils # (A) 6.57 10*3/uL (1.80-7.70); Platelet Count 279 10*3/uL (140-440); RDW 12.4 % (11.5-14.5)
[2024-10-19 04:56] LABS: ALT 21 U/L (4-49); AST 22 U/L (17-59); African American GFR (CKD) >90 (>60 ml/min/1.73 sqM); Albumin 4.3 g/dL (3.5-5.0); Alkaline Phosphatase 48 U/L (38-126); Anion Gap 10 mmol/L; Blood Urea Nitrogen 14 mg/dL (9-20); Calcium 9.8 mg/dL (8.4-10.2); Carbon Dioxide 27 mmol/L (22-30); Chloride 100 mmol/L (98-107); Glucose 109 mg/dL (74-99); Magnesium 1.9 mg/dL (1.6-2.3); Non-African American GFR(CKD) >90 (>60 ml/min/1.73 sqM); Potassium 4.3 mmol/L (3.5-5.1); Sodium 137 mmol/L (137-145); Total Bilirubin 0.4 mg/dL (0.2-1.3); Total Protein 7.2 g/dL (6.3-8.2)
[2024-10-19 04:59] LABS: Partial Thromboplastin Time 23.1 sec (22.0-30.0); Prothrombin Time 10.9 sec (10.0-12.5)
[2024-10-19 05:08] VITALS: RESP 18
[2024-10-19 05:44] VITALS: BP 111/69; PULSE 65; TEMP 98.6
--- NOTE | 2024-10-19 05:53 | XR ---
EXAM: XR Chest, 1 View CLINICAL HISTORY: ITS.REASON XR Reason: dysrhythmia TECHNIQUE: Frontal view of the chest. COMPARISON: 10/12/2024, 04/22/2024, 04/18/2024 FINDINGS: Lungs: Unremarkable. No consolidation. Pleural space: Unremarkable. No pneumothorax. Heart: Unremarkable. No cardiomegaly. Mediastinum: Unremarkable. Normal mediastinal contour. Bones/joints: 9 mm area of sclerosis in the left scapula, not visualized on prior exams. No acute fracture. IMPRESSION: 9 mm area of sclerosis in the left scapula, not visualized on prior exams. Otherwise, no acute cardiopulmonary normality.
== END 2024-10-19 05:54 | disposition home or self-care (01) ==
LOC: EC 03:00
DX: R00.2 Palpitations (principal); F14.10 Cocaine abuse, uncomplicated; F17.290 Nicotine dependence, other tobacco product, uncomplicated; Z88.0 Allergy status to penicillin; Z88.8 Allergy status to other drugs, medicaments and biological substances
CPT/HCPCS: 36415; 71045; 80053; 83735; 84484; 85025; 85610; 85730; 93005; 96360; 99285

== ENCOUNTER 2024-10-26 19:46 | Emergency (ER) | payer OTHER ==
--- NOTE | 2024-10-26 20:17 | ED ---
General Adult HPI - General Chief complaint: Anxiety Stated complaint: Nausea Time Seen by Provider: 10/26/24 20:16 Source: patient, RN notes reviewed Mode of arrival: ambulatory - History of Present Illness Initial comments: 34-year-old male presented the ER for evaluation of possible STD exposure. Patient states over the weekend he was in [place] and went on a "meth cunningham". He states he ultimately had sexual intercourse with a male for drugs. He also reports sharing needles with this individual did share with patient that they have a history of HIV and syphilis. Patient also reports he may have been exposed to other STDs and is concerned of possible hepatitis C as well. Patient reports he has a long history of drug abuse and has been to rehab numerous times. Patient denies any dysuria, hematuria, rash, abnormal penile discharge, scrotal pain or swelling. He denies any SI or HI. Patient reports he is very anxious given concern of STDs. He denies any abdominal pain or other complaints at this time. - Related Data Home Medications Medication Instructions Recorded Confirmed Pregabalin [Lyrica] 300 mg PO BID 10/06/20 09/06/21 Docusate [Colace] 100 mg PO DAILY PRN 05/15/21 09/06/21 Ibuprofen 200 - 400 mg PO DIRECTED PRN 07/12/21 09/06/21 Methadone Syrup 170 mg PO DAILY 07/12/21 09/06/21 Miralax Powder 1 applicate PO DAILY PRN 09/06/21 09/06/21 Vitadone 3 tab PO DAILY 09/06/21 09/06/21 Previous Rx's Medication Instructions Recorded Ondansetron Odt [Zofran Odt] 4 mg PO Q8HR PRN #10 tab 10/15/21 Famotidine 40 mg PO DAILY #14 tablet 01/08/22 Ibuprofen [Motrin] 600 mg PO Q8HR PRN #20 tab 01/08/22 Doxycycline [Vibramycin] 100 mg PO BID #24 capsule 08/15/23 metroNIDAZOLE [Flagyl] 500 mg PO TID #30 tab 08/15/23 Doxycycline Hyclate 100 mg PO BID 7 Days #14 tab 10/26/24 Emtricitabine/Tenofovir (Tdf) 1 tab PO DAILY #28 tab 10/26/24 [Truvada 200 mg-300 mg Tablet] Raltegravir Potassium [Isentress] 400 mg PO Q12H #56 tab 10/26/24 metroNIDAZOLE [Flagyl] 500 mg PO ONCE 1 Days #4 tab 10/26/24 Allergies Allergy/AdvReac Type Severity Reaction Status Date / Time Penicillins Allergy Unknown Unknown Verified 10/26/24 19:53 Childhood naloxegol [From Movantik] AdvReac abdominal Verified 10/26/24 19:53 pain, started withdrawal symptoms-chills,sweats Review of Systems ROS Statement: Those systems with pertinent positive or pertinent negative responses have been documented in the HPI. ROS Other: All systems not noted in ROS Statement are negative. Past Medical History Past Medical History: Liver Disease, Renal Disease Additional Past Medical History / Comment(s): Hepatitis C, neuropathy, chronic foot pain, left leg pain and drop foot-"palsy", rhabdomyolysis, previous drug abuse, previous suicidal attempt History of Any Multi-Drug Resistant Organisms: MRSA Date of last positivie culture/infection: 02/24/2010 MDRO Source:: left knee Past Surgical History: Orthopedic Surgery Additional Past Surgical History / Comment(s): surgery on left middle finger., nerve block in left leg 01/28/21- "test dose", pin left middle finger, oral surgery Past Anesthesia/Blood Transfusion Reactions: Motion Sickness Past Psychological History: Anxiety, Bipolar, Depression Smoking Status: Vaper Past Drug Use History: Cocaine, IV Drug Use, Marijuana, Opiates, Prescription Drug Abuse - Past Family History Father Family Medical History: No Reported History Mother History Unknown: Yes Family Medical History: No Reported History General Exam General appearance: alert, in no apparent distress, anxious Respiratory exam: Present: normal lung sounds bilaterally. Absent: respiratory distress, wheezes, rales, rhonchi, stridor Cardiovascular Exam: Present: regular rate, normal rhythm, normal heart sounds. Absent: systolic murmur, diastolic murmur, rubs, gallop, clicks GI/Abdominal exam: Present: soft, normal bowel sounds. Absent: distended, tenderness, guarding, rebound, rigid Extremities exam: Present: normal inspection, full ROM, normal capillary refill. Absent: tenderness, pedal edema, joint swelling, calf tenderness Neurological exam: Present: alert, oriented X3, CN II-XII intact Psychiatric exam: Present: anxious Skin exam: Present: warm, dry, intact, normal color. Absent: rash Course Vital Signs 10/26/24 10/26/24 19:48 21:13 Temperature 97.9 F 98.4 F Pulse Rate 94 80 Respiratory 18 16 Rate Blood Pressure 138/90 120/68 O2 Sat by Pulse 96 98 Oximetry Medical Decision Making - Medical Decision Making Was pt. sent in by a medical professional or institution (ESTEVAN De La Torre, PARTY PLAN SELLING DISTRIBUTOR, urgent care, hospital, or custodial...) When possible be specific @ -No Did you speak to anyone other than the patient for history (EMS, parent, family, police, friend...)? What history was obtained from this source @ -No Did you review nursing and triage notes (agree or disagree)? Why? @ -I reviewed and agree with nursing and triage notes Were old charts reviewed (outside hosp., previous admission, EMS record, old EKG, old radiological studies, urgent care reports/EKG's, custodial records)? Report findings @ -Prior medical record Differential Diagnosis (chest pain, altered mental status, abdominal pain women, abdominal pain men, vaginal bleeding, weakness, fever, dyspnea, syncope, headache, dizziness, GI bleed, back pain, seizure, CVA, palpatations, mental health, musculoskeletal)? @ -Gonorrhea, chlamydia, HIV, hepatitis, syphilis... This list is not meant to be all-inclusive EKG interpreted by me (3pts min.). @ -None done X-rays interpreted by me (1pt min.). @ -None done CT interpreted by me (1pt min.). @ -None done U/S interpreted by me (1pt. min.). @ -None done What testing was considered but not performed or refused? (CT, X-rays, U/S, labs)? Why? @ -None What meds were considered but not given or refused? Why? @ -Given penicillin allergy, patient will not be prophylactically treated for syphilis patient is agreeable to waiting until test results. Did you discuss the management of the patient with other professionals (tami blankenship i.e. ESTEVAN De La Torre, PARTY PLAN SELLING DISTRIBUTOR, lab, RT, psych nurse, social worker health services, manager fraud, teacher, textile technical officer, manager of case management)? Give summary @ -No Was smoking cessation discussed for >3mins.? @ -No Was critical care preformed (if so, how long)? @ -No Were there social determinants of health that impacted care today? How? (Homelessness, low income, unemployed, alcoholism, drug addiction, transportation, low edu. Level, literacy, decrease access to med. care, residential, rehab)? @ -No Was there de-escalation of care discussed even if they declined (Discuss DNR or withdrawal of care, Hospice)? DNR status @ -No What co-morbidities impacted this encounter? (DM, HTN, Smoking, COPD, CAD, Cancer, CVA, ARF, Chemo, Hep., AIDS, mental health diagnosis, sleep apnea, morbid obesity)? @ -Drug abuse Was patient admitted / discharged? Hospital course, mention meds given and route, prescriptions, significant lab abnormalities, going to OR and other pertinent info. @ -Discharge. 34-year-old male presented to ER for possible STD exposure. Patient is requesting testing and prophylactic treatment. Vital signs stable. Patient is anxious but in no signs of acute distress. Gonorrhea, chlamydia, trichomonas, syphilis, hepatitis panel and HIV ordered and pending as they are send out laboratory studies. Patient will be prophylactically treated with IM Rocephin, doxycycline and Flagyl in the ER. Patient also requesting postexposure HIV treatment, this was sent to patient's pharmacy along with Flagyl and doxycycline. Return parameters discussed. Patient discharged in stable condition with follow-up to PCP. Patient verbally expressed understanding agreement care plan. Case discussed with ED attending by Dr. Casillas. Undiagnosed new problem with uncertain prognosis? @ -No Drug Therapy requiring intensive monitoring for toxicity (Heparin, Nitro, Insulin, Cardizem)? @ -No Were any procedures done? @ -No Diagnosis/symptom? @ -STD exposure Acute, or Chronic, or Acute on Chronic? @ -Acute Uncomplicated (without systemic symptoms) or Complicated (systemic symptoms)? @ -Uncomplicated Side effects of treatment? @ -No Exacerbation, Progression, or Severe Exacerbation? @ -No Poses a threat to life or bodily function? How? (Chest pain, USA, CA, pneumonia, PE, COPD, DKA, ARF, appy, cholecystitis, CVA, Diverticulitis, Homicidal, Suicidal, threat to staff... and all critical care pts) @ -Possibly, STDs can lead to infertility - Lab Data Lab Results 10/26/24 10/26/24 10/26/24 Range/Units 20:26 20:37 20:37 Treponema pallidum Ab Nonreactive (Nonreactive) Chlamydia DNA (PCR) (Negative) Hepatitis A IgM Ab Nonreactive (Nonreactive) Hep Bs Antigen Nonreactive (Nonreactive) Hep B Core IgM Ab Nonreactive (Nonreactive) Hep C IgG Ab Reactive A (Nonreactive) HIV-1 Antibody Non-Reactive (Non-Reactive) HIV Ag/Ab Interpret HIV p24 Antibody Non-Reactive (Non-Reactive) HIV-2 Antibody Non-Reactive (Non-Reactive) HIV P24 Antigen Non-Reactive (Non-Reactive) N.gonorrhoeae DNA Probe (Negative) 10/26/24 Range/Units 20:45 Treponema pallidum Ab (Nonreactive) Chlamydia DNA (PCR) Negative (Negative) Hepatitis A IgM Ab (Nonreactive) Hep Bs Antigen (Nonreactive) Hep B Core IgM Ab (Nonreactive) Hep C IgG Ab (Nonreactive) HIV-1 Antibody (Non-Reactive) HIV Ag/Ab Interpret HIV p24 Antibody (Non-Reactive) HIV-2 Antibody (Non-Reactive) HIV P24 Antigen (Non-Reactive) N.gonorrhoeae DNA Probe Negative (Negative) Disposition Clinical Impression: Exposure to STD, HIV exposure Disposition: HOME SELF-CARE Condition: Stable Instructions (If sedation given, give patient instructions): Generalized Anxiety Disorder (ED) Additional Instructions: Follow-up closely with PCP in the next 1-2 days. Take medications as prescribed. Return to the ER for any new or worsening concerns. All positive test results will be called back to home. Prescriptions: Doxycycline Hyclate 100 mg PO BID 7 Days #14 tab metroNIDAZOLE [Flagyl] 500 mg PO ONCE 1 Days #4 tab Raltegravir Potassium [Isentress] 400 mg PO Q12H #56 tab Emtricitabine/Tenofovir (Tdf) [Truvada 200 mg-300 mg Tablet] 1 tab PO DAILY #28 tab Is patient prescribed a controlled substance at d/c from ED?: No Referrals: Forrest Rivas DO [Primary Care Provider] - 1-2 days Forms: AA Meetings [place], Community Resources, NA Meetings in [place], Outpatient Counseling, Outpatient Therapy List Time of Disposition: 20:45
[2024-10-26] MEDS: cefTRIAXone 250 MG VIAL IM STA (20:43)
[2024-10-26] MEDS: DOXYCYCLINE 100 MG TABLET PO ONE (20:43)
[2024-10-26] MEDS: ONDANSETRON 4 MG ODT STARTER PACK 2 TAB BTL PO STA (21:08)
[2024-10-26] MEDS: ONDANSETRON ODT 4 MG TAB PO STA (21:08)
[2024-10-26 21:14] VITALS: BP 120/68; PULSE 80; RESP 16; TEMP 98.4
[2024-10-27 02:37] LABS: Hepatitis A Antibody IgM Nonreactive (Nonreactive); Hepatitis B Core IgM Nonreactive (Nonreactive); Hepatitis B Surface Antigen Nonreactive (Nonreactive); Hepatitis C IgG Antibody Reactive (Nonreactive)
[2024-10-27 05:43] LABS: HIV 2 AB Non-Reactive (Non-Reactive); HIV AB P24 Non-Reactive (Non-Reactive); HIV P24 AG Non-Reactive (Non-Reactive)
[2024-10-27 12:17] LABS: N. gonorrhoeae,PCR Negative (Negative)
[2024-10-27 12:27] LABS: C. trachomatis,PCR Negative (Negative)
== END 2024-10-26 21:14 | disposition home or self-care (01) ==
LOC: EC 19:46
DX: F19.11 Other psychoactive substance abuse, in remission (principal); F17.290 Nicotine dependence, other tobacco product, uncomplicated; Z20.2 Contact with and (suspected) exposure to infections with a predominantly sexual mode of transmission; Z20.6 Contact with and (suspected) exposure to human immunodeficiency virus [HIV]; Z88.0 Allergy status to penicillin; Z88.8 Allergy status to other drugs, medicaments and biological substances
CPT/HCPCS: 36415; 80074; 87491; 87591; 86780; 87390; 99283; 96372; J0696; S0119

== ENCOUNTER 2024-10-28 07:12 | Emergency (ER) | payer OTHER ==
[2024-10-28 07:20] VITALS: BP 160/95; PULSE 90; RESP 20; TEMP 97.3
--- NOTE | 2024-10-28 07:22 | ED ---
Chest Pain HPI - General Chief Complaint: Chest Pain Stated Complaint: chest pain Time Seen by Provider: 10/28/24 07:16 Source: patient, RN notes reviewed Mode of arrival: ambulatory Limitations: no limitations - History of Present Illness Initial Comments: 34-year-old male presents emergency department with complaint of anxiety, chest discomfort. Patient states he has been using methamphetamines daily. He has been to rehab several times states that he does not agree with rehab. Patient denies any prior cardiac disease.. Patient states that ever uses he is very anxious next his heart race and causes discomfort. - Related Data Home Medications Medication Instructions Recorded Confirmed Pregabalin [Lyrica] 300 mg PO BID 10/06/20 09/06/21 Docusate [Colace] 100 mg PO DAILY PRN 05/15/21 09/06/21 Ibuprofen 200 - 400 mg PO DIRECTED PRN 07/12/21 09/06/21 Methadone Syrup 170 mg PO DAILY 07/12/21 09/06/21 Miralax Powder 1 applicate PO DAILY PRN 09/06/21 09/06/21 Vitadone 3 tab PO DAILY 09/06/21 09/06/21 Previous Rx's Medication Instructions Recorded Ondansetron Odt [Zofran Odt] 4 mg PO Q8HR PRN #10 tab 10/15/21 Famotidine 40 mg PO DAILY #14 tablet 01/08/22 Ibuprofen [Motrin] 600 mg PO Q8HR PRN #20 tab 01/08/22 Doxycycline [Vibramycin] 100 mg PO BID #24 capsule 08/15/23 metroNIDAZOLE [Flagyl] 500 mg PO TID #30 tab 08/15/23 Doxycycline Hyclate 100 mg PO BID 7 Days #14 tab 10/26/24 Emtricitabine/Tenofovir (Tdf) 1 tab PO DAILY #28 tab 10/26/24 [Truvada 200 mg-300 mg Tablet] Raltegravir Potassium [Isentress] 400 mg PO Q12H #56 tab 10/26/24 metroNIDAZOLE [Flagyl] 500 mg PO ONCE 1 Days #4 tab 10/26/24 Allergies Allergy/AdvReac Type Severity Reaction Status Date / Time Penicillins Allergy Unknown Unknown Verified 10/26/24 19:53 Childhood naloxegol [From Movantik] AdvReac abdominal Verified 10/26/24 19:53 pain, started withdrawal symptoms-chills,sweats Review of Systems ROS Statement: Those systems with pertinent positive or pertinent negative responses have been documented in the HPI. ROS Other: All systems not noted in ROS Statement are negative. EKG Findings - EKG Comments: EKG Findings:: EKG performed at 7: 26 sinus rhythm rate of 93 NE 149 QRS 98 QT/QTc 330/380 - EKG Results: EKG: interpreted by CORTNEYD Past Medical History Past Medical History: Liver Disease, Renal Disease Additional Past Medical History / Comment(s): Hepatitis C, neuropathy, chronic foot pain, left leg pain and drop foot-"palsy", rhabdomyolysis, previous drug abuse, previous suicidal attempt History of Any Multi-Drug Resistant Organisms: MRSA Date of last positivie culture/infection: 02/24/2010 MDRO Source:: left knee Past Surgical History: Orthopedic Surgery Additional Past Surgical History / Comment(s): surgery on left middle finger., nerve block in left leg 01/28/21- "test dose", pin left middle finger, oral naranjo rgery Past Anesthesia/Blood Transfusion Reactions: Motion Sickness Past Psychological History: Anxiety, Bipolar, Depression Smoking Status: Vaper Past Drug Use History: Cocaine, IV Drug Use, Marijuana, Methamphetamine, Opiates, Prescription Drug Abuse - Past Family History Father Family Medical History: No Reported History Mother History Unknown: Yes Family Medical History: No Reported History General Exam Limitations: no limitations General appearance: alert, in no apparent distress Head exam: Present: atraumatic, normocephalic, normal inspection Eye exam: Present: normal appearance, PERRL, EOMI. Absent: scleral icterus, conjunctival injection, periorbital swelling ENT exam: Present: normal exam, normal oropharynx, mucous membranes moist Neck exam: Present: normal inspection, full ROM. Absent: tenderness, men ingismus, lymphadenopathy Respiratory exam: Present: normal lung sounds bilaterally. Absent: respiratory distress, wheezes, rales, rhonchi, stridor Cardiovascular Exam: Present: regular rate, normal rhythm, normal heart sounds. Absent: systolic murmur, diastolic murmur, rubs, gallop, clicks GI/Abdominal exam: Present: soft, normal bowel sounds. Absent: distended, tenderness, guarding, rebound, rigid Course Vital Signs 10/28/24 07:17 Temperature 97.3 F L Pulse Rate 90 Respiratory 20 Rate Blood Pressure 160/95 O2 Sat by Pulse 98 Oximetry Chest Pain MDM - MDM Was pt. sent in by a medical professional or institution (, [facility]EVAN, DIESEL MOTOR MECHANIC, urgent care, hospital, or residential...) When possible be specific @ -[No] Did you speak to anyone other than the patient for history (EMS, parent, family, police, friend...)? What history was obtained from this source @ -[No] Did you review nursing and triage notes (agree or disagree)? Why? @ -[I reviewed and agree with nursing and triage notes] Were old charts reviewed (outside hosp., previous admission, EMS record, old EKG, old radiological studies, urgent care reports/EKG's, residential records)? Report findings @ -[No old charts were reviewed] Differential Diagnosis (chest pain, altered mental status, abdominal pain women, abdominal pain men, vaginal bleeding, weakness, fever, dyspnea, syncope, headache, dizziness, GI bleed, back pain, seizure, CVA, palpatations, mental health, musculoskeletal)? @ -Differential Palpitations Ventricular arrhythmias, atrial arrhythmias, myocardial infarction, anemia, thyrotoxicosis, electrolyte imbalance, hypokalemia, pulmonary embolism, pulmonary disease, drugs, alcohol, anxiety, stress.... This is not meant to be an all-inclusive list. EKG interpreted by me (3pts min.). @ -As above X-rays interpreted by me (1pt min.). @ -None done CT interpreted by me (1pt min.). @ -None done U/S interpreted by me (1pt. min.). @ -None done What testing was considered but not performed or refused? (CT, X-rays, U/S, lab s)? Why? @ -None What meds were considered but not given or refused? Why? @ -None Did you discuss the management of the patient with other professionals (professionals i.e. , ESTEVAN, DIESEL MOTOR MECHANIC, lab, RT, psych nurse, social service director, senior payroll manager, teacher, jailer/training officer, supervisor case loading)? Give summary @ -No Was smoking cessation discussed for >3mins.? @ -No Was critical care preformed (if so, how long)? @ -No Were there social determinants of health that impacted care today? How? (Homelessness, low income, unemployed, alcoholism, drug addiction, transportation, low edu. Level, literacy, decrease access to med. care, fpc, rehab)? @ -No Was there de-escalation of care discussed even if they declined (Discuss DNR or withdrawal of care, Hospice)? DNR status @ -No What co-morbidities impacted this encounter? (DM, HTN, Smoking, COPD, CAD, Cancer, CVA, ARF, Chemo, Hep., AIDS, mental health diagnosis, sleep apnea, morbid obesity)? @ -None Was patient admitted / discharged? Hospital course, mention meds given and route, prescriptions, significant lab abnormalities, going to OR and other pertinent info. @ -Discharged patient has been using methamphetamines causing his anxiety type symptoms. Patient has been seen in [place] several times there is no EKG changes. Patient be discharged in stable condition. Undiagnosed new problem with uncertain prognosis? @ -No Drug Therapy requiring intensive monitoring for toxicity (Heparin, Nitro, Insulin, Cardizem)? @ -No Were any procedures done? @ -No Diagnosis/symptom? @ -Methamphetamine abuse, anxiety, palpitations Acute, or Chronic, or Acute on Chronic? @ -Acute Uncomplicated (without systemic symptoms) or Complicated (systemic symptoms)? @ -Complicated Side effects of treatment? @ -No Exacerbation, Progression, or Severe Exacerbation? @ -No Poses a threat to life or bodily function? How? (Chest pain, USA, CT, pneumonia, PE, COPD, DKA, ARF, appy, cholecystitis, CVA, Diverticulitis, Homicidal, Suicidal, threat to staff... and all critical care pts) @ -Yes drug abuse causing . Disposition Clinical Impression: Methamphetamine abuse, Anxiety, Atypical chest pain Disposition: HOME SELF-CARE Condition: Stable Instructions (If sedation given, give patient instructions): Chest Pain (ED) Additional Instructions: Please return to the Emergency Department if symptoms worsen or any other concerns. Is patient prescribed a controlled substance at d/c from ED?: No Referrals: Forrest Rivas DO [Primary Care Provider] - 1-2 days Time of Disposition: 07:40
== END 2024-10-28 08:34 | disposition home or self-care (01) ==
LOC: EC 07:12
DX: F41.9 Anxiety disorder, unspecified (principal); R07.89 Other chest pain; F15.10 Other stimulant abuse, uncomplicated; F17.290 Nicotine dependence, other tobacco product, uncomplicated; Z88.0 Allergy status to penicillin; Z88.8 Allergy status to other drugs, medicaments and biological substances
CPT/HCPCS: 93005; 99284

== ENCOUNTER 2024-11-08 09:06 | Emergency (ER) | payer OTHER ==
[2024-11-08 09:15] VITALS: TEMP 98.1
--- NOTE | 2024-11-08 10:00 | XR ---
Chest, 2 view. CLINICAL INDICATION: Male, 34 years old with history of pain COMPARISON: 10/19/2024 TECHNIQUE: PA and lateral views the chest are obtained. FINDINGS: The lungs are clear and there is no consolidative or interstitial opacity. There is no pleural effusion or pneumothorax. The heart, pulmonary vasculature, mediastinum and keely appear normal. The osseous structures are intact. IMPRESSION: No significant abnormality seen. No acute cardiopulmonary disease. [facility], , 11/08/2024 9:57 AM
--- NOTE | 2024-11-08 10:12 | ED ---
General Adult HPI - General Chief complaint: Chest Pain Stated complaint: Chest pain,SOB Time Seen by Provider: 11/08/24 09:20 Source: patient, RN notes reviewed Mode of arrival: wheelchair Limitations: no limitations - History of Present Illness Initial comments: 34-year-old male presents emergency department complaint of chest pain palpitations. Patient states that this been going on for 4 days. Patient states those patients had issues like this in the past. Denies any significant shortness of breath currently has had some on and off symptoms of abdominal pain no other associated symptoms - Related Data Home Medications Medication Instructions Recorded Confirmed Pregabalin [Lyrica] 300 mg PO BID 10/06/20 09/06/21 Docusate [Colace] 100 mg PO DAILY PRN 05/15/21 09/06/21 Ibuprofen 200 - 400 mg PO DIRECTED PRN 07/12/21 09/06/21 Methadone Syrup 170 mg PO DAILY 07/12/21 09/06/21 Miralax Powder 1 applicate PO DAILY PRN 09/06/21 09/06/21 Vitadone 3 tab PO DAILY 09/06/21 09/06/21 Previous Rx's Medication Instructions Recorded Ondansetron Odt [Zofran Odt] 4 mg PO Q8HR PRN #10 tab 10/15/21 Famotidine 40 mg PO DAILY #14 tablet 01/08/22 Ibuprofen [Motrin] 600 mg PO Q8HR PRN #20 tab 01/08/22 Doxycycline [Vibramycin] 100 mg PO BID #24 capsule 08/15/23 metroNIDAZOLE [Flagyl] 500 mg PO TID #30 tab 08/15/23 Doxycycline Hyclate 100 mg PO BID 7 Days #14 tab 10/26/24 Emtricitabine/Tenofovir (Tdf) 1 tab PO DAILY #28 tab 10/26/24 [Truvada 200 mg-300 mg Tablet] Raltegravir Potassium [Isentress] 400 mg PO Q12H #56 tab 10/26/24 metroNIDAZOLE [Flagyl] 500 mg PO ONCE 1 Days #4 tab 10/26/24 Allergies Allergy/AdvReac Type Severity Reaction Status Date / Time Penicillins Allergy Unknown Unknown Verified 11/08/24 09:15 Childhood naloxegol [From Movantik] AdvReac abdominal Verified 11/08/24 09:15 pain, started withdrawal symptoms-chills,sweats Review of Systems ROS Statement: Those systems with pertinent positive or pertinent negative responses have been documented in the HPI. ROS Other: All systems not noted in ROS Statement are negative. Past Medical History Past Medical History: Liver Disease, Renal Disease Additional Past Medical History / Comment(s): Hepatitis C, neuropathy, chronic foot pain, left leg pain and drop foot-"palsy", rhabdomyolysis, previous drug abuse, previous suicidal attempt History of Any Multi-Drug Resistant Organisms: MRSA Date of last positivie culture/infection: 02/24/2010 MDRO Source:: left knee Past Surgical History: Orthopedic Surgery Additional Past Surgical History / Comment(s): surgery on left middle finger., nerve block in left leg 01/28/21- "test dose", pin left middle finger, oral surgery Past Anesthesia/Blood Transfusion Reactions: Motion Sickness Past Psychological History: Anxiety, Bipolar, Depression Smoking Status: Vaper Past Alcohol Use History: Daily Past Drug Use History: Cocaine, IV Drug Use, Marijuana, Methamphetamine, Opiates, Prescription Drug Abuse - Past Family History Father Family Medical History: No Reported History Mother History Unknown: Yes Family Medical History: No Reported History General Exam Limitations: no limitations General appearance: alert, in no apparent distress Head exam: Present: atraumatic, normocephalic, normal inspection Eye exam: Present: normal appearance, PERRL, EOMI. Absent: scleral icterus, conjunctival injection, periorbital swelling ENT exam: Present: normal exam, mucous membranes moist Neck exam: Present: normal inspection, full ROM. Absent: tenderness, meningismus, lymphadenopathy Respiratory exam: Present: normal lung sounds bilaterally. Absent: respiratory distress, wheezes, rales, rhonchi, stridor Cardiovascular Exam: Present: normal rhythm, tachycardia, normal heart sounds. Absent: systolic murmur, diastolic murmur, rubs, gallop, clicks GI/Abdominal exam: Present: soft, normal bowel sounds. Absent: distended, tenderness, guarding, rebound, rigid Course Vital Signs 11/08/24 11/08/24 09:09 10:47 Temperature 98.1 F Pulse Rate 115 H 99 Respiratory 20 18 Rate Blood Pressure 132/82 125/88 O2 Sat by Pulse 98 97 Oximetry EKG Findings - EKG Comments: EKG Findings:: EKG performed at 9: 29 sinus tachycardia rate of 109 MA 164 QRS 104 QT/QTc 329/393 - EKG Results: EKG: interpreted by DINORAH Medical Decision Making - Medical Decision Making Was pt. sent in by a medical professional or institution (, PA, COMMUNITY REINVESTMENT ACT OFFICER, urgent care, hospital, or fci...) When possible be specific @ -No Did you speak to anyone other than the patient for history (EMS, parent, family, police, friend...)? What history was obtained from this source @ -No Did you review nursing and triage notes (agree or disagree)? Why? @ -I reviewed and agree with nursing and triage notes Were old charts reviewed (outside hosp., previous admission, EMS record, old EKG, old radiological studies, urgent care reports/EKG's, fci records)? Report findings @ -No old charts were reviewed Differential Diagnosis (chest pain, altered mental status, abdominal pain women, abdominal pain men, vaginal bleeding, weakness, fever, dyspnea, syncope, headache, dizziness, GI bleed, back pain, seizure, CVA, palpatations, mental health, musculoskeletal)? @ -Differential Chest Pain: Stable Angina, Unstable Angina, STEMI, NSTEMI Aortic Dissection, Pneumothorax, Musculoskeletal, Esophageal Spasm GERD, Cholecystitis, Pancreatitis, Zoster, this is not meant to be an all-inclusive list. EKG interpreted by me (3pts min.). @ -As above X-rays interpreted by me (1pt min.). @ -Chest x-ray shows no acute cardiopulmonary process. CT interpreted by me (1pt min.). @ -None done U/S interpreted by me (1pt. min.). @ -None done What testing was considered but not performed or refused? (CT, X-rays, U/S, labs)? Why? @ -None What meds were considered but not given or refused? Why? @ -None Did you discuss the management of the patient with other professionals (professionals i.e. , PA, COMMUNITY REINVESTMENT ACT OFFICER, lab, RT, psych nurse, social worker masters, computer science intern, teacher, disability liaison officer, casework supervisor)? Give summary @ -No Was smoking cessation discussed for >3mins.? @ -No Was critical care preformed (if so, how long)? @ -No Were there social determinants of health that impacted care today? How? (Homelessness, low income, unemployed, alcoholism, drug addiction, transportation, low edu. Level, literacy, decrease access to med. care, longterm, rehab)? @ -No Was there de-escalation of care discussed even if they declined (Discuss DNR or withdrawal of care, Hospice)? DNR status @ -No What co-morbidities impacted this encounter? (DM, HTN, Smoking, COPD, CAD, Cancer, CVA, ARF, Chemo, Hep., AIDS, mental health diagnosis, sleep apnea, morbid obesity)? @ -None Was patient admitted / discharged? Hospital course, mention meds given and route, prescriptions, significant lab abnormalities, going to OR and other pertinent info. @ -Discharge patient laboratory studies unremarkable patient's pain related to his current drug abuse. Patient counseled in detail regarding follow-up with rehab and discontinue drug abuse. Patient agrees with plan for discharge and return. Discussed. Undiagnosed new problem with uncertain prognosis? @ -No Drug Therapy requiring intensive monitoring for toxicity (Heparin, Nitro, Insulin, Cardizem)? @ -No Were any procedures done? @ -No Diagnosis/symptom? @ -Atypical chest pain, drug use Acute, or Chronic, or Acute on Chronic? @ -Acute Uncomplicated (without systemic symptoms) or Complicated (systemic symptoms)? @ -[Complicated Side effects of treatment? @ -No Exacerbation, Progression, or Severe Exacerbation? @ -No Poses a threat to life or bodily function? How? (Chest pain, USA, [place], pneumonia, PE, COPD, DKA, ARF, appy, cholecystitis, CVA, Diverticulitis, Homicidal, Suicidal, threat to staff... and all critical care pts) @ -Yes drug abuse - Lab Data Result diagrams: 11/08/24 10:46 11/08/24 10:46 Lab Results 11/08/24 11/08/24 11/08/24 Range/Units 10:46 10:46 10:46 WBC 10.30 H (4.50-10.00) 10*3/uL RBC 5.04 (4.40-5.60) 10*6/uL Hgb 14.9 (13.0-17.0) g/dL Hct 43.8 (39.6-50.0) % MCV 86.9 (80.0-97.0) fL MCH 29.6 (27.0-32.0) pg MCHC 34.0 (32.0-37.0) g/dL Plt Count 297 (140-440) 10*3/uL MPV 9.9 (9.5-12.2) fL Immature Gran % (Auto) 0.4 % Neutrophils % 61.7 % Lymphocytes % 30.6 % Monocytes % 6.7 % Eosinophils % 0.3 % Basophils % 0.3 % Immature Gran # 0.04 (0.00-0.04) 10*3/uL Neutrophils # 6.36 (1.80-7.70) 10*3/uL Lymphocytes # 3.15 (0.90-5.00) 10*3/uL Monocytes # 0.69 (0.20-1.00) 10*3/uL Eosinophils # 0.03 L (0.04-0.35) 10*3/uL Basophils # 0.03 (0.00-0.10) 10*3/uL Sodium 140 (137-145) mmol/L Potassium 4.0 (3.5-5.1) mmol/L Chloride 106 (98-107) mmol/L Carbon Dioxide 21 L (22-30) mmol/L Anion Gap 13 mmol/L BUN 10 (9-20) mg/dL Creatinine 0.77 (0.66-1.25) mg/dL Est GFR (CKD-EPI)AfAm >90 (>60 ml/min/1.73 sqM) Est GFR (CKD-EPI)NonAf >90 (>60 ml/min/1.73 sqM) Glucose 95 (74-99) mg/dL Calcium 9.6 (8.4-10.2) mg/dL Total Bilirubin 0.4 (0.2-1.3) mg/dL AST 26 (17-59) U/L ALT 18 (4-49) U/L Alkaline Phosphatase 59 (38-126) U/L Troponin I <0.012 (0.000-0.034) ng/mL Total Protein 8.0 (6.3-8.2) g/dL Albumin 5.0 (3.5-5.0) g/dL Disposition Clinical Impression: Atypical chest pain, Cocaine abuse Disposition: HOME SELF-CARE Condition: Stable Instructions (If sedation given, give patient instructions): Chest Pain (ED) Additional Instructions: Please return to the Emergency Department if symptoms worsen or any other concerns. Is patient prescribed a controlled substance at d/c from ED?: No Referrals: Forrest Rivas DO [Primary Care Provider] - 1-2 days Time of Disposition: 11:31
[2024-11-08 10:48] VITALS: RESP 18
[2024-11-08 11:01] LABS: Basophils # (A) 0.03 10*3/uL (0.00-0.10); Basophils % (A) 0.3 %; Eosinophils # (A) 0.03 10*3/uL (0.04-0.35); Eosinophils % (A) 0.3 %; HCT 43.8 % (39.6-50.0); HGB 14.9 g/dL (13.0-17.0); Lymphocytes # (A) 3.15 10*3/uL (0.90-5.00); Lymphocytes % (A) 30.6 %; MCH 29.6 pg (27.0-32.0); MCV 86.9 fL (80.0-97.0); Mean Platelet Volume 9.9 fL (9.5-12.2); Monocytes # (A) 0.69 10*3/uL (0.20-1.00); Monocytes % (A) 6.7 %; Neutrophils # (A) 6.36 10*3/uL (1.80-7.70); Neutrophils % (A) 61.7 %; Platelet Count 297 10*3/uL (140-440); RBC 5.04 10*6/uL (4.40-5.60)
[2024-11-08 11:11] LABS: ALT 18 U/L (4-49); AST 26 U/L (17-59); African American GFR (CKD) >90 (>60 ml/min/1.73 sqM); Alkaline Phosphatase 59 U/L (38-126); Anion Gap 13 mmol/L; Blood Urea Nitrogen 10 mg/dL (9-20); Calcium 9.6 mg/dL (8.4-10.2); Carbon Dioxide 21 mmol/L (22-30); Chloride 106 mmol/L (98-107); Glucose 95 mg/dL (74-99); Non-African American GFR(CKD) >90 (>60 ml/min/1.73 sqM); Sodium 140 mmol/L (137-145); Total Bilirubin 0.4 mg/dL (0.2-1.3)
[2024-11-08 12:10] VITALS: BP 147/92; PULSE 100
== END 2024-11-08 12:10 | disposition home or self-care (01) ==
LOC: EC 09:06
DX: F14.10 Cocaine abuse, uncomplicated (principal); R07.89 Other chest pain; F17.290 Nicotine dependence, other tobacco product, uncomplicated; Z88.0 Allergy status to penicillin; Z88.8 Allergy status to other drugs, medicaments and biological substances
CPT/HCPCS: 36415; 71046; 80053; 84484; 85025; 93005; 99285

== ENCOUNTER 2024-12-18 22:57 | Emergency (ER) | payer OTHER ==
[2024-12-18 23:06] VITALS: BP 154/82; PULSE 144; RESP 28; TEMP 100.4
--- NOTE | 2024-12-18 23:08 | ED ---
General Adult HPI - General Stated complaint: ETOH Time Seen by Provider: 12/18/24 23:04 Source: police Mode of arrival: EMS Limitations: altered mental status - History of Present Illness Initial comments: Dictation was produced using Skip [employer] dictation software. please excuse any gr ammatical, word or spelling errors. Chief Complaint: 34-year-old male with history of illicit drug use presents to the ER for disorderly conduct History of Present Illness: Patient is a 34-year-old male who was outside a bar acting disorderly. Police was called. He was aggressive and combative. He was apprehended by police and brought to the ER. States that he was fighting them when he hit his head prior to coursing him into the vehicle. Patient unable to provide history present illness at this time due to being uncooperative. Police report that patient has a history of acid abuse Unable to obtain ROS secondary mental status - Related Data Home Medications Medication Instructions Recorded Confirmed Pregabalin [Lyrica] 300 mg PO BID 10/06/20 09/06/21 Docusate [Colace] 100 mg PO DAILY PRN 05/15/21 09/06/21 Ibuprofen 200 - 400 mg PO DIRECTED PRN 07/12/21 09/06/21 Methadone Syrup 170 mg PO DAILY 07/12/21 09/06/21 Miralax Powder 1 applicate PO DAILY PRN 09/06/21 09/06/21 Vitadone 3 tab PO DAILY 09/06/21 09/06/21 Previous Rx's Medication Instructions Recorded Ondansetron Odt [Zofran Odt] 4 mg PO Q8HR PRN #10 tab 10/15/21 Famotidine 40 mg PO DAILY #14 tablet 01/08/22 Ibuprofen [Motrin] 600 mg PO Q8HR PRN #20 tab 01/08/22 Doxycycline [Vibramycin] 100 mg PO BID #24 capsule 08/15/23 metroNIDAZOLE [Flagyl] 500 mg PO TID #30 tab 08/15/23 Doxycycline Hyclate 100 mg PO BID 7 Days #14 tab 10/26/24 Emtricitabine/Tenofovir (Tdf) 1 tab PO DAILY #28 tab 10/26/24 [Truvada 200 mg-300 mg Tablet] Raltegravir Potassium [Isentress] 400 mg PO Q12H #56 tab 06/09/25 metroNIDAZOLE [Flagyl] 500 mg PO ONCE 1 Days #4 tab 10/26/24 Allergies Allergy/AdvReac Type Severity Reaction Status Date / Time Penicillins Allergy Unknown Unknown Verified 12/18/24 23:15 Childhood naloxegol [From Movantik] AdvReac abdominal Verified 12/18/24 23:15 pain, started withdrawal symptoms-chills,sweats Review of Systems ROS Statement: Those systems with pertinent positive or pertinent negative responses have been documented in the HPI. ROS Other: All systems not noted in ROS Statement are negative. Past Medical History Past Medical History: Liver Disease, Renal Disease Additional Past Medical History / Comment(s): Hepatitis C, neuropathy, chronic foot pain, left leg pain and drop foot-"palsy", rhabdomyolysis, previous drug abuse, previous suicidal attempt History of Any Multi-Drug Resistant Organisms: MRSA Date of last positivie culture/infection: 02/24/2010 MDRO Source:: left knee Past Surgical History: Orthopedic Surgery Additional Past Surgical History / Comment(s): surgery on left middle finger., nerve block in left leg 01/28/21- "test dose", pin left middle finger, oral surgery Past Anesthesia/Blood Transfusion Reactions: Motion Sickness Past Psychological History: Anxiety, Bipolar, Depression Smoking Status: Current every day smoker Past Alcohol Use History: Abuse Past Drug Use History: Cocaine, IV Drug Use, Marijuana, Methamphetamine, Opiates, Prescription Drug Abuse - Past Family History Father Family Medical History: No Reported History Mother History Unknown: Yes Family Medical History: No Reported History General Exam - General Exam Comments Initial Comments: PHYSICAL EXAM: General Impression: Aggressive behavior, diaphoretic HEENT: 1 cm laceration to the forehead, extra-ocular movements intact, pupils equal and reactive to light bilaterally, mucous membranes moist. Cardiovascular: Heart regular rate and rhythm Chest: Bilateral breath sounds Abdomen: abdomen soft, non-tender, non-distended, no organomegaly Musculoskeletal: Pulses present and equal in all extremities, no peripheral edema Motor: no focal deficits noted Neurological: CN II-XII grossly intact, no focal motor or sensory deficits noted Skin: Intact with no visualized rashes Psych: Combative, uncooperative Limitations: altered mental status Course Vital Signs 12/18/24 23:03 Temperature 100.4 F H Pulse Rate 144 H Respiratory 28 H Rate Blood Pressure 154/82 O2 Sat by Pulse 95 Oximetry - Reevaluation(s) Reevaluation #1: 12/18/24 23:08 Patient acutely aggressive and combative. Patient placed in restraints given sedating medications EKG Findings - EKG Comments: EKG Findings:: My EKG interpretation: Ventricular rate 75, sinus rhythm, ME inte rval 185, QRS 110, QTc 414. No ME prolongation, no QTC prolongation, no ST or T- wave changes noted. Overall, this EKG is unremarkable Procedures - Laceration Laceration #1 Consent Obtained: verbal consent Indication: laceration Site: scalp Description: linear Type of Sutures: other (dermabond) Size of Sutures: other (dermabond) Technique: other Patient Tolerated Procedure: well - Restraint - Face to Face Restraint Occurrence 1 Patient's Immediate Situation: Endangers self safety, Endangers others' safety, Endangers staff safety, Violent behavior Patient's Reaction to the Intervention: Hostile, Belligerent Patient's Medical & Behavioral Condition: Agitated Need to Continue or Terminate Restraint or Seclusion: Continue Face to Face Eval of Restraint Date: 12/18/24 Face to Face Eval of Restraint Time: 22:59 Medical Decision Making - Medical Decision Making Was pt. sent in by a medical professional or institution (, PA, IT TRAINEE, urgent care, hospital, or senior living...) When possible be specific @ -No Did you speak to anyone other than the patient for history (EMS, parent, family, police, friend...)? What history was obtained from this source @ -See above Did you review nursing and triage notes (agree or disagree)? Why? @ -I reviewed and agree with nursing and triage notes Were old charts reviewed (outside hosp., previous admission, EMS record, old EKG, old radiological studies, urgent care reports/EKG's, senior living records)? Report findings @ -No old charts were reviewed Differential Diagnosis (chest pain, altered mental status, abdominal pain women, abdominal pain men, vaginal bleeding, musculoskeletal, weakness, fever, dyspnea, syncope, headache, dizziness, GI bleed, back pain, seizure, CVA, palpatations, mental health)? @ -Differential Mental Health: Depression, anxiety, bipolar, psychosis, schizophrenia, borderline personality, situational depression, adjustment disorder, behavioral disorder, brain tumor, malingering, substance abuse, encephalopathy, medication reaction, dementia, hypothyroidism, degenerative neurologic disorder, lupus.... This is not meant to be all-inclusive list EKG interpreted by me (3pts min.). @ -See above X-rays interpreted by me (1pt min.). @ -None done CT interpreted by me (1pt min.). @ -CT head and C-spine shows no acute processes U/S interpreted by me (1pt. min.). @ -None done What testing was considered but not performed or refused? (CT, X-rays, U/S, labs)? Why? @ -None What meds were considered but not given or refused? Why? @ -None Was smoking cessation discussed for >3mins.? @ -No Were there social determinants of health that impacted care today? How? (Homelessness, low income, unemployed, alcoholism, drug addiction, transportation, low edu. Level, literacy, decrease access to med. care, long-term, rehab)? @ -History of illicit drug use Was there de-escalation of care discussed even if they declined (Discuss DNR or withdrawal of care, Hospice)? DNR status @ -No What co-morbidities impacted this encounter? (DM, HTN, Smoking, COPD, CAD, Cancer, CVA, ARF, Chemo, Hep., AIDS, mental health diagnosis, sleep apnea, morbid obesity)? @ -None Was patient admitted / discharged? Hospital course, mention meds given and route, prescriptions, significant lab abnormalities, going to OR and other pertinent info. @ -34-year-old male presents to the emergency department for disorderly conduct. Brought in by police. Patient required sedated medications initially placed in restraints. Laboratory evaluation obtained. Patient a lactic acidosis of 8.6 serum alcohol 276. CK level of 771. Imaging studies are negat delores. I was notified by nurse that patient left AGAINST MEDICAL ADVICE. Did you discuss the management of the patient with other professionals (professionals i.e. , PA, IT TRAINEE, lab, RT, psych nurse, public health social worker, culinary director, teacher, electorate officer, community case manager)? Give summary @ -No Was critical care preformed (if so, how long)? @ -No Undiagnosed new problem with uncertain prognosis? @ -No Drug Therapy requiring intensive monitoring for toxicity (Heparin, Nitro, Insulin, Cardizem)? @ -No Were any procedures done? @ -No Diagnosis/symptom? Acute, or Chronic, or Acute on Chronic? Uncomplicated (without systemic symptoms) or Complicated (systemic symptoms)? @ -Disorderly conduct Side effects of treatment? @ -No Exacerbation, Progression, or Severe Exacerbation? @ -No Poses a threat to life or bodily function? How? (Chest pain, USA, [place], pneumonia, PE, COPD, DKA, ARF, appy, cholecystitis, CVA, Diverticulitis, Homicidal, Suicidal, threat to staff... and all critical care pts) @ -yes - Lab Data Result diagrams: 12/19/24 00:24 12/19/24 00:24 Lab Results 12/19/24 12/19/24 12/19/24 Range/Units 00:24 00:24 00:24 WBC 15.1 H (3.8-10.6) k/uL RBC 5.29 (4.30-5.90) m/uL Hgb 16.0 (13.0-17.5) gm/dL Hct 46.9 (39.0-53.0) % MCV 88.7 (80.0-100.0) fL MCH 30.2 (25.0-35.0) pg MCHC 34.1 (31.0-37.0) g/dL Plt Count 351 (150-450) k/uL MPV 11.0 Neutrophils % 84 % Lymphocytes % 10 % Monocytes % 4 % Eosinophils % 1 % Basophils % 1 % Neutrophils # 12.7 H (1.3-7.7) k/uL Lymphocytes # 1.5 (1.0-4.8) k/uL Monocytes # 0.6 (0-1.0) k/uL Eosinophils # 0.1 (0-0.7) k/uL Basophils # 0.1 (0-0.2) k/uL Nucleated RBCs # 0 Sodium 146 H (137-145) mmol/L Potassium 3.9 (3.5-5.1) mmol/L Chloride 106 (98-107) mmol/L Carbon Dioxide 16 L (22-30) mmol/L Anion Gap 24 mmol/L BUN 10 (9-20) mg/dL Creatinine 1.10 (0.66-1.25) mg/dL Est GFR (CKD-EPI)AfAm >90 (>60 ml/min/1.73 sqM) Est GFR (CKD-EPI)NonAf 87 (>60 ml/min/1.73 sqM) Glucose 87 (74-99) mg/dL Lactic Ac Sepsis Rflx Plasma Lactic Acid Philip 8.6 H* (0.7-2.0) mmol/L Calcium 9.4 (8.4-10.2) mg/dL Total Bilirubin 0.7 (0.2-1.3) mg/dL AST 81 H (17-59) U/L ALT 22 (4-49) U/L Alkaline Phosphatase 96 (38-126) U/L Creatine Kinase 771 H (55-170) U/L Total Protein 8.7 H (6.3-8.2) g/dL Albumin 5.1 H (3.5-5.0) g/dL Salicylates <1.0 mg/dL Acetaminophen <10.0 ug/mL Serum Alcohol 276 H* mg/dL 12/19/24 Range/Units 02:09 WBC (3.8-10.6) k/uL RBC (4.30-5.90) m/uL Hgb (13.0-17.5) gm/dL Hct (39.0-53.0) % MCV (80.0-100.0) fL MCH (25.0-35.0) pg MCHC (31.0-37.0) g/dL Plt Count (150-450) k/uL MPV Neutrophils % % Lymphocytes % % Monocytes % % Eosinophils % % Basophils % % Neutrophils # (1.3-7.7) k/uL Lymphocytes # (1.0-4.8) k/uL Monocytes # (0-1.0) k/uL Eosinophils # (0-0.7) k/uL Basophils # (0-0.2) k/uL Nucleated RBCs # Sodium (137-145) mmol/L Potassium (3.5-5.1) mmol/L Chloride (98-107) mmol/L Carbon Dioxide (22-30) mmol/L Anion Gap mmol/L BUN (9-20) mg/dL Creatinine (0.66-1.25) mg/dL Est GFR (CKD-EPI)AfAm (>60 ml/min/1.73 sqM) Est GFR (CKD-EPI)NonAf (>60 ml/min/1.73 sqM) Glucose (74-99) mg/dL Lactic Ac Sepsis Rflx Y Plasma Lactic Acid Philip (0.7-2.0) mmol/L Calcium (8.4-10.2) mg/dL Total Bilirubin (0.2-1.3) mg/dL AST (17-59) U/L ALT (4-49) U/L Alkaline Phosphatase (38-126) U/L Creatine Kinase (55-170) U/L Total Protein (6.3-8.2) g/dL Albumin (3.5-5.0) g/dL Salicylates mg/dL Acetaminophen ug/mL Serum Alcohol mg/dL Disposition Clinical Impression: Aggressive behavior Disposition: LEFT AGAINST MEDICAL ADVICE Condition: Undetermined Referrals: None,Stated [Primary Care Provider] - 1-2 days
[2024-12-18] MEDS: diphenhydrAMINE 50 MG/ML 1 ML VIAL IM STA (23:16)
[2024-12-18] MEDS: LORazepam 1 MG/0.5 ML VIAL IM STA (23:16)
[2024-12-18] MEDS: HALOPERIDOL LACTATE 5 MG/ML 1 ML VIAL IM STA (23:16)
--- NOTE | 2024-12-19 01:06 | CT ---
EXAM: CT Head Without Intravenous Contrast CLINICAL HISTORY: ITS.REASON CT Reason: head injury TECHNIQUE: Axial computed tomography images of the head/brain without intravenous contrast. CTDI is 45.3 mGy and DLP is 1128 mGy-cm. This CT exam was performed using one or more of the following dose reduction techniques: automated exposure control, adjustment of the mA and/or kV according to patient size, and/or use of iterative reconstruction technique. COMPARISON: No relevant prior studies available. FINDINGS: Brain: Unremarkable. No hemorrhage. No significant white matter disease. No edema. Ventricles: Unremarkable. No ventriculomegaly. Bones/joints: Unremarkable. No acute fracture. Soft tissues: Unremarkable. Sinuses: Unremarkable as visualized. No acute sinusitis. Mastoid air cells: Unremarkable as visualized. No mastoid effusion. IMPRESSION: Normal head/brain CT. EXAM: CT Cervical Spine Without Intravenous Contrast CLINICAL HISTORY: ITS.REASON CT Reason: head injury TECHNIQUE: Axial computed tomography images of the cervical spine without intravenous contrast. CTDI is 11.3 mGy and DLP is 353.4 mGy-cm. This CT exam was performed using one or more of the following dose reduction techniques: automated exposure control, adjustment of the mA and/or kV according to patient size, and/or use of iterative reconstruction technique. COMPARISON: No relevant prior studies available. FINDINGS: Vertebrae: Unremarkable. No acute fracture. Discs/spinal canal/neural foramina: No acute findings. No spinal canal stenosis. Soft tissues: Unremarkable. IMPRESSION: Normal cervical spine CT.
[2024-12-19 02:10] LABS: HCT 46.9 % (39.0-53.0); HGB 16.0 gm/dL (13.0-17.5); MCH 30.2 pg (25.0-35.0); MCHC 34.1 g/dL (31.0-37.0); MCV 88.7 fL (80.0-100.0); Neutrophils % (A) 84 %; Platelet Count 351 k/uL (150-450); RBC 5.29 m/uL (4.30-5.90); RDW 13.7 % (11.5-15.5); WBC 15.1 k/uL (3.8-10.6)
[2024-12-19 02:11] LABS: Basophils % (A) 1 %; Eosinophils % (A) 1 %; Lymphocytes % (A) 10 %; Monocytes % (A) 4 %; Neutrophils # (A) 12.7 k/uL (1.3-7.7)
[2024-12-19] MEDS: TOPICAL SKIN ADHESIVE 1 EACH AMP TOPICAL ONE (02:11)
[2024-12-19 02:12] LABS: Eosinophils # (A) 0.1 k/uL (0-0.7); Lymphocytes # (A) 1.5 k/uL (1.0-4.8); Monocytes # (A) 0.6 k/uL (0-1.0)
[2024-12-19 02:13] LABS: Basophils # (A) 0.1 k/uL (0-0.2)
[2024-12-19 02:15] LABS: ALT 22 U/L (4-49); AST 81 U/L (17-59); Acetaminophen <10.0 ug/mL; African American GFR (CKD) >90 (>60 ml/min/1.73 sqM); Albumin 5.1 g/dL (3.5-5.0); Alkaline Phosphatase 96 U/L (38-126); Anion Gap 24 mmol/L; Blood Urea Nitrogen 10 mg/dL (9-20); Calcium 9.4 mg/dL (8.4-10.2); Carbon Dioxide 16 mmol/L (22-30); Chloride 106 mmol/L (98-107); Creatine Kinase 771 U/L (55-170); Glucose 87 mg/dL (74-99); Non-African American GFR(CKD) 87 (>60 ml/min/1.73 sqM); Potassium 3.9 mmol/L (3.5-5.1); Salicylate <1.0 mg/dL; Sodium 146 mmol/L (137-145); Total Protein 8.7 g/dL (6.3-8.2)
[2024-12-19] MEDS: DIPH,PERTUS(ACELL)TETVAC-LF 0.5 ML VIAL IM ONE (03:01)
[2024-12-19] MEDS: SODIUM CHLORIDE 0.9% 1,000 ML IV STA (03:05)
== END 2024-12-19 05:07 | disposition left against medical advice (07) ==
LOC: EC 22:57
CPT/HCPCS: 12001; 36415; 70450; 72125; 80053; 80143; 80179; 80320; 82550; 83605; 85025; 90471; 90715; 93005; 96360; 96372; 99284